=== PATIENT | female | born 1960 | race Caucasian/White ===

== ENCOUNTER → 2017-11-16 13:22 | Outpatient (CLI) | payer MEDICAID, SELFPAY ==
[2017-11-16 19:14] LABS: 24 Hour Urine Protein 190.6 mg/24HR (<150 MG/24HR); 24HR. UA Prot. Total Volume 1850 mL; Urine Protein (24 Hour) 10.3 mg/dL (<11.9)
[2017-11-20 20:07] LABS: Albumin, Ur 30.4 % (.); Alpha-1-Globulin, Ur 16.9 % (.); Beta Globulin, Ur 26.8 % (.); Gamma Globulin, Ur 13.3 % (.); M-Spike, Ur % Not Observed % (Not Observed); Protein, 24Ur 196 mg/24 hr (30-150); Testosterone, % Free 1.38 % (0.50-2.80); Testosterone, Free 0.61 ng/dL (0.10-0.85); Testosterone, Total 44 ng/dL (3-41); Total Protein, Ur 10.6 mg/dL (Not Estab.)
[2017-11-22 08:45] LABS: DHEA Sulfate 277.6 ug/dL (29.4-220.5)
[2018-02-19 12:08] LABS: Cortisol, Urinary Free 10 ug/L (Undefined)
[2018-02-19 14:21] LABS: Cortisol, Free 24Ur 16 ug/24 hr (0-50)
== END ==
PROVIDERS: Family Provider Family Medicine; PCP Family Medicine; Visit Provider Family Medicine
DX: E27.8 Other specified disorders of adrenal gland (principal)
CPT/HCPCS: 36415; 81050; 82530; 82533; 82627; 84156; 84166; 84402; 84403; 82626

== ENCOUNTER → 2017-12-09 09:39 | Outpatient (CLI) | payer MEDICAID, SELFPAY ==
--- NOTE | 2017-12-09 09:44 | RAD_ITS ---
STUDY: X-RAY CHEST REASON FOR EXAM: Female, 57 years old. Cough TECHNIQUE: Frontal and lateral views of the chest. COMPARISON: 04/15/2017. FINDINGS: The lungs are clear and expanded. There is no demonstrated pleural abnormality. Normal size heart. Normal mediastinum and davie. Normal visualized pulmonary arteries. Normal visualized aortic arch and descending thoracic aorta. Normal visualized thoracic spine. Normal visualized ribs, clavicles, and shoulders. There is no demonstrated abnormality of the visualized soft tissue structures of the upper abdomen. RAD/Chest PA and Lateral IMPRESSION: No acute cardiopulmonary disease. Electronically Signed: Billy Aquino DO at 23:59 EDT , Service support ,
== END ==
PROVIDERS: Family Provider Family Medicine; PCP Family Medicine; Visit Provider Family Medicine
DX: R11.10 Vomiting, unspecified (principal)
CPT/HCPCS: 71046

== ENCOUNTER → 2018-03-16 10:51 | Outpatient (CLI) | payer MEDICAID, SELFPAY ==
[2018-03-16 12:49] LABS: Absolute Lymphocyte Count 1.24 X10^3/ul (0.83-4.51); Absolute Neutrophil Count 3.1 X10^3/uL (2.0-7.7); Basophil# 0.01 X10^3/uL; Basophil% 0.2 % (0-1); Eosinophil# 0.11 X10^3/uL; Eosinophils% 2.2 % (0-5); Hematocrit 42.5 % (37-47); Hemoglobin 13.6 g/dl (12.0-15.0); Lymphocyte # 1.24 X10^3/ul (4.0); Lymphocyte % 25.4 % (19-41); Mean Corpuscular Hgb 26.9 pg (27.0-32.0); Mean Corpuscular Volume 84.2 fL (81-99); Mean Platelet Vol. 11.6 fl (6.2-12.0); Monocyte# 0.46 X10^3/uL; Monocyte% 9.4 % (0-10); Neutrophil # 3.07 X10^3/uL (2.7-7.7); Neutrophil % 62.8 % (47-70); Platelet Count 233 K/mm3 (150-450); RBC Distribution Width SD 42.8 fl (35.1-43.9); Red Blood Count 5.05 M/mm3 (4.2-5.4); White Blood Count 4.9 K/mm3 (4.4-11.0)
[2018-03-16 12:50] LABS: POSITIVE COUNT NO; POSITIVE DIFFERENTIAL NO; POSITIVE MORPHOLOGY NO
[2018-03-16 13:09] LABS: Hemoglobin A1c 6.4 % (4.2-6.3)
[2018-03-16 13:12] LABS: AST(SGOT) 9 U/L (15-37); Alanine Aminotransfer ALT/SGPT 21 U/L (13-56); Albumin, Serum 3.9 g/dL (3.2-5.0); Alkaline Phosphatase 82 U/L (45-117); Anion Gap 6 (5-15); BUN 17 mg/dL (7-18); BUN/Creat Ratio 19.5 RATIO (10-20); Calcium,Total 9.1 mg/dL (8.5-10.1); Chloride 99 mmol/L (98-107); Creatinine, Serum 0.87 mg/dL (0.55-1.02); EST Glomerular Filtration Rate 71 mL/min (>60); Est Glom Filt Rate - Afr Amer 86 mL/min (>60); Ferritin 31 ng/mL (8-252); Globulin 4.1 g/dL (2.2-4.2); Glucose 126 mg/dL (74-106); Magnesium 2.2 mg/dL (1.6-2.6); Potassium 3.8 mmol/L (3.5-5.1); Sodium Level 135 mmol/L (136-145); Thyroid Stim Hormone (TSH) 1.36 uIU/mL (0.358-3.74)
== END ==
PROVIDERS: Family Provider Family Medicine; PCP Family Medicine; Visit Provider Family Medicine
DX: E11.42 Type 2 diabetes mellitus with diabetic polyneuropathy (principal); D64.9 Anemia, unspecified; R25.2 Cramp and spasm
CPT/HCPCS: 36415; 80053; 82728; 83036; 83735; 84443; 85025

== ENCOUNTER → 2018-04-19 12:52 | Outpatient (CLI) | payer MEDICAID, SELFPAY ==
[2018-04-19 13:53] LABS: Absolute Lymphocyte Count 1.67 X10^3/ul (0.83-4.51); Basophil# 0.03 X10^3/uL; Basophil% 0.6 % (0-1); Eosinophil# 0.15 X10^3/uL; Eosinophils% 2.8 % (0-5); Hematocrit 41.6 % (37-47); Hemoglobin 13.3 g/dl (12.0-15.0); Lymphocyte # 1.67 X10^3/ul (4.0); Lymphocyte % 31.1 % (19-41); Mean Corpuscular Hgb 27.4 pg (27.0-32.0); Mean Corpuscular Volume 85.6 fL (81-99); Mean Platelet Vol. 11.5 fl (6.2-12.0); Monocyte# 0.48 X10^3/uL; Monocyte% 8.9 % (0-10); Neutrophil # 3.03 X10^3/uL (2.7-7.7); Neutrophil % 56.4 % (47-70); Platelet Count 251 K/mm3 (150-450); RBC Distribution Width CV 14.2 % (11.6-14.6); RBC Distribution Width SD 43.2 fl (35.1-43.9); Red Blood Count 4.86 M/mm3 (4.2-5.4); White Blood Count 5.4 K/mm3 (4.4-11.0)
[2018-04-19 13:56] LABS: POSITIVE COUNT NO; POSITIVE DIFFERENTIAL NO; POSITIVE MORPHOLOGY NO
[2018-04-19 14:13] LABS: AST(SGOT) 12 U/L (15-37); Alanine Aminotransfer ALT/SGPT 22 U/L (13-56); Albumin, Serum 3.8 g/dL (3.2-5.0); Alkaline Phosphatase 79 U/L (45-117); Anion Gap 9 (5-15); BUN 14 mg/dL (7-18); BUN/Creat Ratio 15.3 RATIO (10-20); Calcium,Total 9.2 mg/dL (8.5-10.1); Chloride 105 mmol/L (98-107); Creatinine, Serum 0.92 mg/dL (0.55-1.02); EST Glomerular Filtration Rate 67 mL/min (>60); Est Glom Filt Rate - Afr Amer 81 mL/min (>60); Free T3 2.6 pg/mL (2.18-3.98); Globulin 3.8 g/dL (2.2-4.2); Glucose 147 mg/dL (74-106); Potassium 4.1 mmol/L (3.5-5.1); Protein, Total 7.6 g/dL (6.4-8.2); Sodium Level 143 mmol/L (136-145); T4 Free Direct 0.94 ng/dL (0.76-1.46); Thyroid Stim Hormone (TSH) 0.94 uIU/mL (0.358-3.74)
[2018-04-20 16:11] LABS: DHEA Sulfate 307.2 ug/dL (29.4-220.5)
[2018-04-21 11:38] LABS: Adrenocorticotropic Hormone 26.4 pg/mL (7.2-63.3)
== END ==
PROVIDERS: Family Provider Family Medicine; PCP Family Medicine; Visit Provider Family Medicine
DX: E27.8 Other specified disorders of adrenal gland (principal); R68.89 Other general symptoms and signs
CPT/HCPCS: 36415; 80053; 82024; 82627; 84439; 84443; 84481; 85025; 82626

== ENCOUNTER → 2018-09-13 11:12 | Outpatient (CLI) | payer MEDICAID, SELFPAY ==
[2017-05-14 18:01] VITALS: BMI 34.8
[2018-09-13 12:31] LABS: Absolute Lymphocyte Count 1.45 X10^3/ul (0.83-4.51); Absolute Neutrophil Count 3.2 X10^3/uL (2.0-7.7); Basophil# 0.02 X10^3/uL; Basophil% 0.4 % (0-1); Eosinophil# 0.23 X10^3/uL; Eosinophils% 4.3 % (0-5); Hematocrit 41.2 % (37-47); Hemoglobin 13.2 g/dl (12.0-15.0); Lymphocyte # 1.45 X10^3/ul (4.0); Lymphocyte % 27.2 % (19-41); Mean Corpuscular Hgb 27.6 pg (27.0-32.0); Mean Platelet Vol. 11.2 fl (6.2-12.0); Monocyte% 7.5 % (0-10); Neutrophil # 3.23 X10^3/uL (2.7-7.7); Neutrophil % 60.6 % (47-70); Platelet Count 259 K/mm3 (150-450); RBC Distribution Width SD 43.5 fl (35.1-43.9); Red Blood Count 4.79 M/mm3 (4.2-5.4); White Blood Count 5.3 K/mm3 (4.4-11.0)
[2018-09-13 12:34] LABS: POSITIVE COUNT NO; POSITIVE DIFFERENTIAL NO; POSITIVE MORPHOLOGY NO
[2018-09-13 12:42] LABS: Erythrocyte Sedimentation Rate 26 mm/hr (0-30)
[2018-09-13 12:56] LABS: Vitamin D,25 Hydroxy 21.8 ng/mL (29.95-100.01)
[2018-09-13 12:59] LABS: ALB/GLOB Ratio 0.9 RATIO (0.9-2.4); AST(SGOT) 9 U/L (15-37); Alanine Aminotransfer ALT/SGPT 18 U/L (13-56); Albumin, Serum 3.6 g/dL (3.2-5.0); Alkaline Phosphatase 99 U/L (45-117); Anion Gap 11 (5-15); BUN 14 mg/dL (7-18); BUN/Creat Ratio 14.1 RATIO (10-20); CPK Total, Creatine Kinase 49 U/L (26-192); Calcium,Total 9.1 mg/dL (8.5-10.1); Chloride 101 mmol/L (98-107); Creatinine, Serum 0.99 mg/dL (0.55-1.02); EST Glomerular Filtration Rate 61 mL/min (>60); Est Glom Filt Rate - Afr Amer 74 mL/min (>60); Globulin 4.1 g/dL (2.2-4.2); Glucose 199 mg/dL (74-106); Potassium 3.9 mmol/L (3.5-5.1); Protein, Total 7.7 g/dL (6.4-8.2); Rheumatoid Factor < 10.0 IU/mL (<15); Sodium Level 140 mmol/L (136-145); T4 Free Direct 1.05 ng/dL (0.76-1.46)
[2018-09-15 11:59] LABS: ANTINUCLEAR ANTIBODIES DIRECT Negative (Negative)
--- OUTSIDE RECORDS SUMMARY | 2018-12-16 00:35 | XMS RPT_ITS ---
:1960 Author Organization OHIP Care Team Providers Name Role Phone ALISSON BARRERA Attending Unavailable ALISSON BARRERA Referring Unavailable SATURNINO MARION Referring Unavailable ALISSON BARRERA Referring Unavailable Saturnino aMrion Attending Unavailable Saturnino Marion Primary Care Unavailable Saturnino Marion Attending Unavailable Saturnino Marion Primary Care Unavailable Hernando Rodriguez Attending Unavailable Saturnino Marion Primary Care Unavailable Saturnino Marion Attending Unavailable Saturnino Marion Primary Care Unavailable Saturnino Marion Attending Unavailable Saturnino Marion Referring Unavailable Saturnino Marion Primary Care Unavailable PROBLEMS PROBLEMS DATE TYPE CONDITION / CODE ATTENDING STATUS SOURCE 05/25/2018 Active Abnormal weight gain NA Active [facility] / R63.5(ICD-10) [facility] Main [place] Repository 05/25/2018 Active Hirsutism / NA Active [facility] L68.0(ICD-10) [facility] Main [place] Repository 04/19/2018 Unknown E27.8 - Other Saturnino Marion Active [facility] specified disorders Community of adrenal gland / Hospital E27.8(ICD-10) Repository 04/19/2018 Unknown R68.89 - Other Saturnino Marion Active [facility] symptoms [facility] Community signs / Hospital R68.89(ICD-10) Repository 04/19/2018 Unknown 780.99 - Other Saturnino Marion Active [facility] general symptoms / Community 780.99(ICD-9) Hospital Repository 03/16/2018 Unknown E11.42 - Type 2 Saturnino Marion Active [facility] diabetes mellitus Community with diabetic Hospital polyneuropathy / Repository E11.42(ICD-10) 03/16/2018 Unknown D64.9 - Anemia, Saturnino Marion Active [place] unspecified / Community D64.9(ICD-10) Hospital Repository 03/16/2018 Unknown E11.65 - Type 2 Saturnino Marion Active [facility] diabetes mellitus Community with hyperglycemia / Hospital E11.65(ICD-10) Repository PROCEDURES PROCEDURES No Procedure Records FoundRESULTS RESULTS CBC W/DIFF, AUTOMATED Collected: 09/13/2018 Status: F Source: [place] 11:14 AM [facility] REPOSITORY TYPE CODE TESTS RESULT OUT OF RANGE REFERENCE UNITS LAB L100.1000 4.4-11.0 K/mm3 Normal WBC 5.3 LAB L100.1200 4.2-5.4 M/mm3 Normal RBC 4.79 LAB L100.1300 12.0-15.0 g/dl Normal HGB 13.2 LAB L100.1400 37-47 % Normal HCT 41.2 LAB L100.1500 81-99 fL Normal MCV 86.0 LAB L100.1600 27.0-32.0 pg Normal MCH 27.6 LAB L100.1700 32-36 g/gl Normal MCHC 32.0 LAB L100.1810 11.6-14.6 % Normal RDW CV 14.0 LAB L100.1820 35.1-43.9 fl Normal RDW SD 43.5 LAB L100.1900 150-450 K/mm3 Normal PLT 259 LAB L100.2000 6.2-12.0 fl Normal MPV 11.2 LAB L100.2100 47-70 % Normal NEUT% 60.6 LAB L100.2200 19-41 % Normal LY% 27.2 LAB L100.2300 0-10 % Normal MONO% 7.5 LAB L100.2400 0-5 % Normal EO% 4.3 LAB L100.2500 0-1 % Normal BASO% 0.4 LAB L100.2550 0.0-0.9 % Normal IM GRAN % 0.000 Result Comment: IG% - Immature Granulocytes (promyelocytes, myelocytes and metamyelocytes) > 1% indicates that a LEFT SHIFT is Present. LAB L100.2620 2.0-7.7 X10 3/uL Normal Absolute Neut 3.2 LAB L100.2720 0.83-4.51 X10 3/ul Normal Absolute Lymph 1.45 Performed By: #### L100.0100, L101.9900, L506.1000, L500.4050, L501.3620, L501.9520, L505.7010, L506.0400 #### [facility] [address] [place], [address] #### L3100.5475 #### [facility] (refer to report for specific site) refer to report for address and phone number ERYTHROCYTE SED RATE Collected: 09/13/2018 Status: F Source: [place] 11:14 AM [facility] REPOSITORY TYPE CODE TESTS RESULT OUT OF RANGE REFERENCE UNITS LAB L102.0000 0-30 mm/hr Normal SED RATE 26 Performed By: #### L100.0100, L101.9900, L506.1000, L500.4050, L501.3620, L501.9520, L505.7010, L506.0400 #### [facility] [address] [place], [place], [address] #### L3100.5475 #### [facility] (refer to report for specific site) refer to report for address and phone number VITAMIN D,25 HYDROXY Collected: 09/13/2018 Status: F Source: [place] 11:14 AM [facility] REPOSITORY TYPE CODE TESTS RESULT OUT OF REFERENCE UNITS RANGE LAB L506.1000 29.95-100.01 ng/mL Low Vitamin D 21.8 25-OH Result Comment: Vitamin D 25(OH) Status Range Deficiency <20 ng/mL (50nmol/L) Insuffciency 20 - 30 ng/mL (50 - 75 nmol/L) Sufficiency 30 - 100 ng/mL (75 - 250 nmol/L) Toxicity >100 ng/mL (>250 nmol/L) Performed By: #### L100.0100, L101.9900, L506.1000, L500.4050, L501.3620, L501.9520, L505.7010, L506.0400 #### [facility] [address] [place], [address] #### L3100.5475 #### [facility] (refer to report for specific site) refer to report for address and phone number COMPREHENSIVE METABOLIC Collected: 09/13/2018 Status: F Source: [facility] 11:14 AM [facility] REPOSITORY TYPE CODE TESTS RESULT OUT OF RANGE REFERENCE UNITS LAB L501.0100 74-106 mg/dL High GLU 199 Result Comment: Fasting Glucose result greater than or equal to 126 mg/dL suggests DIABETES MELLITUS per A.D.A. criteria. Please note revised GLUCOSE reference range effective 2017. LAB L501.1000 7-18 mg/dL Normal BUN 14 LAB L501.1100 0.55-1.02 mg/dL Normal CREAT,SERUM 0.99 Result Comment: The validity of the calculated GFR AND GFRAA in patients over 70 years has not been determined. Clinical correlation is essential. LAB L501.1110 >60 mL/min Normal EST GFR 61 Result Comment: Non- GFR Calc LAB L501.1115 >60 mL/min Normal EST GFR - AA 74 Result Comment: GFR Calc LAB L501.1300 10-20 RATIO Normal BUN/CRE 14.1 LAB L501.1500 6.4-8.2 g/dL T Normal PROT 7.7 LAB L501.1800 3.2-5.0 g/dL Normal ALB 3.6 LAB L501.1950 2.2-4.2 g/dL Normal GLOB 4.1 LAB L501.2000 0.9-2.4 RATIO Normal A/G 0.9 LAB L501.2200 8.5-10.1 mg/dL CA Normal 9.1 LAB L501.4100 15-37 U/L Low AST 9 LAB L501.4305 45-117 U/L Normal ALK P 99 LAB L501.4405 13-56 U/L Normal ALT 18 LAB L501.4600 0.20-1.00 mg/dL T Normal BILI 0.40 LAB L501.5300 136-145 mmol/L NA Normal 140 LAB L501.5600 3.5-5.1 mmol/L K Normal 3.9 LAB L501.5900 98-107 mmol/L CL Normal 101 LAB L501.6100 21.0-32.0 mmol/L Normal CO2 28.0 LAB L501.6200 5-15 Normal GAP 11 Performed By: #### L100.0100, L101.9900, L506.1000, L500.4050, L501.3620, L501.9520, L505.7010, L506.0400 #### [facility] [address] [place], [place], [id number] #### L3100.5475 #### [facility] (refer to report for specific site) refer to report for address and phone number CPK TOTAL, CREATINE Collected: 09/13/2018 Status: F Source: [place] 11:14 AM [facility] REPOSITORY TYPE CODE TESTS RESULT OUT OF RANGE REFERENCE UNITS LAB L501.3620 26-192 U/L Normal CPK TOTAL 49 Performed By: #### L100.0100, L101.9900, L506.1000, L500.4050, L501.3620, L501.9520, L505.7010, L506.0400 #### [facility] [address] [place] [address], [id number] #### L3100.5475 #### [facility] (refer to report for specific site) refer to report for address and phone number THYROID STIM HORMONE Collected: 09/13/2018 Status: F Source: [place] (TSH) 11:14 AM [facility] REPOSITORY TYPE CODE TESTS RESULT OUT OF RANGE REFERENCE UNITS LAB L501.9520 0.358-3.74 uIU/mL Normal TSH 1.00 Performed By: #### L100.0100, L101.9900, L506.1000, L500.4050, L501.3620, L501.9520, L505.7010, L506.0400 #### [facility] [place], [place], [id number] #### L3100.5475 #### [facility] (refer to report for specific site) refer to report for address and phone number RHEUMATOID FACTOR Collected: 09/13/2018 Status: F Source: [place] 11:14 AM [facility] REPOSITORY TYPE CODE TESTS RESULT OUT OF RANGE REFERENCE UNITS LAB L505.7010 <15 IU/mL Normal RHEUMATOID FAC < 10.0 Performed By: #### L100.0100, L101.9900, L506.1000, L500.4050, L501.3620, L501.9520, L505.7010, L506.0400 #### [facility] [facility] [place], [address] #### L3100.5475 #### [facility] (refer to report for specific site) refer to report for address and phone number T4 FREE DIRECT Collected: 09/13/2018 Status: F Source: [place] 11:14 AM [facility] REPOSITORY TYPE CODE TESTS RESULT OUT OF RANGE REFERENCE UNITS LAB L506.0400 0.76-1.46 ng/dL Normal T4 FREE 1.05 DIRECT Performed By: #### L100.0100, L101.9900, L506.1000, L500.4050, L501.3620, L501.9520, L505.7010, L506.0400 #### [facility] [address] [place] [address]. [place], [address] #### L3100.5475 #### [facility] (refer to report for specific site) refer to report for address and phone number ANTINUCLEAR ANTIBODIES Collected: 09/13/2018 Status: F Source: [place] DIRECT 11:14 AM [facility] REPOSITORY TYPE CODE TESTS RESULT OUT OF RANGE REFERENCE UNITS LAB L3100.5475 Negative Normal Negative KRISTIN-DIRECT Result Comment: Performed at: [facility] [id number] Whiskey Regauger: Tommy Moss PhD, Phone: [phone] Performed By: #### L100.0100, L101.9900, L506.1000, L500.4050, L501.3620, L501.9520, L505.7010, L506.0400 #### [facility] [address] [place], [address] #### L3100.5475 #### [facility] (refer to report for specific site) refer to report for address and phone number POTASSIUM Collected: 06/14/2018 Status: F Source: [place] 12:20 PM [facility] REPOSITORY TYPE CODE TESTS RESULT OUT OF REFERENCE UNITS RANGE LAB K 3.7-5.1 mmol/L Potassium 4.5 Performed By: #### K1 #### [facility] [address] [place], [place] [address] PERIOD / VOLUME Collected: 05/27/2018 Status: F Source: [place] 6:00 AM [facility] REPOSITORY TYPE CODE TESTS RESULT OUT OF REFERENCE UNITS RANGE LAB PER hr Period 24 LAB VOL mL Volume 1852 LAB COLSDT Collection Start 828 Date LAB COLSTM Collection Start 0600 Time LAB COLEDT Collection End 829 Date LAB COLETM Collection End 0600 Time Performed By: #### PV #### [facility] [address] [place], [place] [address] #### UFRCRT #### [facility] [address] [place] [address] [phone] FREE CHRIST, UR Collected: 05/27/2018 Status: F Source: [place] LCMSMS 6:00 AM [facility] REPOSITORY TYPE CODE TESTS RESULT OUT OF REFERENCE UNITS RANGE LAB UCORDL mg/dL UR, Creatinine mg/dL 117 LAB UCORDY 500-1400 mg/d High UR,Creatinine 2167 mg/day LAB UFCUGL ug/L UR [facility] ug/L 10.30 LAB TUCORF hr Collect Lgth, UFRCRT 24 LAB VUCORF mL Total Volume, UFRCRT 1852 LAB UFCUGD <=45.0 ug/d UR [facility] ug/d 19.1 LAB UFCUGG ug/g HEAD CUSTODIAN UR Cortisol ug/g 8.80 adjunct art history instructor Result Comment: (NOTE) Reference Interval: Cortisol ug/g adjunct art history instructor Female Prepubertal: Less than 25 ug/g adjunct art history instructor 18 years and older: Less than 24 ug/g adjunct art history instructor : Less than 59 ug/g adjunct art history instructor Male Prepubertal: Less than 25 ug/g adjunct art history instructor 18 years and older: Less than 32 ug/g adjunct art history instructor LAB UFCINT UR [facility] Interp SEE NOTE Result Comment: (NOTE) INTERPRETIVE INFORMATION: Cortisol Urine Free by LC-MS/MS The optimal specimen for this testing is a 24-hour urine collection. Mass per day calculations are not reported for the following specimen types: a random collection, a collection with duration of less than 20 hours, a collection with duration of greater than 28 hours, or a collection with total volume less than 400 mL or greater than 5000 mL. Ratios to creatinine may be useful for these evaluations. Baseline urinary free cortisol excretion less than 5 ug/d may be consistent with adrenal insufficiency. Access complete set of age- and/or gender-specific reference intervals for this test in the [facility] Test Directory ([facility]). Test developed and characteristics determined by [facility]. See Compliance Statement B: [facility]/CS Performed by [facility], [address] [place] [id number] www.[facility], Obed Riddle MD, Lab. Director Performed By: #### PV #### [facility] [address] [address] #### UFRCRT #### [facility] [address] [place] [address] [phone] CORTISOL, SALIVA Collected: 05/26/2018 Status: F Source: [place] 11:00 PM [facility] REPOSITORY TYPE CODE TESTS RESULT OUT OF REFERENCE UNITS RANGE LAB SCOR ug/dL Cortisol, 0.026 Saliva Result Comment: (NOTE) INTERPRETIVE INFORMATION: Cortisol, Saliva Effective 10/20/2005 For collection at 2300 hr. the normal cortisol concentration is less than 0.112 ug/dL. Patients with Cushings Syndrome have concentrations of 0.112 ug/dL or greater. a.m. (5458-1025) p.m. (noon-1800) Males 2.5-7 years 0.034-0.645 ug/dL 0.053-0.607 ug/dL 8-11 years 0.084-0.839 ug/dL less than 0.215 ug/dL 12-18 years 0.021-0.883 ug/dL less than 0.259 ug/dL 19-30 years 0.112-0.743 ug/dL less than 0.308 ug/dL 31-50 years 0.122-1.551 ug/dL less than 0.359 ug/dL 51 and older 0.112-0.812 ug/dL less than 0.228 ug/dL Females 2.5-7 years 0.034-0.645 ug/dL 0.053-0.607 ug/dL 8-11 years 0.084-0.839 ug/dL less than 0.215 ug/dL 12-18 years 0.021-0.883 ug/dL less than 0.259 ug/dL 19-30 years 0.272-1.348 ug/dL less than 0.359 ug/dL 31-50 years 0.094-1.515 ug/dL less than 0.181 ug/dL 51 and older 0.149-0.739 ug/dL 0.022-0.254 ug/dL Performed by [facility], [address] [place] [id number] www.[facility], Obed Riddle MD, Lab. Director Performed By: #### SCORT #### [facility] [address] [place] [phone] CORTISOL, SALIVA Collected: 05/25/2018 Status: F Source: [place] 11:00 PM [facility] [place] REPOSITORY TYPE CODE TESTS RESULT OUT OF REFERENCE UNITS RANGE LAB SCOR ug/dL Cortisol, 0.050 Saliva Result Comment: (NOTE) INTERPRETIVE INFORMATION: Cortisol, Saliva Effective 10/20/2005 For collection at 2300 hr. the normal cortisol concentration is less than 0.112 ug/dL. Patients with Cushings Syndrome have concentrations of 0.112 ug/dL or greater. a.m. (4497-7422) p.m. (noon-1800) Males 2.5-7 years 0.034-0.645 ug/dL 0.053-0.607 ug/dL 8-11 years 0.084-0.839 ug/dL less than 0.215 ug/dL 12-18 years 0.021-0.883 ug/dL less than 0.259 ug/dL 19-30 years 0.112-0.743 ug/dL less than 0.308 ug/dL 31-50 years 0.122-1.551 ug/dL less than 0.359 ug/dL 51 and older 0.112-0.812 ug/dL less than 0.228 ug/dL Females 2.5-7 years 0.034-0.645 ug/dL 0.053-0.607 ug/dL 8-11 years 0.084-0.839 ug/dL less than 0.215 ug/dL 12-18 years 0.021-0.883 ug/dL less than 0.259 ug/dL 19-30 years 0.272-1.348 ug/dL less than 0.359 ug/dL 31-50 years 0.094-1.515 ug/dL less than 0.181 ug/dL 51 and older 0.149-0.739 ug/dL 0.022-0.254 ug/dL Performed by [facility], [address] [place] [id number] www.[facility], Obed Riddle MD, Lab. Director Performed By: #### SCORT #### [facility] [address] [place] [address] [phone] DHEA-S Collected: 05/25/2018 Status: F Source: [place] 9:33 AM [facility] REPOSITORY TYPE CODE TESTS RESULT OUT OF REFERENCE UNITS RANGE LAB DHEAS 18.9-205.0 ug/dL High DHEA-S 327.8 Result Comment: Reference ranges are age and gender specific. For additional information, reference range tables can be found in the laboratory test directory. The normal values are based on the following source: Dehydroepiandrosterone sulfate (DHEA S) [package insert V 17.0 Greek]. [facility], [place], [place]: April 2013. Performed By: #### DHEAS, TESTO #### [facility] [address] [place], [place] [address] TESTOSTERONE Collected: 05/25/2018 Status: F Source: [place] 9:33 AM [facility] REPOSITORY TYPE CODE TESTS RESULT OUT OF REFERENCE UNITS RANGE LAB TESTO <40 ng/dL Testosterone High 47 Performed By: #### DHEAS, TESTO #### [facility] [address] [place] [id number] PROGRESS Observed: 05/24/2018 Status: COMPLETED Source: [place] 1:08 PM [facility] REPOSITORY HNO ID: [id number] Author: Alisson Barrera Service: (none) Author Type: Physician Type: Progress Notes Filed: 05/24/2018 1:40 PM Note Text: CONSULTING PHYSICIAN: Self My final recommendations will be communicated back to the requesting physician by way of shared Medical record or a letter via U.[place] mail Subjective: Светлана Alfaro is a 57 year old female here to establish care regarding weight gain and adrenal issues Patient reports weight fluctuation for the past 1 year She admits to 75 lbs weight gain during the past few months No changes in diet or physical activity recently No changes in appetite Her diet consists of small portion sizes. Physical activity- walks 1 mile 2-3 days a week Patient was diagnosed with type 2 diabetes few years ago. She was initially on metformin and victoza Prandial Insulin was added 1 year ago She has been on lantus for the past few years Currently on lantus and humalog General symptoms: Weight change: see above +facial acne Menstrual irregularities: post menopause + hirsutism- upper lip and side of the face She shaves every other day No striae PCP checked labs A1c-6.6 TSH and free T3 were normal It seems that DHEA-S and ACTH were ordered but no results were available REVIEW OF SYSTEMS: GENERAL: Fever - No Changes in weight - see above NEUROLOGICAL: Numbness, tingling or sensation of pins and needles - No Headaches-No HEAD, EYES, EARS, NOSE, AND THROAT: Changes in hearing - No Changes in vision - No CARDIOVASCULAR: Chest pain or pressure - No Palpitations - No RESPIRATORY: Cough - No Wheezing - No Shortness of breath - No GASTROINTESTINAL: Abdominal discomfort - No Nausea - No Vomiting - No EXTREMITY: Edema (swelling) - No Claudication-No MUSCULOSKELETAL: Muscle pain or ache - No Arthralgia-No Skin: Rash - No Pruritus-No ENDOCRINE: Diabetes - No Thyroid disorder - No PSYCHOLOGICAL: Depression - No ALLERGIES: ALLERGIES No Known Allergies MEDICATIONS: No current outpatient prescriptions on file prior to visit. No current facility-administered medications on file prior to visit. PAST MEDICAL HISTORY: PAST MEDICAL HISTORY Diagnosis Date - Hypertension - MARITZA (obstructive sleep apnea) - Type 2 diabetes mellitus (HCC) PAST SURGICAL HISTORY: PAST SURGICAL HISTORY Procedure Laterality Date - TUBAL LIGATION HX FAMILY HISTORY: FAMILY HISTORY Problem Relation Age of Onset - other (pre-diabetes) Mother cancer - Diabetes Maternal Grandmother SOCIAL HISTORY: Social History Marital status: Spouse name: Years of education: Number of children: Social History Main Topics Smoking status: Former Smoker Packs/day: 0.00 Years: 0.00 Smokeless tobacco: Never Used Comment: quit 20 years ago Alcohol use: No Drug use: No PHYSICAL EXAM: BP 124/77 (BP Site: Left Arm, BP Position: Sitting, BP Cuff Size: Large Adult) Pulse 94 Ht 168 cm (5' 6.14) Wt 124.3 kg (274 lb) SpO2 96% BMI 44.04 kg/m? Last 3 Encounter Wt Readings: Date: Wt: 05/24/2018 124.3 kg (274 lb) General: Alert and oriented x3, no acute distress, no martin facies -mild acne, no hirsutism since she shave this morning Eyes: Anicteric sclera. Pupils are equally round. Extraocular movements are intact. Mucous membranes moist, no erythema Neck supple, no cervical lymphadenopathy Thyroid: normal size, normal texture, no palpable nodules Lungs: Breathing unlabored, clear to auscultation. No wheezing, rhonchi, rales Heart regular rate and rhythm, no murmer Musculoskeletal: Muscular strength intact, No joint swelling, deformity, or tenderness Neuro: Gait normal. Sensation grossly intact. Normal DTR's at patella Abdomen:Normal abdominal sounds, non tender to palpation, no masses Extremities: without edema, good peripheral pulses Skin: no rashes/ erythema, no striae noted LAB: Reviewed her outside records ASSESSMENT/PLAN: 1) Weight gain 2) Obesity/BMI 44 3) hirsutism 4) diabetes No signs suggestive of arin's syndrome Given the significant weight gain, will check 24 hour UFC Also obtain saliva cortisol level Check DHEA-S and testosterone level Last A1c is 6.6, diabetes is well controlled Diabetes mgmt per PCP I will notify the patient once the labs become available Further mgmt and follow up to be determined based on labs Alisson Barrera MD 05/24/18 CNOV Observed: 05/24/2018 Status: COMPLETED Source: [place] 12:45 PM [facility] [place] REPOSITORY Office Visit (ENDMED) СВЕТЛАНА ALFARO ([id number]) 1960 F Date Time Provider Department 05/24/18 12:45 PM ALISSON BARRERA During your visit today, we recorded the following information about you: Pulse Blood pressure Weight Height 94/minute 124/77 124.3 kg 1.68 m Alisson Barrera MD 05/24/2018 1:40 PM Signed CONSULTING PHYSICIAN: Self My final recommendations will be communicated back to the requesting physician by way of shared Medical record or a letter via U.S mail Subjective: Светлана Alfaro is a 57 year old female here to establish care regarding weight gain and adrenal issues Patient reports weight fluctuation for the past 1 year She admits to 75 lbs weight gain during the past few months No changes in diet or physical activity recently No changes in appetite Her diet consists of small portion sizes. Physical activity- walks 1 mile 2-3 days a week Patient was diagnosed with type 2 diabetes few years ago. She was initially on metformin and victoza Prandial Insulin was added 1 year ago She has been on lantus for the past few years Currently on lantus and humalog General symptoms: Weight change: see above +facial acne Menstrual irregularities: post menopause + hirsutism- upper lip and side of the face She shaves every other day No striae PCP checked labs A1c-6.6 TSH and free T3 were normal It seems that DHEA-S and ACTH were ordered but no results were available REVIEW OF SYSTEMS: GENERAL: Fever - No Changes in weight - see above NEUROLOGICAL: Numbness, tingling or sensation of pins and needles - No Headaches-No HEAD, EYES, EARS, NOSE, AND THROAT: Changes in hearing - No Changes in vision - No CARDIOVASCULAR: Chest pain or pressure - No Palpitations - No RESPIRATORY: Cough - No Wheezing - No Shortness of breath - No GASTROINTESTINAL: Abdominal discomfort - No Nausea - No Vomiting - No EXTREMITY: Edema (swelling) - No Claudication-No MUSCULOSKELETAL: Muscle pain or ache - No Arthralgia-No Skin: Rash - No Pruritus-No ENDOCRINE: Diabetes - No Thyroid disorder - No PSYCHOLOGICAL: Depression - No ALLERGIES: ALLERGIES No Known Allergies MEDICATIONS: No current outpatient prescriptions on file prior to visit. No current facility-administered medications on file prior to visit. PAST MEDICAL HISTORY: PAST MEDICAL HISTORY Diagnosis Date - Hypertension - MARITZA (obstructive sleep apnea) - Type 2 diabetes mellitus (HCC) PAST SURGICAL HISTORY: PAST SURGICAL HISTORY Procedure Laterality Date - TUBAL LIGATION HX FAMILY HISTORY: FAMILY HISTORY Problem Relation Age of Onset - other (pre-diabetes) Mother cancer - Diabetes Maternal Grandmother SOCIAL HISTORY: Social History Marital status: Spouse name: Years of education: Number of children: Social History Main Topics Smoking status: Former Smoker Packs/day: 0.00 Years: 0.00 Smokeless tobacco: Never Used Comment: quit 20 years ago Alcohol use: No Drug use: No PHYSICAL EXAM: BP 124/77 (BP Site: Left Arm, BP Position: Sitting, BP Cuff Size: Large Adult) Pulse 94 Ht 168 cm (5' 6.14) Wt 124.3 kg (274 lb) SpO2 96% BMI 44.04 kg/m? Last 3 Encounter Wt Readings: Date: Wt: 05/24/2018 124.3 kg (274 lb) General: Alert and oriented x3, no acute distress, no martin facies -mild acne, no hirsutism since she shave this morning Eyes: Anicteric sclera. Pupils are equally round. Extraocular movements are intact. Mucous membranes moist, no erythema Neck supple, no cervical lymphadenopathy Thyroid: normal size, normal texture, no palpable nodules Lungs: Breathing unlabored, clear to auscultation. No wheezing, rhonchi, rales Heart regular rate and rhythm, no murmer Musculoskeletal: Muscular strength intact, No joint swelling, deformity, or tenderness Neuro: Gait normal. Sensation grossly intact. Normal DTR's at patella Abdomen:Normal abdominal sounds, non tender to palpation, no masses Extremities: without edema, good peripheral pulses Skin: no rashes/ erythema, no striae noted LAB: Reviewed her outside records ASSESSMENT/PLAN: 1) Weight gain 2) Obesity/BMI 44 3) hirsutism 4) diabetes No signs suggestive of arin's syndrome Given the significant weight gain, will check 24 hour UFC Also obtain saliva cortisol level Check DHEA-S and testosterone level Last A1c is 6.6, diabetes is well controlled Diabetes mgmt per PCP I will notify the patient once the labs become available Further mgmt and follow up to be determined based on labs Alisson Barrera MD 05/24/18 Alisson Barrera MD 05/24/2018 1:22 PM Addendum Get the blood test drawn Then do the saliva collection and 24 hour urine test I will notify you once the labs become available Follow up to be determined based on the blood test Referring Provider: SELF [200] Allergies As of Date: 05/24/2018 (No Known Allergies) Date Reviewed: 05/24/2018 Reviewed by: Alisson Barrera - Fully Assessed Reason for Visit: Consult [173] Primary Visit Diagnosis:Abnormal weight gain [R63.5] Other Visit Diagnoses:Hirsutism [L68.0] Morbid obesity (HCC) [E66.01] Controlled type 2 diabetes mellitus without complication, with long-term current use of insulin (HCC) [E11.9, Z79.4] Order(s):CORTISOL SALIVA [SQSCORT] Order #: [id number] FUTURE FREE CORTISOL 24 HR UR [6982371] Order #: [id number] TESTOSTERONE TOTAL [SQTESTO] Order #: [id number] FUTURE DHEA-S BLD [SQDHEAS] Order #: [id number] FUTURE Prescriptions as of 05/24/2018 Sig: HYDROCHLOROTHIAZIDE 25 MG TAB* Take 25 mg by mouth once monie* AMLODIPINE 10 MG TABLET Take 10 mg by mouth once monie* METFORMIN ORAL Take 1,000 mg by mouth twice * LEVOCETIRIZINE 5 MG TABLET Take 5 mg by mouth once daily. DOXEPIN 50 MG CAPSULE Take 50 mg by mouth daily at * INSULIN GLARGINE (U-100) 100 * Inject 20 Units subcutaneousl* DULOXETINE 30 MG CAPSULE,RIA* Take 30 mg by mouth twice blu* GABAPENTIN 600 MG TABLET Take 600 mg by mouth once blu* HUMALOG KWIKPEN INSULIN SUBCU* Inject subcutaneously once da* PIOGLITAZONE 45 MG TABLET Take 45 mg by mouth once monie* MAGNESIUM OXIDE 400 MG CAPSULE Take 400 mg by mouth twice da* LIRAGLUTIDE 0.6 MG/0.1 ML (18* Inject 1.8 mg subcutaneously * HYDROXYZINE PAMOATE 25 MG CAP* Take 25 mg by mouth as needed. Problem List As Of Date 05/24/2018 Noted Resolved Morbid obesity (HCC) [E66.01] INVALID FOR* Controlled type 2 diabetes mellitus without com*INVALID FOR* Other instructions from your clinician: Get the blood test drawn Then do the saliva collection and 24 hour urine test I will notify you once the labs become available Follow up to be determined based on the blood test Encounter Status:Closed by ALISSON BARRERA DO on 05/24/18 CBC W/DIFF, AUTOMATED Collected: 04/19/2018 Status: F Source: ANNETTE 12:56 PM [facility] REPOSITORY Order Comment: Order Date: 04/19/18 Order Info: 0184-1 - CBCD TYPE CODE TESTS RESULT OUT OF RANGE REFERENCE UNITS LAB L100.1000 4.4-11.0 K/mm3 Normal WBC 5.4 LAB L100.1200 4.2-5.4 M/mm3 Normal RBC 4.86 LAB L100.1300 12.0-15.0 g/dl Normal HGB 13.3 LAB L100.1400 37-47 % Normal HCT 41.6 LAB L100.1500 81-99 fL Normal MCV 85.6 LAB L100.1600 27.0-32.0 pg Normal MCH 27.4 LAB L100.1700 32-36 g/gl Normal MCHC 32.0 LAB L100.1810 11.6-14.6 % Normal RDW CV 14.2 LAB L100.1820 35.1-43.9 fl Normal RDW SD 43.2 LAB L100.1900 150-450 K/mm3 Normal PLT 251 LAB L100.2000 6.2-12.0 fl Normal MPV 11.5 LAB L100.2100 47-70 % Normal NEUT% 56.4 LAB L100.2200 19-41 % Normal LY% 31.1 LAB L100.2300 0-10 % Normal MONO% 8.9 LAB L100.2400 0-5 % Normal EO% 2.8 LAB L100.2500 0-1 % Normal BASO% 0.6 LAB L100.2550 0.0-0.9 % Normal IM GRAN % 0.200 Result Comment: IG% - Immature Granulocytes (promyelocytes, myelocytes and metamyelocytes) > 1% indicates that a LEFT SHIFT is Present. LAB L100.2620 2.0-7.7 X10 3/uL Normal Absolute Neut 3.0 LAB L100.2720 0.83-4.51 X10 3/ul Normal Absolute Lymph 1.67 Performed By: #### L100.0100, L500.4050, L501.99024, L501.9520, L506.0400 #### [facility] [address] [place], [address] #### L3300.1000, L3300.1500 #### [facility] (refer to report for specific site) refer to report for address and phone number COMPREHENSIVE METABOLIC Collected: 04/19/2018 Status: F [facility] REPOSITORY Order Comment: Order Date: 04/19/18 Order Info: 0786-1 - CMP Order Info: 3051-0 - T3F Order Info: 3016-3 - TSH Order Info: 3024-7 - T4F Has Patient had X-rays with Contrast this admission? N TYPE CODE TESTS RESULT OUT OF RANGE REFERENCE UNITS LAB L501.0100 74-106 mg/dL High GLU 147 Result Comment: Fasting Glucose result greater than or equal to 126 mg/dL suggests DIABETES MELLITUS per A.D.A. criteria. Please note revised GLUCOSE reference range effective 2017. LAB L501.1000 7-18 mg/dL Normal BUN 14 LAB L501.1100 0.55-1.02 mg/dL Normal CREAT,SERUM 0.92 Result Comment: The validity of the calculated GFR AND GFRAA in patients over 70 years has not been determined. Clinical correlation is essential. LAB L501.1110 >60 mL/min Normal EST GFR 67 Result Comment: Non- GFR Calc LAB L501.1115 >60 mL/min Normal EST GFR - AA 81 Result Comment: GFR Calc LAB L501.1300 10-20 RATIO Normal BUN/CRE 15.3 LAB L501.1500 6.4-8.2 g/dL T Normal PROT 7.6 LAB L501.1800 3.2-5.0 g/dL Normal ALB 3.8 LAB L501.1950 2.2-4.2 g/dL Normal GLOB 3.8 LAB L501.2000 0.9-2.4 RATIO Normal A/G 1.0 LAB L501.2200 8.5-10.1 mg/dL CA Normal 9.2 LAB L501.4100 15-37 U/L Low AST 12 LAB L501.4305 45-117 U/L Normal ALK P 79 LAB L501.4405 13-56 U/L Normal ALT 22 LAB L501.4600 0.20-1.00 mg/dL T Normal BILI 0.20 LAB L501.5300 136-145 mmol/L NA Normal 143 LAB L501.5600 3.5-5.1 mmol/L K Normal 4.1 LAB L501.5900 98-107 mmol/L CL Normal 105 LAB L501.6100 21.0-32.0 mmol/L Normal CO2 29.0 LAB L501.6200 5-15 Normal GAP 9 Performed By: #### L100.0100, L500.4050, L501.80789, L501.9520, L506.0400 #### [facility] [address] [place], [address] #### L3300.1000, L3300.1500 #### [facility] (refer to report for specific site) refer to report for address and phone number FREE T3 Collected: 04/19/2018 Status: F Source: ROMAY[place] 12:56 PM [facility] REPOSITORY Order Comment: Order Date: 04/19/18 Order Info: 0786-1 - CMP Order Info: 3051-0 - T3F Order Info: 3016-3 - TSH Order Info: 3024-7 - T4F Has Patient had X-rays with Contrast this admission? N TYPE CODE TESTS RESULT OUT OF RANGE REFERENCE UNITS LAB L501.81067 2.18-3.98 pg/mL Normal FREE T3 2.6 Performed By: #### L100.0100, L500.4050, L501.06367, L501.9520, L506.0400 #### [facility] [address] [place], [address] #### L3300.1000, L3300.1500 #### [facility] (refer to report for specific site) refer to report for address and phone number THYROID STIM HORMONE Collected: 04/19/2018 Status: F Source: ANNETTE (TSH) 12:56 PM [facility] REPOSITORY Order Comment: Order Date: 04/19/18 Order Info: 0786-1 - CMP Order Info: 3051-0 - T3F Order Info: 3016-3 - TSH Order Info: 3024-7 - T4F Has Patient had X-rays with Contrast this admission? N TYPE CODE TESTS RESULT OUT OF RANGE REFERENCE UNITS LAB L501.9520 0.358-3.74 uIU/mL Normal TSH 0.94 Performed By: #### L100.0100, L500.4050, L501.91217, L501.9520, L506.0400 #### [facility] [address] [place], [address] #### L3300.1000, L3300.1500 #### [facility] (refer to report for specific site) refer to report for address and phone number T4 FREE DIRECT Collected: 04/19/2018 Status: F Source: ANNETTE 12:56 PM [facility] REPOSITORY Order Comment: Order Date: 04/19/18 Order Info: 0786 - CMP Order Info: 1-0 - T3F Order Info: 3 - TSH Order Info: 7 - T4F Has Patient had X-rays with Contrast this admission? N TYPE CODE TESTS RESULT OUT OF RANGE REFERENCE UNITS LAB L506.0400 0.76-1.46 ng/dL Normal T4 FREE 0.94 DIRECT Performed By: #### L100.0100, L500.4050, L501.73658, L501.9520, L506.0400 #### [facility] [address] [facility] [address] [place], [address] #### L3300.1000, L3300.1500 #### [facility] (refer to report for specific site) refer to report for address and phone number ADRENOCORTICOTROPIC HORMONE Collected: Status: F Source: ANNETTE 04/19/2018 12:56 PM [facility] REPOSITORY Order Comment: Order Date: 04/19/18 Order Info: 2141-0 - ACTH Order Info: 2191-5 - DHEA-S Has Patient had X-rays with Contrast this admission? N Has Patient had Radioactive Injection for X-ray?: N TYPE CODE TESTS RESULT OUT OF RANGE REFERENCE UNITS LAB L3300.1000 7.2-63.3 pg/mL Normal ACTH 4440 26.4 Result Comment: ACTH reference interval for samples collected between 7 and 10 AM. Performed at: [address] [id number] [place] Regauger: Tommy Moss PhD, Phone: [phone] Performed By: #### L100.0100, L500.4050, L501.00235, L501.9520, L506.0400 #### [facility] [address] [place] [address]. [place], [address] #### L3300.1000, L3300.1500 #### [facility] (refer to report for specific site) refer to report for address and phone number DHEA SULFATE Collected: 04/19/2018 Status: F Source: [place] 12:56 PM [facility] REPOSITORY Order Comment: Order Date: 04/19/18 Order Info: 0 - ACTH Order Info: 5 - DHEA-S Has Patient had X-rays with Contrast this admission? N Has Patient had Radioactive Injection for X-ray?: N TYPE CODE TESTS RESULT OUT OF RANGE REFERENCE UNITS LAB L3300.1500 29.4-220.5 ug/dL High DHEA SULF 307.2 4020 Performed By: #### L100.0100, L500.4050, L501.04005, L501.9520, L506.0400 #### [facility] [address] [facility] [place], [address] #### L3300.1000, L3300.1500 #### [facility] (refer to report for specific site) refer to report for address and phone number CBC W/DIFF, AUTOMATED Collected: 03/16/2018 Status: F Source: [place] 10:52 AM [facility] REPOSITORY TYPE CODE TESTS RESULT OUT OF RANGE REFERENCE UNITS LAB L100.1000 4.4-11.0 K/mm3 Normal WBC 4.9 LAB L100.1200 4.2-5.4 M/mm3 Normal RBC 5.05 LAB L100.1300 12.0-15.0 g/dl Normal HGB 13.6 LAB L100.1400 37-47 % Normal HCT 42.5 LAB L100.1500 81-99 fL Normal MCV 84.2 LAB L100.1600 27.0-32.0 pg Low MCH 26.9 LAB L100.1700 32-36 g/gl Normal MCHC 32.0 LAB L100.1810 11.6-14.6 % Normal RDW CV 14.0 LAB L100.1820 35.1-43.9 fl Normal RDW SD 42.8 LAB L100.1900 150-450 K/mm3 Normal PLT 233 LAB L100.2000 6.2-12.0 fl Normal MPV 11.6 LAB L100.2100 47-70 % Normal NEUT% 62.8 LAB L100.2200 19-41 % Normal LY% 25.4 LAB L100.2300 0-10 % Normal MONO% 9.4 LAB L100.2400 0-5 % Normal EO% 2.2 LAB L100.2500 0-1 % Normal BASO% 0.2 LAB L100.2550 0.0-0.9 % Normal IM GRAN % 0.000 Result Comment: IG% - Immature Granulocytes (promyelocytes, myelocytes and metamyelocytes) > 1% indicates that a LEFT SHIFT is Present. LAB L100.2620 2.0-7.7 X10 3/uL Normal Absolute Neut 3.1 LAB L100.2720 0.83-4.51 X10 3/ul Normal Absolute Lymph 1.24 Performed By: #### L100.0100 #### [facility] [address] [place], [place], [address] HEMOGLOBIN A1C Collected: 03/16/2018 Status: F Source: ROM[place] 10:52 AM [facility] REPOSITORY TYPE CODE TESTS RESULT OUT OF RANGE REFERENCE UNITS LAB L501.9985 4.2-6.3 % High HGB A1C 6.4 Performed By: #### L501.9985 #### [facility] [address] [facility] [address] [place], [place], [address] COMPREHENSIVE METABOLIC Collected: 03/16/2018 Status: F Source: ANNETTE [facility] 10:52 AM [facility] REPOSITORY TYPE CODE TESTS RESULT OUT OF RANGE REFERENCE UNITS LAB L501.0100 74-106 mg/dL High GLU 126 Result Comment: Fasting Glucose result greater than or equal to 126 mg/dL suggests DIABETES MELLITUS per A.D.A. criteria. Please note revised GLUCOSE reference range effective 2017. LAB L501.1000 7-18 mg/dL Normal BUN 17 LAB L501.1100 0.55-1.02 mg/dL Normal CREAT,SERUM 0.87 Result Comment: The validity of the calculated GFR AND GFRAA in patients over 70 years has not been determined. Clinical correlation is essential. LAB L501.1110 >60 mL/min Normal EST GFR 71 Result Comment: Non- GFR Calc LAB L501.1115 >60 mL/min Normal EST GFR - AA 86 Result Comment: GFR Calc LAB L501.1300 10-20 RATIO Normal BUN/CRE 19.5 LAB L501.1500 6.4-8.2 g/dL T Normal PROT 8.0 LAB L501.1800 3.2-5.0 g/dL Normal ALB 3.9 LAB L501.1950 2.2-4.2 g/dL Normal GLOB 4.1 LAB L501.2000 0.9-2.4 RATIO Normal A/G 1.0 LAB L501.2200 8.5-10.1 mg/dL CA Normal 9.1 LAB L501.4100 15-37 U/L Low AST 9 LAB L501.4305 45-117 U/L Normal ALK P 82 LAB L501.4405 13-56 U/L Normal ALT 21 LAB L501.4600 0.20-1.00 mg/dL T Normal BILI 0.50 LAB L501.5300 136-145 mmol/L Low NA 135 LAB L501.5600 3.5-5.1 mmol/L K Normal 3.8 LAB L501.5900 98-107 mmol/L CL Normal 99 LAB L501.6100 21.0-32.0 mmol/L Normal CO2 30.0 LAB L501.6200 5-15 Normal GAP 6 Performed By: #### L500.4050, L501.5200, L501.9520, L503.6567 #### [facility] [address] [place], [address] MAGNESIUM Collected: 03/16/2018 Status: F Source: ANNETTE 10:52 AM [facility] REPOSITORY TYPE CODE TESTS RESULT OUT OF RANGE REFERENCE UNITS LAB L501.5200 1.6-2.6 mg/dL Normal MG 2.2 Performed By: #### L500.4050, L501.5200, L501.9520, L503.6550 #### [facility] [address] [place], [address] THYROID STIM HORMONE Collected: 03/16/2018 Status: F Source: ANNETTE (TSH) 10:52 AM [facility] REPOSITORY TYPE CODE TESTS RESULT OUT OF RANGE REFERENCE UNITS LAB L501.9520 0.358-3.74 uIU/mL Normal TSH 1.36 Performed By: #### L500.4050, L501.5200, L501.9520, L503.6550 #### [facility] [place], [address] FERRITIN Collected: 03/16/2018 Status: F Source: ANNETTE 10:52 AM [facility] REPOSITORY TYPE CODE TESTS RESULT OUT OF RANGE REFERENCE UNITS LAB L503.6550 8-252 ng/mL Normal FERRITIN 31 Performed By: #### L500.4050, L501.5200, L501.9520, L503.6550 #### [facility] [address] [facility] [address] [place], [address] CORTISOL, 24 HR UR Collected: 02/15/2018 Status: F Source: ANNETTE FREE 4:30 AM [facility] REPOSITORY TYPE CODE TESTS RESULT OUT OF RANGE REFERENCE UNITS LAB L3600.5500 Undefined ug/L Normal 10 CORTISOL,U FREE LAB L3600.5600 0-50 ug/24 hr Normal 16 CORTISOL,FR U24 Result Comment: This test was developed and its performance characteristics determined by [facility]. It has not been cleared or approved by the Food and Drug Administration. Performed at: [address] [id number] [place] Reg[place]er: Thierno Hilliard MD, Phone: [phone] Performed By: #### L3600.5400 #### [facility] (refer to report for specific site) refer to report for address and phone number CHEST PA AND LATERAL Observed: 12/09/2017 Status: F Source: ANNTETE 9:44 AM [facility] REPOSITORY [facility] [address] [place] [address] Chest PA and Lateral MR#: [id number] Acct: [id number] Name: СВЕТЛАНА ALFARO Rep #: [id number] : 1960 F 57 From: Billy Aquino PCP: Saturnino Marion MD Status: REG CLI Study: Chest PA and Lateral Date of Exam: 12/09/17 Exam# [id number] Ordering Dr: Hernando Rodriguez MD STUDY: X-RAY CHEST REASON FOR EXAM: Female, 57 years old. Cough TECHNIQUE: Frontal and lateral views of the chest. COMPARISON: 04/15/2017. FINDINGS: The lungs are clear and expanded. There is no demonstrated pleural abnormality. Normal size heart. Normal mediastinum and davie. Normal visualized pulmonary arteries. Normal visualized aortic arch and descending thoracic aorta. Normal visualized thoracic spine. Normal visualized ribs, clavicles, and shoulders. There is no demonstrated abnormality of the visualized soft tissue structures of the upper abdomen. RAD/Chest PA and Lateral IMPRESSION: No acute cardiopulmonary disease. Electronically Signed: Billy Aquino DO at 23:59 EDT , Service support , CC: Saturnino Marion MD; Hernando Rodriguez MD Network Support: Signed CORTISOL SERUM Collected: 11/16/2017 Status: F Source: ANNETTE 1:37 PM [facility] REPOSITORY TYPE CODE TESTS RESULT OUT OF RANGE REFERENCE UNITS LAB L509.6000 3.09-22.40 ug/dL Normal CORTISOL 8.60 Result Comment: Adult (AM) 4.30 - 22.40 ug/dL Adult (PM) 3.09 - 16.66 ug/dL Performed By: #### L509.6000 #### [facility] [address] [place], [address] PROTEIN, URINE 24HR Collected: 11/16/2017 Status: F Source: ANNETTE 1:37 PM [facility] REPOSITORY TYPE CODE TESTS RESULT OUT OF RANGE REFERENCE UNITS LAB L501.1850 24.0 HOURS Normal UR COLLECT 24.0 TIME LAB L501.1875 mL Normal UR TOTAL 1850 VOLUME LAB L501.1900 <11.9 mg/dL Normal URINE PROTEIN 10.3 LAB L501.1925 <150 MG/24HR mg/24HR High 24hr UR 190.6 PROTEIN Performed By: #### L500.9000 #### [facility] [address] [place], [address] TESTOSTERONE, TOTAL / Collected: 11/16/2017 Status: F Source: ANNETTE FREE 1:37 PM [facility] REPOSITORY Order Comment: Has Patient had X-rays with Contrast this admission? N Has Patient had Radioactive Injection for X-ray?: N TYPE CODE TESTS RESULT OUT OF RANGE REFERENCE UNITS LAB L3100.5320 3-41 ng/dL High TESTOSTER,TOTAL 44 LAB L3100.5340 0.10-0.85 ng/dL Normal TESTOSTER,FREE 0.61 LAB L3100.5360 0.50-2.80 % Normal TESTOSTER %FREE 1.38 Performed By: #### L3100.5310, L3300.1500, L3600.4050 #### [facility] (refer to report for specific site) refer to report for address and phone number DHEA SULFATE Collected: 11/16/2017 Status: F Source: ANNETTE 1:37 PM [facility] REPOSITORY Order Comment: Has Patient had X-rays with Contrast this admission? N Has Patient had Radioactive Injection for X-ray?: N TYPE CODE TESTS RESULT OUT OF RANGE REFERENCE UNITS LAB L3300.1500 29.4-220.5 ug/dL High DHEA SULF 277.6 4020 Result Comment: Performed at: [facility] [place] [id number] [place] Regauger: Tommy Moss PhD, Phone: [phone] Performed at: [address] [id number] [place] Reg[place]er: Thierno Hilliard MD, Phone: [phone] Performed By: #### L3100.5310, L3300.1500, L3600.4050 #### [facility] (refer to report for specific site) refer to report for address and phone number PROTEIN ELECTRO 24 Collected: 11/16/2017 Status: F Source: ANNETTE HR UR 1:37 PM [facility] REPOSITORY Order Comment: Has Patient had X-rays with Contrast this admission? N Has Patient had Radioactive Injection for X-ray?: N TYPE CODE TESTS RESULT OUT OF RANGE REFERENCE UNITS LAB L3600.4100 Not Estab. mg/dL 10.6 Normal PROTEIN,UR LAB L3600.4150 30-150 mg/24 hr High 196 PROTEIN, U24 LAB L3600.4250 . % 30.4 Normal ALBUMIN,U LAB L3600.4350 . % 16.9 Normal JMMAL-1-VCIK ,U LAB L3600.4450 . % 12.6 Normal KUBMP-4-CWVI ,U LAB L3600.4550 . % 26.8 Normal BETA GLOB,U LAB L3600.4650 . % 13.3 Normal GAMMA GLOB,U LAB L3600.4730 Not Observed % Not Normal M-SPIKE,U Observed % LAB L3600.4750 . Test Normal M-SPIKE,U not performed mg/24 LAB L3600.4770 . Normal PE U Comment INTERP Result Comment: The urine protein electrophoresis pattern reflects the presence of specific higher molecular mass proteins with mild proteinuria. This pattern may be characterized as representing a mild selective glomerular nephropathy indicating increased glomerular permeability. Monoclonal protein is not apparent. LAB L3600.4800 . Normal NOTE Comment Result Comment: Protein electrophoresis scan will follow via computer, mail, or batch freezer delivery. Performed By: #### L3100.5310, L3300.1500, L3600.4050 #### [facility] (refer to report for specific site) refer to report for address and phone number ALLERGIES ALLERGIES DATE TYPE / CODE NAME / CODE REACTION SEVERITY SOURCE 05/14/2017 Drug No Known Unknown [facility] Allergy/416 Allergies/O06654 [facility] 335423(SNOM 0388(RXNORM) Repository ED CT) Drug NO KNOWN [facility] Class/84559 ALLERGIES Main [place] 1003(SNOMED Repository CT) ENCOUNTERS ENCOUNTERS ADMIT/DISCHARGE ACCOUNT ADMITTING ENCOUNTER LOCATION SOURCE NUMBER CLASS 09/13/2018 [id number] [facility] ing:MFPLAB Repository 06/14/2018/06/14/20 [id number] Ambulatory [address] Repository 05/27/2018/05/27/20 [id number] Ambulatory [address] Repository 05/25/2018/05/25/20 [id number] Ambulatory [address] Repository 05/24/2018/05/24/20 [id number] Ambulatory [address] Repository 04/19/2018 [id number] [facility] ing:MTLAB Repository 03/16/2018 [id number] [facility] ing:MFPLAB Repository 12/09/2017 [id number] [facility] ing:MTRAD Repository 11/16/2017 [id number] [facility] ing:MTLAB Repository PAYERS PAYERS ENCOUNTER GUARANTOR PAYER SUBSCRIBER SOURCE 09/13/2018 Светлана Primary Светлана Oshea S [facility] Number: [id number] [address] [id number] [address]Trv: Date:2018-09-13P O [facility] 87[address]ATTN: CLAIMS () [place] [address]NO: 09/13/2018 [facility]:SELF [facility] Number: Effective Repository Date:2018-09-13 04/19/2018 Светлана Primary Светлана Oshea S [facility] Number: [id number] [address] [id number] [place]ository [place] [address]Qxm: Date:2018-04-19[address]ATTN: CLAIMS (HP[place] [address]HF: 04/19/2018 Secondary NOT GIVENUNK [place] Insurance:SELF PAY [facility] Number: Effective Repository Date:2018-04-19 03/16/2018 [facility] Светлана [address] Insurance:CARESOURCEP HamiltonDOB: [facility] Number: [id number], [id number] Repository [place] [address]Wla: Date:2018-03-16[address]ATTN: CLAIMS (HP) [place] [address]JN: 03/16/2018 Secondary NOT GIVENUNK Annette Insurance:SELF PAY [facility] Number: Effective Repository Date:2018-03-16 12/09/2017 [facility] Светлана [address] Insurance:CARESOURCEP HamiltonDOB: [facility] Number: [id number], [id number] [place]ository [place] [address]Yah: Date:2017-12-09[address]ATTN: CLAIMS (HP) [place] [address]OI: 12/09/2017 Secondary NOT GIVENUNK Annette Insurance:SELF PAY [facility] Number: Effective Repository Date:2017-12-09 11/16/2017 [facility] Светлана [address] Insurance:CARESOURCEP HamiltonDOB: [facility] Number: [id number], [id number] [place]ository [place] [address]Epp: Date:2017-11-16[address]ATTN: CLAIMS (HP) [place] [address]AD: 11/16/2017 Secondary NOT GIVENUNK Annette Insurance:SELF PAY [facility] Number: Effective Repository Date:2017-11-16
== END ==
PROVIDERS: Family Provider Family Medicine; PCP Family Medicine; Visit Provider Family Medicine
DX: D64.9 Anemia, unspecified (principal); M79.10 Myalgia, unspecified site; M25.50 Pain in unspecified joint
CPT/HCPCS: 80053; 82306; 82550; 84439; 84443; 85025; 85652; 86038; 86431

== ENCOUNTER → 2018-11-17 07:52 | Outpatient (CLI) | payer MEDICAID, SELFPAY ==
--- NOTE | 2018-11-17 10:55 | NEURO ---
NCS and/or EMG Patient Report Ordering Doctor: Robin Marion DATE OF SERVICE: 11/17/18 This is a bilateral lower extremity nerve conduction study and a right lower extremity EMG performed on this 58-year-old female with paresthesias in her legs worse on the left. There is also a history of back pain and diabetes with her most recent hemoglobin A1c of 11. Bilateral lower extremity sensory and motor nerve conduction studies are performed. The results are diffusely abnormal with absence of the right sural sensory response in the left superficial peroneal sensory response. Left sural sensory amplitude is reduced and the right superficial peroneal amplitude is reduced. The common peroneal and tibial motor conduction velocities are bilaterally reduced with mild to moderate reduction of conduction velocities and mild to moderate prolongation of latencies. F-wave latencies from the above motor nerves are mildly prolonged and H reflex responses from the tibial nerves bilaterally are reduced. Left lower extremity needle electrode mammography is performed. Muscles evaluated included the extensor digitorum brevis, abductor houses, medial gastrocnemius, anterior tibialis, vastus lateralis muscles. All muscles demonstrated absence of pathologic spontaneous activity and absence of pathologic insertional activity. In distal muscles early recruitment with large motor units was noted however this resolved with more proximal muscles. 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
== END ==
PROVIDERS: Family Provider Family Medicine; PCP Family Medicine; Referring Provider Family Medicine; Visit Provider Family Medicine
DX: R20.2 Paresthesia of skin (principal)
CPT/HCPCS: 95886; 95911

== ENCOUNTER 2018-11-20 12:20 | Emergency (ER) | payer MEDICAID, SELFPAY ==
[2018-11-20] VITALS (8 sets, daily range): BP systolic 135–166; BP diastolic 74–105; PULSE 71–100; RESP 14–20; TEMP 36.6–36.8; O2SAT 92–99; BMI 43.5
--- NOTE | 2018-11-20 12:38 | US_ITS ---
STUDY: ABDOMINAL ULTRASOUND - RIGHT UPPER QUADRANT REASON FOR VISIT: Female, 58 years old. Concern for cholelithiasis TECHNIQUE: Ultrasound evaluation of the right upper quadrant was performed with real-time and static miller-scale imaging. TECHNICAL QUALITY: Adequate. COMPARISON: None. FINDINGS: Liver: The liver measures 19 cm. There is indistinct echogenicity of the liver. The bile ducts are within normal limits. There is hepatic color flow. The direction of portal flow is hepatopetal. There is no demonstrated mass lesion. Gallbladder: Normal distended gallbladder. The gallbladder wall measures 3.8 mm. There is a positive sonographic Freeman's sign. There is no pericholecystic fluid. There are multiple echogenic structures within the gallbladder, consistent with multiple gallstones. Common Bile Duct (C.B.D.): The common bile duct measures 6.9 mm. Pancreas: There is normal echogenicity of the visualized pancreas. There is no demonstrated pancreatic mass or cyst. Right Kidney: Normal size of the right kidney. The right kidney measures 11.1 cm. Normal renal cortex. The right cortex measures 1.6 cm. There is no demonstrated renal mass or cyst. There is no right hydronephrosis. US/Gallbladder IMPRESSION: 1. Gallbladder wall thickening with cholelithiasis and positive sonographic Freeman's sign suggestive of cholecystitis. No pericholecystic fluid demonstrated. 2. Borderline dilatation of the CBD but no intrahepatic bile duct dilation. A distal CBD/ampullary obstruction cannot be excluded based on this exam. 3. Mild hepatomegaly. Probable fatty infiltration. Electronically Signed: Alex Zuluaga MD at 14:44 EST , Service support ,
--- NOTE | 2018-11-20 12:38 | EKG12_ITS ---
Test Reason : Blood Pressure : / mmHG Vent. Rate : 096 BPM Atrial Rate : 096 BPM P-R Int : 160 ms QRS Dur : 098 ms QT Int : 388 ms P-R-T Axes : 058 050 049 degrees QTc Int : 490 ms Normal sinus rhythm Prolonged QT Abnormal ECG Confirmed by BONY HARVEY, AXEL ([id number]), video effects editor ROCK FAY ([id number] on 11/23/2018 4:51:20 PM Referred By: Robin Marion Confirmed By:AXEL LOVETT MD
[2018-11-20] MEDS: Morphine 4 MG/ML Syringe IV ×2 (12:54→17:24)
[2018-11-20] MEDS: 0.9% Normal Saline 1,000 ML 1000 ML IV (12:54)
[2018-11-20] MEDS: Ondansetron 4 MG/2 ML Vial IV (12:54)
[2018-11-20 12:55] LABS: Absolute Neutrophil Count 5.8 X10^3/uL (2.0-7.7); Basophil# 0.03 X10^3/uL; Basophil% 0.4 % (0-1); Eosinophil# 0.12 X10^3/uL; Eosinophils% 1.6 % (0-5); Hematocrit 43.8 % (37-47); Hemoglobin 14.1 g/dl (12.0-15.0); Lymphocyte % 14.6 % (19-41); Mean Corp Hgb Conc 32.2 g/gl (32-36); Mean Corpuscular Hgb 27.8 pg (27.0-32.0); Mean Corpuscular Volume 86.2 fL (81-99); Mean Platelet Vol. 11.6 fl (6.2-12.0); Monocyte# 0.51 X10^3/uL; Monocyte% 6.7 % (0-10); Neutrophil # 5.79 X10^3/uL (2.7-7.7); Neutrophil % 76.6 % (47-70); POSITIVE COUNT NO; POSITIVE DIFFERENTIAL NO; POSITIVE MORPHOLOGY NO; Platelet Count 231 K/mm3 (150-450); RBC Distribution Width CV 14.2 % (11.6-14.6); RBC Distribution Width SD 44.3 fl (35.1-43.9); Red Blood Count 5.08 M/mm3 (4.2-5.4); White Blood Count 7.6 K/mm3 (4.4-11.0)
--- NOTE | 2018-11-20 13:16 | ED.VISSUMM ---
- ER Visit Summary Date of Service: 11/20/18 Chief Complaint: Abdominal pain, shortness of breath History of Present Illness: The patient is a 58 F presents to the emergency department with midepigastric abdominal pain in the right upper quadrant. Patient states she had symptoms last night. States he felt like took her breath away. She was mildly nauseated. She states the pain returned again this morning. It is mostly in the gastric area. She has no history of abdominal surgery. She denies any history of cardiac issues. She does have history of hypertension, hyperlipidemia, and [id number] diabetes. She does not smoke. She denies any fevers or chills. She denies any change in bowel habits. Physical Examination: Vital signs reviewed General: Well-nourished, well-developed Head: Normocephalic, atraumatic Eyes: Pupils equal and reactive, extraocular muscles intact Neck, supple, no lymphadenopathy Heart: Regular rate and rhythm Respiratory: No distress, clear bilaterally Abdomen: Soft, nontender, nondistended, no peritoneal signs Back: Nontender Extremities: Nontender, no edema, no cords Skin: Normal color no rash Neuro: Alert and oriented, no focal or lateralizing deficits Test Results: [] Emergency Department Course and Treatment: The patient presents with midepigastric pain into her right upper quadrant. She did have a Freeman sign on examination. She was given analgesics and antiemetics. She did have marked improvement of her symptoms. Her EKG showed no acute ischemic change. Screening labs show normal white count, however the patient does have obstructive pattern of LFTs. She also has evidence of acute pancreatitis. She underwent ultrasound which demonstrates cholelithiasis, but no pericholecystic fluid. There is some dilation with common bile duct. I did discuss the patient with Dr. San. Given the fact that she may have underlying obstruction, she did feel that she would likely be transported to a facility that has a ability for ERCP. I do feel that this is reasonable. The patient was discussed with Sheron long as was her was her request. She will be transferred. Treatment Plan: [] Disposition: Transfer Impression: 1. Cholelithiasis. Choledocholithiasis. 3. Gallstone pancreatitis This note was generated with [employer] software. It may contain incorrect words, spelling, and punctuation that were not noted in review of the chart prior to signing ED Disposition - Plan for ED Patient: Disposition: Home or Assisted Living Referrals: Robin Marion MD [Primary Care Provider] -
[2018-11-20 13:36] LABS: AST(SGOT) 410 U/L (15-37); Alanine Aminotransfer ALT/SGPT 196 U/L (13-56); Albumin, Serum 3.8 g/dL (3.2-5.0); Alkaline Phosphatase 232 U/L (45-117); Anion Gap 9 (5-15); BUN 13 mg/dL (7-18); BUN/Creat Ratio 12.4 RATIO (10-20); Bilirubin, Direct 0.91 mg/dL (0.00-0.30); Calcium,Total 9.1 mg/dL (8.5-10.1); Chloride 100 mmol/L (98-107); Creatinine, Serum 1.05 mg/dL (0.55-1.02); EST Glomerular Filtration Rate 57 mL/min (>60); Est Glom Filt Rate - Afr Amer 69 mL/min (>60); Estimated Creatinine Clearance 54.67 ml/min; Globulin 4.4 g/dL (2.2-4.2); Glucose 201 mg/dL (74-106); Lipase 2277 U/L (73-393); Potassium 3.6 mmol/L (3.5-5.1); Protein, Total 8.2 g/dL (6.4-8.2); Sodium Level 136 mmol/L (136-145)
[2018-11-20 15:14] LABS: Bacteria 0 SEEN /hpf (None Seen); Mucous, Urine 0 SEEN /hpf (<or=2+); Red Blood Cells-Urine 0 SEEN /hpf (0-5); White Blood Cells 0 SEEN /hpf (0-5)
[2018-11-20 15:17] LABS: Color, Urine Yellow (Yellow); Glucose, Dipstick 1000 mg/dl (Normal); Ketone-Dipstick Negative (Negative); Leukocyte Esterase-Dipstick 25 /ul (Negative); Nitrite-Dipstick Negative (Negative); Occult Blood-Urine Negative /ul (Negative); Protein-Dipstick 30 mg/dl (Negative); Specific Gravity, Urine 1.015 (1.002-1.030); Urine Bilirubin Dipstick Negative (Negative); Urine Clarity Sl. Cloudy (Clear); Urine Urobilinogen 8 mg/dl (Normal)
[2018-11-20 15:24] LABS: Squamous Epithelial Cells - UA 0-5 SEEN /hpf (5-10)
--- NOTE | 2018-11-20 17:49 | ED.RN ---
pt voices understanding of md's recommendation to transport by ambulance, insists on driving by private car.
== END 2018-11-20 17:52 | disposition home or self-care (01) ==
LOC: ED 12:56
PROVIDERS: Emergency Provider Emergency Medicine; Family Provider Family Medicine; PCP Family Medicine
DX: K80.70 Calculus of gallbladder and bile duct without cholecystitis without obstruction (principal); K85.90 Acute pancreatitis without necrosis or infection, unspecified; I10 Essential (primary) hypertension; E11.9 Type 2 diabetes mellitus without complications; E78.5 Hyperlipidemia, unspecified; Z79.82 Long term (current) use of aspirin; Z79.84 Long term (current) use of oral hypoglycemic drugs; Z79.899 Other long term (current) drug therapy; Z87.891 Personal history of nicotine dependence
CPT/HCPCS: 76705; 80048; 80076; 81001; 83690; 84484; 85025; 93005; 96361; 96374; 96375; 96376; 99284; J7030; A4216; J2405

== ENCOUNTER 2019-02-14 11:00 | Outpatient (RCR) | payer MEDICAID, SELFPAY ==
[2018-11-20 12:23] VITALS: BMI 43.5
--- NOTE | 2019-01-03 13:55 | HP.PTEVAL_ITS ---
Patient's Visit Information PAULIE ALFARO is a 58 year old F referred to Physical Therapy by Robin Marion MD with a diagnosis of RIGHT ROTATOR CUFF PAIN/SUPRASPINATOUS WEAKNESS. Date of Evaluation: 01/03/19 Physical Therapist: Flo Sorto PT, Cert MDT, OCS - Visit Plan Frequency: 2x /Week Duration: 4 Weeks Plan: Interventions to include modalties for pain releive ,RTC/scapular strengthening,ROM. postural ex's - Subjective Findings: This 58 y/o female presents to physical therapy with right rotator cuff/suprasinatous. Patient has had pain in right shoulder for several months. Seen DR Marion recommended PT. Patient located to lateral deltoid sharp pain ache constant. Patient has limitaions with activities ADL'S,self hygine activeties above 90 degrees.Pain affects sleeping . Occassional parathesia/tingling at night. Patient pain affetcs housework chores.Patient condition affects QOL. SOCIAL: single. VOCATION: unemployed - Pain Right Shoulder Pain Intensity (Out of 10): 5 Pain Intensity Range: 10 Comment: movement 10/10 - Objective POSTURE: mild foward posture,rounded shoulders head foward. PALAPTION: tender AC REGION. NEURO: intract. AROM: shoulder flexion 80 degrees, 80 abduction pain. PROM: shoulder flexion 155,abd 150 ,ER 90 degrees pain at endrange. CAPSULAR : mild tighttness all planes. MMT: suprapinatous 3+/5,infraspinatous 4-/5,subscapularis 4/5,deltoid 3+/5. FUNCTIONAL TEST: SI IR,Behind neck occciput. CERVICAL ROM: min loss all planes NE - Special Tests C/S Radiculapathy - Left Upper limb tension test: Negative C/S Radiculapathy - Right Upper limb tension test: Negative C/S Radiculapathy - Left Spurlings: Negative C/S Radiculapathy - Right Spurlings: Negative C/S Radiculapathy - Left Cervical distraction: Negative C/S Radiculapathy - Right Cervical distraction: Negative R Shoulder External Rotation Lag Test - RC Tear: Negative R Shoulder Supine Impingement Test - RC Tear: Negative R Shoulder Lift Off Test - Subscapular Tear: Negative R Shoulder Drop Sign - IS Test: Negative R Shoulder Empty Can - SS: Negative R Shoulder Neer - Impingement: Positive R Shoulder Zuleta Nikolay - Impingement: Positive - Goals Goal 1:: Independant with HEP. Goal Time Frame: 4-6 Weeks Goal 2:: Decrease right shoulder pian by 50% or greater to improve function ADL'S Goal Time Frame: 4-6 Weeks Goal 3:: Patient to improve AROM right shoulder symmtrical to left to improve function with ADL'S above 90 degrees Goal Time Frame: 4-6 Weeks Goal 4:: Patient to increase strength right shoulder RTC 4/5,deltoid 4-/5 to improve Goal Time Frame: 4-6 Weeks Goal 5:: Patient to improve quick dash by 10 points or greater to improve function Goal Time Frame: 4-6 Weeks - Rehabilitation Potential Physical Therapy Diagnosis: This patient has right shoulder pain with decrease AROM with pain ,strength deficits -RTC,+ RTC signs possible RTC tear ,affects ADL'S and function housework ,self hygine Rehabilitation Potential: Good - Anticipated Interventions Patient/Client Instruction: Educate patient on: Condition, Plan of Care For the Purpose of:: To decrease pain, To increase ROM, To improve muscle performance and motor function, To improve ability to perform ADL's, To increase tolerance to activity/condition/position, To improve performance and independence with ADL's, To improve ability of physical actions for home/commun ity/work/leisure, To improve health of tissue, To decrease soft tissue restriction, To increase flexibility/ROM, To improve ability to perform tasks related to life management Therapeutic Exercise to Include: Strength training, Postural training, Flexibilty training, Active ROM, Scapular Strength/Stabilization Comment: RTC For the Purpose of:: To decrease pain, To increase ROM, To increase tolerance to activity/condition/position, To improve performance and independence with ADL's, To improve ability of physical actions for home/community/work/leisure, To improve health of tissue, To decrease soft tissue restriction, To increase flexibility/ROM, To reduce risk of recurrence, To improve ability to perform tasks related to life management Manual Therapy Techniques to Include: Mobilization Comment: G-H JOINT 2-3 For the Purpose of:: To increase ROM, To improve nutrient delivery to tissue, To increase oxygenation perfusion, To improve health of tissue, To decrease soft tissue restriction, To increase flexibility/ROM TENS: Yes IF ES: Yes Cryotherapy (ice pack, ice massage): Yes Thermo therapy (hot pack): Yes Ultrasound (thermal/non thermal): Yes For the Purpose of:: To decrease pain, To decrease swelling/inflammation, To improve health of tissue, To decrease soft tissue restriction Thank you for the opportunity to evaluate your patient. For Medicare and Medicare HMO plans, please review the plan of care and approve it. It will need to be FAXED BACK to us at [phone] for Medicare purposes. For Medicare only, by signing this I certify the plan of care. Please let me know if there are questions or concerns regarding this plan of care. Physician Signature: Date:
--- NOTE | 2019-02-14 11:52 | HP.PTDCSUM_ITS ---
HP - PT D/C Summary It has been my pleasure to treat PAULIE ALFARO under orders from Robin Marion MD, for the diagnosis of RIGHT ROTATOR CUFF PAIN/SUPRASPINATOUS WEAKNESS for a total of 6 visit(s). Discharge Date: 02/14/19 Please see the following information for a summary of their discharge status. - Subjective Subjective: Doing good abld to do most ADL'S no pin - Pain Right Shoulder Pain Intensity (Out of 10): 0 - Overall Improvement % Improvement: 75 - Objective Objective/Function: POSTURE: rounded shoulders head foward. NEURO: intact. AROM: flexion shoulder 150 degrees,abd 150 degrees,ER 90 degrees. MMT: RTC 4/5,DELTOID 4-/5 - Goals Goal 1:: Independant with HEP. Goal Progress: Goal Met Goal 2:: Decrease right shoulder pian by 50% or greater to improve function ADL'S Goal Progress: Goal Met Goal 3:: Patient to improve AROM right shoulder symmtrical to left to improve function with ADL'S above 90 degrees Goal Progress: Goal Met Goal 4:: Patient to increase strength right shoulder RTC 4/5,deltoid 4-/5 to improve Goal Progress: Goal Met Goal 5:: Patient to improve quick dash by 10 points or greater to improve fun ction Goal Progress: Goal Met - Plan Plan: D/C TO HEP - D/C Information Discharge Comments: HEP If there are questions or concerns regarding this patient's physical therapy, please feel free to call me at [phone]. Thank you for the referral of this patient. Sincerely, Flo Sorto, PT, Cert MDT, OCS
== END 2019-02-14 19:00 | disposition home or self-care (01) ==
LOC: PT 11:00
PROVIDERS: Family Provider Family Medicine; PCP Family Medicine; Referring Provider Family Medicine; Visit Provider Family Medicine
DX: M25.511 Pain in right shoulder (principal); R29.898 Other symptoms and signs involving the musculoskeletal system
CPT/HCPCS: 97014; 97035; 97110; 97162; 97530; G0283

== ENCOUNTER → 2019-03-09 | Outpatient (CLI) | payer MEDICAID, SELFPAY ==
[2018-11-20 12:23] VITALS: BMI 43.5
[2019-03-15 15:29] LABS: HPV HC, High Risk Negative (Negative)
== END | disposition home or self-care (01) ==
LOC: LABSPEC 15:44
PROVIDERS: Visit Provider Obstetrics & Gynecology
DX: Z12.4 Encounter for screening for malignant neoplasm of cervix (principal)
CPT/HCPCS: 87624; 88175; G0145

== ENCOUNTER → 2019-03-14 | Outpatient (CLI) | payer MEDICAID, SELFPAY ==
[2018-11-20 12:23] VITALS: BMI 43.5
--- NOTE | 2019-03-14 08:46 | BI_ITS ---
MAMMOGRAPHY - BILATERAL SCREENING REASON FOR EXAM: Female, 58 years old. Routine annual screening examination. PERTINENT HISTORY: Non-contributory. TECHNIQUE: Digital bilateral breast delaney (3D mammographic acquisition) in the CC and MLO projections. 2-D mediolateral oblique (MLO) and craniocaudad (CC) views of both breasts were obtained. Exaggerated craniocaudad views of both breasts were obtained as well. CAD: Full Field Digital Mammography with Computer Added Detection was performed. COMPARISON: Comparison is made with prior examination dated September 17, 2015 and March 13, 2014. FINDINGS: Breast Composition: The breasts are heterogeneously dense, which may obscure small masses. There are no dominant masses or suspicious calcifications. No other significant abnormalities are identified. There has been no significant change since the prior study. BI/SCREEN MAMM (CAD) W/DELANEY BILAT IMPRESSION: Stable bilateral screening mammogram. Yearly follow-up mammogram recommended. (A) ASSESSMENT CATEGORY: BIRADS Category 1: Negative. A letter regarding these results will be sent to the patient by the facility within 30 days. Approximately 10% of breast cancers are not detected by mammography. A normal mammogram should not delay biopsy of a clinically suspicious abnormality. [id number] Electronically Signed: Chiki Thorne, at 10:16 EDT , Service support ,
== END | disposition home or self-care (01) ==
LOC: OPBI 08:43
PROVIDERS: Family Provider Family Medicine; PCP Family Medicine; Referring Provider Obstetrics & Gynecology; Visit Provider Obstetrics & Gynecology
DX: Z12.31 Encounter for screening mammogram for malignant neoplasm of breast (principal)
CPT/HCPCS: 77063; 77067

== ENCOUNTER 2019-05-16 14:43 | Emergency (ER) | payer MEDICAID, SELFPAY ==
[2018-11-20 12:23] VITALS: BMI 43.5
[2019-05-16 14:44] VITALS: BP 147/97; PULSE 99; RESP 16; TEMP 36.8; O2SAT 99; BMI 45.6
--- NOTE | 2019-05-16 14:57 | RAD_ITS ---
STUDY: X-RAY - LEFT KNEE REASON FOR EXAM: Female, 58 years old. Injury 3 days ago due to fall TECHNIQUE: 4 view(s) of the knee. COMPARISON: None. FINDINGS: Small joint effusion. Moderate tricompartmental osteoarthritis. No acute displaced fracture, or traumatic subluxation based on current assessment. The soft tissue structures are unremarkable. No evidence of radiopaque foreign body. RAD/Knee 4 or More Views IMPRESSION: Moderate osteoarthritis. No acute displaced fracture, or traumatic subluxation based on current assessment.. Small joint effusion Electronically Signed: Deion Simpson MD at 15:32 EDT Tel [phone], Service support ,
--- NOTE | 2019-05-16 14:58 | ED.VIS.LOWEX ---
History of Present Illness Chief Complaint: Lower Extremity Injury Informant: Patient Occurred: Days Onset: Days Context: Sudden Onset Timing: Continuous Quality of Pain: Dull, Aching Current Severity: Mild Maximum Severity: Severe Worsened by: Weightbearing and extension Relieved by: Sitting Associated Symptoms: Negative for: Parasthesia, Weakness Narrative: Patient is a 58-year-old woman who had a near fall. She twisted her left knee. She denies direct trauma. She states she has significant pain with weightbearing. She has difficulty weightbearing. She denies paresthesia, anesthesia buttocks. She has no history of gout, pseudogout or prior injury to the knee. She denies fever, chills or night sweats. Prior similar symptoms: No Recent Illness/Hospitalization: No - Past Medical History (1) No significant past medical history Status: Acute Past Medical History - Allergies and Home Meds Allergies/Adverse Reactions: Allergies No Known Allergies Allergy (Verified 05/16/19 14:44) Primary Care Physician: Robin Marion MD [Primary Care Provider] - Prior records reviewed: No Lives: With Family Smoking Status: Former smoker Alcohol: None Drugs: None Review of Systems General: Denies: Chills, Fever, Malaise, Subjective, Sweats, Weight loss Gastrointestinal: Denies: Nausea, Vomiting Musculoskeletal: Reports: Swelling, Extremity Pain. Denies: Myalgias, Arthralgias, Neck pain, Back pain Skin: Denies: Rash, Abscess, Abrasions, Wounds Neurological: Denies: Weakness, Parasthesia, Numbness Endocrine: Denies: Polyuria, Polydipsia Hematologic: Denies: Easy bruising, Easy bleeding Allergy: Denies: Uticaria, Swelling of the mouth, Swelling of the tongue Physical Exam Vital Signs/Narrative: Vital Signs Temp Pulse Resp BP Pulse Ox 05/16/19 14:44 98.2 F 99 16 147/97 H 99 - Extremity Exam Left Pelvis: Negative for: Abrasion, Contusion, Deformity, Edema, Hematoma, Limited ROM, - Left Hip: Negative for: Abrasion, Contusion, Deformity, Edema, Hematoma, Limited ROM, - Left Femur: Negative for: Abrasion, Contusion, Deformity, Edema, Hematoma, Limited ROM, - Left Knee: Limited ROM - She is able to extend 170 degrees and flex to 100 degrees. There is no effusion. Patella is not ballotable. There is discomfort with varus and valgus stress testing. There is no laxity. Sohail's test was negative. Modified Renetta's test caused lateral joint line tenderness. No click was appreciated. She also complained of pain in the popliteal fossa laterally.. Negative for: Abrasion, Contusion, Deformity, Edema, Hematoma Left Tib Fib: Negative for: Abrasion, Contusion, Deformity, Edema, Hematoma, Limited ROM, - Left Ankle: Negative for: Abrasion, Contusion, Deformity, Edema, Hematoma, Limited ROM, - Left Foot: Negative for: Abrasion, Contusion, Deformity, Edema, Hematoma, Limited ROM, - - DP and PT pulses are palpable. Diagnostic/Tx/Re-eval Chest X-Ray - ED: Read by ED Physician, - - Review x-ray of the left knee was obtained by me as negative for fracture, foreign body, free-floating body. There is asymmetry of the joint. There is no calcification of the arterial system noted. - Medical Decision Making X-ray of the knee was obtained to determine if there is any fracture or pull off fracture specifically. Suspect patient has a meniscus injury. She has not seen an orthopedic surgeon in the past. Therefore, she was referred to Dr. Chalo Jackson. ED Disposition - Plan for ED Patient: Disposition: Home or Assisted Living Diagnosis: Traumatic joint effusion, Tear of lateral meniscus of left knee Instructions: KNEE PAIN, Meniscus Injury (Possible) Prescriptions: Hydrocodone Bitart/Apap 5-325 [Cascade 5MG-325MG] 1 tablet PO Q6H PRN PRN 3 Days #10 tablet PRN Reason: Pain Transmission Status: Sent to [facility] Referrals: Robin Marion MD [Primary Care Provider] - Srinivas Jackson MD [STAFF PHYSICIAN] - 5-7 Days Additional Instructions: Your prescription was electronically transmitted to [facility] on [facility].
[2019-05-16] MEDS: Naproxen 500 MG Tablet PO (15:19)
[2019-05-16] MEDS: HYDROcodone Bitartrate/Apap 5/325 Tablet PO (15:19)
[2019-05-16 15:30] VITALS: RESP 18
== END 2019-05-16 15:31 | disposition home or self-care (01) ==
PROVIDERS: Emergency Provider Emergency Medicine; Family Provider Family Medicine; PCP Family Medicine
DX: M25.462 Effusion, left knee (principal); S83.282A Other tear of lateral meniscus, current injury, left knee, initial encounter; Z87.891 Personal history of nicotine dependence; X50.1XXA Overexertion from prolonged static or awkward postures, initial encounter; Y93.89 Activity, other specified; Y92.89 Other specified places as the place of occurrence of the external cause; Y99.8 Other external cause status
CPT/HCPCS: 73564; 99283

== ENCOUNTER 2019-07-01 12:00 | Outpatient (RCR) | payer MEDICAID, SELFPAY ==
--- NOTE | 2019-06-20 11:57 | HP.PTEVAL ---
Patient's Visit Information PAULIE ALFARO is a 58 year old F referred to Physical Therapy by Vincenzo Edwards MD with a diagnosis of L knee pain. Date of Evaluation: 06/20/19 Physical Therapist: Gopal Bobby PT, ATC - Visit Plan Frequency: 2x /Week Duration: 4 Weeks Plan: L LE stretching, balance and proprioception ex's, core stab ex's, nustep, and HEP. - Subjective Findings: Not sure of mechanism of injury; lost balance and put foot down; stood up and had severe pain. Went to docs 2 weeks ago. Hurts on alt side, post knee; started walking by 5th week w/ cane; started walking w/ cane on 6th week. Walking w/ limp as of today; swelling present @ knee. Pain sometimes wakes pt. up during sleep. Pain @ rest: 3 or 4/10; Pain @ worst: 7,8/10. Given meds for pain. X-ray- meniscus tear. Not working currently. Cannot stand on knee very long due to pain; kneeling is hard; putting pressure o knee to get into bed hurts knee. Walking up steps (one foot at a time). Going down niormally hurts knee. - Pain L knee Pain Intensity (Out of 10): 4 Pain Intensity Range: 8 - Objective Neuro: B LE sensation is WNL to light touch. B achilles reflex= 1/3. Palpation: pain along B joint line of L knee. No obvious welling or deformity. Minor crepitus with AROM. Girth at joint line: R knee 46 cm, L knee 44 cm. ROM: L knee 0-8-97; R knee 0-5-120. MMT: L knee is 4-/5 throughout. R LE 4+/5 throughout. Special testing: postiive apley comression test and pain with mcmurrays - Goals Goal 1:: Decrease L knee pain x 50% to aid with sleep Goal Time Frame: 4-6 Weeks Goal 2:: Increase L knee ROM x 20 degrees to aid with squatting Goal Time Frame: 4-6 Weeks Goal 3:: Increase L knee strength x 1 grade to aid with stair negotiation Goal Time Frame: 4-6 Weeks Goal 4:: I with HEP Goal Time Frame: 4-6 Weeks - Rehabilitation Potential Physical Therapy Diagnosis: L knee pain, weakness, and decreased ROM secondary to possible meniscus tear. Rehabilitation Potential: Good - Anticipated Interventions Patient/Client Instruction: Educate patient on: Condition, Plan of Care For the Purpose of:: To improve self management Therapeutic Exercise to Include: Strength training, Endurance training, Balance training, Flexibilty training, Active ROM, Dynamic Lumbar Stabilization For the Purpose of:: To decrease pain, To increase ROM, To improve muscle performance and motor function Cryotherapy (ice pack, ice massage): Yes For the Purpose of:: To decrease pain Thank you for the opportunity to evaluate your patient. For Medicare and Medicare HMO plans, please review the plan of care and approve it. It will need to be FAXED BACK to us at [phone] for Medicare purposes. For Medicare only, by signing this I certify the plan of care. Please let me know if there are questions or concerns regarding this plan of care. Physician Signature: Date:
--- NOTE | 2019-08-17 08:24 | HP.PT.NRP ---
HP - Discharge Summary (1) - Patient Information PAULIE ALFARO was seen in my office for initial evaluation on 06/20/19. The following Plan of Care was established for this patient: Initial Frequency: 2x /Week Initial Duration: 4 Weeks - Anticipated Interventions Patient/Client Instruction: Educate patient on: Condition, Plan of Care For the Purpose of:: To improve self management Therapeutic Exercise to Include: Strength training, Endurance training, Balance training, Flexibilty training, Active ROM, Dynamic Lumbar Stabilization For the Purpose of:: To decrease pain, To increase ROM, To improve muscle performance and motor function Cryotherapy (ice pack, ice massage): Yes For the Purpose of:: To decrease pain This patient was last seen in our office . Pertinent comments regarding their Physical therapy will appear below: Pt was treated for 4 PT visits through the date of 07/01/19. Pt has not returned through todays date, and is therefore discontinued at this time. At this point I will be discontinuing this patient from physical therapy. I would be happy to see this patient again in the future if found appropriate by the physician. Thank you! Gopal Bobby, PT, ATC
== END 2019-07-01 19:00 | disposition home or self-care (01) ==
LOC: PT 12:00
PROVIDERS: Family Provider Family Medicine; PCP Family Medicine; Visit Provider Family Medicine
DX: M25.562 Pain in left knee (principal)
CPT/HCPCS: 97110; 97161

== ENCOUNTER → 2019-08-03 | Outpatient (CLI) | payer MEDICAID, SELFPAY ==
[2019-08-03 15:28] LABS: Absolute Neutrophil Count 5.5 X10^3/uL (2.0-7.7); Basophil# 0.03 X10^3/uL; Basophil% 0.4 % (0-1); Eosinophils% 1.4 % (0-5); Hematocrit 43.5 % (37-47); Hemoglobin 13.7 g/dL (12.0-15.0); Mean Corp Hgb Conc 31.5 g/dL (32-36); Mean Corpuscular Hgb 28.1 pg (27.0-32.0); Mean Corpuscular Volume 89.3 fL (81-99); Mean Platelet Vol. 11.8 fl (6.2-12.0); Monocyte# 0.51 X10^3/uL; Monocyte% 7.1 % (0-10); NRBC Flagged by Analyzer 0 % (0-5); Neutrophil % 76.8 % (47-70); Platelet Count 216 K/mm3 (150-450); RBC Distribution Width CV 13.7 % (11.6-14.6); Red Blood Count 4.87 M/mm3 (4.2-5.4); White Blood Count 7.2 K/mm3 (4.4-11.0)
[2019-08-03 15:50] LABS: Hemoglobin A1c 10.9 % (4.2-6.3)
[2019-08-03 16:30] LABS: ALB/GLOB Ratio 0.8 RATIO (0.9-2.4); AST(SGOT) 7 U/L (15-37); Alanine Aminotransfer ALT/SGPT 18 U/L (13-56); Albumin, Serum 3.4 g/dL (3.2-5.0); Alkaline Phosphatase 128 U/L (45-117); Anion Gap 10 (5-15); BUN 12 mg/dL (7-18); BUN/Creat Ratio 9.2 RATIO (10-20); Calcium,Total 8.7 mg/dL (8.5-10.1); Chloride 100 mmol/L (98-107); EST Glomerular Filtration Rate 45 mL/min (>60); Est Glom Filt Rate - Afr Amer 54 mL/min (>60); Globulin 4.3 g/dL (2.2-4.2); Glucose 381 mg/dL (74-106); Protein, Total 7.7 g/dL (6.4-8.2); Sodium Level 138 mmol/L (136-145); Thyroid Stim Hormone (TSH) 0.96 uIU/mL (0.358-3.74)
== END | disposition home or self-care (01) ==
LOC: MFPLAB 14:34
PROVIDERS: Family Provider Family Medicine; PCP Family Medicine; Referring Provider Family Medicine; Visit Provider Family Medicine
DX: N39.0 Urinary tract infection, site not specified (principal); E11.65 Type 2 diabetes mellitus with hyperglycemia; R53.81 Other malaise
CPT/HCPCS: 36415; 80053; 83036; 84443; 85025; 86140; 87077; 87086; 87088; 87186

== ENCOUNTER → 2019-09-05 10:22 | Outpatient (CLI) | payer MEDICAID, SELFPAY ==
[2019-09-05 10:32] LABS: Lyme Ab Screen Interpretation REF LAB
[2019-09-05 12:23] LABS: Absolute Lymphocyte Count 1.56 X10^3/uL (0.83-4.51); Absolute Neutrophil Count 2.4 X10^3/uL (2.0-7.7); Basophil# 0.03 X10^3/uL; Basophil% 0.7 % (0-1); Eosinophil# 0.12 X10^3/uL; Eosinophils% 2.7 % (0-5); Hematocrit 42.4 % (37-47); Hemoglobin 13.3 g/dL (12.0-15.0); Lymphocyte # 1.56 X10^3/ul (4.0); Lymphocyte % 34.7 % (19-41); Mean Corp Hgb Conc 31.4 g/dL (32-36); Mean Corpuscular Volume 89.3 fL (81-99); Mean Platelet Vol. 12.2 fl (6.2-12.0); Monocyte# 0.42 X10^3/uL; Monocyte% 9.4 % (0-10); NRBC Flagged by Analyzer 0 % (0-5); Neutrophil # 2.35 X10^3/uL (2.7-7.7); Neutrophil % 52.3 % (47-70); Platelet Count 194 K/mm3 (150-450); RBC Distribution Width CV 13.7 % (11.6-14.6); RBC Distribution Width SD 45.1 fl (35.1-43.9); Red Blood Count 4.75 M/mm3 (4.2-5.4); White Blood Count 4.5 K/mm3 (4.4-11.0)
[2019-09-05 12:24] LABS: Erythrocyte Sedimentation Rate 12 mm/hr (0-30)
[2019-09-05 12:43] LABS: AST(SGOT) 9 U/L (15-37); Alanine Aminotransfer ALT/SGPT 20 U/L (13-56); Albumin, Serum 3.6 g/dL (3.2-5.0); Alkaline Phosphatase 101 U/L (45-117); Anion Gap 4 (5-15); BUN 12 mg/dL (7-18); BUN/Creat Ratio 12.7 RATIO (10-20); CRP 7.76 mg/L (0.0-3.0); Chloride 104 mmol/L (98-107); Creatinine, Serum 0.94 mg/dL (0.55-1.02); EST Glomerular Filtration Rate 64 mL/min (>60); Est Glom Filt Rate - Afr Amer 78 mL/min (>60); Globulin 3.6 g/dL (2.2-4.2); Glucose 300 mg/dL (74-106); Hemoglobin A1c 11.1 % (4.2-6.3); Potassium 4.1 mmol/L (3.5-5.1); Protein, Total 7.2 g/dL (6.4-8.2); Rheumatoid Factor < 10.0 IU/mL (<15); Sodium Level 138 mmol/L (136-145); Thyroid Stim Hormone (TSH) 1.05 uIU/mL (0.358-3.74)
[2019-09-05 12:45] LABS: Vitamin D,25 Hydroxy 26.5 ng/mL (29.95-100.01)
[2019-09-06 14:08] LABS: Anti-Centromere B Ab <0.2 AI (0.0-0.9); Anti-Chromatin <0.2 AI (0.0-0.9); Anti-Jo <0.2 AI (0.0-0.9); Anti-Scleroderma-70 AB <0.2 AI (0.0-0.9); Anti-ribosomal P Antibodies <0.2 AI (0.0-0.9); RNP Ab 0.2 AI (0.0-0.9); SJOGREN'S Anti-SS-A test < 0.2 AI (0.0-0.9); SJOGREN'S Anti-SS-B test < 0.2 AI (0.0-0.9); Smith Ab <0.2 AI (0.0-0.9); Smith/RNP Ab <0.2 AI (0.0-0.9)
[2019-09-06 15:26] LABS: Anti-dsDNA Ab 1 IU/mL (0-9)
[2019-09-07 03:06] LABS: Endomysial Antibody IgA Negative (Negative); Immunoglobulin A 420 mg/dL (87-352)
[2019-09-07 09:53] LABS: CCP IgG Antibodies 8 units (0-19); Lyme Scn Total Ab w/Rflx <0.91 ISR (0.00-0.90); t-Transglutaminase IgA <2 U/mL (0-3)
== END ==
PROVIDERS: Family Provider Family Medicine; PCP Family Medicine; Visit Provider Family Medicine
DX: E55.9 Vitamin D deficiency, unspecified (principal); M17.10 Unilateral primary osteoarthritis, unspecified knee; E11.65 Type 2 diabetes mellitus with hyperglycemia; R19.7 Diarrhea, unspecified
CPT/HCPCS: 36415; 80053; 82306; 82784; 83036; 83516; 84443; 85025; 85652; 86038; 86140; 86200; 86225; 86235; 86255; 86431; 86618

== ENCOUNTER → 2019-10-04 11:44 | Outpatient (CLI) | payer MEDICARE, MEDICAID, SELFPAY ==
[2019-09-09 09:42] VITALS: BMI 45.6
[2019-10-04 11:54] LABS: Mucous, Urine 0 SEEN /hpf (<or=2+); Red Blood Cells-Urine 0 SEEN /hpf (0-5)
[2019-10-04 15:22] LABS: Color, Urine Yellow (Yellow); Glucose, Dipstick 250 mg/dl (Normal); Ketone-Dipstick 5 mg/dl (Negative); Leukocyte Esterase-Dipstick 25 /ul (Negative); Nitrite-Dipstick Negative (Negative); Occult Blood-Urine Negative /ul (Negative); Protein-Dipstick 15 mg/dl (Negative); Urine Bilirubin Dipstick Negative (Negative); Urine Clarity Sl. Cloudy (Clear); Urine Urobilinogen Normal (Normal)
[2019-10-04 15:27] LABS: Bacteria 1+ /hpf (None Seen); Squamous Epithelial Cells - UA 0-5 SEEN /hpf (5-10); White Blood Cells 0-5 SEEN /hpf (0-5)
[2019-10-04 15:35] LABS: Absolute Lymphocyte Count 2.14 X10^3/uL (0.83-4.51); Absolute Neutrophil Count 4.1 X10^3/uL (2.0-7.7); Basophil# 0.05 X10^3/uL; Basophil% 0.7 % (0-1); Eosinophil# 0.21 X10^3/uL; Hematocrit 45.1 % (37-47); Hemoglobin 14.1 g/dL (12.0-15.0); Lymphocyte # 2.14 X10^3/ul (4.0); Lymphocyte % 30.6 % (19-41); Mean Corp Hgb Conc 31.3 g/dL (32-36); Mean Corpuscular Hgb 27.5 pg (27.0-32.0); Mean Corpuscular Volume 88.1 fL (81-99); Mean Platelet Vol. 12.1 fl (6.2-12.0); Monocyte% 7.2 % (0-10); NRBC Flagged by Analyzer 0 % (0-5); Neutrophil # 4.07 X10^3/uL (2.7-7.7); Neutrophil % 58.2 % (47-70); Platelet Count 278 K/mm3 (150-450); RBC Distribution Width CV 13.3 % (11.6-14.6); RBC Distribution Width SD 42.9 fl (35.1-43.9); Red Blood Count 5.12 M/mm3 (4.2-5.4)
[2019-10-04 15:45] LABS: AST(SGOT) 10 U/L (15-37); Alanine Aminotransfer ALT/SGPT 19 U/L (13-56); Albumin, Serum 3.9 g/dL (3.2-5.0); Alkaline Phosphatase 113 U/L (45-117); Anion Gap 7 (5-15); BUN 15 mg/dL (7-18); BUN/Creat Ratio 16.1 RATIO (10-20); Calcium,Total 9.3 mg/dL (8.5-10.1); Chloride 98 mmol/L (98-107); Creatinine, Serum 0.93 mg/dL (0.55-1.02); EST Glomerular Filtration Rate 66 mL/min (>60); Est Glom Filt Rate - Afr Amer 79 mL/min (>60); Globulin 4.1 g/dL (2.2-4.2); Glucose 236 mg/dL (74-106); Potassium 4.4 mmol/L (3.5-5.1); Sodium Level 136 mmol/L (136-145)
[2019-10-04 15:53] LABS: Erythrocyte Sedimentation Rate 27 mm/hr (0-30)
== END ==
PROVIDERS: Family Provider Family Medicine; PCP Family Medicine; Referring Provider Family Medicine; Visit Provider Family Medicine
DX: N10 Acute pyelonephritis (principal)
CPT/HCPCS: 36415; 80053; 81001; 85025; 85652; 87086; 87088

== ENCOUNTER → 2019-10-10 15:09 | Outpatient (CLI) | payer MEDICARE, MEDICAID, SELFPAY ==
[2019-09-09 09:42] VITALS: BMI 45.6
[2019-10-12 20:52] LABS: Fats, Neutral Normal (.); Fats, Total Normal (.)
== END ==
PROVIDERS: Family Provider Family Medicine; PCP Family Medicine; Referring Provider Family Medicine; Visit Provider Family Medicine
DX: E11.65 Type 2 diabetes mellitus with hyperglycemia (principal); E55.9 Vitamin D deficiency, unspecified; R19.7 Diarrhea, unspecified; M17.10 Unilateral primary osteoarthritis, unspecified knee
CPT/HCPCS: 82705; 83986

== ENCOUNTER 2019-10-17 08:35 | Day surgery (SDC) | payer MEDICARE, MEDICAID, SELFPAY ==
[2019-09-09 09:42] VITALS: BMI 45.6
--- NOTE | 2019-09-09 09:55 | HP_ITS ---
Intake Vital Signs 09/09/19 Body Mass Index (BMI) 45.6 09/09/19 Height 5 ft 6 in 09/09/19 Weight: 274 lb 09/09/19 Body Mass Index (BMI) 44.2 09/09/19 Blood Pressure 144/88 H 09/09/19 Blood Pressure Location Rt brachial 09/09/19 Blood Pressure Position Sitting 09/09/19 Respiratory Rate 16 Intake Visit Reasons: Diarrhea [employer] Required: No Is patient in pain?: No Allergies No Known Allergies Allergy (Verified 09/09/19 09:41) Medications Amlodipine [Norvasc] 10 mg PO DAILY 05/14/17 [History Confirmed 09/09/19] Ergocalciferol [Vitamin D] 1 tab PO QWEEK 05/14/17 [History Confirmed 05/16/19] Gabapentin [Neurontin] 600 mg PO TID 05/14/17 [History Confirmed 05/16/19] Hydrochlorothiazide [Hctz] 25 mg PO DAILY 05/14/17 [History Confirmed 05/16/19] Liraglutide [Victoza] 1.8 mg SQ DAILY 05/14/17 [History Confirmed 05/16/19] Metformin HCl [Metformin HCl ER] 1,000 mg PO DAILY 05/14/17 [History Confirmed 05/16/19] Pioglitazone [Actos] 45 mg PO DAILY 05/14/17 [History Confirmed 05/16/19] Spironolactone [Aldactone] 100 mg PO DAILY 05/14/17 [History Confirmed 05/16/19] Aspirin 81 mg PO DAILY 11/20/18 [History Confirmed 05/16/19] Insulin Glargine,Hum.rec.anlog [Lantus] 20 unit SQ DAILY 05/16/19 [History Confirmed 09/09/19] capsaicin 0.025 % topical cream 1 applic TOPICAL TID 09/09/19 [History Confirmed 09/09/19] docusate sodium 100 mg capsule 100 mg PO DAILY 09/09/19 [History Confirmed 09/09/19] ertugliflozin 15 mg tablet 15 mg PO QAM 09/09/19 [History Confirmed 09/09/19] lactulose 20 gram/30 mL oral solution 20 g PO BID 09/09/19 [History Confirmed 09/09/19] levocetirizine 5 mg tablet 5 mg PO DAILY 09/09/19 [History Confirmed 09/09/19] magnesium 400 mg (as magnesium oxide) capsule 400 mg PO DAILY 09/09/19 [History Confirmed 09/09/19] meloxicam 15 mg tablet 15 mg PO DAILY 09/09/19 [History Confirmed 09/09/19] metronidazole 0.75 % topical gel 1 applic TOPICAL BID 09/09/19 [History Confirmed 09/09/19] mometasone 0.1 % topical cream 1 applic TOPICAL DAILY 09/09/19 [History Confirmed 09/09/19] naproxen 500 mg tablet 500 mg PO BID 09/09/19 [History Confirmed 09/09/19] ondansetron HCl 4 mg tablet 4 mg PO BID-TID 09/09/19 [History Confirmed 09/09/19] psyllium husk 0.52 gram capsule 0.52 g PO DAILY 09/09/19 [History Confirmed 09/09/19] ranitidine 150 mg capsule 150 mg PO BID 09/09/19 [History Confirmed 09/09/19] PFSH Medical History Diabetes (Acute) Diarrhea (Acute) HTN (hypertension) (Chronic) Surgical History S/P laparoscopic cholecystectomy (Acute) S/P tubal ligation (Acute) Family History Grandfather Cancer Mother Cancer Social History (Updated 09/09/19 @ 09:55 by Thais San MD) Smoking Status: Never smoker alcohol intake: current HPI HPI HPI: PAULIE ALFARO, is a 58 F who presents to the office today for HPI HPI Surgical H&P: Yes HPI: PAULIE ALFARO, is a 58 F who presents to the office today for diarrhea for diagnostic colonoscopy. Patient states she is had diarrhea since her laparoscopic cholecystectomy in November 2018 at [facility]. Patient currently denies any abdominal pain does states she has daily nausea ever since her surgery as well and does occur in the morning before overeating. Patient denies any burning up the esophagus or epigastric pain. Patient has been taking Zofran as needed for the nausea. Patient states that she did have a formed bowel movement yesterday that was hard, she may have a bowel movement only once a week or diarrhea every 3 to 4 days, but since her lap wong she is only had the diarrhea. Patient's A1c is 11.1 on recent blood work. ROS General General: No weight change or fatigue Gastro Gastrointestinal: No abdominal pain, Yes nausea or vomiting (No vomiting), Yes diarrhea, Yes constipation, No blood in stool, No acid reflux, No hemorrhoids, No ulcers, No gallbladder problem, No black,tarry stools Exam Const General: cooperative, comfortable, no acute distress GI Inspection: non-distended Palpation: soft, no guarding, no hernias, nontender, other (Diastases recti) Psych Affect: normal affect Assessment & Plan Problems 1. Diarrhea R19.7 2. Nausea R11.0 Plan I have discussed the above with the patient. I have offered the patient EGD & colonoscopy for evaluation with plans for random bx due to the diarrhea I have explained the risks/benefits of the procedure and described the procedure. I have discussed the risks with the patient, including but not limited to: infection, bleeding, perforation of the GI tract requiring emergency surgery, inability to complete the procedure, injury to any internal organs, complications of anesthesia, etc. - the patient understands and agrees to proceed. I have answered all the patient's questions to the patient's satisfaction and the patient has no further questions. The patient has been given instructions for the colon cleansing preparation. 2 days of clears with magnesium citrate the first day and MiraLAX Dulcolax split prep the second day. Thais San M.D. Pager: [phone] [facility] [address] [place] [address], [address] [place] [address] Office: [phone] Orders Orders: Colonoscopy Today EGD Today Medications New: meloxicam 15 mg PO DAILY magnesium 400 mg (as magnesium oxide) capsule 400 mg PO DAILY lactulose 20 grams PO BID capsaicin 0.025% 1 applic topical TID mometasone 0.1% 1 applic topical DAILY levocetirizine 5 mg PO DAILY docusate sodium 100 mg PO DAILY ranitidine 150 mg PO BID metronidazole 0.75% 1 applic topical BID psyllium husk 0.52 grams PO DAILY ertugliflozin (Steglatro) 15 mg PO QAM naproxen (Naprosyn) 500 mg PO BID ondansetron HCl (Zofran) 4 mg PO BID-TID Discontinued: duloxetine Discontinued Reason: Pt no longer taking 30 mg PO DAILY Plan Detail Follow Up We will schedule EGD and colonoscopy patient request in September Coding Level of Care Code Off vis,new,level 3 Diagnoses Diarrhea R19.7 Nausea R11.0 09/09/19 0955 <Electronically signed by Thais Almaraz am, MD> Date _ Thais San MD
--- NOTE | 2019-10-17 | GASB_PTH ---
PATIENT: PAULIE ALFARO LOC: EN U#:[id number] AGE/SX: 59/F ROOM: RE10/17/[address]: Dr. Thais San MD : 1960 BED: DIS: 10/17/2019 SPEC #: [id number] RECD: 10/17/19 13:25 STATUS: BERT ERIC #: [id number] PENELOPE: 10/17/19 00:[address]: Thais San DEPT: SURGICAL PATHOLOGY RECD BY: Dell Luna ENTERED: 10/17/19 13:26 SP TYPE: Gastric Bx OTHR DR: Dr. Robin Marion MD Tissues: A - Gastric mucous membrane B - Gastric mucous membrane C - Ascending colon D - Transverse colon E - Transverse colon F - Descending colon G - Sigmoid colon biopsy H - Rectum, NOS Procedures: Special Stain Group II Surgery Specimen Level IV Alcian Blue/PAS (control) HEADER OPERATION: Colonoscopy, EGD ([facility] [place]) PRE-OP DIAGNOSIS: Nausea, diarrhea TISSUE SUBMITTED: A - Antral biopsy for H. pylori and pathology, B - GE junction biopsy, C - Ascending colon polyp, D - Transverse colon polyp biopsy, E - Random biopsy transverse colon, F - Random biopsy descending colon, G - Random biopsy sigmoid colon, H - Rectal polyps x3 MICROSCOPIC DIAGNOSIS A. Antral biopsy: Chronic gastritis. See comment. B. Gastroesophageal junction, biopsy: Fragments of gastric mucosa with focal changes consistent with Beach's esophagus. Chronic inflammation. See comment. C. Ascending colon polyp, biopsy: Fragments of tubular adenoma. D. Transverse colon polyp, biopsy: Tubular adenoma. E. Transverse colon, random biopsy: No pathologic change. F. Descending colon, random biopsy: Focal acute colitis. See comment. G. Sigmoid colon, random biopsy: No pathologic change. No evidence of colitis. H. Rectal polyps, biopsy: Fragments of hyperplastic polyp. AM:minnie 10/18/19 COMMENT A. The results of immunohistochemistry for Helicobacter pylori will be reported separately ([id number]). B. There is no squamous mucosa represented in the biopsy. Alcian blue/PAS stain with matched control supports the above diagnosis. F. There is focal cryptitis and crypt abscess present involving a single gland. Clinical correlation is suggested. MICROSCOPIC DESCRIPTION Slides are reviewed. GROSS DESCRIPTION A - Received in fixative is one container labeled with the patient's name and designated antral biopsy. The specimen consists of one irregular fragment of light phillip soft tissue that measures 0.3 x 0.3 x 0.1 cm. The specimen is totally submitted in one cassette. B - Received in fixative is one container labeled with the patient's name and designated GE junction. The specimen consists of two irregular fragments of light phillip soft tissue that in aggregate measure 0.5 x 0.5 x 0.1 cm. The specimen is totally submitted in one cassette. C - Received in fixative is one container labeled with the patient's name and designated ascending colon polyp. The specimen consists of two irregular fragments of light phillip soft tissue that in aggregate measure 0.6 x 0.4 x 0.1 cm. The specimen is totally submitted in one cassette. D - Received in fixative is one container labeled with the patient's name and designated transverse colon polyp. The specimen consists of one irregular fragment of light phillip soft tissue that measures 0.2 x 0.2 x 0.1 cm. The specimen is totally submitted in one cassette. E - Received in fixative is one container labeled with the patient's name and designated random transverse colon biopsy. The specimen consists of one irregular fragment of light phillip soft tissue that measures 0.5 x 0.5 x 0.1 cm. The specimen is totally submitted in one cassette. F - Received in fixative is one container labeled with the patient's name and designated random biopsy descending colon. The specimen consists of two irregular fragments of light phillip soft tissue that in aggregate measure 0.7 x 0.5 x 0.1 cm. The specimen is totally submitted in one cassette. G - Received in fixative is one container labeled with the patient's name and designated random biopsy sigmoid. The specimen consists of one irregular fragment of light phillip soft tissue that measures 0.6 x 0.5 x 0.1 cm. The specimen is totally submitted in one cassette. H - Received in fixative is one container labeled with the patient's name and designated rectal polyps. The specimen consists of multiple irregular fragments of light phillip soft tissue that in aggregate measure 1 x 0.7 x 0.1 cm. The specimen is totally submitted in one cassette. / AM:minnie 10/17/19 TC:5 CPT: 74829 x8, 89514
[2019-10-17 09:01] VITALS: BP 146/97; PULSE 101; RESP 16; TEMP 36.6; O2SAT 96; BMI 43.0
[2019-10-17] MEDS: Lactated Ringers 1,000 ML 100 ML IV (09:12)
[2019-10-17 09:16] LABS: Bedside Glucose 359 mg/dL (70-110)
[2019-10-17] MEDS: Insulin Lispro 100 UNIT/ML INSULN.PEN 8 UNIT SC (09:21)
--- NOTE | 2019-10-17 10:15 | IMM_PTH ---
PATIENT: PAULIE ALFARO LOC: EN U#:[id number] AGE/SX: 59/F ROOM: RE10/17/[address]: Dr. Thais San MD : 1960 BED: DIS: 10/17/2019 SPEC #: [id number] RECD: 10/17/19 13:23 STATUS: BERT REQ #: [id number] PENELOPE: 10/17/19 10:[address]: Thais San DEPT: IMMUNOHISTOCHEMISTRY RECD BY: Criselda Farfan ENTERED: 10/17/19 13:24 SP TYPE: IMMUNO OTHR DR: Dr. Robin Marion MD Tissues: A - Stomach, NOS Procedures: H Pylori (initial) PHYSICIAN & INSTITUTION [facility] [id number] SPECIMEN INFORMATION: Tissue Source: A - Antral biopsy Clinical Info: Nausea, diarrhea Specimen Number: [id number] CPT code: 27484 METHODOLOGY: Deparaffinized sections of prefer/formalin-fixed tissue or PAP/DQ stained slides are incubated with monoclonal/polyclonal antibodies/oligonucleotide probes. Localization is made via biotin free immunoperoxidase method. Appropriate controls are performed and reacted as expected. Results on target cell population are indicated in the following table: RESULTS: ANTIBODY / CLONE RESULT Block A H Pylori (polyclonal) negative These tests were developed and their performance characteristics determined by [facility]. They may not have been cleared or approved by the U.S. Food and Drug Administration. The FDA has determined that such clearance or approval is not necessary. INTERPRETATION: A. Antral biopsy: Negative for Helicobacter pylori organisms. AM:minnie 10/18/19
--- NOTE | 2019-10-17 10:37 | HP.PCM_ITS ---
History of Present Illness Date of Admission: 10/17/19 The patient is a 59 year old F for DD and diagnostic colonoscopy due to diarrhea since her laparoscopic cholecystectomy at [facility] in November 2017. Patient does states she gets nausea occasionally as well. Patient denies any heartburn or reflux. Patient did not try Pepcid as she did not have any at home. Patient has never had a previous colonoscopy and denies any family history of colon cancer. Past Medical/Surgical History - Planned Operation Planned Operative Procedure/s: egd/cscope Date of Operative Procedure: 10/17/19 Permit Signed: No S.O.S: No Is This Patient Having a Total Joint: No - Previous Hospitalizations/Surgeries HX Hospitalizations: Yes HX of Surgeries: gallbladder. tubal ligation Any Problems With Anesthesia: Yes - slow to awaken You/Your Family Experience Fever (Hyperthermia) With Anes: No Cholinesterase deficiency: No - Cardiovascular Hx Chest Pain within Last 2 months: No Hx of Irregular Heartbeat and/or Afib: No Hx Heart Attack: No Hx Congestive Heart Failure: No Hx Rheumatic Fever: No Hx Hypertension: Yes - controlled with med Hx Internal Defibrillator: No Hx Pacemaker: No Hx Cardiac Catheterization: No Hx Cardiac Surgery/Stents/Etc.: No Hx Stress Test: Yes - over 5 yrs ago HX Edema: Yes - lower legs Hx Pain in Legs when Walking/Leg Cramps: Yes - neuropathy pain - Respiratory Chronic Cough: No HX of Shortness of Breath: Yes - sob with 2 flights of stairs Hoarseness: No Hx Chronic Obstructive Pulmonary Disease (COPD): No Hx Asthma: No Hx Emphysema: No Hx Sleep Apnea: Yes CPAP: Yes BIPAP: No Hx Oxygen Use at Home: No Hx Respiratory Tract Infection/Cold (presently): No Result (for STOP score): Positive Hx Smoking: Yes - quit 30 yrs ago Smoking Status: Former smoker - Gastrointestinal Hx Gastroesophageal Reflux: Yes Controlled With Meds: Yes Hx Gastrointestinal Disorders: No Hx Gastrointestinal Bleed: No Hx Ulcer: No Hx Hiatal Hernia: No Difficulty Chewing/Swallowing: No Recent Onset of Swallowing Problems: No Special diet followed at home: Yes - ada Hx Unplanned Weight Loss of 20#: No HX Unplanned Weight Gain of 20#: No - Neurological Hx Seizures: No HX Syncope/Blackout Spells/Unconsciousness: No Hx CVA/Stroke: No Hx Transient Ischemic Attacks (TIA): No Hx Multiple Sclerosis: No Hx Parkinson's Disease: No Hx Head/Neck Injury: No Hx Headaches: Yes - occ Hx Back Injury/Pain: Yes - chronic lower back pain Recent Onset of Speech Difficulty: No Restless Legs: No Does patient have nerve stimulator: No Patient instructed to have device shut off: No Rep notified?: No - Blood Disorder Hx Leukemia: No Bleeding Tendencies: No Hx Deep Vein Thrombosis: No Hx High Cholesterol: No Blood Transmitted Disease: No Hx Hepatitis: No Hx Cirrhosis: No Hx Anemia: Yes - chronic Hx Blood Disorders: No - Reproduction : No Hx Hysterectomy: No Hx Tubal Ligation: Yes Are You Post Menopause: Yes - Genitourinary Hx Renal Disease: No Hx Dialysis: No - Musculoskeletal Hx Arthritis: Yes Hx Rheumatoid Arthritis: No Hx Gout: No Recent Onset of an Orthopedic Problem: No - Endocrine Hx Diabetes: Yes - insulin Insulin: Yes Thyroid Disease: No Hx Steroid Therapy: No - Psycho/Social Hx Substance Use: No Hx Alcohol Use: No Hx Anxiety: No Hx Depression: No Mental Illness: No Hx Dementia: No - Miscellaneous Hx Cancer: No Recent Exposure to Contagious Disease: No Active MRSA: No Hx of C-Diff: No Any Loose Teeth: No Allergies No Known Allergies Allergy (Verified 10/17/19 08:53) - Discharge Is Pt Admitted From a Group Home, or a Senior Living: No Who Could Help: family After D/C, Where Do you Plan to Go: Return Home - Physical Exam Vitals/I&O's: Vital Signs Temp Pulse Resp BP Pulse Ox 97.8 F 101 H 16 146/97 H 96 10/17/19 09:01 10/17/19 09:01 10/17/19 09:01 10/17/19 09:01 10/17/19 09:01 Oxygen Delivery Method Room Air Weight: 266 lb 5.094 oz Body Mass Index (BMI) 43.0 General: Alert, Oriented x3, Cooperative, No apparent distress HEENT: Atraumatic Lungs: Normal air movement Cardiovascular: Regular rate Abdomen: Soft, Non Tender, Non-Distended Extremities: No clubbing, No cyanosis Neurological: Cranial nerves II-XII grossly intact Psych/Mental Status: Normal Affect Laboratory Results 10/17/19 09:03: POC Glucose 359 H Current Medications Lactated Ringer's () 1,000 mls @ 100 mls/hr IV .Q10H FRANCI Last Admin: 10/17/19 09:12 Dose: 100 mls/hr Documented by: Assessment/Plan All Active Problems (Last Reviewed 09/09/19 @ 09:40 by Emely Chen) No significant past medical history (Acute) 59-year-old female with diarrhea and nausea When doing EGD and colonoscopy. Surgery Risks - Colonoscopy I discussed with the patient the risks of the procedure: Yes Risks Include but are not Limited To: Risks include but are not limited to: Bleeding, perforation requiring further surgery, inability to complete colonoscopy requiring barium enema. Patient and her no further questions this time.
[2019-10-17 11:28] VITALS: BP 118/79; BP 146/97; PULSE 84; RESP 16; TEMP 36.3; O2SAT 93
[2019-10-17 11:30] VITALS: BP 119/71; BP 146/97; PULSE 88; RESP 16; O2SAT 92
[2019-10-17 11:35] VITALS: BP 117/78; BP 146/97; PULSE 84; RESP 16; O2SAT 93
[2019-10-17 11:40] VITALS: BP 129/83; BP 146/97; PULSE 86; RESP 16; TEMP 36.3; O2SAT 93
[2019-10-17 12:06] VITALS: BP 146/97
--- NOTE | 2019-10-17 14:19 | OP.COLON_ITS ---
Patient Name: Светлана Garcia Procedure Date: 10/17/2019 10:57 AM Date of : 1960 Age: 59 Procedure: Colonoscopy Indications: Chronic diarrhea Providers: Thais San MD Referring MD: Robin Marion Medicines: Monitored Anesthesia Care Patient Profile: This is a 59 year old female. Last Colonoscopy: none. The patient's first colonoscopy is today. Complications: No immediate complications. Procedure: Pre-Anesthesia Assessment: - Prior to the procedure, a History and Physical was performed, and patient medications and allergies were reviewed. The patient's tolerance of previous anesthesia was also reviewed. The risks and benefits of the procedure and the sedation options and risks were discussed with the patient. All questions were answered, and informed consent was obtained. Prior Anticoagulants: The patient has taken no previous anticoagulant or antiplatelet agents. ASA Grade Assessment: III - A patient with severe systemic disease. After reviewing the risks and benefits, the patient was deemed in satisfactory condition to undergo the procedure. After I obtained informed consent, the scope was passed under direct vision. Throughout the procedure, the patient's blood pressure, pulse, and oxygen saturations were monitored continuously. The pediatric colonoscope was introduced through the anus and advanced to the cecum, identified by the appendiceal orifice, ileocecal valve and palpation. The colonoscopy was performed without difficulty. The patient tolerated the procedure well. The quality of the bowel preparation was good. Scope In: 10:59:34 AM Scope Withdrawal Time 0 hours 16 minutes 9 seconds Scope Out: 11:22:46 AM Total Procedure Duration Time 0 hours 23 minutes 12 seconds Findings: Hemorrhoids were found on perianal exam. A less than 5 mm polyp was found in the ascending colon. The polyp was semi-pedunculated. The polyp was removed with a hot snare. Resection and retrieval were complete. Four sessile polyps were found in the rectum and transverse colon. The polyps were less than 5 mm in size. These polyps were removed with a cold biopsy forceps. Resection and retrieval were complete. Three biopsies were obtained with cold forceps for histology randomly in the sigmoid colon, in the descending colon and in the transverse colon. External and internal hemorrhoids were found. The hemorrhoids were Grade I (internal hemorrhoids that do not prolapse). Impression: - Hemorrhoids found on perianal exam. - One less than 5 mm polyp in the ascending colon, removed with a hot snare. Resected and retrieved. - Four less than 5 mm polyps in the rectum and in the transverse colon, removed with a cold biopsy forceps. Resected and retrieved. - External and internal hemorrhoids. - Three biopsies were obtained in the sigmoid colon, in the descending colon and in the transverse colon. Recommendation: - Discharge patient to home. - Resume previous diet. - Continue present medications. - Await pathology results. - Repeat colonoscopy in 3 - 5 years for surveillance based on pathology results. Procedure Code(s): --- Professional --- 45474, Colonoscopy, flexible; with removal of tumor(s), polyp(s), or other lesion(s) by snare technique 86764, 59, Colonoscopy, flexible; with biopsy, single or multiple Diagnosis Code(s): --- Professional --- K64.0, First degree hemorrhoids D12.2, Benign neoplasm of ascending colon K62.1, Rectal polyp D12.3, Benign neoplasm of transverse colon (hepatic flexure or splenic flexure) K52.9, Noninfective gastroenteritis and colitis, unspecified CPT copyright 2017 [employer]. All rights reserved. The codes documented in this report are preliminary and upon health information coder review may be revised to meet current compliance requirements. MD Thais Newberry MD 10/17/2019 11:31:59 AM This report has been signed electronically. Number of Addenda: 0 Note Initiated On: 10/17/2019 10:57 AM
--- NOTE | 2019-10-17 14:19 | OP.CCLET_ITS ---
10/17/2019 Robin Marion [address] [place] [address] Re : Upper GI endoscopy procedure for [facility] Dear Dr. Marion This procedure was performed on Thursday, October 17, 2019. My impressions and recommendations are as follows: Impressions : - Z-line variable. Biopsied. - Erythematous mucosa in the antrum. Biopsied. - Normal examined duodenum. Recommendations : - Await pathology results. - Discharge patient to home. - Resume previous diet. - Continue present medications. - Recommend acid suppression medication. My findings are described in the full procedure note, which is enclosed. If I can be of further assistance, please feel free to contact me at Doctor phone number(s): , Work: . Sincerely, MD Thais Newberry MD 10/17/2019 11:27:18 AM This report has been signed electronically.
--- NOTE | 2019-10-17 14:19 | OP.EGD_ITS ---
Patient Name: Светлана Garcia Procedure Date: 10/17/2019 10:44 AM Date of : 1960 Age: 59 Procedure: Upper GI endoscopy Indications: Nausea Providers: Thais San MD Referring MD: Robin Marion Medicines: Monitored Anesthesia Care Patient Profile: This is a 59 year old female. Complications: No immediate complications. Procedure: Pre-Anesthesia Assessment: - Prior to the procedure, a History and Physical was performed, and patient medications and allergies were reviewed. The patient's tolerance of previous anesthesia was also reviewed. The risks and benefits of the procedure and the sedation options and risks were discussed with the patient. All questions were answered, and informed consent was obtained. Prior Anticoagulants: The patient has taken no previous anticoagulant or antiplatelet agents. ASA Grade Assessment: III - A patient with severe systemic disease. After reviewing the risks and benefits, the patient was deemed in satisfactory condition to undergo the procedure. After obtaining informed consent, the endoscope was passed under direct vision. Throughout the procedure, the patient's blood pressure, pulse, and oxygen saturations were monitored continuously. The gastroscope was introduced through the mouth, and advanced to the second part of duodenum. The upper GI endoscopy was accomplished without difficulty. The patient tolerated the procedure well. Scope In: 10:51:44 AM Scope Out: 10:56:28 AM Total Procedure Duration Time 0 hours 4 minutes 44 seconds Findings: The Z-line was variable. Biopsies were taken with a cold forceps for histology. Mildly erythematous mucosa was found in the gastric antrum. Biopsies were taken with a cold forceps for histology. Biopsies were taken with a cold forceps for Helicobacter pylori cultures. The examined duodenum was normal. The cardia and gastric fundus were normal on retroflexion. Impression: - Z-line variable. Biopsied. - Erythematous mucosa in the antrum. Biopsied. - Normal examined duodenum. Recommendation: - Await pathology results. - Discharge patient to home. - Resume previous diet. - Continue present medications. - Recommend acid suppression medication. Procedure Code(s): --- Professional --- 67851, Esophagogastroduodenoscopy, flexible, transoral; with biopsy, single or multiple Diagnosis Code(s): --- Professional --- K22.8, Other specified diseases of esophagus K31.89, Other diseases of stomach and duodenum R11.0, Nausea CPT copyright 2017 [employer] [place] [employer]. All rights reserved. The codes documented in this report are preliminary and upon amf mechanic review may be revised to meet current compliance requirements. MD Thais Newberry MD 10/17/2019 11:27:18 AM This report has been signed electronically. Number of Addenda: 0 Note Initiated On: 10/17/2019 10:44 AM
--- NOTE | 2019-10-17 14:19 | OP.CCLET_ITS ---
10/17/2019 oRbin Marion [address] [place] [address] Re : Colonoscopy procedure for Светлана [place] Dear Dr. Marion This procedure was performed on Thursday, October 17, 2019. My impressions and recommendations are as follows: Impressions : - Hemorrhoids found on perianal exam. - One less than 5 mm polyp in the ascending colon, removed with a hot snare. Resected and retrieved. - Four less than 5 mm polyps in the rectum and in the transverse colon, removed with a cold biopsy forceps. Resected and retrieved. - External and internal hemorrhoids. - Three biopsies were obtained in the sigmoid colon, in the descending colon and in the transverse colon. Recommendations : - Discharge patient to home. - Resume previous diet. - Continue present medications. - Await pathology results. - Repeat colonoscopy in 3 - 5 years for surveillance based on pathology results. My findings are described in the full procedure note, which is enclosed. If I can be of further assistance, please feel free to contact me at Doctor phone number(s): , Work: . Sincerely, MD Thais Newberry MD 10/17/2019 11:31:59 AM This report has been signed electronically.
== END 2019-10-17 12:08 | disposition home or self-care (01) ==
LOC: EN 08:36 → AC 08:37
PROVIDERS: Family Provider Family Medicine; PCP Family Medicine; Referring Provider Family Medicine; Visit Provider Surgery
PROC: 0DJD8ZZ Inspection of Lower Intestinal Tract, Via Natural or Artificial Opening Endoscopic (ICD-10-PCS; CPT 45378; principal; 2019-10-17 10:10)
DX: D12.2 Benign neoplasm of ascending colon (principal); D12.3 Benign neoplasm of transverse colon; K64.0 First degree hemorrhoids; K52.9 Noninfective gastroenteritis and colitis, unspecified; K62.1 Rectal polyp; K22.8 Other specified diseases of esophagus; K31.89 Other diseases of stomach and duodenum; R11.0 Nausea; D64.9 Anemia, unspecified; E11.9 Type 2 diabetes mellitus without complications; K21.9 Gastro-esophageal reflux disease without esophagitis; I10 Essential (primary) hypertension; K64.4 Residual hemorrhoidal skin tags; Z79.4 Long term (current) use of insulin; Z87.891 Personal history of nicotine dependence; Z90.49 Acquired absence of other specified parts of digestive tract; Z98.51 Tubal ligation status
CPT/HCPCS: 43239; 45380; 45385; 82962; 88305; 88313; 88342; J7120; J2405

== ENCOUNTER → 2019-11-07 10:36 | Outpatient (CLI) | payer MEDICARE, SELFPAY ==
[2019-10-17 09:01] VITALS: BMI 43.0
[2019-11-07 12:13] LABS: Absolute Lymphocyte Count 1.67 X10^3/uL (0.83-4.51); Absolute Neutrophil Count 3.5 X10^3/uL (2.0-7.7); Basophil# 0.02 X10^3/uL; Basophil% 0.3 % (0-1); Eosinophil# 0.16 X10^3/uL; Eosinophils% 2.7 % (0-5); Hematocrit 41.9 % (37-47); Lymphocyte # 1.67 X10^3/ul (4.0); Lymphocyte % 28.6 % (19-41); Mean Corpuscular Hgb 27.5 pg (27.0-32.0); Mean Corpuscular Volume 88.8 fL (81-99); Mean Platelet Vol. 12.1 fl (6.2-12.0); Monocyte# 0.42 X10^3/uL; Monocyte% 7.2 % (0-10); NRBC Flagged by Analyzer 0 % (0-5); Neutrophil # 3.54 X10^3/uL (2.7-7.7); Neutrophil % 60.9 % (47-70); Platelet Count 223 K/mm3 (150-450); RBC Distribution Width CV 13.8 % (11.6-14.6); RBC Distribution Width SD 44.8 fl (35.1-43.9); Red Blood Count 4.72 M/mm3 (4.2-5.4); White Blood Count 5.8 K/mm3 (4.4-11.0)
[2019-11-07 12:49] LABS: ALB/GLOB Ratio 0.8 RATIO (0.9-2.4); AST(SGOT) 8 U/L (15-37); Alanine Aminotransfer ALT/SGPT 17 U/L (13-56); Albumin, Serum 3.4 g/dL (3.2-5.0); Alkaline Phosphatase 103 U/L (45-117); Anion Gap 5 (5-15); BUN 11 mg/dL (7-18); BUN/Creat Ratio 13.5 RATIO (10-20); Calcium,Total 8.9 mg/dL (8.5-10.1); Chloride 103 mmol/L (98-107); Creatinine, Serum 0.82 mg/dL (0.55-1.02); EST Glomerular Filtration Rate 76 mL/min (>60); Est Glom Filt Rate - Afr Amer 92 mL/min (>60); Ferritin 28 ng/mL (8-252); Globulin 4.2 g/dL (2.2-4.2); Glucose 217 mg/dL (74-106); Potassium 3.8 mmol/L (3.5-5.1); Protein, Total 7.6 g/dL (6.4-8.2); Sodium Level 138 mmol/L (136-145); Thyroid Stim Hormone (TSH) 0.76 uIU/mL (0.358-3.74)
== END ==
PROVIDERS: PCP Family Medicine; Referring Provider Family Medicine; Visit Provider Family Medicine
DX: E11.65 Type 2 diabetes mellitus with hyperglycemia (principal); D64.9 Anemia, unspecified
CPT/HCPCS: 36415; 80053; 82728; 84443; 85025

== ENCOUNTER → 2019-11-30 16:16 | Outpatient (CLI) | payer MEDICARE, SELFPAY ==
[2019-12-01 09:24] LABS: Hepatitis C Antibody Non-Reactive (Nonreactive)
== END ==
PROVIDERS: PCP Family Medicine; Referring Provider Family Medicine; Visit Provider Family Medicine
DX: Z20.5 Contact with and (suspected) exposure to viral hepatitis (principal)
CPT/HCPCS: 36415; 86803

== ENCOUNTER → 2020-10-26 11:34 | Outpatient (CLI) | payer MEDICARE, SELFPAY ==
[2020-04-20 14:16] VITALS: BMI 43.0
[2020-10-26 15:34] LABS: Vitamin D,25 Hydroxy 27.8 ng/mL
[2020-10-26 15:38] LABS: Hemoglobin A1c 7.4 % (3.8-5.6)
[2020-10-26 15:45] LABS: Absolute Lymphocyte Count 1.44 X10^3/uL (0.83-4.51); Absolute Neutrophil Count 3.4 X10^3/uL (2.0-7.7); Basophil# 0.03 X10^3/uL; Basophil% 0.6 % (0-1); Eosinophil# 0.16 X10^3/uL; Hematocrit 43.4 % (37-47); Hemoglobin 13.2 g/dL (12.0-15.0); Lymphocyte # 1.44 X10^3/ul (4.0); Lymphocyte % 26.7 % (19-41); Mean Corp Hgb Conc 30.4 g/dL (32-36); Mean Corpuscular Hgb 27.3 pg (27.0-32.0); Mean Corpuscular Volume 89.9 fL (81-99); Mean Platelet Vol. 11.1 fl (6.2-12.0); Monocyte# 0.38 X10^3/uL; Monocyte% 7.1 % (0-10); NRBC Flagged by Analyzer 0 % (0-5); Neutrophil # 3.36 X10^3/uL (2.7-7.7); Neutrophil % 62.2 % (47-70); Platelet Count 255 K/mm3 (150-450); RBC Distribution Width CV 14.4 % (11.6-14.6); RBC Distribution Width SD 47.6 fl (35.1-43.9); Red Blood Count 4.83 M/mm3 (4.2-5.4); White Blood Count 5.4 K/mm3 (4.4-11.0)
[2020-10-26 15:54] LABS: ALB/GLOB Ratio 0.8 RATIO (0.9-2.4); AST(SGOT) 11 U/L (15-37); Alanine Aminotransfer ALT/SGPT 21 U/L (13-56); Albumin, Serum 3.3 g/dL (3.2-5.0); Alkaline Phosphatase 96 U/L (45-117); Anion Gap 8 (5-15); BUN 15 mg/dL (7-18); BUN/Creat Ratio 15.4 RATIO (10-20); CRP 7.22 mg/L (0.0-3.0); Calcium,Total 8.9 mg/dL (8.5-10.1); Chloride 103 mmol/L (98-107); Creatinine, Serum 0.97 mg/dL (0.55-1.02); EST Glomerular Filtration Rate 62 mL/min (>60); Est Glom Filt Rate - Afr Amer 75 mL/min (>60); Globulin 4.1 g/dL (2.2-4.2); Glucose 202 mg/dL (74-106); Protein, Total 7.4 g/dL (6.4-8.2); Rheumatoid Factor < 10.0 IU/mL (<15); Sodium Level 140 mmol/L (136-145); Thyroid Stim Hormone (TSH) 1.25 uIU/mL (0.358-3.74)
[2020-10-26 16:25] LABS: Erythrocyte Sedimentation Rate 25 mm/hr (0-30)
[2020-10-27 08:52] LABS: SARS-COV-2 TOTAL ABS Nonreactive (Nonreactive)
[2020-10-29 02:05] LABS: ANTINUCLEAR ANTIBODIES DIRECT Negative (Negative)
[2020-10-31 03:06] LABS: Influenza A 1:16 (Neg:<1:8); Influenza B 1:16 (Neg:<1:8)
== END ==
PROVIDERS: PCP Family Medicine; Referring Provider Family Medicine; Visit Provider Family Medicine
DX: R68.89 Other general symptoms and signs (principal); M25.549 Pain in joints of unspecified hand; E11.40 Type 2 diabetes mellitus with diabetic neuropathy, unspecified; E55.9 Vitamin D deficiency, unspecified; G47.33 Obstructive sleep apnea (adult) (pediatric); E11.65 Type 2 diabetes mellitus with hyperglycemia; E27.8 Other specified disorders of adrenal gland
CPT/HCPCS: 36415; 80053; 82306; 82627; 83036; 84443; 85025; 85652; 86038; 86140; 86431; 86710; 86769; 82626

== ENCOUNTER → 2020-11-05 10:16 | Outpatient (CLI) | payer MEDICARE, MEDICAID, SELFPAY ==
[2020-04-20 14:16] VITALS: BMI 43.0
--- NOTE | 2020-11-05 10:24 | NM_ITS ---
CLINICAL: 60-year-old diabetic female with reported history of chronic nausea. SEMI-SOLID PHASE 99m Tc SULFUR COLLOID GASTRIC EMPTYING STUDY COMPARISON: None available FINDINGS: The patient was administered 1.0 mCi of 99m Tc sulfur colloid mixed with oatmeal and consumed per os. Image acquisitions in the anterior-posterior projections for a total of 60 minutes. There is prompt visualization of the stomach. There is no gastroesophageal reflux identified. The T ? linear fit was calculated to be 33.22 minutes, (Normal: 12-56 minutes). NM/Gastric Emptying Study IMPRESSION: 1. NORMAL 99m Tc sulfur colloid semi-solid phase (oatmeal) gastric emptying imaging examination. A. There is normal and preserved semi-solid phase gastric emptying compared to normal controls. (Alva et al, J Nucl Med Tech 38: 186, 2010). Electronically Signed: Roscoe Singh DO at 21:06 EST Tel , Service support ,
== END ==
PROVIDERS: PCP Family Medicine; Referring Provider Family Medicine; Visit Provider Family Medicine
DX: E11.43 Type 2 diabetes mellitus with diabetic autonomic (poly)neuropathy (principal)
CPT/HCPCS: 78264; A9541

== ENCOUNTER → 2021-02-05 13:18 | Outpatient (CLI) | payer MEDICARE, MEDICAID, SELFPAY ==
[2020-04-20 14:16] VITALS: BMI 43.0
--- NOTE | 2021-02-05 13:19 | BI_ITS ---
MAMMOGRAPHY - BILATERAL SCREENING REASON FOR EXAM: Female, 60 years old. Routine annual screening examination. PERTINENT HISTORY: Non-contributory. TECHNIQUE: Digital bilateral breast delaney (3D mammographic acquisition) in the CC and MLO projections. 2-D mediolateral oblique (MLO) and craniocaudad (CC) views of both breasts were obtained. CAD: Full Field Digital Mammography with Computer Added Detection was performed. COMPARISON: Comparison is made with prior study dated 03/14/2019 and 09/17/2015. FINDINGS: Breast Composition: The breasts are heterogeneously dense, which may obscure small masses. There are no dominant masses or suspicious calcifications. No other significant abnormalities are identified. There has been no significant change since the prior study. BI/SCRN MAMM (CAD)W/DELANEY BILAT IMPRESSION: Stable bilateral screening mammogram. Yearly follow-up mammogram recommended. (A) ASSESSMENT CATEGORY: BIRADS Category 1: Negative. A letter regarding these results will be sent to the patient by the facility within 30 days. Approximately 10% of breast cancers are not detected by mammography. A normal mammogram should not delay biopsy of a clinically suspicious abnormality. [id number] Electronically Signed: Chiki Thorne MD at 14:07 EDT , Service support ,
== END ==
PROVIDERS: PCP Family Medicine; Referring Provider Obstetrics & Gynecology; Visit Provider Obstetrics & Gynecology
DX: Z12.31 Encounter for screening mammogram for malignant neoplasm of breast (principal)
CPT/HCPCS: 77063; 77067

== ENCOUNTER → 2021-03-20 16:40 | Outpatient (CLI) | payer MEDICARE, MEDICAID, SELFPAY ==
[2020-04-20 14:16] VITALS: BMI 43.0
[2021-03-20 17:54] LABS: Absolute Lymphocyte Count 1.69 X10^3/uL (0.83-4.51); Absolute Neutrophil Count 4.4 X10^3/uL (2.0-7.7); Basophil# 0.03 X10^3/uL; Basophil% 0.4 % (0-1); Eosinophil# 0.16 X10^3/uL; Eosinophils% 2.4 % (0-5); Hematocrit 41.6 % (37-47); Lymphocyte # 1.69 X10^3/ul (0.83-4.51); Lymphocyte % 24.9 % (19-41); Mean Corp Hgb Conc 31.3 g/dL (32-36); Mean Corpuscular Hgb 28.2 pg (27.0-32.0); Mean Corpuscular Volume 90.2 fL (81-99); Mean Platelet Vol. 11.5 fl (6.2-12.0); Monocyte# 0.45 X10^3/uL; Monocyte% 6.6 % (0-10); NRBC Flagged by Analyzer 0 % (0-5); Neutrophil # 4.43 X10^3/uL (2.7-7.7); Neutrophil % 65.4 % (47-70); Platelet Count 237 K/mm3 (150-450); RBC Distribution Width CV 14.7 % (11.6-14.6); RBC Distribution Width SD 49.2 fl (35.1-43.9); Red Blood Count 4.61 M/mm3 (4.2-5.4); White Blood Count 6.8 K/mm3 (4.4-11.0)
[2021-03-20 18:31] LABS: Vitamin B12 195 pg/mL (211-911)
[2021-03-20 18:36] LABS: Hemoglobin A1c 8.1 % (3.8-5.6)
[2021-03-20 18:45] LABS: ALB/GLOB Ratio 0.9 RATIO (0.9-2.4); AST(SGOT) 7 U/L (15-37); Alanine Aminotransfer ALT/SGPT 18 U/L (13-56); Albumin, Serum 3.6 g/dL (3.2-5.0); Alkaline Phosphatase 103 U/L (45-117); Anion Gap 8 (5-15); BUN 14 mg/dL (7-18); Calcium,Total 8.8 mg/dL (8.5-10.1); Chloride 102 mmol/L (98-107); Creatinine, Serum 1.08 mg/dL (0.55-1.02); EST Glomerular Filtration Rate 55 mL/min (>60); Est Glom Filt Rate - Afr Amer 66 mL/min (>60); Ferritin 18 ng/mL (8-252); Globulin 3.9 g/dL (2.2-4.2); Glucose 301 mg/dL (74-106); Potassium 3.8 mmol/L (3.5-5.1); Protein, Total 7.5 g/dL (6.4-8.2); Sodium Level 139 mmol/L (136-145)
== END ==
PROVIDERS: PCP Family Medicine; Referring Provider Family Medicine; Visit Provider Family Medicine
DX: D50.9 Iron deficiency anemia, unspecified (principal); I10 Essential (primary) hypertension; E11.42 Type 2 diabetes mellitus with diabetic polyneuropathy
CPT/HCPCS: 36415; 80053; 82607; 82728; 82746; 83036; 85025

== ENCOUNTER 2021-05-12 09:12 | Inpatient (IN) | payer MEDICARE, MEDICAID, SELFPAY ==
[2020-04-20 14:16] VITALS: BMI 43.0
[2021-05-12] VITALS (8 sets, daily range): BP systolic 110–152; BP diastolic 58–80; PULSE 77–97; RESP 18–20; TEMP 36.4–37.3; O2SAT 88–95; BMI 46.4; BMI 46.1
--- NOTE | 2021-05-12 09:36 | EDS_ITS ---
HPI History of Present Illness Chief Complaint: General Illness Informant: patient Narrative Narrative: Patient is a 60-year-old female with a past medical history of hypertension, diabetes who presents to the emergency department for generally not feeling well. She states over the last 3 or 4 days she has developed earache, sore throat, fever, cough, nausea and diarrhea. She denies known sick contacts. She has been vaccinated for Covid back in November. She did recently return from a trip to [place] which required a negative Covid test. She has not felt febrile. She denies any chest pain or shortness of breath. Her cough has been productive of sputum. She denies significant abdominal pain. No urinary symptoms. She has been using nasal sprays at home which has not been giving her significant relief. She does have a moderate headache. No known aggravating or relieving factors to her symptoms. [facility] Medical History (Updated 05/12/21 @ 15:[address] Mark Conway, ) Allergies Arthritis CPAP (continuous positive airway pressure) dependence Diabetes Diarrhea Gall stone History of back problems HTN (hypertension) Hx of blurred vision Neuropathy Home Medications amlodipine 10 mg PO DAILY 05/14/17 [History Last Taken 10/17/19] ergocalciferol (vitamin D2) 1 tab PO QWEEK 05/14/17 [History Last Taken Unknown] gabapentin 600 mg PO TID 05/14/17 [History Last Taken 10/17/19] hydrochlorothiazide 25 mg PO DAILY 05/14/17 [History Last Taken 10/17/19] liraglutide 1.8 mg SQ DAILY 05/14/17 [History Last Taken Unknown] pioglitazone 45 mg PO DAILY 05/14/17 [History Last Taken Unknown] spironolactone 100 mg PO DAILY 05/14/17 [History Last Taken 10/17/19] aspirin 81 mg PO DAILY 11/20/18 [History Last Taken 10/17/19] capsaicin 0.025 % topical cream 1 applic TOPICAL TID 09/09/19 [History Last Taken Unknown] ertugliflozin 15 mg tablet 15 mg PO QAM 09/09/19 [History Last Taken Unknown] lactulose 20 gram/30 mL oral solution 20 g PO BID 09/09/19 [History Last Taken Unknown] magnesium oxide 400 mg PO DAILY 09/09/19 [History Last Taken Unknown] metronidazole 0.75 % topical gel 1 applic TOPICAL BID 09/09/19 [History Last Taken Unknown] mometasone 0.1 % topical cream 1 applic TOPICAL DAILY 09/09/19 [History Last Taken Unknown] naproxen 500 mg tablet 500 mg PO BID 09/09/19 [History Last Taken Unknown] ondansetron HCl 4 mg tablet 4 mg PO BID-TID PRN 09/09/19 [History Last Taken Unknown] psyllium husk 0.52 gram capsule 0.52 g PO DAILY 09/09/19 [History Last Taken Unknown] pantoprazole 40 mg tablet,delayed release 40 mg PO DAILY #30 tab 10/21/19 [Rx Last Taken Unknown] duloxetine 30 mg capsule,delayed release sprinkle 30 mg PO BID 02/16/20 [History Last Taken Unknown] fluticasone propionate 50 mcg/actuation nasal spray,suspension 1 spray INTRANASAL BID 02/16/20 [History Last Taken Unknown] hydroxyzine HCl 25 mg tablet 25 mg PO QHS 02/16/20 [History Last Taken Unknown] meloxicam 15 mg tablet 15 mg PO DAILY 02/16/20 [History Last Taken Unknown] metformin 1,000 mg 24 hr tablet,extended release 1,000 mg PO BID tab 02/16/20 [History Last Taken Unknown] tizanidine 2 mg capsule 2 mg PO BID PRN 02/16/20 [History Last Taken Unknown] blood sugar diagnostic #150 ea 04/12/20 [Rx Last Taken Unknown] blood-glucose meter #1 ea 04/12/20 [Rx Last Taken Unknown] insulin glargine 100 unit/mL (3 mL) subcutaneous pen 50 unit SC QPM #15 ml 04/12/20 [Rx Last Taken Unknown] insulin aspart U-100 100 unit/mL (3 mL) subcutaneous pen 35 unit SC TID #30 ml 04/13/20 [Rx Last Taken Unknown] flash glucose sensor #2 ea 07/06/20 [Rx Last Taken Unknown] insulin glargine [Lantus Solostar U-100 Insulin] SUBCUT 05/12/21 [History Last Taken Unknown] Allergy/AdvReac Type Severity Reaction Status Date / Time lisinopril Allergy Mild feels Verified 05/12/21 09:12 horrible Family History Grandfather Cancer Mother Cancer Diabetes Surgical History S/P laparoscopic cholecystectomy S/P tubal ligation Social History (Updated 05/12/21 @ 11:[address] Shelly Clifton DO) Smoking Status: Former smoker alcohol intake: current details: Social substance use type: does not use ROS ROS ED Constitutional Constitutional ED: Denies fever(s) Eyes Eyes: Denies change in vision ENT ENT ED: Denies epistaxis Cardiovascular Cardiovascular: Denies chest pain or palpitations Respiratory/Chest Respiratory/Chest: Reports cough and sputum; Denies dyspnea Gastrointestinal Gastrointestinal: Reports diarrhea, nausea and vomiting; Denies abdominal pain Genitourinary Genitourinary ED: Denies dysuria, hematuria or urinary frequency Musculoskeletal Musculoskeletal: Reports myalgias; Denies back pain or neck pain Integumentary Denies rash Neurologic Neurologic: Reports headache(s); Denies dizziness EXAM Physical Exam Const Vital Signs: 05/12/21 09:13 Temperature 97.6 F L Temperature Source Temporal Pulse Rate 97 Respiratory Rate 18 Blood Pressure 152/79 H Blood Pressure Mean 103 Pulse Ox 88 Oxygen Delivery Method Room Air Positive well nourished and well developed Constitutional Narrative: Patient is ill but nontoxic-appearing. General Appearance ED: well developed and NAD HEENT Reports normocephalic, head/scalp atraumatic, TM's clear and moist mucous membranes HEENT Narrative: No oral pharyngeal swelling, lesions appreciated. Tympanic Membrane ED: Yes TM's clear Eyes PERRL and EOMs intact bilaterally Neck supple General: Negative for tenderness Resp normal respiratory effort and clear to auscultation bilaterally Auscultation: Negative for rales, rhonchi or wheezes Cardio regular rate, regular rhythm and no murmurs GI normal to inspection, nondistended, normoactive bowel sounds and non-tender Palpation: soft; Negative for guarding or rebound tenderness present Extremity normal to inspection General Extremety ED: Negative for edema or tenderness General Extremity: Negative for edema Neuro oriented x3, CN's II-XII intact bilaterally and no sensory deficits noted Sensorium / Orientation: alert Motor Exam: strength 5/5 throughout Psych mental status grossly normal Skin no rashes or lesions noted MDM MDM MDM Narrative Medical decision making narrative: Patient presents the emerge department for not feeling well. She has been having nausea/vomiting, diarrhea, cough, sore throat and earache. No known fever. On arrival to the emergency department she is satting 88% on room air but denies any shortness of breath. Will check Covid, influenza as well as basic lab work. She will be given a dose of fluids as she has not been able to keep anything down over the past few days. She is given a dose of Tylenol and Zofran. Patient's Covid did return back positive. Her x-ray is consistent with pneumonia. Given her hypoxia she will require hospitalization. She is given a dose of Decadron. She otherwise has remained stable throughout ED stay. Lab Data Labs: Laboratory Results - last 24 hr 05/12/21 05/12/21 05/12/21 09:51 09:51 09:51 WBC 5.2 RBC 4.61 Hgb 12.7 Hct 41.8 MCV 90.7 MCH 27.5 MCHC 30.4 L RDW Std Deviation 48.1 H RDW Coeff of [place] 14.4 Plt Count 183 MPV 11.4 Immature Gran % (Auto) 0.400 Neut % (Auto) 74.5 H Lymph % (Auto) 20.2 [place] % (Auto) 4.5 Eos % (Auto) 0.2 Baso % (Auto) 0.2 Absolute Neuts (auto) 3.9 Absolute Lymphs (auto) 1.04 Nucleated RBC % 0 Sodium 138 Potassium 3.2 L Chloride 101 Carbon Dioxide 31.0 Anion Gap 6 BUN 14 Creatinine 0.99 Estim Creat Clear Calc 56.57 Est GFR (MDRD) Af Amer 74 Est GFR (MDRD) Non-Af 61 BUN/Creatinine Ratio 14.2 Glucose 154 H Calcium 8.3 L Total Bilirubin 0.40 AST 16 ALT 17 Alkaline Phosphatase 74 Troponin I High Sens 8.4 Total Protein 7.6 Albumin 3.3 Globulin 4.3 H Albumin/Globulin Ratio 0.8 L Radiography Diagnostic Testing: Radiology Impression Chest X-Ray 05/12/21 10:04 IMPRESSION: Right upper lobe pneumonia. Electronically Signed: Roscoe Mcneill MD at 10:27 EDT Tel , Service support , Chest CTA 05/12/21 11:03 IMPRESSION: 1. No CT evidence of pulmonary embolism. 2. Bilateral subsegmental atelectasis or pneumonitis. Commonly reported imaging features of Covid 19 pneumonia are present. However, other processes such as influenza pneumonia and organizing pneumonia as can be seen in drug toxicity or connective tissue disease can cause a similar imaging pattern. Electronically Signed: Roscoe Mcneill MD at 12:10 EDT Tel , Service support , Discharge Plan Dx/Rx/DC Orders Clinical Impression: Pneumonia due to COVID-19 virus, Hypoxia Disposition Disposition: Acute Care Hospital [facility] Discharge Date/Time: 05/12/21 12:25
[2021-05-12 09:57] LABS: Absolute Lymphocyte Count 1.04 X10^3/uL (0.83-4.51); Absolute Neutrophil Count 3.9 X10^3/uL (2.0-7.7); Basophil# 0.01 X10^3/uL; Basophil% 0.2 % (0-1); Eosinophil# 0.01 X10^3/uL; Eosinophils% 0.2 % (0-5); Hematocrit 41.8 % (37-47); Hemoglobin 12.7 g/dL (12.0-15.0); Lymphocyte # 1.04 X10^3/ul (0.83-4.51); Lymphocyte % 20.2 % (19-41); Mean Corp Hgb Conc 30.4 g/dL (32-36); Mean Corpuscular Hgb 27.5 pg (27.0-32.0); Mean Corpuscular Volume 90.7 fL (81-99); Mean Platelet Vol. 11.4 fl (6.2-12.0); Monocyte# 0.23 X10^3/uL; Monocyte% 4.5 % (0-10); NRBC Flagged by Analyzer 0 % (0-5); Neutrophil # 3.85 X10^3/uL (2.7-7.7); Neutrophil % 74.5 % (47-70); Platelet Count 183 K/mm3 (150-450); RBC Distribution Width CV 14.4 % (11.6-14.6); RBC Distribution Width SD 48.1 fl (35.1-43.9); Red Blood Count 4.61 M/mm3 (4.2-5.4); White Blood Count 5.2 K/mm3 (4.4-11.0)
[2021-05-12] MEDS: Ondansetron 4 MG/2 ML Vial IV (10:03)
[2021-05-12] MEDS: Acetaminophen 325 MG Tablet 650 MG PO (10:03)
--- NOTE | 2021-05-12 10:04 | RAD_ITS ---
STUDY: X-RAY CHEST REASON FOR EXAM: Female, 60 years old. Cough TECHNIQUE: Single AP portable view of the chest. COMPARISON: 12/09/2017 FINDINGS: Alveolar opacity in the right lung consistent with right-sided pneumonia. There is no demonstrated pleural abnormality. Normal size heart. Normal mediastinum and davie. Normal visualized pulmonary arteries. Normal visualized aortic arch and descending thoracic aorta. Normal visualized thoracic spine. Normal visualized ribs, clavicles, and shoulders. There is no demonstrated abnormality of the visualized soft tissue structures of the upper abdomen. RAD/Chest 1 View (Portable) IMPRESSION: Right upper lobe pneumonia. Electronically Signed: Roscoe Mcneill MD at 10:27 EDT Tel , Service support ,
[2021-05-12 10:14] LABS: ALB/GLOB Ratio 0.8 RATIO (0.9-2.4); AST(SGOT) 16 U/L (15-37); Alanine Aminotransfer ALT/SGPT 17 U/L (13-56); Albumin, Serum 3.3 g/dL (3.2-5.0); Alkaline Phosphatase 74 U/L (45-117); Anion Gap 6 (5-15); BUN 14 mg/dL (7-18); BUN/Creat Ratio 14.2 RATIO (10-20); Calcium,Total 8.3 mg/dL (8.5-10.1); Chloride 101 mmol/L (98-107); Creatinine, Serum 0.99 mg/dL (0.55-1.02); EST Glomerular Filtration Rate 61 mL/min (>60); Est Glom Filt Rate - Afr Amer 74 mL/min (>60); Estimated Creatinine Clearance 56.57 ml/min; Globulin 4.3 g/dL (2.2-4.2); Glucose 154 mg/dL (74-106); Potassium 3.2 mmol/L (3.5-5.1); Protein, Total 7.6 g/dL (6.4-8.2); Sodium Level 138 mmol/L (136-145)
[2021-05-12 10:54] LABS: Troponin-I HS 8.4 pg/mL (3.0-53.7)
--- NOTE | 2021-05-12 11:03 | CT_ITS ---
STUDY: CTA CHEST REASON FOR EXAM: Female, 60 years old. Hypoxia RADIATION DOSAGE (If Supplied By Facility): CTDIvol = ( 19.68 ) mGy, DLP = ( 694.55 ) mGycm TECHNIQUE: The examination was performed with the intravenous administration of IV 100mL Isovue-370. Post-processing of the angiographic images was performed, with multiplanar reformation and 3D reconstruction. Individualized dose optimization techniques were used for this CT. COMPARISON: Chest x-ray earlier today FINDINGS: Normal enhancement of the main pulmonary artery and right and left pulmonary arteries. Normal enhancement of the bilateral peripheral pulmonary arteries. There is no demonstrated pulmonary embolism. Normal thoracic aorta and visualized great vessels. There is no demonstrated aortic dissection. Normal heart and pericardium. Normal mediastinum. Normal hilar regions. Normal visualized trachea and bronchi. The lungs are well expanded. Patchy peripheral groundglass opacities consistent with subsegmental atelectasis or pneumonitis. Normal pleura. Normal chest wall structures. Normal osseous structures. Normal visualized upper abdomen. CT/CTA Chest W/WO Contrast IMPRESSION: 1. No CT evidence of pulmonary embolism. 2. Bilateral subsegmental atelectasis or pneumonitis. Commonly reported imaging features of Covid 19 pneumonia are present. However, other processes such as influenza pneumonia and organizing pneumonia as can be seen in drug toxicity or connective tissue disease can cause a similar imaging pattern. Electronically Signed: Roscoe Mcneill MD at 12:10 EDT Tel , Service support ,
--- NOTE | 2021-05-12 11:32 | HP.PCM.HOS_ITS ---
HPI - General General Date of Admission: 05/12/21 HPI Narrative PAULIE ALFARO, is a 60 F who presented to the emergency department [facility] on 05/12/2021 with a chief complaint of shortness of breath, malaise, nausea, and diarrhea. She states that she developed the symptoms over the last 3 or 4 days and has had associated earache, sore throat, fever, and cough. She recently returned from a trip to [place] on . She states she felt poorly prior to coming home. She had a negative Covid test prior to leaving on vacation 6 days earlier but was told she was hypoxic prior to leaving. She states she thought she had a sinus infection but had not been improving and that is why she presented to the emergency department today. She was vaccinated in November with a [place] vaccine and completed both doses. She was afebrile in the emergency department, her blood pressure was mildly hypertensive with systolic of 143 and a diastolic of 80 her respiratory rate was 19 and her oxygen saturation was 88% on room air. Her oxygen saturations improved to 95% on 2 L nasal cannula. Her CBC was overall unremarkable. Her CMP shows mild hypokalemia with a potassium of 3.2 and her transaminases are within normal limits. A troponin was obtained and was within normal limits. Her EKG shows no acute ischemic changes. Her chest x-ray shows diffuse bilateral infiltrates. A rapid COVID-19 test was performed and was positive. She was given Decadron in the emergency department and admission was requested. [facility] Medical History (Updated 05/12/21 @ 11:[address] Shelly Clifton, ) Allergies Arthritis Diabetes Diarrhea Gall stone History of back problems HTN (hypertension) Hx of blurred vision Neuropathy Home Medications amlodipine 10 mg PO DAILY 05/14/17 [History Last Taken 10/17/19] ergocalciferol (vitamin D2) 1 tab PO QWEEK 05/14/17 [History Last Taken Unknown] gabapentin 600 mg PO TID 05/14/17 [History Last Taken 10/17/19] hydrochlorothiazide 25 mg PO DAILY 05/14/17 [History Last Taken 10/17/19] liraglutide 1.8 mg SQ DAILY 05/14/17 [History Last Taken Unknown] pioglitazone 45 mg PO DAILY 05/14/17 [History Last Taken Unknown] spironolactone 100 mg PO DAILY 05/14/17 [History Last Taken 10/17/19] aspirin 81 mg PO DAILY 11/20/18 [History Last Taken 10/17/19] capsaicin 0.025 % topical cream 1 applic TOPICAL TID 09/09/19 [History Last Taken Unknown] ertugliflozin 15 mg tablet 15 mg PO QAM 09/09/19 [History Last Taken Unknown] lactulose 20 gram/30 mL oral solution 20 g PO BID 09/09/19 [History Last Taken Unknown] magnesium oxide 400 mg PO DAILY 09/09/19 [History Last Taken Unknown] metronidazole 0.75 % topical gel 1 applic TOPICAL BID 09/09/19 [History Last Taken Unknown] mometasone 0.1 % topical cream 1 applic TOPICAL DAILY 09/09/19 [History Last Taken Unknown] naproxen 500 mg tablet 500 mg PO BID 09/09/19 [History Last Taken Unknown] ondansetron HCl 4 mg tablet 4 mg PO BID-TID PRN 09/09/19 [History Last Taken Unknown] psyllium husk 0.52 gram capsule 0.52 g PO DAILY 09/09/19 [History Last Taken Unknown] pantoprazole 40 mg tablet,delayed release 40 mg PO DAILY #30 tab 10/21/19 [Rx Last Taken Unknown] duloxetine 30 mg capsule,delayed release sprinkle 30 mg PO BID 02/16/20 [History Last Taken Unknown] fluticasone propionate 50 mcg/actuation nasal spray,suspension 1 spray INTRANASAL BID 02/16/20 [History Last Taken Unknown] hydroxyzine HCl 25 mg tablet 25 mg PO QHS 02/16/20 [History Last Taken Unknown] meloxicam 15 mg tablet 15 mg PO DAILY 02/16/20 [History Last Taken Unknown] metformin 1,000 mg 24 hr tablet,extended release 1,000 mg PO BID tab 02/16/20 [History Last Taken Unknown] tizanidine 2 mg capsule 2 mg PO BID PRN 02/16/20 [History Last Taken Unknown] blood sugar diagnostic #150 ea 04/12/20 [Rx Last Taken Unknown] blood-glucose meter #1 ea 04/12/20 [Rx Last Taken Unknown] insulin glargine 100 unit/mL (3 mL) subcutaneous pen 50 unit SC QPM #15 ml 04/12/20 [Rx Last Taken Unknown] insulin aspart U-100 100 unit/mL (3 mL) subcutaneous pen 35 unit SC TID #30 ml 04/13/20 [Rx Last Taken Unknown] flash glucose sensor #2 ea 07/06/20 [Rx Last Taken Unknown] insulin glargine [Lantus Solostar U-100 Insulin] SUBCUT 05/12/21 [History Last Taken Unknown] Allergy/AdvReac Type Severity Reaction Status Date / Time lisinopril Allergy Mild feels Verified 05/12/21 09:12 horrible Family History Grandfather Cancer Mother Cancer Diabetes Surgical History S/P laparoscopic cholecystectomy S/P tubal ligation Social History (Updated 05/12/21 @ 11:[address] Shelly Clifton DO) Smoking Status: Former smoker alcohol intake: current details: Social substance use type: does not use ROS Constitutional Constitutional: Reports chills, fatigue, fever(s), malaise and weakness; Denies anorexia, change in weight, night sweats or other Eyes Eyes: Denies blurry vision, change in eye color, change in vision, discharge from eye(s), double vision, erythema, eye pain, loss of vision or other ENT HEENT: Reports ear pain, headache(s), nasal congestion, nasal discharge, post nasal drip and sore throat; Denies abnormal hearing, dysphagia, epistaxis, hearing loss, sinus pressure or other Cardiovascular Cardiovascular: Denies chest pain, claudication, dyspnea on exertion, edema, lightheadedness, orthopnea, palpitations, paroxysmal nocturnal dyspnea, rapid heart rate, syncope or other Respiratory/Chest Respiratory/Chest: Reports cough, dyspnea, excessive phlegm production, productive cough, shortness of breath at rest and shortness of breath with exe rtion; Denies hemoptysis, wheezing or other Gastrointestinal Gastrointestinal: Reports diarrhea and nausea; Denies abdominal pain, coffee ground emesis, constipation, dyspepsia, hematemesis, hematochezia, loose stools, melena, vomiting or other Genitourinary Genitourinary: Denies burning urination, difficulty urinating, dysuria, hematuria, nocturia, urinary frequency, urinary hesitancy, urinary incontinence, urinary urgency or other Musculoskeletal Musculoskeletal: Reports arthralgias and myalgias; Denies back pain, joint pain, joint stiffness, joint swelling, neck pain or other Neurologic Neurologic: Denies abnormal gait, abnormal speech, confusion, disequilibrium, dizziness, focal weakness, headache(s), numbness, paresthesias, seizure-like activity, seizures, syncope, tingling, tremor(s) or other Psychiatric Psychiatric: Denies anxiety, depression, homicidal ideation, suicidal ideation or other Endocrine Endocrinology: Denies change in body appearance, cold intolerance, excessive sweating, heat intolerance, polydipsia, polyuria or other Hematologic/Lymphatic Hematologic/Lymphatic: Denies anemia, easy bleeding, easy bruising, lymphadenopathy or other Allergic/Immunologic Allergic/Immunologic: Reports rhinitis; Denies hives, eczemia, asthma or other Vital Signs Vital Signs Vital Signs: 05/12/21 09:13 05/12/21 11:28 Temperature 97.6 F L 98 F Temperature Source Temporal Temporal Pulse Rate 97 85 Respiratory Rate 18 19 H Blood Pressure 152/79 H 143/80 H Blood Pressure Mean 103 101 Pulse Ox 88 95 Oxygen Delivery Method Room Air Nasal Cannula Oxygen Flow Rate (L/min) 2 Weight Weight: 130.5 kg Body Mass Index (BMI) 46.4 Physical Exam Const alert, oriented x3 and no apparent distress Constitutional Narrative: Morbidly obese white female lying in bed, appears uncomfortable and ill but not toxic, no acute distress General Appearance: cooperative HEENT normocephalic, head/scalp atraumatic, hearing grossly normal bilaterally, moist oral mucous membranes, oropharynx normal and dentition normal HEENT Narrative: No thrush, Mallampati 3-4, good dentition Mouth: oral and palatal mucosa normal Eyes PERRL, EOMs intact bilaterally and conjunctivae normal Neck no lymphadenopathy, supple and no JVD Neck Narrative: Trachea midline, no thyroid enlargement noted Resp normal respiratory effort, no retractions, no use of accessory muscles and clear to auscultation bilaterally Resp Narrative: Diffusely diminished but clear Auscultation: Negative for crackles, rales, rhonchi or wheezes Cardio regular rate, regular rhythm, S1 normal heart sound, S2 normal heart sound, no murmurs, no rub, no gallops, no clicks and no JVD GI normal to inspection, nondistended, normoactive bowel sounds, soft to palpation, non-tender and non-distended Extremity no clubbing, cyanosis or edema Peripheral Pulses: Yes pulses 2+ throughout Skin no rashes or lesions noted, no wounds, skin turgor normal, no jaundice, no petechiae and no mottling Neuro oriented x3, CN's II-XII intact bilaterally, moves all extremities and no focal motor deficits Sensorium / Orientation: awake, alert, oriented to person, oriented to place and oriented to time Psych affect normal Results Lab / Micro Data Result Diagrams: 05/12/21 09:51 05/12/21 09:51 Labs: Laboratory Results - last 24 hr 05/12/21 09:51: WBC 5.2, RBC 4.61, Hgb 12.7, Hct 41.8, MCV 90.7, MCH 27.5, MCHC 30.4 L, RDW Std Deviation 48.1 H, RDW Coeff of [place] 14.4, Plt Count 183, MPV 11.4, Immature Gran % (Auto) 0.400, Neut % (Auto) 74.5 H, Lymph % (Auto) 20.2, [place] % (Auto) 4.5, Eos % (Auto) 0.2, Baso % (Auto) 0.2, Absolute Neuts (auto) 3.9, Absolute Lymphs (auto) 1.04, Nucleated RBC % 0 05/12/21 09:51: Sodium 138, Potassium 3.2 L, Chloride 101, Carbon Dioxide 31.0, Anion Gap 6, BUN 14, Creatinine 0.99, Estim Creat Clear Calc 56.57, Est GFR (MDRD) Af Amer 74, Est GFR (MDRD) Non-Af 61, BUN/Creatinine Ratio 14.2, Glucose 154 H, Calcium 8.3 L, Total Bilirubin 0.40, AST 16, ALT 17, Alkaline Phosphatase 74, Total Protein 7.6, Albumin 3.3, Globulin 4.3 H, Albumin/Globulin Ratio 0.8 L 05/12/21 09:51: Troponin I High Sens 8.4 Micro: Microbiology 05/12/21 09:40 Mucosa - Nose SARS-CoV-2 Antigen (Rapid) - Final SARS-CoV-2 (COVID 19) 05/12/21 09:40 Mucosa - Nose Influenza Types A,B Direct FA (ASIYA) - Final Radiology Impression Chest X-Ray 05/12/21 10:04 IMPRESSION: Right upper lobe pneumonia. 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 Diabetes mellitus complication status: with hyperglycemia Qualified Code(s): E11.65 - Type 2 diabetes mellitus with hyperglycemia; Z79.4 - penitentiary (current) use of insulin (5) Benign essential hypertension: PLAN: Acute hypoxia secondary to COVID-19 pneumonia -Patient symptoms started less than 10 days ago -Start remdesivir day 1 of 5 -Start Decadron day 1 of 10 -Patient currently requiring 2 L of oxygen -Titrate as needed -Start of symptoms was 05/09/2021 patient will need quarantine until 05/29/2021 -CTA of chest is pending -Would recommend booster with Pfizer vaccine at discharge Hypokalemia -40 mEq p.o. K -Repeat lab in a.m. -Check a.m. magnesium level [id number] -Patient is on Lantus 50 units at at bedtime -We will increase Lantus to 65 units at bedtime with steroid dosing -Continue home log 35 units 3 times daily -Accu-Cheks before meals and at bedtime -SSI -Hold home oral medications Hypertension -Continue home amlodipine -Continue hydrochlorothiazide -Continue home Aldactone MARITZA -Patient plans on having her drop off her CPAP -CPAP as ordered -Strongly recommended compliance given her diagnosis GERD -Continue Protonix Chronic pain -Hold meloxicam and naproxen -On discharge would recommend patient not take both naproxen and meloxicam at the same time -Continue home muscle relaxant -As needed Geoff for pain at this time Vitamin D deficiency -Restart ergocalciferol on discharge Depression -Continue duloxetine Morbid obesity -BMI 46.4 -Complicates treatment, prognosis, and outcomes DVT prophylaxis -40 mg of Lovenox twice daily given morbid obesity CODE STATUS -Full code Charges/Coding Visit Charges Inpatient E&M: 58888 Init Hosp L3
[2021-05-12] MEDS: dexAMETHasone 10 MG/ML Vial IV (11:50)
[2021-05-12 13:21] LABS: Bedside Glucose 148 mg/dL (70-110)
[2021-05-12] MEDS: Gabapentin 600 MG Tablet PO ×2 (15:37→21:22)
[2021-05-12] MEDS: 0.9% Saline Lock 10 ML Syringe IV (15:37)
[2021-05-12 15:51] LABS: Bedside Glucose 206 mg/dL (70-110)
[2021-05-12] MEDS: Insulin Lispro 100 UNIT/ML INSULN.PEN SC (16:56)
[2021-05-12] MEDS: Potassium Chloride Oral Tablet 20 MEQ 40 MEQ PO (16:56)
[2021-05-12] MEDS: Insulin Lispro 100 UNIT/ML INSULN.PEN 35 UNIT SC (16:57)
[2021-05-12] MEDS: Enoxaparin 40 MG/0.4 ML Syringe SC (21:22)
[2021-05-12] MEDS: DULoxetine Hcl 30 MG Capsule PO (21:22)
[2021-05-12 22:50] LABS: Bedside Glucose 197 mg/dL (70-110)
[2021-05-13] VITALS (8 sets, daily range): BP systolic 103–150; BP diastolic 62–88; PULSE 82–86; RESP 18–20; TEMP 36.6–37.2; O2SAT 78–96
--- NOTE | 2021-05-13 00:23 | CPS ---
Pt. politely refused use of our PAP device ally.
--- NOTE | 2021-05-13 01:19 | CPS ---
Pt.'s PAP home-unit being used. Pt. unable to achieve appropriate oxygen saturation without any oxygen bled into her device. 3L used in-line with pt.'s PAP to maintain adequate oxygen saturation
[2021-05-13] MEDS: Gabapentin 600 MG Tablet PO ×3 (05:19→22:08)
[2021-05-13] MEDS: 0.9% Saline Lock 10 ML Syringe IV (05:19)
[2021-05-13 07:09] LABS: Absolute Lymphocyte Count 1.27 X10^3/uL (0.83-4.51); Absolute Neutrophil Count 3.9 X10^3/uL (2.0-7.7); Basophil# 0.01 X10^3/uL; Basophil% 0.2 % (0-1); Hematocrit 39.9 % (37-47); Hemoglobin 12.6 g/dL (12.0-15.0); Lymphocyte # 1.27 X10^3/ul (0.83-4.51); Lymphocyte % 23.6 % (19-41); Mean Corp Hgb Conc 31.6 g/dL (32-36); Mean Corpuscular Hgb 28.4 pg (27.0-32.0); Mean Corpuscular Volume 89.9 fL (81-99); Mean Platelet Vol. 11.4 fl (6.2-12.0); Monocyte# 0.22 X10^3/uL; Monocyte% 4.1 % (0-10); NRBC Flagged by Analyzer 0 % (0-5); Neutrophil # 3.86 X10^3/uL (2.7-7.7); Neutrophil % 71.7 % (47-70); Platelet Count 193 K/mm3 (150-450); RBC Distribution Width CV 14.2 % (11.6-14.6); RBC Distribution Width SD 46.8 fl (35.1-43.9); Red Blood Count 4.44 M/mm3 (4.2-5.4); White Blood Count 5.4 K/mm3 (4.4-11.0)
[2021-05-13 07:41] LABS: ALB/GLOB Ratio 0.8 RATIO (0.9-2.4); AST(SGOT) 18 U/L (15-37); Alanine Aminotransfer ALT/SGPT 18 U/L (13-56); Alkaline Phosphatase 68 U/L (45-117); Anion Gap 6 (5-15); BUN 17 mg/dL (7-18); BUN/Creat Ratio 21.9 RATIO (10-20); Calcium,Total 8.1 mg/dL (8.5-10.1); Chloride 105 mmol/L (98-107); Creatinine, Serum 0.78 mg/dL (0.55-1.02); EST Glomerular Filtration Rate 80 mL/min (>60); Est Glom Filt Rate - Afr Amer 97 mL/min (>60); Glucose 163 mg/dL (74-106); Magnesium 2.4 mg/dL (1.6-2.6); Phosphorus 2.5 mg/dL (2.5-4.9); Potassium 3.4 mmol/L (3.5-5.1); Sodium Level 139 mmol/L (136-145)
[2021-05-13] MEDS: Ondansetron ODT 4 MG Tablet PO (08:38)
[2021-05-13] MEDS: Acetaminophen 325 MG Tablet 650 MG PO (08:38)
[2021-05-13] MEDS: amLODIPine 10 MG Tablet PO (08:40)
[2021-05-13] MEDS: dexAMETHasone 4 MG Tablet 6 MG PO (08:40)
[2021-05-13] MEDS: DULoxetine Hcl 30 MG Capsule PO ×2 (08:41→22:08)
[2021-05-13] MEDS: hydroCHLOROthiazide 25 MG Tablet PO (08:41)
[2021-05-13] MEDS: Spironolactone 50 MG Tablet 100 MG PO (08:41)
[2021-05-13] MEDS: Magnesium Chloride 64 MG Delay Rel.Tablet 128 MG PO (08:41)
[2021-05-13] MEDS: Aspirin 81 MG TAB.CHEW PO (08:41)
[2021-05-13] MEDS: Enoxaparin 40 MG/0.4 ML Syringe SC ×2 (08:42→22:09)
[2021-05-13] MEDS: Pantoprazole Sodium 40 MG Tablet PO (08:42)
[2021-05-13] MEDS: Fluticasone 0.05% 1 SPRAY NASAL.SRY NASAL ×2 (08:44→22:07)
[2021-05-13] MEDS: Insulin Lispro 100 UNIT/ML INSULN.PEN 35 UNIT SC ×2 (08:48→17:43)
[2021-05-13 08:56] LABS: Bedside Glucose 148 mg/dL (70-110)
--- NOTE | 2021-05-13 10:34 | PCM.PN.HOSP ---
Subjective Subjective Breathing well currently on oxygen. Stated that she started feeling sick about 2 days ago when she was still on [place]. Was vaccinated for COVID-19 back in November. Objective Data Objective Data Vital Signs: Vital Signs Temp Pulse Resp BP Pulse Ox 36.6 C 85 18 148/72 H 95 05/13/21 08:58 05/13/21 08:58 05/13/21 08:58 05/13/21 08:58 05/13/21 08:58 Oxygen Flow Rate (L/min) 2 Oxygen Delivery Method Nasal Cannula Weight: 129.812 kg Body Mass Index (BMI) 46.1 Intake & Output: Intake and Output for Last 24 Hours 05/11/21 05/12/21 05/13/21 23:59 23:59 23:59 Intake Total 1590 / 1590 300 / 300 Balance 1590 / 1590 300 / 300 Lab / Micro Data Result Diagrams: 05/13/21 07:00 05/13/21 07:00 Labs: Laboratory Results - last 24 hr 05/12/21 09:51: Troponin I High Sens 8.4 05/12/21 12:44: POC Glucose 148 H 05/12/21 15:43: POC Glucose 206 H 05/12/21 21:06: POC Glucose 197 H 05/13/21 07:00: WBC 5.4, RBC 4.44, Hgb 12.6, Hct 39.9, MCV 89.9, MCH 28.4, MCHC 31.6 L, RDW Std Deviation 46.8 H, RDW Coeff of [place] 14.2, Plt Count 193, MPV 11.4, Immature Gran % (Auto) 0.400, Neut % (Auto) 71.7 H, Lymph % (Auto) 23.6, [place] % (Auto) 4.1, Eos % (Auto) 0.0, Baso % (Auto) 0.2, Absolute Neuts (auto) 3.9, Absolute Lymphs (auto) 1.27, Nucleated RBC % 0 05/13/21 07:00: Sodium 139, Potassium 3.4 L, Chloride 105, Carbon Dioxide 28.0, Anion Gap 6, BUN 17, Creatinine 0.78, Estim Creat Clear Calc 71.80, Est GFR (MDRD) Af Amer 97, Est GFR (MDRD) Non-Af 80, BUN/Creatinine Ratio 21.9 H, Glucose 163 H, Calcium 8.1 L, Phosphorus 2.5, Magnesium 2.4, Total Bilirubin 0.40, AST 18, ALT 18, Alkaline Phosphatase 68, Total Protein 7.0, Albumin 3.0 L, Globulin 4.0, Albumin/Globulin Ratio 0.8 L 05/13/21 08:24: POC Glucose 148 H Micro: Microbiology 05/12/21 09:40 Mucosa - Nose SARS-CoV-2 Antigen (Rapid) - Final SARS-CoV-2 (COVID 19) 05/12/21 09:40 Mucosa - Nose Influenza Types A,B Direct FA (ASIYA) - Final Radiography Diagnostic Testing: Radiology Impression Chest CTA 05/12/21 11:03 IMPRESSION: 1. No CT evidence of pulmonary embolism. 2. Bilateral subsegmental atelectasis or pneumonitis. Commonly reported imaging features of Covid 19 pneumonia are present. However, other processes such as influenza pneumonia and organizing pneumonia as can be seen in drug toxicity or connective tissue disease can cause a similar imaging pattern. Electronically Signed: Roscoe Mcneill MD at 12:10 EDT Tel , Service support , Physical Exam Const alert Exam Limitations: no limitations Eyes PERRL Resp normal respiratory effort, no retractions, no use of accessory muscles and clear to auscultation bilaterally Cardio regular rate, regular rhythm, S1 normal heart sound and S2 normal heart sound GI normal to inspection, nondistended, normoactive bowel sounds, soft to palpation, non-tender and non-distended Extremity normal to inspection Assessment & Plan Assessment/Plan (1) Pneumonia due to COVID-19 virus: PLAN: 1. Acute COVID-19 pneumonia Date of onset was 11 May. Patient was vaccinated for COVID-19 back in November Reviewed CT images and patient had some patchy infiltrates but not confluent throughout the lungs.. On remdesivir as well as dexamethasone Consult infectious disease for further recommendations Discussed with the patient that I feel that the severity of her illness would likely been far greater had she not been vaccinated. Plan is to watch her at least for the next 24 to 48hours to see her overall clinical response. Advised the patient to inform her family to get tested 2. Diabetes mellitus type 2 Uncontrolled and exacerbated with the dexamethasone On glargine and prandial 3 VTE prophylaxis: LMWH Charges/Coding Visit Charges Inpatient E&M: 40755 Subs Hosp L2
[2021-05-13 11:25] LABS: Bedside Glucose 85 mg/dL (70-110)
--- NOTE | 2021-05-13 11:35 | CASEMGMT ---
RN KELLY ROLL MECHANIC CM to room to meet with patient for initial transition planning/care coordination assessment. MALINA MENDOZA introduced self and role at [facility]. Pt voices understanding and consents to assessment at this time. Pt resting in bed in no distress at this time. Pt is A/O at this time and answers all questions appropriately. Care providers, pharmacy, and demographics verified/updated at this time. PCP: Dr Marion Specialists: Dr Aden--endocrinology Preferred Pharmacy: [facility] Retail Insurance: [facility], AVERY Gao Prescription Benefit: Yes Living Will/HPOA: Pt does not currently have LW/HCPOA and declines info at this time. Pt made aware that she can contact [facility] as an out-pt and make appt in the future if she decides she would like to talk with someone about this or would like to utilize [facility] social work for advanced directive completion. Given Finishing Room Operator Rac card with information and contact number. Pt expresses understanding. LNOK: 4 kids, Ex-, Fernando Garcia Living Arrangements: Lives w/Ex-, Don, in trailer w/4 steps to enter. Independent w/ADL's and IADL's prior to illness. Transportation: Pt states drives self and states no transportation concerns at this time. Ex- also drives and other family able to assist as needed. DME: States has the following DME: Functioning glucometer w/testing supplies. CPAP thru [employer]. Does not have home O2. Pt desatted w/CPAP last PM and O2 was bled-in via CPAP. Overnight trending pulse ox to be done this PM to determine how much O2 pt requires @ HS. If pt requires O2 @ HS, @ rest, or w/ambulation, pt would like [employer] for DME co. Pt states no need for further DME at this time. HHC/SNF: No hx of either. Denies need for HHC. No needs identified. Pt wishes to return home and states has no concerns with going home at time of discharge. CM to follow for home oxygen needs and any further discharge planning/needs. Pt voices no further concerns/needs at this time. Advised pt to ask for CM if any further questions/concerns/needs arise. Voices understanding. Pt states her ex- has been feeling ill and has a cough and is getting tested for COVID today. Pt able to self-quarantine @ home @ d/c. Son can help bring groceries and supplies as needed. PLAN: Home w/family and ex- support and discharge plans in place. Catherine VALENCIAN RN CM
[2021-05-13] MEDS: Triamcinolone 0.5% Cream 1 APPLIC TOPICAL (14:32)
--- NOTE | 2021-05-13 15:16 | PCM.CONS.GEN ---
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 Vaccinated. On dex and remdesivir. Daily labs. Plan on 20 days of quarantine from start of symptoms. also sick, test pending. If (+), may be good candidate for outpt monoclonal Ab treatment, recommend he contact his PCP. Will follow, thank you HPI Consult Data Date of Consult: 05/13/21 HPI Narrative HPI Narrative: PAULIE ALFARO, is a 60 F who presented 05/13 with sx starting 05/09 with headache, congestion, sore throat, n/v/d, fever, and chills. Has gotten covid vaccine. Mild dry cough. Came to ED, covid (+), admitted on dex and remdesivir, O2. and daughter also sick, getting tested, both vaccinated. Full ROS performed and neg except as noted above. [facility] Medical History Allergies Arthritis CPAP (continuous positive airway pressure) dependence Diabetes Diarrhea Gall stone History of back problems HTN (hypertension) Hx of blurred vision Neuropathy Home Medications amlodipine 10 mg PO DAILY 05/14/17 [History Last Taken 10/17/19] ergocalciferol (vitamin D2) 1 tab PO QWEEK 05/14/17 [History Last Taken Unknown] gabapentin 600 mg PO TID 05/14/17 [History Last Taken 10/17/19] hydrochlorothiazide 25 mg PO DAILY 05/14/17 [History Last Taken 10/17/19] liraglutide 1.8 mg SQ DAILY 05/14/17 [History Last Taken Unknown] pioglitazone 45 mg PO DAILY 05/14/17 [History Last Taken Unknown] spironolactone 100 mg PO DAILY 05/14/17 [History Last Taken 10/17/19] aspirin 81 mg PO DAILY 11/20/18 [History Last Taken 10/17/19] capsaicin 0.025 % topical cream 1 applic TOPICAL TID 09/09/19 [History Last Taken Unknown] ertugliflozin 15 mg tablet 15 mg PO QAM 09/09/19 [History Last Taken Unknown] lactulose 20 gram/30 mL oral solution 20 g PO BID 09/09/19 [History Last Taken Unknown] magnesium oxide 400 mg PO DAILY 09/09/19 [History Last Taken Unknown] metronidazole 0.75 % topical gel 1 applic TOPICAL BID 09/09/19 [History Last Taken Unknown] mometasone 0.1 % topical cream 1 applic TOPICAL DAILY 09/09/19 [History Last Taken Unknown] naproxen 500 mg tablet 500 mg PO BID 09/09/19 [History Last Taken Unknown] ondansetron HCl 4 mg tablet 4 mg PO BID-TID PRN 09/09/19 [History Last Taken Unknown] psyllium husk 0.52 gram capsule 0.52 g PO DAILY 09/09/19 [History Last Taken Unknown] pantoprazole 40 mg tablet,delayed release 40 mg PO DAILY #30 tab 10/21/19 [Rx Last Taken Unknown] duloxetine 30 mg capsule,delayed release sprinkle 30 mg PO BID 02/16/20 [History Last Taken Unknown] fluticasone propionate 50 mcg/actuation nasal spray,suspension 1 spray INTRANASAL BID 02/16/20 [History Last Taken Unknown] hydroxyzine HCl 25 mg tablet 25 mg PO QHS 02/16/20 [History Last Taken Unknown] meloxicam 15 mg tablet 15 mg PO DAILY 02/16/20 [History Last Taken Unknown] metformin 1,000 mg 24 hr tablet,extended release 1,000 mg PO BID tab 02/16/20 [History Last Taken Unknown] tizanidine 2 mg capsule 2 mg PO BID PRN 02/16/20 [History Last Taken Unknown] blood sugar diagnostic #150 ea 04/12/20 [Rx Last Taken Unknown] blood-glucose meter #1 ea 04/12/20 [Rx Last Taken Unknown] insulin glargine 100 unit/mL (3 mL) subcutaneous pen 50 unit SC QPM #15 ml 04/12/20 [Rx Last Taken Unknown] insulin aspart U-100 100 unit/mL (3 mL) subcutaneous pen 35 unit SC TID #30 ml 04/13/20 [Rx Last Taken Unknown] flash glucose sensor #2 ea 07/06/20 [Rx Last Taken Unknown] insulin glargine [Lantus Solostar U-100 Insulin] SUBCUT 05/12/21 [History Last Taken Unknown] Allergy/AdvReac Type Severity Reaction Status Date / Time lisinopril Allergy Mild feels Verified 05/12/21 09:12 horrible Family History Grandfather Cancer Mother Cancer Diabetes Surgical History S/P laparoscopic cholecystectomy S/P tubal ligation Social History (Updated 05/12/21 @ 11:[address] Shelly Clifton DO) Smoking Status: Former smoker alcohol intake: current details: Social substance use type: does not use Physical Exam Const alert and oriented x3 General Appearance: cooperative HEENT normocephalic and head/scalp atraumatic Eyes PERRL and EOMs intact bilaterally Neck supple and No nodes Resp clear to auscultation bilaterally Auscultation: diminished lung sounds Cardio regular rate and regular rhythm Extremity no clubbing, cyanosis or edema Skin no rashes or lesions noted Neuro CN's II-XII intact bilaterally Lab / Micro Data Result Diagrams: 05/13/21 07:00 05/13/21 07:00 Labs: Laboratory Results - last 24 hr 05/12/21 15:43: POC Glucose 206 H 05/12/21 21:06: POC Glucose 197 H 05/13/21 07:00: WBC 5.4, RBC 4.44, Hgb 12.6, Hct 39.9, MCV 89.9, MCH 28.4, MCHC 31.6 L, RDW Std Deviation 46.8 H, RDW Coeff of [place] 14.2, Plt Count 193, MPV 11.4, Immature Gran % (Auto) 0.400, Neut % (Auto) 71.7 H, Lymph % (Auto) 23.6, [place] % (Auto) 4.1, Eos % (Auto) 0.0, Baso % (Auto) 0.2, Absolute Neuts (auto) 3.9, Absolute Lymphs (auto) 1.27, Nucleated RBC % 0 05/13/21 07:00: Sodium 139, Potassium 3.4 L, Chloride 105, Carbon Dioxide 28.0, Anion Gap 6, BUN 17, Creatinine 0.78, Estim Creat Clear Calc 71.80, Est GFR (MDRD) Af Amer 97, Est GFR (MDRD) Non-Af 80, BUN/Creatinine Ratio 21.9 H, Glucose 163 H, Calcium 8.1 L, Phosphorus 2.5, Magnesium 2.4, Total Bilirubin 0.40, AST 18, ALT 18, Alkaline Phosphatase 68, Total Protein 7.0, Albumin 3.0 L, Globulin 4.0, Albumin/Globulin Ratio 0.8 L 05/13/21 08:24: POC Glucose 148 H 05/13/21 11:15: POC Glucose 85
[2021-05-13] MEDS: Insulin Lispro 100 UNIT/ML INSULN.PEN SC (17:43)
[2021-05-13 17:51] LABS: Bedside Glucose 259 mg/dL (70-110)
[2021-05-13 22:21] LABS: Bedside Glucose 101 mg/dL (70-110)
[2021-05-14 03:55] VITALS: BP 114/60; PULSE 64; RESP 18; TEMP 36.7; O2SAT 94
--- NOTE | 2021-05-14 05:30 | CPS ---
Overnight trend was started at 2115 2L nasal o2. Pt went on home Cpap unit on room air around 2220. Sats kept dipping but always bounced back up. Until later on in the study when pt actually fell asleep. O2 was applied at 0341. O2 sats immediately came up to 93-94 % and higher. Study was then continued and finished with O2 on.
[2021-05-14] MEDS: Gabapentin 600 MG Tablet PO ×3 (06:28→21:37)
[2021-05-14] MEDS: Acetaminophen 325 MG Tablet 650 MG PO (06:33)
[2021-05-14 06:53] LABS: Absolute Lymphocyte Count 1.49 X10^3/uL (0.83-4.51); Absolute Neutrophil Count 2.4 X10^3/uL (2.0-7.7); Hematocrit 41.8 % (37-47); Hemoglobin 12.6 g/dL (12.0-15.0); Lymphocyte # 1.49 X10^3/ul (0.83-4.51); Lymphocyte % 36.3 % (19-41); Mean Corp Hgb Conc 30.1 g/dL (32-36); Mean Corpuscular Hgb 27.4 pg (27.0-32.0); Mean Corpuscular Volume 90.9 fL (81-99); Mean Platelet Vol. 11.6 fl (6.2-12.0); Monocyte# 0.23 X10^3/uL; Monocyte% 5.6 % (0-10); NRBC Flagged by Analyzer 0 % (0-5); Neutrophil # 2.37 X10^3/uL (2.7-7.7); Neutrophil % 57.6 % (47-70); Platelet Count 217 K/mm3 (150-450); RBC Distribution Width CV 14.1 % (11.6-14.6); RBC Distribution Width SD 47.5 fl (35.1-43.9); White Blood Count 4.1 K/mm3 (4.4-11.0)
[2021-05-14 07:24] LABS: ALB/GLOB Ratio 0.7 RATIO (0.9-2.4); AST(SGOT) 22 U/L (15-37); Alanine Aminotransfer ALT/SGPT 23 U/L (13-56); Albumin, Serum 3.1 g/dL (3.2-5.0); Alkaline Phosphatase 73 U/L (45-117); Anion Gap 4 (5-15); BUN 17 mg/dL (7-18); BUN/Creat Ratio 20.8 RATIO (10-20); Calcium,Total 8.7 mg/dL (8.5-10.1); Chloride 101 mmol/L (98-107); Creatinine, Serum 0.82 mg/dL (0.55-1.02); EST Glomerular Filtration Rate 76 mL/min (>60); Est Glom Filt Rate - Afr Amer 92 mL/min (>60); Globulin 4.4 g/dL (2.2-4.2); Glucose 105 mg/dL (74-106); Potassium 3.7 mmol/L (3.5-5.1); Protein, Total 7.5 g/dL (6.4-8.2); Sodium Level 137 mmol/L (136-145)
[2021-05-14 08:10] VITALS: O2SAT 95
--- NOTE | 2021-05-14 08:30 | NURSING ---
blood glucose was 191, per Freestyle david
[2021-05-14] MEDS: Insulin Lispro 100 UNIT/ML INSULN.PEN SC (08:57)
[2021-05-14] MEDS: Insulin Lispro 100 UNIT/ML INSULN.PEN 35 UNIT SC ×3 (08:57→17:06)
--- NOTE | 2021-05-14 10:01 | PCM.PN.HOSP ---
Subjective Subjective Feel short of breath and dizzy particular when she exerts herself. Objective Data Objective Data Vital Signs: Vital Signs Temp Pulse Resp BP Pulse Ox 36.7 C 64 18 114/60 95 05/14/21 03:55 05/14/21 03:55 05/14/21 03:55 05/14/21 03:55 05/14/21 08:10 Oxygen Flow Rate (L/min) 2 Oxygen Delivery Method Room Air Weight: 129.812 kg Body Mass Index (BMI) 46.1 Intake & Output: Intake and Output for Last 24 Hours 05/12/21 05/13/21 05/14/21 23:59 23:59 23:59 Intake Total 1590 / 1590 1400 / 1400 Output Total 0 / 0 Balance 1590 / 1590 1400 / 1400 0 / 0 Lab / Micro Data Result Diagrams: 05/14/21 06:47 05/14/21 06:47 Labs: Laboratory Results - last 24 hr 05/13/21 11:15: POC Glucose 85 05/13/21 17:41: POC Glucose 259 H 05/13/21 22:01: POC Glucose 101 05/14/21 06:47: WBC 4.1 L, RBC 4.60, Hgb 12.6, Hct 41.8, MCV 90.9, MCH 27.4, MCHC 30.1 L, RDW Std Deviation 47.5 H, RDW Coeff of [place] 14.1, Plt Count 217, MPV 11.6, Immature Gran % (Auto) 0.500, Neut % (Auto) 57.6, Lymph % (Auto) 36.3, [place] % (Auto) 5.6, Eos % (Auto) 0.0, Baso % (Auto) 0.0, Absolute Neuts (auto) 2.4, Absolute Lymphs (auto) 1.49, Nucleated RBC % 0 05/14/21 06:47: Sodium 137, Potassium 3.7, Chloride 101, Carbon Dioxide 32.0, Anion Gap 4 L, BUN 17, Creatinine 0.82, Estim Creat Clear Calc 68.30, Est GFR (MDRD) Af Amer 92, Est GFR (MDRD) Non-Af 76, BUN/Creatinine Ratio 20.8 H, Glucose 105, Calcium 8.7, Total Bilirubin 0.30, AST 22, ALT 23, Alkaline Phosphatase 73, Total Protein 7.5, Albumin 3.1 L, Globulin 4.4 H, Albumin/Globulin Ratio 0.7 L Micro: Microbiology 05/12/21 09:40 Mucosa - Nose SARS-CoV-2 Antigen (Rapid) - Final SARS-CoV-2 (COVID 19) 05/12/21 09:40 Mucosa - Nose Influenza Types A,B Direct FA (ASIYA) - Final Physical Exam Narrative Initially saw the patient and she is around 90% on room air after having just gone to the bathroom. She was not in any respiratory distress nor having any conversational dyspnea Const alert HEENT Head and Scalp: normocephalic Resp normal respiratory effort, no retractions and no use of accessory muscles Resp Narrative: Coarse respirations bilaterally Cardio regular rate, regular rhythm, S1 normal heart sound and S2 normal heart sound GI normal to inspection, nondistended, normoactive bowel sounds, soft to palpation, non-tender and non-distended Extremity normal to inspection Assessment & Plan Assessment/Plan (1) Pneumonia due to COVID-19 virus: PLAN: 1. Acute COVID-19 pneumonia Date of onset was 11 May. Patient was vaccinated for COVID-19 back in November Review[address] images and patient had some patchy infiltrates but not confluent throughout the lungs.. On remdesivir as well as dexamethasone Infectious disease following Discussed with the patient that I feel that the severity of her illness would likely been far greater had she not been vaccinated. Plan is to watch her at least for the next 24 to 48hours to see her overall clinical response. Advised the patient to inform her family to get tested 2. Diabetes mellitus type 2 Uncontrolled and exacerbated with the dexamethasone On glargine and prandial 3 VTE prophylaxis: LMWH Charges/Coding Visit Charges Inpatient E&M: 10997 Subs Hosp L2
[2021-05-14 11:56] VITALS: BP 110/66; PULSE 64; RESP 18; TEMP 36.7; O2SAT 95
[2021-05-14] MEDS: Spironolactone 50 MG Tablet 100 MG PO (12:06)
[2021-05-14] MEDS: Aspirin 81 MG TAB.CHEW PO (12:07)
[2021-05-14] MEDS: DULoxetine Hcl 30 MG Capsule PO ×2 (12:08→21:37)
[2021-05-14] MEDS: dexAMETHasone 4 MG Tablet 6 MG PO (12:08)
[2021-05-14] MEDS: Fluticasone 0.05% 1 SPRAY NASAL.SRY NASAL ×2 (12:10→21:37)
[2021-05-14] MEDS: hydroCHLOROthiazide 25 MG Tablet PO (12:11)
[2021-05-14] MEDS: Enoxaparin 40 MG/0.4 ML Syringe SC ×2 (12:11→21:37)
[2021-05-14] MEDS: Magnesium Chloride 64 MG Delay Rel.Tablet 128 MG PO (12:13)
[2021-05-14] MEDS: amLODIPine 10 MG Tablet PO (12:13)
[2021-05-14] MEDS: Pantoprazole Sodium 40 MG Tablet PO (12:14)
[2021-05-14] MEDS: Triamcinolone 0.5% Cream 1 APPLIC TOPICAL (12:15)
--- NOTE | 2021-05-14 12:15 | NURSING ---
blood glucose was 118, per freestyle david. pt only wanted 10 of 35units for lunch.
[2021-05-14 14:45] VITALS: BP 109/67; PULSE 71; RESP 18; TEMP 36.6; O2SAT 95
[2021-05-14 20:40] VITALS: BP 141/78; PULSE 75; RESP 18; TEMP 35.9; O2SAT 94
--- NOTE | 2021-05-14 21:42 | NURSING ---
Patient scanned herself and blood glucose reading was 144. 33 units of lantus was given d/t poor appetite at patient request.
[2021-05-15] MEDS: Gabapentin 600 MG Tablet PO ×2 (06:24→13:58)
[2021-05-15 06:26] VITALS: BP 131/76; PULSE 70; RESP 18; TEMP 36.1; O2SAT 96
[2021-05-15 06:32] LABS: Absolute Neutrophil Count 2.5 X10^3/uL (2.0-7.7); Basophil# 0.01 X10^3/uL; Basophil% 0.3 % (0-1); Hematocrit 42.7 % (37-47); Hemoglobin 13.2 g/dL (12.0-15.0); Lymphocyte % 29.1 % (19-41); Mean Corp Hgb Conc 30.9 g/dL (32-36); Mean Corpuscular Hgb 27.6 pg (27.0-32.0); Mean Corpuscular Volume 89.1 fL (81-99); Mean Platelet Vol. 11.8 fl (6.2-12.0); Monocyte# 0.21 X10^3/uL; Monocyte% 5.6 % (0-10); NRBC Flagged by Analyzer 0 % (0-5); Neutrophil # 2.45 X10^3/uL (2.7-7.7); Neutrophil % 64.7 % (47-70); Platelet Count 223 K/mm3 (150-450); RBC Distribution Width CV 13.7 % (11.6-14.6); Red Blood Count 4.79 M/mm3 (4.2-5.4); White Blood Count 3.8 K/mm3 (4.4-11.0)
[2021-05-15 07:01] LABS: ALB/GLOB Ratio 0.7 RATIO (0.9-2.4); AST(SGOT) 15 U/L (15-37); Alanine Aminotransfer ALT/SGPT 22 U/L (13-56); Alkaline Phosphatase 72 U/L (45-117); Anion Gap 6 (5-15); BUN 17 mg/dL (7-18); BUN/Creat Ratio 20.7 RATIO (10-20); Calcium,Total 8.8 mg/dL (8.5-10.1); Chloride 98 mmol/L (98-107); Creatinine, Serum 0.82 mg/dL (0.55-1.02); EST Glomerular Filtration Rate 75 mL/min (>60); Est Glom Filt Rate - Afr Amer 91 mL/min (>60); Globulin 4.4 g/dL (2.2-4.2); Glucose 173 mg/dL (74-106); Potassium 3.9 mmol/L (3.5-5.1); Protein, Total 7.4 g/dL (6.4-8.2); Sodium Level 137 mmol/L (136-145)
[2021-05-15 08:28] VITALS: O2SAT 86
--- NOTE | 2021-05-15 08:28 | NURSING ---
pt blood sugar 131 on own machine
[2021-05-15 08:29] VITALS: BP 119/71; PULSE 74; RESP 18; TEMP 36.6; O2SAT 91
[2021-05-15] MEDS: Pantoprazole Sodium 40 MG Tablet PO (08:36)
[2021-05-15] MEDS: Acetaminophen 325 MG Tablet 650 MG PO (08:36)
[2021-05-15] MEDS: dexAMETHasone 4 MG Tablet 6 MG PO (08:37)
[2021-05-15] MEDS: Magnesium Chloride 64 MG Delay Rel.Tablet 128 MG PO (08:37)
[2021-05-15] MEDS: DULoxetine Hcl 30 MG Capsule PO (08:37)
[2021-05-15] MEDS: amLODIPine 10 MG Tablet PO (08:37)
[2021-05-15] MEDS: Aspirin 81 MG TAB.CHEW PO (08:37)
[2021-05-15] MEDS: hydroCHLOROthiazide 25 MG Tablet PO (08:37)
[2021-05-15] MEDS: Enoxaparin 40 MG/0.4 ML Syringe SC (08:39)
[2021-05-15] MEDS: Spironolactone 50 MG Tablet 100 MG PO (08:40)
[2021-05-15] MEDS: Insulin Lispro 100 UNIT/ML INSULN.PEN 35 UNIT SC ×2 (08:41→12:24)
[2021-05-15] MEDS: Fluticasone 0.05% 1 SPRAY NASAL.SRY NASAL (08:43)
[2021-05-15] MEDS: Triamcinolone 0.5% Cream 1 APPLIC TOPICAL (08:45)
--- NOTE | 2021-05-15 08:46 | NURSING ---
pt c/o feeling dizzy when up this am and [place]. pt stated she is not feel well this am slight nausea and no apatite.
--- NOTE | 2021-05-15 09:30 | DCINST_ITS ---
Discharge Instructions Diet Discharge Diet: 2000 Calorie Control Diet Activity Discharge Activity: Return to Normal Activity (slowly ease back into normal routine. ) Additional Activity Instructions:: Self isolate for at least 20 days since symptoms began (05/11-05/31/2021) AND at least one day (24 hours) have passed since resolution of fever without the use of fever-reducing agents AND improvement of symptoms (e.g., cough, shortness of breath) When around people in the same room, wear a face mask. Individuals also in the room should wear a mask. If possible, use a different bathroom and bedroom. Perform adequate hand hygiene. Avoid sharing dishes, glasses, etc. Continuous oxygen at rest and with activity Dressing / Incision Call your doctor if you observe: Fever of 101 or Higher and Shortness of breath Follow Up Care Test Results: Test results from this visit will be discussed in further detail at your follow-up appointment, if applicable. Discharge Plan Admission Admit Date/Time: 05/13/21 11:10 Primary Reason for Your Visit: COVID 19 Attending Provider: Robin Marinelli Primary Care Provider: Robin Marion Consulting Providers: Rony Miller Instructions Patient Instructions: Coronavirus Disease 2019 (COVID-19): Caring for Yourself or Others Discharge Orders/Prescriptions Prescriptions: New dexamethasone 4 mg Tablet 6 mg PO DAILY 6 Days Qty: 9 RF: 0 Continued magnesium oxide 400 mg magnesium capsule 400 mg PO DAILY RF: 0 lactulose 20 gram/30 mL solution 20 g PO BID RF: 0 capsaicin 0.025 % cream 1 applic TOPICAL TID RF: 0 mometasone 0.1 % cream 1 applic TOPICAL DAILY RF: 0 metronidazole 0.75 % gel 1 applic TOPICAL BID RF: 0 psyllium husk 0.52 gram capsule 0.52 g PO DAILY RF: 0 [place] 15 mg tablet 15 mg PO QAM RF: 0 naproxen [Naprosyn] 500 mg tablet 500 mg PO BID RF: 0 ondansetron HCl [Zofran] 4 mg tablet 4 mg PO BID-TID PRN (Reason: nasuea) RF: 0 Lantus Solostar U-100 Insulin 100 unit/mL (3 mL) insulin pen 50 unit SC QPM Qty: 15 RF: 5 (DME) blood-glucose meter [ReliOn Prime Meter] Misc See Rx Instructions .ROUTE .MEDSUPPLY Qty: 1 RF: 0 (DME) ReliOn Prime Test Strips Strip See Rx Instructions .ROUTE .MEDSUPPLY Qty: 150 RF: 5 hydroxyzine HCl 25 mg tablet 25 mg PO QHS RF: 0 fluticasone propionate 50 mcg/actuation spray,suspension 1 spray INTRANASAL BID RF: 0 meloxicam 15 mg tablet 15 mg PO DAILY RF: 0 duloxetine 30 mg capsule, delayed rel sprinkle 30 mg PO BID RF: 0 tizanidine 2 mg capsule 2 mg PO BID PRN (Reason: muscle relaxer) RF: 0 gabapentin 600 MG tablet 600 mg PO TID RF: 0 spironolactone 100 MG tablet 100 mg PO DAILY RF: 0 pioglitazone 45 MG tablet 45 mg PO DAILY RF: 0 amlodipine 10 MG tablet 10 mg PO DAILY RF: 0 hydrochlorothiazide 25 MG tablet 25 mg PO DAILY RF: 0 ergocalciferol (vitamin D2) 50,000 UNIT capsule 1 tab PO QWEEK RF: 0 liraglutide 0.6 MG/0.1 ML pen injector 1.8 mg SQ DAILY RF: 0 aspirin 81 MG tablet,chewable 81 mg PO DAILY RF: 0 pantoprazole 40 mg tablet,delayed release (DR/EC) 40 mg PO DAILY Qty: 30 RF: 3 (DME) FreeStyle Jos[place]uis 14 Day Sensor Kit See Rx Instructions .ROUTE .MEDSUPPLY Qty: 2 RF: 12 Changed insulin aspart U-100 [Novolog Flexpen U-100 Insulin] 100 unit/mL (3 mL) insu blake pen 10 unit SC TID Qty: 30 RF: 5 Held metformin 1,000 mg tablet,ER tere.retention 24 hr 1,000 mg PO BID RF: 0 Hold Instructions: Resume on 05/17/21. Discontinued Lantus Solostar U-100 Insulin 100 unit/mL (3 mL) insulin pen SUBCUT RF: 0 Referrals / Follow Up: Robin Marion MD [Primary Care Provider] - Within 2 Weeks Disposition Disposition (needs filled in before D/C Order can be placed): Home, Self Care
--- NOTE | 2021-05-15 09:41 | DS.PCM_ITS ---
Providers Date of Admission: 05/13/21 Primary Care Physician: Dr. Robin Marion MD Consultations 05/13/21 08:03 Consult: Infectious Disease Routine Consulting Provider: Rony Miller Reason for Consult: COVID 19 EMERGENT Consult: No MD Notified: Yes Date Notified: 05/13/21 Time Notified: 10:21 Method of Notification: office Reason For Visit: COVID19 Diagnosis Discharge Diagnosis (1) Pneumonia due to COVID-19 virus: Status: Acute Code(s): U07.1 - COVID-19; J12.82 - Pneumonia due to coronavirus disease 2019 Medications at Discharge Home Medications amlodipine 10 mg PO DAILY 05/14/17 ergocalciferol (vitamin D2) 1 tab PO QWEEK 05/14/17 gabapentin 600 mg PO TID 05/14/17 hydrochlorothiazide 25 mg PO DAILY 05/14/17 liraglutide 1.8 mg SQ DAILY 05/14/17 pioglitazone 45 mg PO DAILY 05/14/17 spironolactone 100 mg PO DAILY 05/14/17 aspirin 81 mg PO DAILY 11/20/18 capsaicin 0.025 % topical cream 1 applic TOPICAL TID 09/09/19 ertugliflozin 15 mg tablet 15 mg PO QAM 09/09/19 lactulose 20 gram/30 mL oral solution 20 g PO BID 09/09/19 magnesium oxide 400 mg PO DAILY 09/09/19 metronidazole 0.75 % topical gel 1 applic TOPICAL BID 09/09/19 mometasone 0.1 % topical cream 1 applic TOPICAL DAILY 09/09/19 naproxen 500 mg tablet 500 mg PO BID 09/09/19 ondansetron HCl 4 mg tablet 4 mg PO BID-TID PRN 09/09/19 psyllium husk 0.52 gram capsule 0.52 g PO DAILY 09/09/19 pantoprazole 40 mg tablet,delayed release 40 mg PO DAILY #30 tab 10/21/19 duloxetine 30 mg capsule,delayed release sprinkle 30 mg PO BID 02/16/20 fluticasone propionate 50 mcg/actuation nasal spray,suspension 1 spray INTRANASAL BID 02/16/20 hydroxyzine HCl 25 mg tablet 25 mg PO QHS 02/16/20 meloxicam 15 mg tablet 15 mg PO DAILY 02/16/20 metformin 1,000 mg 24 hr tablet,extended release 1,000 mg PO BID tab 02/16/20 tizanidine 2 mg capsule 2 mg PO BID PRN 02/16/20 blood sugar diagnostic #150 ea 04/12/20 blood-glucose meter #1 ea 04/12/20 insulin glargine 100 unit/mL (3 mL) subcutaneous pen 50 unit SC QPM #15 ml 04/12/20 flash glucose sensor #2 ea 07/06/20 dexamethasone 6 mg PO DAILY 6 Days #9 tab 05/15/21 insulin aspart U-100 [Novolog Flexpen U-100 Insulin] 10 unit SC TID #30 ml 05/15/21 Hospital Course Operations None Procedures None Summary of Care Provided Minutes Spent on Discharge: 32 Hospital Course: 60-year-old female presents with shortness of breath, malaise, nausea and diarrhea. Patient stated that she was sick for 2 days prior to arrival beginning on this past Thursday. Patient was positive for COVID-19 and had CAT scan findings consistent with it. Patient, however, was vaccinated with the Pfizer vaccine. Patient was a started on dexamethasone and on remdesivir and has remained stable during this hospitalization. Patient was 86% on room air. Patient feels fine at present and feels comfortable going home. Patient advised that she could be at risk for developing a secondary pneumonia and if she is developing increasing shortness of breath or fevers that could be a sign of that but also could be a sign of potentially worsening COVID-19. Told patient that I suspect that she is doing better then had she not gotten the vaccine. Patient voluntarily asked about getting the booster shot once it becomes available with [employer]. I advised this such once has been approved and when she is out of quarantine which ever comes last. Physical Exam Const alert Constitutional Narrative: No respiratory distress. No conversational dyspnea. Resp normal respiratory effort, no retractions, no use of accessory muscles and clear to auscultation bilaterally Cardio regular rate, regular rhythm, S1 normal heart sound and S2 normal heart sound GI normal to inspection, nondistended, normoactive bowel sounds, soft to palpation, non-tender and non-distended Extremity normal to inspection Weight / BMI Weight Weight: 129.812 kg Body Mass Index (BMI) 46.1 ABG / Lab / Microbiology Data Result Diagrams: 05/15/21 06:20 05/15/21 06:20 Laboratory: Laboratory Results - last 24 hr 05/15/21 06:20: WBC 3.8 L, RBC 4.79, Hgb 13.2, Hct 42.7, MCV 89.1, MCH 27.6, MCHC 30.9 L, RDW Std Deviation 45.0 H, RDW Coeff of [place] 13.7, Plt Count 223, MPV 11.8, Immature Gran % (Auto) 0.300, Neut % (Auto) 64.7, Lymph % (Auto) 29.1, Glynn % (Auto) 5.6, Eos % (Auto) 0.0, Baso % (Auto) 0.3, Absolute Neuts (auto) 2.5, Absolute Lymphs (auto) 1.10, Nucleated RBC % 0 05/15/21 06:20: Sodium 137, Potassium 3.9, Chloride 98, Carbon Dioxide 33.0 H, Anion Gap 6, BUN 17, Creatinine 0.82, Estim Creat Clear Calc 68.30, Est GFR (MDRD) Af Amer 91, Est GFR (MDRD) Non-Af 75, BUN/Creatinine Ratio 20.7 H, Glucose 173 H, Calcium 8.8, Total Bilirubin 0.30, AST 15, ALT 22, Alkaline Phosphatase 72, Total Protein 7.4, Albumin 3.0 L, Globulin 4.4 H, Albumin/Globulin Ratio 0.7 L Microbiology: Microbiology 05/12/21 09:40 Mucosa - Nose SARS-CoV-2 Antigen (Rapid) - Final SARS-CoV-2 (COVID 19) 05/12/21 09:40 Mucosa - Nose Influenza Types A,B Direct FA (ASIYA) - Final D/C Instructions Discharge Diet: 2000 Calorie Control Diet Additional Activity Instructions: Self isolate for at least 20 days since symptoms began (05/11-05/31/2021) AND at least one day (24 hours) have passed since resolution of fever without the use of fever-reducing agents AND improvement of symptoms (e.g., cough, shortness of breath) When around people in the same room, wear a face mask. Individuals also in the room should wear a mask. If possible, use a different bathroom and bedroom. Perform adequate hand hygiene. Avoid sharing dishes, glasses, etc. Continuous oxygen at rest and with activity Call your doctor if you observe: Fever of 101 or Higher and Shortness of breath Meaningful Use Info Meaningful Use Diagnoses (Choose all that apply): None applicable Discharge Plan Admission Admit Date/Time: 05/13/21 11:10 Primary Reason for Your Visit: COVID 19 Attending Provider: Robin Marinelli Primary Care Provider: Robin Marion Consulting Providers: Rony Miller Instructions Patient Instructions: Coronavirus Disease 2019 (COVID-19): Caring for Yourself or Others Discharge Orders/Prescriptions Prescriptions: New dexamethasone 4 mg Tablet 6 mg PO DAILY 6 Days Qty: 9 RF: 0 Continued magnesium oxide 400 mg magnesium capsule 400 mg PO DAILY RF: 0 lactulose 20 gram/30 mL solution 20 g PO BID RF: 0 capsaicin 0.025 % cream 1 applic TOPICAL TID RF: 0 mometasone 0.1 % cream 1 applic TOPICAL DAILY RF: 0 metronidazole 0.75 % gel 1 applic TOPICAL BID RF: 0 psyllium husk 0.52 gram capsule 0.52 g PO DAILY RF: 0 Steglatro 15 mg tablet 15 mg PO QAM RF: 0 naproxen [Naprosyn] 500 mg tablet 500 mg PO BID RF: 0 ondansetron HCl [Zofran] 4 mg tablet 4 mg PO BID-TID PRN (Reason: nasuea) RF: 0 Lantus Solostar U-100 Insulin 100 unit/mL (3 mL) insulin pen 50 unit SC QPM Qty: 15 RF: 5 (DME) blood-glucose meter [ReliOn Prime Meter] Misc See Rx Instructions .ROUTE .MEDSUPPLY Qty: 1 RF: 0 (DME) ReliOn Prime Test Strips Strip See Rx Instructions .ROUTE .MEDSUPPLY Qty: 150 RF: 5 hydroxyzine HCl 25 mg tablet 25 mg PO QHS RF: 0 fluticasone propionate 50 mcg/actuation spray,suspension 1 spray INTRANASAL BID RF: 0 meloxicam 15 mg tablet 15 mg PO DAILY RF: 0 duloxetine 30 mg capsule, delayed rel sprinkle 30 mg PO BID RF: 0 tizanidine 2 mg capsule 2 mg PO BID PRN (Reason: muscle relaxer) RF: 0 gabapentin 600 MG tablet 600 mg PO TID RF: 0 spironolactone 100 MG tablet 100 mg PO DAILY RF: 0 pioglitazone 45 MG tablet 45 mg PO DAILY RF: 0 amlodipine 10 MG tablet 10 mg PO DAILY RF: 0 hydrochlorothiazide 25 MG tablet 25 mg PO DAILY RF: 0 ergocalciferol (vitamin D2) 50,000 UNIT capsule 1 tab PO QWEEK RF: 0 liraglutide 0.6 MG/0.1 ML pen injector 1.8 mg SQ DAILY RF: 0 aspirin 81 MG tablet,chewable 81 mg PO DAILY RF: 0 pantoprazole 40 mg tablet,delayed release (DR/EC) 40 mg PO DAILY Qty: 30 RF: 3 (DME) FreeStyle Joseluis 14 Day Sensor Kit See Rx Instructions .ROUTE .MEDSUPPLY Qty: 2 RF: 12 Changed insulin aspart U-100 [Novolog Flexpen U-100 Insulin] 100 unit/mL (3 mL) insulin pen 10 unit SC TID Qty: 30 RF: 5 Held metformin 1,000 mg tablet,ER tere.retention 24 hr 1,000 mg PO BID RF: 0 Hold Instructions: Resume on 05/17/21. Discontinued Lantus Solostar U-100 Insulin 100 unit/mL (3 mL) insulin pen SUBCUT RF: 0 Referrals / Follow Up: Robin Marion MD [Primary Care Provider] - Within 2 Weeks Disposition Disposition (needs filled in before D/C Order can be placed): Home, Self Care Charges/Coding Visit Charges Inpatient E&M: 30357 Disch Hosp
[2021-05-15 10:24] VITALS: O2SAT 87; O2SAT 92; O2SAT 97
--- NOTE | 2021-05-15 11:03 | CASEMGMT ---
Addendum entered by Bronwyn Curiel 05/15/21 14:37: RN CM in to pt room to make aware of bleed in of O2 through CPAP and that [facility] will be delivering a connector when they deliver her O2 concentrator to her home. Pt verbalizes understanding and denies questions. Original Note: TC to [facility], spoke with Jessica, she is aware of O2 referral and that pt will need 2.5 L bled in through CPAP. She states they will deliver the connector for the CPAP to the pt home when O2 concentrator is delivered. Referral faxed at this time including overnight study with notes.
--- NOTE | 2021-05-15 12:13 | NURSING ---
pt blood sugar 157.
[2021-05-15 16:19] VITALS: O2SAT 91
--- NOTE | 2021-05-16 14:14 | CASEMGMT ---
RN CM Discharge Follow Up Phone Call: ANGELA: Carlene Strata: 3 Call Date: 05/16/21 Discharge Date: 05/15/21 Time of Call: 1412 Duration:<1 minute Admitting Dx: COVID 19 MALINA MENDOZA attempted to complete follow up phone call after recent hospitalization. Received unidentified voicemail, did not leave a message.
== END 2021-05-15 16:16 | disposition home or self-care (01) | DRG 177 ==
LOC: ED 10:48 → MS3 11:23
PROVIDERS: Admitting Provider Internal Medicine; Emergency Provider Emergency Medicine; PCP Family Medicine
DX: U07.1 COVID-19 (principal); J12.82 Pneumonia due to coronavirus disease 2019; Z68.42 Body mass index [BMI] 45.0-49.9, adult; I10 Essential (primary) hypertension; E11.65 Type 2 diabetes mellitus with hyperglycemia; M19.90 Unspecified osteoarthritis, unspecified site; R09.02 Hypoxemia; E87.6 Hypokalemia; E11.40 Type 2 diabetes mellitus with diabetic neuropathy, unspecified; G47.33 Obstructive sleep apnea (adult) (pediatric); K21.9 Gastro-esophageal reflux disease without esophagitis; G89.29 Other chronic pain; F32.9 Major depressive disorder, single episode, unspecified; E55.9 Vitamin D deficiency, unspecified; E66.01 Morbid (severe) obesity due to excess calories; Z79.899 Other long term (current) drug therapy; Z79.4 Long term (current) use of insulin; Z87.891 Personal history of nicotine dependence
CPT/HCPCS: 36415; 71045; 71275; 80053; 82962; 83735; 84100; 84484; 85025; 87426; 87804; 99251; 99285; J7040; J7050; Q9967; A4216; G0463; J2405

== ENCOUNTER → 2021-08-09 15:26 | Outpatient (CLI) | payer MEDICARE, MEDICAID, SELFPAY ==
[2021-08-09 17:24] LABS: Absolute Lymphocyte Count 1.54 X10^3/uL (0.83-4.51); Absolute Neutrophil Count 10.3 X10^3/uL (2.0-7.7); Basophil# 0.03 X10^3/uL; Basophil% 0.2 % (0-1); Eosinophil# 0.22 X10^3/uL; Eosinophils% 1.7 % (0-5); Hemoglobin 13.7 g/dL (12.0-15.0); Lymphocyte # 1.54 X10^3/ul (0.83-4.51); Lymphocyte % 12.2 % (19-41); Mean Corp Hgb Conc 31.1 g/dL (32-36); Mean Corpuscular Hgb 27.3 pg (27.0-32.0); Mean Corpuscular Volume 87.8 fL (81-99); Mean Platelet Vol. 12.3 fl (6.2-12.0); Monocyte# 0.54 X10^3/uL; Monocyte% 4.3 % (0-10); NRBC Flagged by Analyzer 0 % (0-5); Neutrophil # 10.26 X10^3/uL (2.7-7.7); Neutrophil % 81.4 % (47-70); Platelet Count 269 K/mm3 (150-450); RBC Distribution Width CV 14.8 % (11.6-14.6); RBC Distribution Width SD 47.8 fl (35.1-43.9); Red Blood Count 5.01 M/mm3 (4.2-5.4); White Blood Count 12.6 K/mm3 (4.4-11.0)
[2021-08-09 17:33] LABS: ALB/GLOB Ratio 0.8 RATIO (0.9-2.4); AST(SGOT) 13 U/L (15-37); Alanine Aminotransfer ALT/SGPT 15 U/L (13-56); Albumin, Serum 3.5 g/dL (3.2-5.0); Alkaline Phosphatase 109 U/L (45-117); Anion Gap 7 (5-15); BUN 20 mg/dL (7-18); BUN/Creat Ratio 17.7 RATIO (10-20); CPK Total, Creatine Kinase 45 U/L (26-192); Calcium,Total 9.1 mg/dL (8.5-10.1); Chloride 102 mmol/L (98-107); Creatinine, Serum 1.13 mg/dL (0.55-1.02); EST Glomerular Filtration Rate 52 mL/min (>60); Est Glom Filt Rate - Afr Amer 63 mL/min (>60); Globulin 4.6 g/dL (2.2-4.2); Glucose 107 mg/dL (74-106); Potassium 3.9 mmol/L (3.5-5.1); Protein, Total 8.1 g/dL (6.4-8.2); Sodium Level 138 mmol/L (136-145)
== END ==
PROVIDERS: PCP Family Medicine; Referring Provider Family Medicine; Visit Provider Family Medicine
DX: M79.10 Myalgia, unspecified site (principal)
CPT/HCPCS: 36415; 80053; 82550; 85025

== ENCOUNTER → 2021-09-06 11:17 | Outpatient (CLI) | payer MEDICARE, MEDICAID, SELFPAY ==
--- NOTE | 2021-09-06 11:20 | RAD_ITS ---
STUDY: X-RAY - RIGHT HAND REASON FOR EXAM: Female, 60 years old. PAIN, SWELLING TECHNIQUE: 3 view(s) of the hand. COMPARISON: None. FINDINGS: Normal radiocarpal articulation. Normal distal radioulnar joint. Normal visualized carpal bones. Normal carpal articulations There is degenerative arthrosis of the carpometacarpal (CMC) articulation of the thumb. Normal second through fifth carpometacarpal joints. Normal metacarpi. There is degenerative arthrosis of the metacarpophalangeal (MCP) joints. Normal interphalangeal joint of the thumb. Normal proximal and distal phalanges of the thumb. Normal metacarpophalangeal joints of the second through fifth fingers. There is diffuse articular joint space narrowing of the proximal and distal interphalangeal joints of the second through fifth fingers, but without erosive changes or periarticular soft tissue swelling. Normal phalanges of the second through fifth fingers. The soft tissue structures are unremarkable. RAD/Hand Min 3 Views IMPRESSION: Degenerative joint disease of the hand and wrist, as described above. Electronically Signed: Alex Zuluaga MD ([facility]) at 12:00 EST , Service support ,
--- NOTE | 2021-09-06 11:20 | RAD_ITS ---
STUDY: X-RAY - LEFT HAND REASON FOR EXAM: Female, 60 years old. PAIN, SWELLING TECHNIQUE: 3 view(s) of the hand. COMPARISON: None. FINDINGS: Normal radiocarpal articulation. Normal distal radioulnar joint. Normal visualized carpal bones. Normal carpal articulations There is degenerative arthrosis of the carpometacarpal (CMC) articulation of the thumb. Normal second through fifth carpometacarpal joints. Normal metacarpi. There is degenerative arthrosis of the metacarpophalangeal (MCP) joints. Normal interphalangeal joint of the thumb. Normal proximal and distal phalanges of the thumb. Normal metacarpophalangeal joints of the second through fifth fingers. There is diffuse articular joint space narrowing of the proximal and distal interphalangeal joints of the second through fifth fingers, but without erosive changes or periarticular soft tissue swelling. Normal phalanges of the second through fifth fingers. The soft tissue structures are unremarkable. RAD/Hand Min 3 Views IMPRESSION: Degenerative joint disease of the hand and wrist, as described above. Electronically Signed: Alex Zuluaga MD ([facility]) at 12:02 EST , Service support ,
[2021-09-06 12:31] LABS: Erythrocyte Sedimentation Rate 37 mm/hr (0-30)
[2021-09-06 12:35] LABS: Absolute Lymphocyte Count 1.76 X10^3/uL (0.83-4.51); Absolute Neutrophil Count 4.8 X10^3/uL (2.0-7.7); Basophil# 0.04 X10^3/uL; Basophil% 0.6 % (0-1); Eosinophil# 0.19 X10^3/uL; Eosinophils% 2.6 % (0-5); Hematocrit 45.1 % (37-47); Lymphocyte # 1.76 X10^3/ul (0.83-4.51); Lymphocyte % 24.3 % (19-41); Mean Corpuscular Hgb 26.9 pg (27.0-32.0); Mean Corpuscular Volume 86.6 fL (81-99); Mean Platelet Vol. 11.9 fl (6.2-12.0); Monocyte# 0.39 X10^3/uL; Monocyte% 5.4 % (0-10); NRBC Flagged by Analyzer 0 % (0-5); Neutrophil # 4.75 X10^3/uL (2.7-7.7); Neutrophil % 65.4 % (47-70); Platelet Count 289 K/mm3 (150-450); RBC Distribution Width CV 14.3 % (11.6-14.6); RBC Distribution Width SD 45.3 fl (35.1-43.9); Red Blood Count 5.21 M/mm3 (4.2-5.4); White Blood Count 7.3 K/mm3 (4.4-11.0)
[2021-09-06 12:48] LABS: Hemoglobin A1c 8.3 % (3.8-5.6)
[2021-09-06 12:51] LABS: Vitamin B12 517 pg/mL (211-911); Vitamin D,25 Hydroxy 37.4 ng/mL
[2021-09-06 13:03] LABS: ALB/GLOB Ratio 0.8 RATIO (0.9-2.4); AST(SGOT) 13 U/L (15-37); Alanine Aminotransfer ALT/SGPT 18 U/L (13-56); Albumin, Serum 3.4 g/dL (3.2-5.0); Alkaline Phosphatase 95 U/L (45-117); Anion Gap 7 (5-15); BUN 12 mg/dL (7-18); BUN/Creat Ratio 12.3 RATIO (10-20); Calcium,Total 9.5 mg/dL (8.5-10.1); Chloride 103 mmol/L (98-107); Creatinine, Serum 0.98 mg/dL (0.55-1.02); EST Glomerular Filtration Rate 61 mL/min (>60); Est Glom Filt Rate - Afr Amer 74 mL/min (>60); Ferritin 18 ng/mL (8-252); Globulin 4.3 g/dL (2.2-4.2); Glucose 222 mg/dL (74-106); Iron Binding Capacity,Total 417 ug/dL (250-450); Potassium 4.1 mmol/L (3.5-5.1); Protein, Total 7.7 g/dL (6.4-8.2); Sodium Level 138 mmol/L (136-145); Thyroid Stim Hormone (TSH) 1.02 uIU/mL (0.358-3.74)
[2021-09-12 15:08] LABS: Anti-Centromere B Ab <0.2 AI (0.0-0.9); Anti-Chromatin <0.2 AI (0.0-0.9); Anti-Jo <0.2 AI (0.0-0.9); Anti-Scleroderma-70 AB <0.2 AI (0.0-0.9); RNP Ab <0.2 AI (0.0-0.9); SJOGREN'S Anti-SS-A test < 0.2 AI (0.0-0.9); SJOGREN'S Anti-SS-B test < 0.2 AI (0.0-0.9); Smith Ab <0.2 AI (0.0-0.9)
[2021-09-12 21:37] LABS: Anti-dsDNA Ab 2 IU/mL (0-9)
== END ==
PROVIDERS: PCP Family Medicine; Referring Provider Family Medicine; Visit Provider Family Medicine
DX: E53.8 Deficiency of other specified B group vitamins (principal); M25.50 Pain in unspecified joint; E11.40 Type 2 diabetes mellitus with diabetic neuropathy, unspecified; D64.9 Anemia, unspecified; E55.9 Vitamin D deficiency, unspecified
CPT/HCPCS: 36415; 73130; 80053; 82306; 82607; 82728; 82746; 83036; 83550; 84443; 84550; 85025; 85652; 86225; 86235

== ENCOUNTER 2021-11-26 11:43 | Outpatient (CLI) | payer MEDICARE, MEDICAID, SELFPAY ==
[2021-11-28 18:48] LABS: Adrenocorticotropic Hormone 15.2 pg/mL (7.2-63.3)
== END 2021-11-26 23:59 | disposition home or self-care (01) ==
LOC: MFPLAB 11:49
PROVIDERS: PCP Family Medicine; Referring Provider Family Medicine; Visit Provider Family Medicine
DX: E27.8 Other specified disorders of adrenal gland (principal)
CPT/HCPCS: 36415; 82024; 82533; 82627; 82626

== ENCOUNTER 2021-11-29 09:30 | Emergency (ER) | payer MEDICARE, MEDICAID, SELFPAY ==
[2021-11-29] VITALS (7 sets, daily range): BP systolic 135–171; BP diastolic 75–91; PULSE 93–106; RESP 16–95; TEMP 36.6; O2SAT 88–96; BMI 48.8
--- NOTE | 2021-11-29 09:55 | CT_ITS ---
STUDY: CTA CHEST REASON FOR EXAM: Female, 61 years old. Increasing cough. Shortness of breath. RADIATION DOSAGE (If Supplied By Facility): CTDIvol = ( 13.85 ) mGy, DLP = ( 512.44 ) mGycm TECHNIQUE: The examination was performed with the intravenous administration of IV 100mL Isovue-300. Post-processing of the angiographic images was performed, with multiplanar reformation and 3D reconstruction. Individualized dose optimization techniques were used for this CT. COMPARISON: Comparison is made with prior study dated 05/12/2021. FINDINGS: Normal enhancement of the main pulmonary artery and right and left pulmonary arteries. Normal enhancement of the bilateral peripheral pulmonary arteries. There is no demonstrated pulmonary embolism. There is atherosclerotic calcification of the aortic arch with tortuosity. There is no demonstrated aortic dissection. Normal heart and pericardium. There are visualized mediastinal lymph nodes, which are within normal size limits, and with normal morphology. Normal hilar regions. Normal visualized trachea and bronchi. The lungs are well expanded. Small right pleural effusion with right basilar infiltrate. Mild increased markings at the left lung base suggestive of atelectasis. Normal chest wall structures. There are degenerative changes of thoracic spine. Normal visualized upper abdomen. CT/CTA Chest W/WO Contrast IMPRESSION: No evidence of pulmonary embolism. Small right pleural effusion with right basilar infiltrate. Mild increased markings at the left lung base. Electronically Signed: Chiki Thorne MD at 11:06 EST ,
--- NOTE | 2021-11-29 09:56 | ED.VIS.CHEST ---
HPI History of Present Illness Chief Complaint: Chest Pain Narrative Narrative: 61-year-old female presenting with chest pain x2 days. She states that sharp and in the retrosternal area more on the right. She states initially it was more in the center of the chest and then radiated to the axilla and now it is radiating back to the center of the chest. She has associated symptoms of shortness of breath. She status post Covid 4 months ago. She is not had fevers, chills, cough. She denies history of DVT/PE personally but states that her daughter has history of DVT and so does her . She states that her daughter was tested and told that her clotting disorder was genetic and it likely would have come from both parents. The patient herself denies Anybody in her family ever having DVTs or PEs. Patient has no recent history of travel, hormone use, being bedridden or immobilized. [facility] Medical History Allergies Arthritis Benign essential hypertension CPAP (continuous positive airway pressure) dependence Diabetes Diabetes Diarrhea Gall stone History of back problems HTN (hypertension) Hx of blurred vision Neuropathy Home Medications amlodipine 10 mg PO DAILY 05/14/17 [History Last Taken 10/17/19] ergocalciferol (vitamin D2) 1 tab PO QWEEK 05/14/17 [History Last Taken Unknown] gabapentin 600 mg PO BID PRN 05/14/17 [History Last Taken 10/17/19] hydrochlorothiazide 25 mg PO DAILY 05/14/17 [History Last Taken 10/17/19] liraglutide 1.8 mg SQ DAILY 05/14/17 [History Last Taken Unknown] pioglitazone 45 mg PO DAILY 05/14/17 [History Last Taken Unknown] spironolactone 100 mg PO DAILY 05/14/17 [History Last Taken 10/17/19] aspirin 81 mg PO DAILY 11/20/18 [History Last Taken 10/17/19] capsaicin 0.025 % topical cream 1 applic TOPICAL TID 09/09/19 [History Last Taken Unknown] ertugliflozin 15 mg tablet 15 mg PO QAM 09/09/19 [History Last Taken Unknown] lactulose 20 gram/30 mL oral solution 20 g PO BID 09/09/19 [History Last Taken Unknown] magnesium oxide 400 mg PO DAILY 09/09/19 [History Last Taken Unknown] metronidazole 0.75 % topical gel 1 applic TOPICAL BID 09/09/19 [History Last Taken Unknown] mometasone 0.1 % topical cream 1 applic TOPICAL DAILY 09/09/19 [History Last Taken Unknown] naproxen 500 mg tablet 500 mg PO BID 09/09/19 [History Last Taken Unknown] ondansetron HCl 4 mg tablet 4 mg PO BID-TID PRN 09/09/19 [History Last Taken Unknown] psyllium husk 0.52 gram capsule 0.52 g PO DAILY 09/09/19 [History Last Taken Unknown] pantoprazole 40 mg tablet,delayed release 40 mg PO DAILY #30 tab 10/21/19 [Rx Last Taken Unknown] duloxetine 30 mg capsule,delayed release sprinkle 30 mg PO BID 02/16/20 [History Last Taken Unknown] fluticasone propionate 50 mcg/actuation nasal spray,suspension 1 spray INTRANASAL BID 02/16/20 [History Last Taken Unknown] hydroxyzine HCl 25 mg tablet 25 mg PO QHS 02/16/20 [History Last Taken Unknown] meloxicam 15 mg tablet 15 mg PO DAILY 02/16/20 [History Last Taken Unknown] metformin 1,000 mg 24 hr tablet,extended release 1,000 mg PO BID tab 02/16/20 [History Last Taken Unknown] tizanidine 2 mg capsule 2 mg PO BID PRN 02/16/20 [History Last Taken Unknown] blood sugar diagnostic #150 ea 04/12/20 [Rx Last Taken Unknown] blood-glucose meter #1 ea 04/12/20 [Rx Last Taken Unknown] flash glucose sensor #2 ea 07/06/20 [Rx Last Taken Unknown] dexamethasone 6 mg PO DAILY 6 Days #9 tab 05/15/21 [Rx Last Taken Unknown] Lantus Solostar U-100 Insulin 36 unit SC QPM 11/29/21 [History Last Taken Unknown] allopurinol 300 mg PO DAILY 11/29/21 [History Last Taken Unknown] ammonium lactate 1 applic TOPICAL TID 11/29/21 [History Last Taken Unknown] azelastine 1 spray INTRANASAL BID 11/29/21 [History Last Taken Unknown] cefdinir 300 mg PO BID #14 cap 11/29/21 [Rx Last Taken Unknown] coenzyme Q10 [CoQ-10] 100 mg PO DAILY 11/29/21 [History Last Taken Unknown] cyanocobalamin (vitamin B-12) 2,500 mcg SUBLINGUAL DAILY 11/29/21 [History Last Taken Unknown] insulin aspart U-100 [Novolog Flexpen U-100 Insulin] 34 unit SC TID 11/29/21 [History Last Taken Unknown] levocetirizine 5 mg PO DAILY 11/29/21 [History Last Taken Unknown] pravastatin 40 mg PO DAILY 11/29/21 [History Last Taken Unknown] Allergy/AdvReac Type Severity Reaction Status Date / Time lisinopril Allergy Mild feels Verified 11/29/21 09:30 horrible Family History Grandfather Cancer Mother Cancer Diabetes Surgical History S/P laparoscopic cholecystectomy S/P tubal ligation Social History Smoking Status: Former smoker alcohol intake: current details: Social substance use type: does not use ROS ROS ED Constitutional Constitutional ED: Denies chills or fever(s) Eyes Eyes: Denies blurry vision or change in vision ENT ENT ED: Denies rhinorrhea or sore throat Cardiovascular Cardiovascular: Reports as per HPI Respiratory/Chest Respiratory/Chest: Reports dyspnea and dyspnea on exertion; Denies cough Gastrointestinal Gastrointestinal: Denies abdominal pain, nausea or vomiting Genitourinary Genitourinary ED: Denies dysuria or hematuria Musculoskeletal Musculoskeletal: Denies arthralgias or myalgias Integumentary Denies rash Neurologic Neurologic: Denies headache(s) or paresthesias Psychiatric Psychiatric: Denies anxiety or depression EXAM Physical Exam Const Vital Signs: 11/29/21 09:31 11/29/21 09:38 11/29/21 10:01 Temperature 97.8 F Temperature Source Temporal Pulse Rate 106 H Respiratory Rate 17 Respiratory Effort Short of Breath Labored Blood Pressure 171/91 H Blood Pressure Mean 117 Pulse Ox 96 93 Oxygen Delivery Method Room Air Room Air Oxygen Flow Rate (L/min) 11/29/21 10:30 11/29/21 11:30 11/29/21 11:52 Temperature Temperature Source Pulse Rate 98 98 Respiratory Rate 95 H 16 Respiratory Effort Blood Pressure 138/81 H 143/75 H Blood Pressure Mean 100 97 Pulse Ox 88 92 Oxygen Delivery Method Nasal Cannula Room Air Nasal Cannula Oxygen Flow Rate (L/min) 2 2 11/29/21 13:10 Temperature Temperature Source Pulse Rate 93 Respiratory Rate 18 Respiratory Effort Blood Pressure 135/75 H Blood Pressure Mean Pulse Ox 92 Oxygen Delivery Method Oxygen Flow Rate (L/min) Positive obese General Appearance ED: NAD; Negative for pallor Nutritional Appearance: obese HEENT Reports moist mucous membranes normocephalic and atraumatic Eyes PERRL and EOMs intact bilaterally Resp normal respiratory effort and clear to auscultation bilaterally Auscultation: Negative for rales, rhonchi or wheezes Cardio regular rhythm Rate: tachycardic GI normal to inspection, nondistended, normoactive bowel sounds Extremity normal to inspection General Extremety ED: Negative for edema or tenderness General Extremity: Negative for edema Neuro oriented x3 and CN's II-XII intact bilaterally Sensorium / Orientation: awake and alert Psych mental status grossly normal Skin General Skin Exam: Negative for jaundice or pallor Heart Score History: Slightly/Non-Suspicious ECG: Normal Age: >45 - <65 years Risk Factors: 1 or 2 Risk Factors Score: 2 MDM MDM MDM Narrative Medical decision making narrative: Patient presenting with sharp pleuritic chest pain. She states she is concerned for possibility of PE. She does not have a cardiac history. Her EKG on my interpretation shows a sinus tachycardia at a rate of 104 bpm without sign of ischemic change. CBC within normal limits. BMP shows a slight elevation creatinine 1.08 otherwise unremarkable. High-sensitivity troponin is 6 initially. BNP is 10.6. Repeat troponin at 2 hours is 5 and therefore there is no significant interval change. Patient had CTA of the chest which was negative for PE but did show a right lower lobe infiltrate S small pleural effusion. Patient's vital signs are stable she was noted to have a low O2 her pulse ox. She states she has sleep apnea and when she falls asleep this does drop. She is ambulated and maintained a sat of 89% and is asymptomatic. I discussed the patient with her family doctor and he recommended starting her on cefdinir for home. Is given the first dose in the ED. She is given return precautions. Impression: 1. Right lower lobe pneumonia 2. Chest pain Lab Data Attestation: I reviewed the patient's lab results. Labs: Laboratory Results - last 24 hr 11/29/21 11/29/21 11/29/21 09:45 09:55 09:55 WBC 7.5 RBC 5.02 Hgb 13.4 Hct 43.5 MCV 86.7 MCH 26.7 L MCHC 30.8 L RDW Std Deviation 47.7 H RDW Coeff of [place] 15.0 H Plt Count 273 MPV 11.5 Immature Gran % (Auto) 0.300 Neut % (Auto) 73.9 H Lymph % (Auto) 18.4 L [place] % (Auto) 5.2 Eos % (Auto) 1.9 Baso % (Auto) 0.3 Absolute Neuts (auto) 5.5 Absolute Lymphs (auto) 1.38 Nucleated RBC % 0 Sodium 138 Potassium 3.8 Chloride 103 Carbon Dioxide 31.0 Anion Gap 4 L BUN 10 Creatinine 1.08 H Estim Creat Clear Calc 51.21 Est GFR (MDRD) Af Amer 66 Est GFR (MDRD) Non-Af 55 L BUN/Creatinine Ratio 9.3 L Glucose 232 H Calcium 9.1 Troponin I High Sens 6 B-Natriuretic Peptide 10.6 11/29/21 11:55 WBC RBC Hgb Hct MCV MCH MCHC RDW Std Deviation RDW Coeff of [place] Plt Count MPV Immature Gran % (Auto) Neut % (Auto) Lymph % (Auto) [place] % (Auto) Eos % (Auto) Baso % (Auto) Absolute Neuts (auto) Absolute Lymphs (auto) Nucleated RBC % Sodium Potassium Chloride Carbon Dioxide Anion Gap BUN Creatinine Estim Creat Clear Calc Est GFR (MDRD) Af Amer Est GFR (MDRD) Non-Af BUN/Creatinine Ratio Glucose Calcium Troponin I High Sens 5 B-Natriuretic Peptide Radiography Diagnostic Testing: Clinical Impression(s) from Imaging Studies Chest CTA 11/29/21 09:55 IMPRESSION: No evidence of pulmonary embolism. Small right pleural effusion with right basilar infiltrate. Mild increased markings at the left lung base. Electronically Signed: Chiki Thorne MD at 11:06 EST , Discharge Plan Triage Chief Complaint: Chest Pain ED Provider: Nikolay,Nguyễn Dx/Rx/DC Orders Instructions: ED Chest Pain, Noncardiac, ED Pneumonia (Adult) Prescriptions: New cefdinir 300 mg capsule 300 mg PO BID Qty: 14 RF: 0 No Action magnesium oxide 400 mg magnesium capsule 400 mg PO DAILY RF: 0 lactulose 20 gram/30 mL solution 20 g PO BID RF: 0 capsaicin 0.025 % cream 1 applic TOPICAL TID RF: 0 mometasone 0.1 % cream 1 applic TOPICAL DAILY RF: 0 metronidazole 0.75 % gel 1 applic TOPICAL BID RF: 0 psyllium husk 0.52 gram capsule 0.52 g PO DAILY RF: 0 [place] 15 mg tablet 15 mg PO QAM RF: 0 naproxen [Naprosyn] 500 mg tablet 500 mg PO BID RF: 0 ondansetron HCl [Zofran] 4 mg tablet 4 mg PO BID-TID PRN (Reason: nasuea) RF: 0 (DME) blood-glucose meter [ReliOn Prime Meter] Misc See Rx Instructions .ROUTE .MEDSUPPLY Qty: 1 RF: 0 (DME) ReliOn Prime Test Strips Strip See Rx Instructions .ROUTE .MEDSUPPLY Qty: 150 RF: 5 hydroxyzine HCl 25 mg tablet 25 mg PO QHS RF: 0 fluticasone propionate 50 mcg/actuation spray,suspension 1 spray INTRANASAL BID RF: 0 meloxicam 15 mg tablet 15 mg PO DAILY RF: 0 duloxetine 30 mg capsule, delayed rel sprinkle 30 mg PO BID RF: 0 tizanidine 2 mg capsule 2 mg PO BID PRN (Reason: muscle relaxer) RF: 0 gabapentin 600 MG tablet 600 mg PO BID PRN RF: 0 spironolactone 100 MG tablet 100 mg PO DAILY RF: 0 pioglitazone 45 MG tablet 45 mg PO DAILY RF: 0 amlodipine 10 MG tablet 10 mg PO DAILY RF: 0 hydrochlorothiazide 25 MG tablet 25 mg PO DAILY RF: 0 ergocalciferol (vitamin D2) 50,000 UNIT capsule 1 tab PO QWEEK RF: 0 liraglutide 0.6 MG/0.1 ML pen injector 1.8 mg SQ DAILY RF: 0 metformin 1,000 mg tablet,ER tere.retention 24 hr 1,000 mg PO BID RF: 0 Hold Instructions: Resume on 05/17/21. aspirin 81 MG tablet,chewable 81 mg PO DAILY RF: 0 dexamethasone 4 mg Tablet 6 mg PO DAILY 6 Days Qty: 9 RF: 0 cyanocobalamin (vitamin B-12) 2,500 mcg Tablet, Sublingual 2,500 mcg SUBLINGUAL DAILY RF: 0 pravastatin 40 mg Tablet 40 mg PO DAILY RF: 0 ammonium lactate 12 % Cream 1 applic TOPICAL TID RF: 0 allopurinol 300 mg tablet 300 mg PO DAILY RF: 0 coenzyme Q10 [CoQ-10] 100 mg Capsule 100 mg PO DAILY RF: 0 levocetirizine 5 mg Tablet 5 mg PO DAILY RF: 0 azelastine 205.5 mcg (0.15 %) [place],Non-Aerosol 1 spray INTRANASAL BID RF: 0 insulin aspart U-100 [Novolog Flexpen U-100 Insulin] 100 unit/mL (3 mL) insulin pen 34 unit SC TID RF: 0 Lantus Solostar U-100 Insulin 100 unit/mL (3 mL) insulin pen 36 unit SC QPM RF: 0 pantoprazole 40 mg tablet,delayed release (DR/EC) 40 mg PO DAILY Qty: 30 RF: 3 (DME) FreeStyle Joseluis 14 Day Sensor Kit See Rx Instructions .ROUTE .MEDSUPPLY Qty: 2 RF: 12 Primary Care Provider: Robin Marion Referrals: Robin Marion MD [Primary Care Provider] - Disposition Disposition: Home, Self Care Discharge Date/Time: 11/29/21 13:10
--- NOTE | 2021-11-29 10:06 | EKG12_ITS ---
Test Reason : CP Blood Pressure : / mmHG Vent. Rate : 104 BPM Atrial Rate : 104 BPM P-R Int : 150 ms QRS Dur : 092 ms QT Int : 348 ms P-R-T Axes : 036 037 030 degrees QTc Int : 457 ms Sinus tachycardia Otherwise normal ECG Confirmed by BONY HARVEY, AXEL ([id number]), editor at large JOSELIN LEMUS ([id number]) on 12/02/2021 10:53:36 AM Referred By: MALIK Confirmed By:AXEL LOVETT MD
[2021-11-29 10:08] LABS: Absolute Lymphocyte Count 1.38 X10^3/uL (0.83-4.51); Absolute Neutrophil Count 5.5 X10^3/uL (2.0-7.7); Basophil# 0.02 X10^3/uL; Basophil% 0.3 % (0-1); Eosinophil# 0.14 X10^3/uL; Eosinophils% 1.9 % (0-5); Hematocrit 43.5 % (37-47); Hemoglobin 13.4 g/dL (12.0-15.0); Lymphocyte # 1.38 X10^3/ul (0.83-4.51); Lymphocyte % 18.4 % (19-41); Mean Corp Hgb Conc 30.8 g/dL (32-36); Mean Corpuscular Hgb 26.7 pg (27.0-32.0); Mean Corpuscular Volume 86.7 fL (81-99); Mean Platelet Vol. 11.5 fl (6.2-12.0); Monocyte# 0.39 X10^3/uL; Monocyte% 5.2 % (0-10); NRBC Flagged by Analyzer 0 % (0-5); Neutrophil # 5.53 X10^3/uL (2.7-7.7); Neutrophil % 73.9 % (47-70); Platelet Count 273 K/mm3 (150-450); RBC Distribution Width SD 47.7 fl (35.1-43.9); Red Blood Count 5.02 M/mm3 (4.2-5.4); White Blood Count 7.5 K/mm3 (4.4-11.0)
[2021-11-29] MEDS: Morphine 4 MG/ML Syringe IV (10:18)
[2021-11-29] MEDS: Ondansetron 4 MG/2 ML Vial IV (10:18)
[2021-11-29] MEDS: Aspirin 81 MG TAB.CHEW 324 MG PO (10:19)
[2021-11-29 10:22] LABS: Anion Gap 4 (5-15); BUN 10 mg/dL (7-18); BUN/Creat Ratio 9.3 RATIO (10-20); Calcium,Total 9.1 mg/dL (8.5-10.1); Chloride 103 mmol/L (98-107); Creatinine, Serum 1.08 mg/dL (0.55-1.02); EST Glomerular Filtration Rate 55 mL/min (>60); Est Glom Filt Rate - Afr Amer 66 mL/min (>60); Estimated Creatinine Clearance 51.21 ml/min; Glucose 232 mg/dL (74-106); Potassium 3.8 mmol/L (3.5-5.1); Sodium Level 138 mmol/L (136-145); Troponin-I HS 6 pg/mL (3.0-54.0)
[2021-11-29 12:24] LABS: Troponin-I HS 5 pg/mL (3.0-54.0)
[2021-11-29 12:26] LABS: BNP,B-Type NATRIURETIC PEPTIDE 10.6 pg/mL (0-100)
[2021-11-29] MEDS: Cefdinir 300 MG Capsule PO (13:06)
== END 2021-11-29 13:10 | disposition home or self-care (01) ==
PROVIDERS: Emergency Provider Student in an Organized Health Care Education/Training Program; PCP Family Medicine; Visit Provider Student in an Organized Health Care Education/Training Program
DX: J18.9 Pneumonia, unspecified organism (principal); E11.9 Type 2 diabetes mellitus without complications; Z79.4 Long term (current) use of insulin; R07.9 Chest pain, unspecified; R06.00 Dyspnea, unspecified; E66.9 Obesity, unspecified; I10 Essential (primary) hypertension; Z87.891 Personal history of nicotine dependence; Z79.84 Long term (current) use of oral hypoglycemic drugs; Z79.82 Long term (current) use of aspirin; Z79.899 Other long term (current) drug therapy
CPT/HCPCS: 71275; 80048; 83880; 84484; 85025; 87426; 93005; 96374; 96375; 99285; Q9967; A4216; J2405

== ENCOUNTER 2021-12-02 13:56 | Outpatient (CLI) | payer MEDICARE, MEDICAID, SELFPAY ==
[2021-12-02 16:31] LABS: 24HR. Urine Creatinine 2.31 g/24 HR (0.70-1.90)
[2021-12-09 19:07] LABS: Cortisol, Urinary Free 16 ug/L (Undefined)
[2021-12-09 20:56] LABS: Cortisol, Free 24Ur 24 ug/24 hr (6-42)
== END 2021-12-02 23:59 | disposition home or self-care (01) ==
LOC: MFPLAB 13:58
PROVIDERS: PCP Family Medicine; Visit Provider Family Medicine
DX: E27.8 Other specified disorders of adrenal gland (principal)
CPT/HCPCS: 81050; 82530; 82570

== ENCOUNTER 2021-12-23 14:54 | Inpatient (IN) | payer MEDICARE, MEDICAID, SELFPAY ==
[2021-12-23 14:55] VITALS: BP 193/98; PULSE 109; RESP 18; TEMP 36.6; O2SAT 93; BMI 48.1
[2021-12-23 15:55] VITALS: O2SAT 96
--- NOTE | 2021-12-23 16:11 | EKG12_ITS ---
Test Reason : CP Blood Pressure : / mmHG Vent. Rate : 110 BPM Atrial Rate : 110 BPM P-R Int : 142 ms QRS Dur : 094 ms QT Int : 350 ms P-R-T Axes : 033 031 036 degrees QTc Int : 473 ms Poor data quality, interpretation may be adversely affected Sinus tachycardia Inferior infarct , age undetermined Abnormal ECG Confirmed by BONY HARVEY, AXEL ([id number]), features editor JOSELIN LEMUS ([id number]) on 12/24/2021 10:30:33 AM Referred By: COLBY/SHARLA/KELTON Confirmed By:XAEL LOVETT MD
--- NOTE | 2021-12-23 16:15 | EDS_ITS ---
HPI History of Present Illness Chief Complaint: Chest Pain Detail of Chief Complaint: Left chest pain, shortness of breath and hypoxia Informant: patient Onset/Context/Timing Onset: Today Context: Sudden Onset Timing: Continuous and Waxes and wanes Quality: Pain Location: Left anterior chest wall Current Severity: Mild Maximum Severity: Moderate Worsened by: Breathing Relieved by: Nothing Associated Symptoms Associated Symptoms: Dyspnea on exertion Narrative Narrative: Patient is 61-year-old woman who was recently admitted for pneumonia. She had a recent trip to [place]. She drove down on Thursday and returned on Thursday. She denies history of VTE. She states her legs have been swollen for some time. She denies discoloration or pain. She states she not take her insulin this morning because she was having trouble with her breathing. She denies fever, chills night sweats. She denies headache, visual, ocular auditory symptoms. She denies ear pain, ringing or ears or drainage from ears. She denies rhinorrhea, congestion or postnasal drainage. She denies sore throat. She denies nausea, vomiting diarrhea. She denies hematemesis, melena medic easier. She denies urologic symptoms. Prior similar symptoms: No Recent Illness/Hospitalization: Yes (Pneumonia with pleural effusion 3 weeks ago) [facility] Medical History Allergies Arthritis Benign essential hypertension CPAP (continuous positive airway pressure) dependence Diabetes Diabetes Diarrhea Gall stone History of back problems HTN (hypertension) Hx of blurred vision Neuropathy Home Medications amlodipine 10 mg PO DAILY 05/14/17 [History Last Taken 10/17/19] ergocalciferol (vitamin D2) 1 tab PO QWEEK 05/14/17 [History Last Taken Unknown] gabapentin 600 mg PO BID PRN 05/14/17 [History Last Taken 10/17/19] hydrochlorothiazide 25 mg PO DAILY 05/14/17 [History Last Taken 10/17/19] liraglutide 1.8 mg SQ DAILY 05/14/17 [History Last Taken Unknown] pioglitazone 45 mg PO DAILY 05/14/17 [History Last Taken Unknown] spironolactone 100 mg PO DAILY 05/14/17 [History Last Taken 10/17/19] aspirin 81 mg PO DAILY 11/20/18 [History Last Taken 10/17/19] capsaicin 0.025 % topical cream 1 applic TOPICAL TID 09/09/19 [History Last Taken Unknown] ertugliflozin 15 mg tablet 15 mg PO QAM 09/09/19 [History Last Taken Unknown] lactulose 20 gram/30 mL oral solution 20 g PO BID 09/09/19 [History Last Taken Unknown] magnesium oxide 400 mg PO DAILY 09/09/19 [History Last Taken Unknown] metronidazole 0.75 % topical gel 1 applic TOPICAL BID 09/09/19 [History Last Taken Unknown] mometasone 0.1 % topical cream 1 applic TOPICAL DAILY 09/09/19 [History Last Taken Unknown] naproxen 500 mg tablet 500 mg PO BID 09/09/19 [History Last Taken Unknown] ondansetron HCl 4 mg tablet 4 mg PO BID-TID PRN 09/09/19 [History Last Taken Unknown] psyllium husk 0.52 gram capsule 0.52 g PO DAILY 09/09/19 [History Last Taken Unknown] pantoprazole 40 mg tablet,delayed release 40 mg PO DAILY #30 tab 10/21/19 [Rx Last Taken Unknown] duloxetine 30 mg capsule,delayed release sprinkle 30 mg PO BID 02/16/20 [History Last Taken Unknown] fluticasone propionate 50 mcg/actuation nasal spray,suspension 1 spray INTRANASAL BID 02/16/20 [History Last Taken Unknown] hydroxyzine HCl 25 mg tablet 25 mg PO QHS 02/16/20 [History Last Taken Unknown] meloxicam 15 mg tablet 15 mg PO DAILY 02/16/20 [History Last Taken Unknown] metformin 1,000 mg 24 hr tablet,extended release 1,000 mg PO BID tab 02/16/20 [History Last Taken Unknown] tizanidine 2 mg capsule 2 mg PO BID PRN 02/16/20 [History Last Taken Unknown] blood sugar diagnostic #150 ea 04/12/20 [Rx Last Taken Unknown] blood-glucose meter #1 ea 04/12/20 [Rx Last Taken Unknown] flash glucose sensor #2 ea 07/06/20 [Rx Last Taken Unknown] dexamethasone 6 mg PO DAILY 6 Days #9 tab 05/15/21 [Rx Last Taken Unknown] Lantus Solostar U-100 Insulin 36 unit SC QPM 11/29/21 [History Last Taken Unknown] allopurinol 300 mg PO DAILY 11/29/21 [History Last Taken Unknown] ammonium lactate 1 applic TOPICAL TID 11/29/21 [History Last Taken Unknown] azelastine 1 spray INTRANASAL BID 11/29/21 [History Last Taken Unknown] cefdinir 300 mg PO BID #14 cap 11/29/21 [Rx Last Taken Unknown] coenzyme Q10 [CoQ-10] 100 mg PO DAILY 11/29/21 [History Last Taken Unknown] cyanocobalamin (vitamin B-12) 2,500 mcg SUBLINGUAL DAILY 11/29/21 [History Last Taken Unknown] insulin aspart U-100 [Novolog Flexpen U-100 Insulin] 34 unit SC TID 11/29/21 [History Last Taken Unknown] levocetirizine 5 mg PO DAILY 11/29/21 [History Last Taken Unknown] pravastatin 40 mg PO DAILY 11/29/21 [History Last Taken Unknown] Allergy/AdvReac Type Severity Reaction Status Date / Time lisinopril Allergy Mild feels Verified 12/23/21 14:55 horrible Family History Grandfather Cancer Mother Cancer Diabetes Surgical History S/P laparoscopic cholecystectomy S/P tubal ligation Social History (Updated 12/23/21 @ 16:[address] Heriberto Lomax MD) household members: spouse Smoking Status: Former smoker alcohol intake: current details: Social substance use type: does not use ROS ROS ED Constitutional Constitutional ED: Denies chills, fever(s), subjective, sweats or weight loss Eyes Eyes: Denies blurry vision, change in vision or diplopia ENT ENT ED: Denies ear pain, rhinorrhea or sore throat Cardiovascular Cardiovascular: Reports chest pain; Denies orthopnea, palpitations, paroxysmal nocturnal dyspnea or racing heartbeat Respiratory/Chest Respiratory/Chest: Reports cough, dyspnea and dyspnea on exertion; Denies orthopnea, paroxysmal nocturnal dyspnea or sputum Gastrointestinal Gastrointestinal: Denies abdominal pain, constipation, diarrhea, melena, nausea or vomiting Genitourinary Genitourinary ED: Denies dysuria, hematuria or urinary frequency Musculoskeletal Musculoskeletal: Denies arthralgias, back pain, myalgias or neck pain Integumentary Denies abscess, Abrasions or rash Neurologic Neurologic: Denies headache(s), paresthesias or weakness Psychiatric Psychiatric: Denies anxiety or depression Endocrine Endocrinology: Denies polydipsia, polyphagia or polyuria EXAM Physical Exam Const Vital Signs: 12/23/21 14:55 12/23/21 15:55 12/23/21 15:56 Temperature 97.8 F Temperature Source Temporal Pulse Rate 109 H Respiratory Rate 18 Respiratory Effort Normal Respiratory Pattern Normal Blood Pressure 193/98 H Blood Pressure Mean 129 Pulse Ox 93 96 Oxygen Delivery Method Room Air Nasal Cannula Oxygen Flow Rate (L/min) 3 12/23/21 16:35 Temperature Temperature Source Pulse Rate 111 H Respiratory Rate 26 H Respiratory Effort Respiratory Pattern Blood Pressure 189/91 H Blood Pressure Mean 123 Pulse Ox 92 Oxygen Delivery Method Nasal Cannula Oxygen Flow Rate (L/min) 3 Positive well nourished, well developed and obese; Negative for cachectic, contractures or unkempt General Appearance ED: well developed and NAD; Negative for unkempt, cachectic, contractures, cyanotic, diaphoretic or pallor Nutritional Appearance: obese; Negative for cachectic HEENT Reports TM's clear HEENT Narrative: Uvula midline. No erythema or exudate. Note angioedema. Negative for trauma or tenderness Tympanic Membrane ED: Yes TM's clear Eyes PERRL and EOMs intact bilaterally General Eye ED: Negative for pale conjunctiva or scleral icterus Neck no lymphadenopathy, supple and no JVD Neck Narrative: Trachea is midline. There is no inspiratory expiratory stridor. Chest Wall palpation of chest normal Resp normal respiratory effort and No clear to auscultation bilaterally Effort and Inspection: other There is minimal use of accessory muscles. ; Negative for retractions Auscultation: rales bilateral lower and diminished lung sounds Cardio regular rhythm, S1 normal heart sound, S2 normal heart sound and no murmurs Rate: tachycardic GI normal to inspection, nondistended, normoactive bowel sounds, non-tender and non-distended Palpation: soft Back/Spine no CVA tenderness Cervical Spine: Negative for cervical spine tenderness Thoracic Spine / Upper Back: Negative for thoracic spinal tenderness or paraspinal muscle tenderness Extremity Negative for normal to inspection Extremity Narrative: There is minimal pitting edema bilaterally General Extremety ED: Yes edema; Negative for tenderness General Extremity: edema Neuro oriented x3, CN's II-XII intact bilaterally and no sensory deficits noted Sensorium / Orientation: alert Motor Exam: strength 5/5 throughout Psych mental status grossly normal Appearance: Negative for unkempt Skin no rashes or lesions noted and no wounds General Skin Exam: Negative for jaundice or pallor MDM MDM MDM Narrative Medical decision making narrative: In light of recent travel pleuritic pain hypoxia differential diagnoses include PE, pneumonia, pneumothorax, doubt congestive heart failure. Will obtain chest x-ray. If there is no obvious infiltrate or abnormality that would explain her hypoxia she will require a CTA to evaluate for pulmonary embolus. EKG was obtained to rule out cardiac ischemia. CBC to assess white count and rule out anemia. Electrolyte panel to assess renal function in the event a CTA is needed. After x-ray was interpreted by me as positive for pneumonia since she is tachycardic tachypneic antibiotics were started prior to lactate results. Lactate is elevated. This would indicate that patient has severe sepsis. Lab Data Attestation: I reviewed the patient's lab results. Labs: Laboratory Results - last 24 hr 12/23/21 12/23/21 12/23/21 16:30 16:30 16:30 WBC 8.0 RBC 5.29 Hgb 14.3 Hct 44.0 MCV 83.2 MCH 27.0 MCHC 32.5 RDW Std Deviation 44.8 H RDW Coeff of [place] 14.9 H Plt Count 268 MPV 11.1 Immature Gran % (Auto) 0.400 Neut % (Auto) 77.7 H Lymph % (Auto) 14.6 L [place] % (Auto) 5.6 Eos % (Auto) 1.5 Baso % (Auto) 0.2 Absolute Neuts (auto) 6.3 Absolute Lymphs (auto) 1.17 Nucleated RBC % 0 Sodium 139 Potassium 3.8 Chloride 102 Carbon Dioxide 31.0 Anion Gap 6 BUN 13 Creatinine 1.14 H Estim Creat Clear Calc 48.51 Est GFR (MDRD) Af Amer 62 Est GFR (MDRD) Non-Af 52 L BUN/Creatinine Ratio 11.4 Glucose 285 H Lactic Acid 2.2 H* Calcium 8.9 Total Bilirubin 0.30 AST 8 L ALT 14 Alkaline Phosphatase 103 Total Protein 7.7 Albumin 3.4 Globulin 4.3 H Albumin/Globulin Ratio 0.8 L Radiography Chest X-Ray - ED: 1 View, Read by ED Physician (Single view portable chest x-ray independently interpreted by me at 1656 reveals a left lower lobe infiltrate. This was not noted on CTA performed earlier this month. Patient had a right- sided pneumonia with effusion.), Normal, Heart (Left heart border is obscured as well as obscuring of the left hemidiaphragm.), Lungs (Left lower lobe pneumonia) and Bony Structures Critical Care Time Critical Care Time: Yes Critical care time (excluding procedures): 30-74 minutes (33 minutes), Including time spent: (History, physical, documentation, review of prior records, review of office records, interpretation laboratory results and initiation of treatment for severe sepsis due to pneumonia), Discussing w/Patient &/or Family/Residential Team Leader, Discussing w/Consultants and Arranging Admission or Transfer Discharge Plan Triage Chief Complaint: Chest Pain ED Provider: Heriberto Lomax Dx/Rx/DC Orders Clinical Impression: Left lower lobe pneumonia, Acute respiratory failure with hypoxia, Severe sep sis, Pleuritic chest pain Prescriptions: No Action magnesium oxide 400 mg magnesium capsule 400 mg PO DAILY RF: 0 lactulose 20 gram/30 mL solution 20 g PO BID RF: 0 capsaicin 0.025 % cream 1 applic TOPICAL TID RF: 0 mometasone 0.1 % cream 1 applic TOPICAL DAILY RF: 0 metronidazole 0.75 % gel 1 applic TOPICAL BID RF: 0 psyllium husk 0.52 gram capsule 0.52 g PO DAILY RF: 0 [place] 15 mg tablet 15 mg PO QAM RF: 0 naproxen [Naprosyn] 500 mg tablet 500 mg PO BID RF: 0 ondansetron HCl [Zofran] 4 mg tablet 4 mg PO BID-TID PRN (Reason: nasuea) RF: 0 (DME) blood-glucose meter [ReliOn Prime Meter] [facility] See Rx Instructions .ROUTE .MEDSUPPLY Qty: 1 RF: 0 (DME) ReliOn Prime Test Strips Strip See Rx Instructions .ROUTE .MEDSUPPLY Qty: 150 RF: 5 hydroxyzine HCl 25 mg tablet 25 mg PO QHS RF: 0 fluticasone propionate 50 mcg/actuation spray,suspension 1 spray INTRANASAL BID RF: 0 meloxicam 15 mg tablet 15 mg PO DAILY RF: 0 duloxetine 30 mg capsule, delayed rel sprinkle 30 mg PO BID RF: 0 tizanidine 2 mg capsule 2 mg PO BID PRN (Reason: muscle relaxer) RF: 0 gabapentin 600 MG tablet 600 mg PO BID PRN RF: 0 spironolactone 100 MG tablet 100 mg PO DAILY RF: 0 pioglitazone 45 MG tablet 45 mg PO DAILY RF: 0 amlodipine 10 MG tablet 10 mg PO DAILY RF: 0 hydrochlorothiazide 25 MG tablet 25 mg PO DAILY RF: 0 ergocalciferol (vitamin D2) 50,000 UNIT capsule 1 tab PO QWEEK RF: 0 liraglutide 0.6 MG/0.1 ML pen injector 1.8 mg SQ DAILY RF: 0 metformin 1,000 mg tablet,ER tere.retention 24 hr 1,000 mg PO BID RF: 0 Hold Instructions: Resume on 05/17/21. aspirin 81 MG tablet,chewable 81 mg PO DAILY RF: 0 dexamethasone 4 mg Tablet 6 mg PO DAILY 6 Days Qty: 9 RF: 0 cyanocobalamin (vitamin B-12) 2,500 mcg Tablet, Sublingual 2,500 mcg SUBLINGUAL DAILY RF: 0 pravastatin 40 mg Tablet 40 mg PO DAILY RF: 0 ammonium lactate 12 % Cream 1 applic TOPICAL TID RF: 0 allopurinol 300 mg tablet 300 mg PO DAILY RF: 0 coenzyme Q10 [CoQ-10] 100 mg Capsule 100 mg PO DAILY RF: 0 levocetirizine 5 mg Tablet 5 mg PO DAILY RF: 0 azelastine 205.5 mcg (0.15 %) [place],Non-Aerosol 1 spray INTRANASAL BID RF: 0 insulin aspart U-100 [Novolog Flexpen U-100 Insulin] 100 unit/mL (3 mL) insulin pen 34 unit SC TID RF: 0 Lantus Solostar U-100 Insulin 100 unit/mL (3 mL) insulin pen 36 unit SC QPM RF: 0 cefdinir 300 mg capsule 300 mg PO BID Qty: 14 RF: 0 pantoprazole 40 mg tablet,delayed release (DR/EC) 40 mg PO DAILY Qty: 30 RF: 3 (DME) FreeStyle Joseluis 14 Day Sensor Kit See Rx Instructions .ROUTE .MEDSUPPLY Qty: 2 RF: 12 Primary Care Provider: Robin Marion Referrals: Robin Marion MD [Primary Care Provider] -
[2021-12-23 16:35] VITALS: BP 189/91; PULSE 111; RESP 26; O2SAT 92
--- NOTE | 2021-12-23 16:39 | RAD_ITS ---
HISTORY: Chest pain, pleuritic, hypoxia, recent pneumonia EXAMINATION/TECHNIQUE: XR Chest 1 View: Portable upright AP chest x-ray COMPARISON: CTA chest 11/29/21 FINDINGS: LINES/DEVICES: None. LUNGS: Bibasilar airspace opacities, left side greater than right with mild blunting of the costophrenic angles. Linear opacity projects over the right heart border consistent with right middle lobe atelectasis. Low lung volumes. No pneumothorax. MEDIASTINUM AND CARDIOVASCULAR STRUCTURES: Cardiac silhouette not enlarged. Central airways and mediastinal contour are unremarkable. BONES AND SOFT TISSUES: No acute bony abnormalities. RAD/Chest 1 View (Portable) IMPRESSION: Hypoinflated study. Bibasilar atelectasis versus infiltrates with possible small pleural effusions. Probable right middle lobe atelectasis. at 1739 Reported and signed by: Dustin Mosley MD Electronically Signed: Dustin Mosley MD at 17:38 EDT ,
[2021-12-23 16:45] LABS: Absolute Lymphocyte Count 1.17 X10^3/uL (0.83-4.51); Absolute Neutrophil Count 6.3 X10^3/uL (2.0-7.7); Basophil# 0.02 X10^3/uL; Basophil% 0.2 % (0-1); Eosinophil# 0.12 X10^3/uL; Eosinophils% 1.5 % (0-5); Hemoglobin 14.3 g/dL (12.0-15.0); Lymphocyte # 1.17 X10^3/ul (0.83-4.51); Lymphocyte % 14.6 % (19-41); Mean Corp Hgb Conc 32.5 g/dL (32-36); Mean Corpuscular Volume 83.2 fL (81-99); Mean Platelet Vol. 11.1 fl (6.2-12.0); Monocyte# 0.45 X10^3/uL; Monocyte% 5.6 % (0-10); NRBC Flagged by Analyzer 0 % (0-5); Neutrophil # 6.25 X10^3/uL (2.7-7.7); Neutrophil % 77.7 % (47-70); Platelet Count 268 K/mm3 (150-450); RBC Distribution Width CV 14.9 % (11.6-14.6); RBC Distribution Width SD 44.8 fl (35.1-43.9); Red Blood Count 5.29 M/mm3 (4.2-5.4)
[2021-12-23 16:58] LABS: ALB/GLOB Ratio 0.8 RATIO (0.9-2.4); AST(SGOT) 8 U/L (15-37); Alanine Aminotransfer ALT/SGPT 14 U/L (13-56); Albumin, Serum 3.4 g/dL (3.2-5.0); Alkaline Phosphatase 103 U/L (45-117); Anion Gap 6 (5-15); BUN 13 mg/dL (7-18); BUN/Creat Ratio 11.4 RATIO (10-20); Calcium,Total 8.9 mg/dL (8.5-10.1); Chloride 102 mmol/L (98-107); Creatinine, Serum 1.14 mg/dL (0.55-1.02); EST Glomerular Filtration Rate 52 mL/min (>60); Est Glom Filt Rate - Afr Amer 62 mL/min (>60); Estimated Creatinine Clearance 48.51 ml/min; Globulin 4.3 g/dL (2.2-4.2); Glucose 285 mg/dL (74-106); Potassium 3.8 mmol/L (3.5-5.1); Protein, Total 7.7 g/dL (6.4-8.2); Sodium Level 139 mmol/L (136-145)
[2021-12-23 17:21] LABS: Lactic Acid 2.2 mmol/L (0.4-1.9)
[2021-12-23] MEDS: morphine 8 MG/ML Syringe 6 MG IV (17:51)
[2021-12-23] MEDS: Ondansetron 4 MG/2 ML Vial IV (17:52)
--- NOTE | 2021-12-23 18:00 | PCM.HP.STD ---
Documented by User: Amy Navarro NP, SOFTWARE PACKAGER-C 12/23/21 18:30 HPI - General HPI Narrative PAULIE ALFARO, is a 61 F who presents to the emergency room due to chest pain and shortness of breath. Patient states she was in the emergency room and treated for pneumonia approximately 3 weeks ago. She states she seemed to improve after that time however the past few days has felt short of breath, reports nonproductive cough. Denies fever, chills. Denies other upper respiratory symptoms. She reports left-sided rib pain which is worse with deep breathing. Also reports increased pain with cough. She has a past medical history of hypertension, type 2 diabetes mellitus, MARITZA on CPAP, obesity. [facility] Medical History Allergies Arthritis Benign essential hypertension CPAP (continuous positive airway pressure) dependence Diabetes Diabetes Diarrhea Gall stone History of back problems HTN (hypertension) Hx of blurred vision Neuropathy Home Medications amlodipine 10 mg PO DAILY 05/14/17 [History Last Taken 12/22/21] ergocalciferol (vitamin D2) 1 tab PO QWEEK 05/14/17 [History Last Taken Unknown] gabapentin 600 mg PO BID PRN 05/14/17 [History Last Taken 12/22/21] hydrochlorothiazide 25 mg PO DAILY 05/14/17 [History Last Taken 12/22/21] liraglutide 1.8 mg SQ DAILY 05/14/17 [History Last Taken 12/22/21] pioglitazone 22.5 mg PO DAILY 05/14/17 [History Last Taken 12/22/21] spironolactone 100 mg PO DAILY 05/14/17 [History Last Taken 12/22/21] aspirin 81 mg PO DAILY 11/20/18 [History Last Taken 12/22/21] capsaicin 0.025 % topical cream 1 applic TOPICAL TID 09/09/19 [History Last Taken 12/22/21] ertugliflozin 15 mg tablet 15 mg PO QAM 09/09/19 [History Last Taken 12/22/21] lactulose 20 gram/30 mL oral solution 20 g PO BID 09/09/19 [History Last Taken Unknown] magnesium oxide 400 mg PO DAILY 09/09/19 [History Last Taken 12/22/21] metronidazole 0.75 % topical gel 1 applic TOPICAL QHS 09/09/19 [History Last Taken 12/22/21] mometasone 0.1 % topical cream 1 applic TOPICAL DAILY 09/09/19 [History Last Taken 12/22/21] naproxen 500 mg tablet 500 mg PO BID 09/09/19 [History Last Taken 12/22/21] ondansetron HCl 4 mg tablet 4 mg PO BID-TID PRN 09/09/19 [History Last Taken Unknown] duloxetine 30 mg capsule,delayed release sprinkle 30 mg PO BID 02/16/20 [History Last Taken 12/22/21] fluticasone propionate 50 mcg/actuation nasal spray,suspension 2 spray INTRANASAL DAILY 02/16/20 [History Last Taken 12/22/21] hydroxyzine HCl 25 mg tablet 25 mg PO QHS 02/16/20 [History Last Taken 12/22/21] meloxicam 15 mg tablet 15 mg PO DAILY 02/16/20 [History Last Taken 12/22/21] metformin 1,000 mg 24 hr tablet,extended release 1,000 mg PO BID tab 02/16/20 [History Last Taken 12/22/21] tizanidine 2 mg capsule 2 mg PO BID PRN 02/16/20 [History Last Taken Unknown] blood sugar diagnostic #150 ea 04/12/20 [Rx Last Taken Unknown] blood-glucose meter #1 ea 04/12/20 [Rx Last Taken Unknown] flash glucose sensor #2 ea 07/06/20 [Rx Last Taken Unknown] Lantus Solostar U-100 Insulin 36 unit SC BID 11/29/21 [History Last Taken 12/22/21] allopurinol 300 mg PO DAILY 11/29/21 [History Last Taken 12/22/21] ammonium lactate 1 applic TOPICAL TID 11/29/21 [History Last Taken 12/22/21] azelastine 1 spray INTRANASAL BID 11/29/21 [History Last Taken 12/22/21] coenzyme Q10 [CoQ-10] 100 mg PO DAILY 11/29/21 [History Last Taken 12/22/21] cyanocobalamin (vitamin B-12) 2,500 mcg SUBLINGUAL DAILY 11/29/21 [History Last Taken 12/22/21] insulin aspart U-100 [Novolog Flexpen U-100 Insulin] 34 unit SC TID 11/29/21 [History Last Taken 12/22/21] levocetirizine 5 mg PO DAILY 11/29/21 [History Last Taken 12/22/21] pravastatin 40 mg PO DAILY 11/29/21 [History Last Taken 12/22/21] pantoprazole 40 mg PO DAILY 12/23/21 [History Last Taken 12/22/21] Allergy/AdvReac Type Severity Reaction Status Date / Time lisinopril Allergy Mild feels Verified 12/23/21 14:55 horrible Family History Grandfather Cancer Mother Cancer Diabetes Surgical History S/P laparoscopic cholecystectomy S/P tubal ligation Social History household members: spouse Smoking Status: Former smoker alcohol intake: current details: Social substance use type: does not use ROS Constitutional Constitutional: Reports fatigue and malaise; Denies change in weight, chills, fever(s) or weakness Cardiovascular Cardiovascular: Reports chest pain; Denies edema, lightheadedness, palpitations or syncope Respiratory/Chest Respiratory/Chest: Reports cough and dyspnea; Denies productive cough or wheezing Gastrointestinal Gastrointestinal: Denies abdominal pain, constipation, diarrhea, nausea or vomiting Genitourinary Genitourinary: Denies burning urination, difficulty urinating, dysuria, hematuria, urinary frequency, urinary incontinence or urinary urgency Musculoskeletal Musculoskeletal: Denies back pain, joint pain or muscle weakness Integumentary Integumentary: Denies erythema, lesions, rash or wounds Neurologic Neurologic: Denies abnormal speech, confusion, dizziness, focal weakness, numbness, paresthesias, seizure-like activity or syncope Psychiatric Psychiatric: Denies anxiety or depression Hematologic/Lymphatic Hematologic/Lymphatic: Denies anemia, easy bleeding or easy bruising Allergic/Immunologic Allergic/Immunologic: Denies hives or asthma Vital Signs Vital Signs Vital Signs: 12/23/21 14:55 12/23/21 15:55 12/23/21 15:56 Temperature 97.8 F Temperature Source Temporal Pulse Rate 109 H Respiratory Rate 18 Respiratory Effort Normal Respiratory Pattern Normal Blood Pressure 193/98 H Blood Pressure Mean 129 Pulse Ox 93 96 Oxygen Delivery Method Room Air Nasal Cannula Oxygen Flow Rate (L/min) 3 12/23/21 16:35 Temperature Temperature Source Pulse Rate 111 H Respiratory Rate 26 H Respiratory Effort Respiratory Pattern Blood Pressure 189/91 H Blood Pressure Mean 123 Pulse Ox 92 Oxygen Delivery Method Nasal Cannula Oxygen Flow Rate (L/min) 3 Weight Weight: 298 lb Body Mass Index (BMI) 48.1 Physical Exam Const alert and oriented x3 Constitutional Narrative: Appears dyspneic Orientation / Consciousness: awake, oriented to person, oriented to place and oriented to time HEENT normocephalic Mouth: dry mucous membranes Eyes PERRL, EOMs intact bilaterally and conjunctivae normal Neck no lymphadenopathy Resp Effort and Inspection: tachypneic and uses accessory muscles Auscultation: rales and diminished lung sounds Cardio regular rhythm and no murmurs Rate: tachycardic Peripheral Pulses: pulses 2+ throughout GI normal to inspection, nondistended, normoactive bowel sounds, non-tender and non-distended Extremity normal to inspection General Extremity: edema bilateral lower extremity Skin no rashes or lesions noted Lesions: no lesions Rashes: no rashes Trauma: no lacerations or abrasions Neuro CN's II-XII intact bilaterally, no focal motor deficits, no sensory deficits noted and deep tendon reflexes 2+ bilaterally Psych mental status grossly normal and affect normal Results Lab / Micro Data Result Diagrams: 12/23/21 16:30 12/23/21 16:30 Labs: Laboratory Results - last 24 hr 12/23/21 16:30: WBC 8.0, RBC 5.29, Hgb 14.3, Hct 44.0, MCV 83.2, MCH 27.0, MCHC 32.5, RDW Std Deviation 44.8 H, RDW Coeff of [place] 14.9 H, Plt Count 268, MPV 11.1, Immature Gran % (Auto) 0.400, Neut % (Auto) 77.7 H, Lymph % (Auto) 14.6 L, [place] % (Auto) 5.6, Eos % (Auto) 1.5, Baso % (Auto) 0.2, Absolute Neuts (auto) 6.3, Absolute Lymphs (auto) 1.17, Nucleated RBC % 0 12/23/21 16:30: Sodium 139, Potassium 3.8, Chloride 102, Carbon Dioxide 31.0, Anion Gap 6, BUN 13, Creatinine 1.14 H, Estim Creat Clear Calc 48.51, Est GFR (MDRD) Af Amer 62, Est GFR (MDRD) Non-Af 52 L, BUN/Creatinine Ratio 11.4, Glucose 285 H, Calcium 8.9, Total Bilirubin 0.30, AST 8 L, ALT 14, Alkaline Phosphatase 103, Total Protein 7.7, Albumin 3.4, Globulin 4.3 H, Albumin/Globulin Ratio 0.8 L 12/23/21 16:30: Lactic Acid 2.2 H* Radiology Impression Chest X-Ray 12/23/21 16:39 IMPRESSION: Hypoinflated study. Bibasilar atelectasis versus infiltrates with possible small pleural effusions. Probable right middle lobe atelectasis. at 1739 Reported and signed by: Dustin Mosley MD Electronically Signed: Dustin Mosley MD at 17:38 EDT , Assessment & Plan Assessment/Plan (1) Left lower lobe pneumonia: (2) Acute respiratory failure with hypoxia: PLAN: 1. Sepsis secondary to acute hypoxic respiratory failure as a result of left lower lobe pneumonia-failed outpatient treatment. IV Rocephin and IV azithromycin. Albuterol DuoNeb aerosols. Send urine for strep and Legionella. Obtain sputum culture. Continue supplement oxygen to maintain O2 at above 90%. 2. Pleuritic chest pain-secondary to above. As needed pain regimen. 3. Type 2 diabetes [id number] with sliding scale insulin. Continue home insulin regimen. 4. Hypertension-continue amlodipine, HCTZ. As needed hydralazine. 5. Chronic kidney disease stage IIIa-appears at baseline. 6. Morbid obesity-encouraged diet and lifestyle modifications. DVT prophylaxis-Lovenox subcu This patient was seen by GEE Smith under the supervision of Dr. Hernandez. Time spent examining patient, reviewing data and subsequent management of care: 17 Minutes Documented by User: Dr. Yosvany Hernandez MD 12/23/21 19:19 HPI - General General Date of Admission: 12/23/21 [facility] Medical History Allergies Arthritis Benign essential hypertension CPAP (continuous positive airway pressure) dependence Diabetes Diabetes Diarrhea Gall stone History of back problems HTN (hypertension) Hx of blurred vision Neuropathy Home Medications amlodipine 10 mg PO DAILY 05/14/17 [History Last Taken 12/22/21] ergocalciferol (vitamin D2) 1 tab PO QWEEK 05/14/17 [History Last Taken Unknown] gabapentin 600 mg PO BID PRN 05/14/17 [History Last Taken 12/22/21] hydrochlorothiazide 25 mg PO DAILY 05/14/17 [History Last Taken 12/22/21] liraglutide 1.8 mg SQ DAILY 05/14/17 [History Last Taken 12/22/21] pioglitazone 22.5 mg PO DAILY 05/14/17 [History Last Taken 12/22/21] spironolactone 100 mg PO DAILY 05/14/17 [History Last Taken 12/22/21] aspirin 81 mg PO DAILY 11/20/18 [History Last Taken 12/22/21] capsaicin 0.025 % topical cream 1 applic TOPICAL TID 09/09/19 [History Last Taken 12/22/21] ertugliflozin 15 mg tablet 15 mg PO QAM 09/09/19 [History Last Taken 12/22/21] lactulose 20 gram/30 mL oral solution 20 g PO BID 09/09/19 [History Last Taken Unknown] magnesium oxide 400 mg PO DAILY 09/09/19 [History Last Taken 12/22/21] metronidazole 0.75 % topical gel 1 applic TOPICAL QHS 09/09/19 [History Last Taken 12/22/21] mometasone 0.1 % topical cream 1 applic TOPICAL DAILY 09/09/19 [History Last Taken 12/22/21] naproxen 500 mg tablet 500 mg PO BID 09/09/19 [History Last Taken 12/22/21] ondansetron HCl 4 mg tablet 4 mg PO BID-TID PRN 09/09/19 [History Last Taken Unknown] duloxetine 30 mg capsule,delayed release sprinkle 30 mg PO BID 02/16/20 [History Last Taken 12/22/21] fluticasone propionate 50 mcg/actuation nasal spray,suspension 2 spray INTRANASAL DAILY 02/16/20 [History Last Taken 12/22/21] hydroxyzine HCl 25 mg tablet 25 mg PO QHS 02/16/20 [History Last Taken 12/22/21] meloxicam 15 mg tablet 15 mg PO DAILY 02/16/20 [History Last Taken 12/22/21] metformin 1,000 mg 24 hr tablet,extended release 1,000 mg PO BID tab 02/16/20 [History Last Taken 12/22/21] tizanidine 2 mg capsule 2 mg PO BID PRN 02/16/20 [History Last Taken Unknown] blood sugar diagnostic #150 ea 04/12/20 [Rx Last Taken Unknown] blood-glucose meter #1 ea 04/12/20 [Rx Last Taken Unknown] flash glucose sensor #2 ea 07/06/20 [Rx Last Taken Unknown] Lantus Solostar U-100 Insulin 36 unit SC BID 11/29/21 [History Last Taken 12/22/21] allopurinol 300 mg PO DAILY 11/29/21 [History Last Taken 12/22/21] ammonium lactate 1 applic TOPICAL TID 11/29/21 [History Last Taken 12/22/21] azelastine 1 spray INTRANASAL BID 11/29/21 [History Last Taken 12/22/21] coenzyme Q10 [CoQ-10] 100 mg PO DAILY 11/29/21 [History Last Taken 12/22/21] cyanocobalamin (vitamin B-12) 2,500 mcg SUBLINGUAL DAILY 11/29/21 [History Last Taken 12/22/21] insulin aspart U-100 [Novolog Flexpen U-100 Insulin] 34 unit SC TID 11/29/21 [History Last Taken 12/22/21] levocetirizine 5 mg PO DAILY 11/29/21 [History Last Taken 12/22/21] pravastatin 40 mg PO DAILY 11/29/21 [History Last Taken 12/22/21] pantoprazole 40 mg PO DAILY 12/23/21 [History Last Taken 12/22/21] Allergy/AdvReac Type Severity Reaction Status Date / Time lisinopril Allergy Mild feels Verified 12/23/21 14:55 horrible Family History Grandfather Cancer Mother Cancer Diabetes Surgical History S/P laparoscopic cholecystectomy S/P tubal ligation Social History household members: spouse Smoking Status: Former smoker alcohol intake: current details: Social substance use type: does not use Results Lab / Micro Data Result Diagrams: 12/23/21 16:30 12/23/21 16:30 Charges/Coding Addendum Addendum: Dr. Hernandez: I personally reviewed the chart and examined the patient, and agree with the above findings. 61-year-old female presented to the hospital with shortness of breath and a cough. She had gone to her primary care physician's office today and was found to be hypoxic and with the other symptoms present, he sent her into the hospital. Down in the ER she was 86% on room air and had to be placed on oxygen. She did recently have a right-sided pneumonia and pleural effusion that was treated in the hospital about 3 weeks ago. Chest x-ray in the ER demonstrates bilateral possible infiltrates versus atelectasis. With her hypoxia, tachycardia, and tachypnea in the setting of infection, she does meet criteria for sepsis with positive SIRS criteria, she is also acute hypoxic respiratory failure secondary to her pneumonia. We will continue with Rocephin and azithromycin while in the hospital. Will also obtain blood cultures as well as sputum culture. Clinical time spent in all aspects of patient care: 55 minutes Visit Charges Inpatient E&M: 44531 Init Hosp L3
[2021-12-23 18:02] VITALS: BP 168/89; PULSE 109; RESP 24; TEMP 36.4; O2SAT 96
[2021-12-23 19:27] VITALS: BMI 48.6
[2021-12-23 19:28] VITALS: BP 158/93; PULSE 110; RESP 24; TEMP 37.7; O2SAT 93
[2021-12-23 19:46] LABS: Bedside Glucose 266 mg/dL (74-106)
[2021-12-23] MEDS: Acetaminophen 325 MG Tablet 650 MG PO (20:14)
[2021-12-23 20:16] VITALS: BP 149/87; PULSE 105; RESP 20; TEMP 37.1; O2SAT 94
[2021-12-23 20:36] LABS: Reflex Lactate? Y
[2021-12-23] MEDS: 0.9% Normal Saline 1,000 ML 100 ML IV (20:55)
[2021-12-23 21:51] LABS: Lactic Acid 1.8 mmol/L (0.4-1.9)
[2021-12-23] MEDS: hydrOXYzine PAM 25 MG Capsule PO (22:56)
[2021-12-23] MEDS: Gabapentin 600 MG Tablet PO (22:57)
[2021-12-23] MEDS: MELATONIN 3 MG TABLET PO (22:57)
[2021-12-23] MEDS: DULoxetine Hcl 30 MG Capsule PO (22:57)
[2021-12-23] MEDS: Pravastatin 40 MG Tablet PO (22:57)
[2021-12-23] MEDS: Insulin Glargine-YFGN 100 UNIT/ML Pen 25 UNIT SC (23:00)
[2021-12-23] MEDS: Insulin Lispro 100 UNIT/ML INSULN.PEN SC (23:01)
[2021-12-23] MEDS: 0.9% Saline Lock 10 ML Syringe IV (23:04)
[2021-12-23 23:21] LABS: Bedside Glucose 239 mg/dL (74-106)
[2021-12-24 02:21] VITALS: BP 129/73; PULSE 89; RESP 20; TEMP 36.9; O2SAT 94
[2021-12-24] MEDS: Acetaminophen 325 MG Tablet 650 MG PO ×2 (05:57→17:19)
[2021-12-24] MEDS: 0.9% Normal Saline 1,000 ML 100 ML IV ×2 (06:00→17:21)
[2021-12-24 06:42] LABS: Absolute Lymphocyte Count 1.01 X10^3/uL (0.83-4.51); Absolute Neutrophil Count 3.6 X10^3/uL (2.0-7.7); Basophil# 0.02 X10^3/uL; Basophil% 0.4 % (0-1); Eosinophil# 0.25 X10^3/uL; Eosinophils% 4.7 % (0-5); Hematocrit 40.1 % (37-47); Hemoglobin 12.8 g/dL (12.0-15.0); Lymphocyte # 1.01 X10^3/ul (0.83-4.51); Lymphocyte % 18.9 % (19-41); Mean Corp Hgb Conc 31.9 g/dL (32-36); Mean Corpuscular Hgb 27.1 pg (27.0-32.0); Mean Platelet Vol. 11.8 fl (6.2-12.0); Monocyte# 0.47 X10^3/uL; Monocyte% 8.8 % (0-10); NRBC Flagged by Analyzer 0 % (0-5); Neutrophil # 3.58 X10^3/uL (2.7-7.7); Neutrophil % 66.8 % (47-70); Platelet Count 235 K/mm3 (150-450); RBC Distribution Width CV 14.8 % (11.6-14.6); RBC Distribution Width SD 46.1 fl (35.1-43.9); Red Blood Count 4.72 M/mm3 (4.2-5.4); White Blood Count 5.4 K/mm3 (4.4-11.0)
[2021-12-24 07:05] LABS: Anion Gap 6 (5-15); BUN 12 mg/dL (7-18); BUN/Creat Ratio 15.2 RATIO (10-20); Calcium,Total 8.5 mg/dL (8.5-10.1); Chloride 104 mmol/L (98-107); Creatinine, Serum 0.79 mg/dL (0.55-1.02); EST Glomerular Filtration Rate 79 mL/min (>60); Est Glom Filt Rate - Afr Amer 95 mL/min (>60); Estimated Creatinine Clearance 70.01 ml/min; Glucose 202 mg/dL (74-106); Potassium 3.7 mmol/L (3.5-5.1); Sodium Level 139 mmol/L (136-145)
--- NOTE | 2021-12-24 07:30 | ECHOD_ITS ---
Reason For Study: PLEURAL EFFUSION Procedure This was a 2D Doppler, Color Flow transthoracic echocardiogram. Exam performed portable in patient room. Left Ventricle The estimated ejection fraction is 60 %. No evidence for diastolic dysfunction. No regional wall motion abnormalities noted. Right Ventricle Normal RV size. Normal systolic function. Atria Normal left atrium. Normal right atrium. No doppler evidence for ASD. Mitral Valve There is no mitral valve stenosis. No mitral valve insufficiency. Tricuspid Valve There is no tricuspid stenosis. Unable to estimate RV systolic pressure due to inadequate jet, pulmonary artery pressure probably normal. Aortic Valve Trisinus/trileaflet aortic valve. There is no aortic stenosis. No aortic valve insufficiency. Pulmonic Valve There is no pulmonic valvular stenosis. No pulmonic valve insufficiency. Great Vessels Normal aortic root. Pericardium/Pleural No pericardial effusion. MMode/2D Measurements & Calculations LVIDd: 4.9 cm IVSd: 0.97 cm Ao root diam: 3.1 cm LVIDs: 3.4 cm LVPWd: 1.0 cm RVDd: 3.9 cm FS: 31.0 % LAV(MOD-bp): 41.5 ml LVAd ap4: 33.2 cm2 SV(MOD-sp4): 71.7 ml LAV(MOD-bp) Indexed: 17.4 ml/m2 LVLd ap4: 7.4 cm LAV(MOD-sp2): 40.8 ml EDV(MOD-sp4): 119.0 ml LAV(MOD-sp4): 39.7 ml EDV(sp4-el): 126.2 ml LVAs ap4: 19.2 cm2 LVLs ap4: 6.3 cm ESV(MOD-sp4): 47.4 ml ESV(sp4-el): 49.6 ml EF(MOD-sp4): 60.2 % EF(sp4-el): 60.6 % SV(sp4-el): 76.5 ml LA A4 area: 16.5 cm2 LA dimension(2D): 3.2 cm RA A4 area: 13.7 cm2 Time Measurements MV dec time: 0.20 sec Doppler Measurements & Calculations MV E max renato: 88.8 cm/sec Lat Peak E' Renato: 11.2 cm/sec Med Peak E' Renato: 9.5 cm/sec MV A max renato: 99.3 cm/sec E/E' lat: 7.9 E/E' med: 9.4 MV E/A: 0.89 Ao V2 max: 134.6 cm/sec LV V1 max: 119.5 cm/sec PA V2 max: 83.2 cm/sec Ao max P.2 mmHg LV V1 max P.7 mmHg TR max renato: 295.1 cm/sec TR max P.8 mmHg ECHO/Echo Complete Interpretation Summary The estimated ejection fraction is 60 %. No evidence for diastolic dysfunction. Ordering Physician: Saturnino Marinelli Referring Physician: SATURNINO BRENNAN Performed By: Perri Mota RDCS
[2021-12-24 07:41] LABS: Bedside Glucose 208 mg/dL (74-106)
[2021-12-24 07:59] VITALS: BP 145/81; PULSE 92; RESP 18; TEMP 37; O2SAT 94
[2021-12-24] MEDS: Insulin Lispro 100 UNIT/ML INSULN.PEN 15 UNIT SC ×3 (08:16→17:20)
[2021-12-24] MEDS: Insulin Lispro 100 UNIT/ML INSULN.PEN SC ×4 (08:19→21:56)
[2021-12-24 08:44] VITALS: PULSE 92; RESP 18
[2021-12-24 09:15] LABS: BNP,B-Type NATRIURETIC PEPTIDE 14.5 pg/mL (0-100)
[2021-12-24] MEDS: Ceftriaxone 1 GM/50 ML BAG IV (09:27)
--- NOTE | 2021-12-24 09:54 | PCM.PN.HOSP ---
Documented by User: Amy Navarro PULMONOLOGIST INTENSIVIST, PULMONOLOGIST INTENSIVIST-C 12/24/21 10:10 Subjective Subjective Patient seen and examined. Breathing improved. Reports nonproductive cough, mostly with taking a deep breath. Continues to have left rib pain although she states this has improved as well. Denies fever, chills. Objective Data Objective Data Vital Signs: Vital Signs Temp Pulse Resp BP Pulse Ox 98.6 F 92 18 145/81 H 94 12/24/21 07:59 12/24/21 08:44 12/24/21 08:44 12/24/21 07:59 12/24/21 07:59 Oxygen Flow Rate (L/min) 3 Oxygen Delivery Method Nasal Cannula Weight: 301 lb 4.8 oz Body Mass Index (BMI) 48.6 Intake & Output: Intake and Output for Last 24 Hours 12/22/21 12/23/21 12/24/21 23:59 23:59 23:59 Intake Total 305 / 305 908.33 / 908.33 Balance 305 / 305 908.33 / 908.33 Lab / Micro Data Result Diagrams: 12/24/21 05:40 12/24/21 05:40 Labs: Laboratory Results - last 24 hr 12/23/21 16:30: WBC 8.0, RBC 5.29, Hgb 14.3, Hct 44.0, MCV 83.2, MCH 27.0, MCHC 32.5, RDW Std Deviation 44.8 H, RDW Coeff of [place] 14.9 H, Plt Count 268, MPV 11.1, Immature Gran % (Auto) 0.400, Neut % (Auto) 77.7 H, Lymph % (Auto) 14.6 L, [place] % (Auto) 5.6, Eos % (Auto) 1.5, Baso % (Auto) 0.2, Absolute Neuts (auto) 6.3, Absolute Lymphs (auto) 1.17, Nucleated RBC % 0 12/23/21 16:30: Sodium 139, Potassium 3.8, Chloride 102, Carbon Dioxide 31.0, Anion Gap 6, BUN 13, Creatinine 1.14 H, Estim Creat Clear Calc 48.51, Est GFR (MDRD) Af Amer 62, Est GFR (MDRD) Non-Af 52 L, BUN/Creatinine Ratio 11.4, Glucose 285 H, Calcium 8.9, Total Bilirubin 0.30, AST 8 L, ALT 14, Alkaline Phosphatase 103, Total Protein 7.7, Albumin 3.4, Globulin 4.3 H, Albumin/Globulin Ratio 0.8 L 12/23/21 16:30: Lactic Acid 2.2 H* 12/23/21 19:39: POC Glucose 266 H 12/23/21 21:00: Lactic Acid 1.8 12/23/21 22:59: POC Glucose 239 H 12/24/21 05:40: WBC 5.4, RBC 4.72, Hgb 12.8, Hct 40.1, MCV 85.0, MCH 27.1, MCHC 31.9 L, RDW Std Deviation 46.1 H, RDW Coeff of [place] 14.8 H, Plt Count 235, MPV 11.8, Immature Gran % (Auto) 0.400, Neut % (Auto) 66.8, Lymph % (Auto) 18.9 L, [place] % (Auto) 8.8, Eos % (Auto) 4.7, Baso % (Auto) 0.4, Absolute Neuts (auto) 3.6, Absolute Lymphs (auto) 1.01, Nucleated RBC % 0 12/24/21 05:40: Sodium 139, Potassium 3.7, Chloride 104, Carbon Dioxide 29.0, Anion Gap 6, BUN 12, Creatinine 0.79, Estim Creat Clear Calc 70.01, Est GFR (MDRD) Af Amer 95, Est GFR (MDRD) Non-Af 79, BUN/Creatinine Ratio 15.2, Glucose 202 H, Calcium 8.5 12/24/21 05:40: B-Natriuretic Peptide 14.5 12/24/21 07:29: POC Glucose 208 H Micro: Microbiology 12/23/21 17:59 Nasal Secretion SARS-CoV-2 & FLU Antigen (Rapid) - Final Radiography Diagnostic Testing: Radiology Impression Chest X-Ray 12/23/21 16:39 IMPRESSION: Hypoinflated study. Bibasilar atelectasis versus infiltrates with possible small pleural effusions. Probable right middle lobe atelectasis. at 1739 Reported and signed by: Dustin Mosley MD Electronically Signed: Dustin Mosley MD at 17:38 EDT , Physical Exam Const alert, oriented x3 and no apparent distress Orientation / Consciousness: awake, oriented to person, oriented to place and oriented to time Nutritional Appearance: obese HEENT normocephalic and moist oral mucous membranes Eyes PERRL, EOMs intact bilaterally and conjunctivae normal Neck no lymphadenopathy Resp clear to auscultation bilaterally Auscultation: diminished lung sounds Cardio regular rate, regular rhythm and no murmurs Peripheral Pulses: pulses 2+ throughout GI normal to inspection, nondistended, normoactive bowel sounds, non-tender and non-distended Extremity normal to inspection General Extremity: edema bilateral lower extremity Details: trace Skin no rashes or lesions noted Lesions: no lesions Rashes: no rashes Trauma: no lacerations or abrasions Neuro CN's II-XII intact bilaterally, no focal motor deficits, no sensory deficits noted and deep tendon reflexes 2+ bilaterally Psych mental status grossly normal and affect normal Assessment & Plan Assessment/Plan (1) Acute respiratory failure with hypoxia: (2) Left lower lobe pneumonia: PLAN: 1. Sepsis secondary to acute hypoxic respiratory failure as a result of left lower lobe pneumonia-failed outpatient treatment. IV Rocephin and IV azithromycin. Albuterol DuoNeb aerosols. Urine for strep and Legionella. Obtain sputum culture. Continue supplement oxygen to maintain O2 at above 90%. Echo ordered as recent CT as well as chest x-ray at admission demonstrated small pleural effusions. BNP normal. Patient reports intermittent lower extremity swelling which has recently worsened. 2. Pleuritic chest pain-secondary to above. As needed pain regimen. 3. Type 2 diabetes [id number] with sliding scale insulin. Continue home insulin regimen. 4. Hypertension-continue amlodipine, Aldactone. As needed hydralazine. 5. Chronic kidney disease stage IIIa-appears at baseline. 6. Morbid obesity-encouraged diet and lifestyle modifications. DVT prophylaxis-Lovenox subcu This patient was seen by GEE Smith under the supervision of Dr. Marinelli. Time spent examining patient, reviewing data and subsequent management of care: 13 Minutes Documented by User: Dr. Robin Marinelli, 12/24/21 14:14 Subjective Subjective Breathing better. Notes increased LE edema and weight. Objective Data Lab / Micro Data Result Diagrams: 12/24/21 05:40 12/24/21 05:40 Physical Exam Const alert Resp normal respiratory effort, no retractions, no use of accessory muscles and clear to auscultation bilaterally Cardio regular rate, regular rhythm, S1 normal heart sound and S2 normal heart sound GI normal to inspection, nondistended, normoactive bowel sounds, soft to palpation, non-tender and non-distended Extremity General Extremity: edema Skin no rashes or lesions noted Neuro Sensorium / Orientation: awake Assessment & Plan Assessment/Plan (1) Acute respiratory failure with hypoxia: (2) Left lower lobe pneumonia: PLAN: Patient seen and examined independently. Data and vitals reviewed. I agree with the above note by the nurse practitioner. 1. Acute respiratory failure, hypoxic CHF versus pneumonia 2. Acute heart failure with preserved ejection fraction EF 60% Start furosemide 3. Possible pneumococcal pneumonia Continue with ceftriaxone and azithromycin Legionella and streptococcal antigens negative COVID-19 negative Continue antibiotics for now. Discontinue if cultures are negative. Greater than 15 minutes of which greater than 50% of time was discussing with the patient at bedside and reviewing data. Charges/Coding Visit Charges Inpatient E&M: 89907 Subs Hosp L2
[2021-12-24] MEDS: amLODIPine 10 MG Tablet PO (10:16)
[2021-12-24] MEDS: DULoxetine Hcl 30 MG Capsule PO ×2 (10:17→21:55)
[2021-12-24] MEDS: Pantoprazole Sodium 40 MG Tablet PO (10:17)
[2021-12-24] MEDS: Allopurinol 300 MG Tablet PO (10:17)
[2021-12-24] MEDS: Aspirin 81 MG TAB.CHEW PO (10:17)
[2021-12-24] MEDS: Spironolactone 50 MG Tablet 100 MG PO (10:17)
[2021-12-24] MEDS: hydroCHLOROthiazide 25 MG Tablet PO (10:17)
[2021-12-24] MEDS: Enoxaparin 40 MG/0.4 ML Syringe SC (10:18)
--- NOTE | 2021-12-24 10:40 | CASEMGMT ---
RN KELLY Face to Face with patient for initial transition planning/care coordination assessment. RN CM introduced self and role at [facility]. Patient sitting at edge of bed, alert and oriented. Patient willing to participate in assessment and is able to answer all questions appropriately. Care providers, pharmacy, and demographics verified. Patient wishes to discharge home, denies need for home health at this time. Patient states she has no further needs or concerns at this time. CM to follow for discharge planning needs that may arise. PCP: Doni Specialists: none [facility] Prescription Benefit: yes Living Will/HPOA: none LNOK: sons, daughter, ex Living Arrangements: patient lives with ex- in a mobile home with 4 steps and railing to enter the home. Patient states she is independent. Transportation: self, ex-, son DME/HHC: Patient states she has grab bars, cpap, pulse ox at home. Cpap is through [employer], which is her preferred provider for DME. Will monitor patient for home oxygen at discharge. No previous HHC Disposition Plan: Patient to discharge home with family support and follow-up plans in place. Tiffany CORDOVA, RN, CM
[2021-12-24 12:16] LABS: Bedside Glucose 183 mg/dL (74-106)
[2021-12-24 14:40] VITALS: BP 131/75; PULSE 80; RESP 18; TEMP 36.7; O2SAT 92
[2021-12-24 16:27] LABS: Bedside Glucose 170 mg/dL (74-106)
[2021-12-24] MEDS: 0.9% Saline Lock 10 ML Syringe IV (17:19)
[2021-12-24] MEDS: Furosemide 40 MG/4 ML Vial IV (17:20)
[2021-12-24 20:45] VITALS: BP 156/85; PULSE 90; RESP 18; TEMP 36.9; O2SAT 94
[2021-12-24] MEDS: Pravastatin 40 MG Tablet PO (21:55)
[2021-12-24] MEDS: hydrOXYzine PAM 25 MG Capsule PO (21:55)
[2021-12-24] MEDS: Insulin Glargine-YFGN 100 UNIT/ML Pen 25 UNIT SC (21:56)
[2021-12-24 22:41] LABS: Bedside Glucose 184 mg/dL (74-106)
[2021-12-25] MEDS: Gabapentin 600 MG Tablet PO (02:06)
[2021-12-25] MEDS: Acetaminophen 325 MG Tablet 650 MG PO (02:06)
[2021-12-25] MEDS: 0.9% Normal Saline 1,000 ML 100 ML IV (02:06)
[2021-12-25 02:45] VITALS: BP 139/93; PULSE 100; RESP 18; TEMP 36.5; O2SAT 94
[2021-12-25 05:26] LABS: Absolute Lymphocyte Count 1.25 X10^3/uL (0.83-4.51); Absolute Neutrophil Count 3.3 X10^3/uL (2.0-7.7); Basophil# 0.02 X10^3/uL; Basophil% 0.4 % (0-1); Eosinophil# 0.21 X10^3/uL; Eosinophils% 4.1 % (0-5); Hematocrit 39.9 % (37-47); Hemoglobin 12.7 g/dL (12.0-15.0); Lymphocyte # 1.25 X10^3/ul (0.83-4.51); Lymphocyte % 24.5 % (19-41); Mean Corp Hgb Conc 31.8 g/dL (32-36); Mean Corpuscular Hgb 26.9 pg (27.0-32.0); Mean Corpuscular Volume 84.5 fL (81-99); Mean Platelet Vol. 11.4 fl (6.2-12.0); Monocyte# 0.29 X10^3/uL; Monocyte% 5.7 % (0-10); NRBC Flagged by Analyzer 0 % (0-5); Neutrophil # 3.32 X10^3/uL (2.7-7.7); Neutrophil % 64.9 % (47-70); Platelet Count 219 K/mm3 (150-450); RBC Distribution Width CV 14.3 % (11.6-14.6); RBC Distribution Width SD 43.9 fl (35.1-43.9); Red Blood Count 4.72 M/mm3 (4.2-5.4); White Blood Count 5.1 K/mm3 (4.4-11.0)
[2021-12-25 05:51] LABS: Anion Gap 3 (5-15); BUN 12 mg/dL (7-18); BUN/Creat Ratio 12.4 RATIO (10-20); Calcium,Total 8.6 mg/dL (8.5-10.1); Chloride 98 mmol/L (98-107); Creatinine, Serum 0.97 mg/dL (0.55-1.02); EST Glomerular Filtration Rate 62 mL/min (>60); Est Glom Filt Rate - Afr Amer 75 mL/min (>60); Estimated Creatinine Clearance 57.02 ml/min; Glucose 197 mg/dL (74-106); Potassium 3.7 mmol/L (3.5-5.1); Sodium Level 135 mmol/L (136-145)
[2021-12-25 07:35] VITALS: BP 137/79; PULSE 88; RESP 20; TEMP 36.8; O2SAT 96
[2021-12-25 07:36] LABS: Bedside Glucose 191 mg/dL (74-106)
[2021-12-25] MEDS: Insulin Lispro 100 UNIT/ML INSULN.PEN 15 UNIT SC ×2 (08:05→11:50)
[2021-12-25] MEDS: Insulin Lispro 100 UNIT/ML INSULN.PEN SC ×2 (08:06→11:50)
--- NOTE | 2021-12-25 09:02 | DCINST_ITS ---
Discharge Instructions Diet Discharge Diet: Low fat / Low cholesterol and 2000 mg Sodium Diet Activity Discharge Activity: Return to Normal Activity Dressing / Incision Call your doctor if you observe: Shortness of breath, Dizziness and Chest pain Follow Up Care Test Results: Test results from this visit will be discussed in further detail at your follow-up appointment, if applicable. Discharge Plan Admission Admit Date/Time: 12/23/21 17:45 Primary Reason for Your Visit: Respiratory failure, CHF Attending Provider: Robin Marinelli Primary Care Provider: Robin Marion Discharge Orders/Prescriptions Prescriptions: New furosemide [Lasix] 40 mg tablet 40 mg PO BID Qty: 60 RF: 0 Continued magnesium oxide 400 mg magnesium capsule 400 mg PO DAILY RF: 0 lactulose 20 gram/30 mL solution 20 g PO BID RF: 0 capsaicin 0.025 % cream 1 applic TOPICAL TID RF: 0 mometasone 0.1 % cream 1 applic TOPICAL DAILY RF: 0 metronidazole 0.75 % gel 1 applic TOPICAL QHS RF: 0 Steglatro 15 mg tablet 15 mg PO QAM RF: 0 naproxen [Naprosyn] 500 mg tablet 500 mg PO BID RF: 0 ondansetron HCl [Zofran] 4 mg tablet 4 mg PO BID-TID PRN (Reason: nasuea) RF: 0 (DME) blood-glucose meter [ReliOn Prime Meter] Misc See Rx Instructions .ROUTE .MEDSUPPLY Qty: 1 RF: 0 (DME) ReliOn Prime Test Strips Strip See Rx Instructions .ROUTE .MEDSUPPLY Qty: 150 RF: 5 hydroxyzine HCl 25 mg tablet 25 mg PO QHS RF: 0 fluticasone propionate 50 mcg/actuation spray,suspension 2 spray INTRANASAL DAILY RF: 0 meloxicam 15 mg tablet 15 mg PO DAILY RF: 0 duloxetine 30 mg capsule, delayed rel sprinkle 30 mg PO BID RF: 0 tizanidine 2 mg capsule 2 mg PO BID PRN (Reason: muscle relaxer) RF: 0 gabapentin 600 MG tablet 600 mg PO BID PRN RF: 0 pioglitazone 45 MG tablet 22.5 mg PO DAILY RF: 0 amlodipine 10 MG tablet 10 mg PO DAILY RF: 0 ergocalciferol (vitamin D2) 50,000 UNIT capsule 1 tab PO QWEEK RF: 0 liraglutide 0.6 MG/0.1 ML pen injector 1.8 mg SQ DAILY RF: 0 metformin 1,000 mg tablet,ER tere.retention 24 hr 1,000 mg PO BID RF: 0 Hold Instructions: Resume on 05/17/21. aspirin 81 MG tablet,chewable 81 mg PO DAILY RF: 0 cyanocobalamin (vitamin B-12) 2,500 mcg Tablet, Sublingual 2,500 mcg SUBLINGUAL DAILY RF: 0 pravastatin 40 mg Tablet 40 mg PO DAILY RF: 0 ammonium lactate 12 % Cream 1 applic TOPICAL TID RF: 0 allopurinol 300 mg tablet 300 mg PO DAILY RF: 0 coenzyme Q10 [CoQ-10] 100 mg Capsule 100 mg PO DAILY RF: 0 levocetirizine 5 mg Tablet 5 mg PO DAILY RF: 0 azelastine 205.5 mcg (0.15 %) [place],Non-Aerosol 1 spray INTRANASAL BID RF: 0 insulin aspart U-100 [Novolog Flexpen U-100 Insulin] 100 unit/mL (3 mL) insulin pen 34 unit SC TID RF: 0 Lantus Solostar U-100 Insulin 100 unit/mL (3 mL) insulin pen 36 unit SC BID RF: 0 pantoprazole 40 mg tablet,delayed release (DR/EC) 40 mg PO DAILY RF: 0 (DME) FreeStyle Joseluis 14 Day Sensor Kit See Rx Instructions .ROUTE .MEDSUPPLY Qty: 2 RF: 12 Discontinued spironolactone 100 MG tablet 100 mg PO DAILY RF: 0 hydrochlorothiazide 25 MG tablet 25 mg PO DAILY RF: 0 Referrals / Follow Up: Robin Marion MD [Primary Care Provider] - In 1 Week Disposition Disposition (needs filled in before D/C Order can be placed): Home, Self Care
[2021-12-25] MEDS: Ceftriaxone 1 GM/50 ML BAG IV (10:12)
[2021-12-25] MEDS: Spironolactone 50 MG Tablet 100 MG PO (10:13)
[2021-12-25] MEDS: Enoxaparin 40 MG/0.4 ML Syringe SC (10:14)
[2021-12-25] MEDS: 0.9% Saline Lock 10 ML Syringe IV (10:14)
[2021-12-25] MEDS: Aspirin 81 MG TAB.CHEW PO (10:14)
[2021-12-25] MEDS: Furosemide 40 MG/4 ML Vial IV (10:14)
[2021-12-25] MEDS: DULoxetine Hcl 30 MG Capsule PO (10:14)
[2021-12-25] MEDS: Allopurinol 300 MG Tablet PO (10:14)
[2021-12-25] MEDS: Pantoprazole Sodium 40 MG Tablet PO (10:14)
[2021-12-25] MEDS: amLODIPine 10 MG Tablet PO (10:14)
[2021-12-25 10:41] VITALS: O2SAT 86; O2SAT 92
[2021-12-25 11:55] LABS: Bedside Glucose 215 mg/dL (74-106)
[2021-12-25 12:48] VITALS: BP 129/64
[2021-12-25 13:03] VITALS: BP 170/95; PULSE 87; RESP 20; TEMP 36.8; O2SAT 95
--- NOTE | 2021-12-25 13:08 | PCM.DC.SUM ---
Documented by User: Amy Navarro NP, PATIENT RESOURCE COORDINATOR-C 12/25/21 13:19 Providers Date of Admission: 12/23/21 Date of Discharge: 12/25/21 Primary Care Physician: Dr. Robin Marion MD Reason For Visit: SEPSIS PNEUMONIA Diagnosis Discharge Diagnosis (1) Acute respiratory failure with hypoxia: Status: Acute Code(s): J96.01 - Acute respiratory failure with hypoxia (2) Left lower lobe pneumonia: Status: Acute Code(s): J18.9 - Pneumonia, unspecified organism Medications at Discharge Home Medications amlodipine 10 mg PO DAILY 05/14/17 ergocalciferol (vitamin D2) 1 tab PO QWEEK 05/14/17 gabapentin 600 mg PO BID PRN 05/14/17 liraglutide 1.8 mg SQ DAILY 05/14/17 pioglitazone 22.5 mg PO DAILY 05/14/17 aspirin 81 mg PO DAILY 11/20/18 capsaicin 0.025 % topical cream 1 applic TOPICAL TID 09/09/19 ertugliflozin 15 mg tablet 15 mg PO QAM 09/09/19 lactulose 20 gram/30 mL oral solution 20 g PO BID 09/09/19 magnesium oxide 400 mg PO DAILY 09/09/19 metronidazole 0.75 % topical gel 1 applic TOPICAL QHS 09/09/19 mometasone 0.1 % topical cream 1 applic TOPICAL DAILY 09/09/19 naproxen 500 mg tablet 500 mg PO BID 09/09/19 ondansetron HCl 4 mg tablet 4 mg PO BID-TID PRN 09/09/19 duloxetine 30 mg capsule,delayed release sprinkle 30 mg PO BID 02/16/20 fluticasone propionate 50 mcg/actuation nasal spray,suspension 2 spray INTRANASAL DAILY 02/16/20 hydroxyzine HCl 25 mg tablet 25 mg PO QHS 02/16/20 meloxicam 15 mg tablet 15 mg PO DAILY 02/16/20 metformin 1,000 mg 24 hr tablet,extended release 1,000 mg PO BID tab 02/16/20 tizanidine 2 mg capsule 2 mg PO BID PRN 02/16/20 blood sugar diagnostic #150 ea 04/12/20 blood-glucose meter #1 ea 04/12/20 flash glucose sensor #2 ea 07/06/20 Lantus Solostar U-100 Insulin 36 unit SC BID 11/29/21 allopurinol 300 mg PO DAILY 11/29/21 ammonium lactate 1 applic TOPICAL TID 11/29/21 azelastine 1 spray INTRANASAL BID 11/29/21 coenzyme Q10 [CoQ-10] 100 mg PO DAILY 11/29/21 cyanocobalamin (vitamin B-12) 2,500 mcg SUBLINGUAL DAILY 11/29/21 insulin aspart U-100 [Novolog Flexpen U-100 Insulin] 34 unit SC TID 11/29/21 levocetirizine 5 mg PO DAILY 11/29/21 pravastatin 40 mg PO DAILY 11/29/21 pantoprazole 40 mg PO DAILY 12/23/21 furosemide [Lasix] 40 mg PO BID #60 tab 12/25/21 Hospital Course Operations None Procedures 2-D Echocardiogram Summary of Care Provided Hospital Course: Patient is a 61-year-old female admitted 12/23/2021 due to shortness of breath. 1. Acute hypoxic respiratory failure secondary to heart failure with preserved ejection fraction-initially unclear picture with suspected pneumonia. Sepsis/pneumonia ruled out. Afebrile, no leukocytosis. Chest x-ray with small pleural effusions. Prior CTA 11/29/2021 with small right pleural effusion as well. HCTZ/Aldactone discontinued. IV Lasix during admission. Discharged on Lasix 40 mg twice daily. Echocardiogram demonstrates an EF of 60%. Instructed patient on salt/fluid restriction. Recommend repeat BMP in 1 week. Follow-up with PCP in 1 week. Patient will require supplemental oxygen 2 L with exertion at discharge. She is ambulatory in the home. Repeat oxygen testing as outpatient with discontinuation when O2 saturations are appropriate with exertion. 2. Pleuritic chest pain-resolved. 3. Type 2 diabetes mellitus-Continue home insulin regimen. 4. Hypertension-continue amlodipine. HCTZ/Aldactone discontinued with the addition of Lasix. 5. Chronic kidney disease stage IIIa-appears at baseline. Kidney function improved with diuresis. 6. Morbid obesity-encouraged diet and lifestyle modifications. 7. Probable MARITZA-recommend outpatient sleep study. Upon referral by PCP. Physical Exam Const alert, oriented x3 and no apparent distress Orientation / Consciousness: awake, oriented to person, oriented to place and oriented to time Nutritional Appearance: obese HEENT normocephalic and moist oral mucous membranes Eyes PERRL, EOMs intact bilaterally and conjunctivae normal Neck no lymphadenopathy Resp clear to auscultation bilaterally Auscultation: diminished lung sounds Cardio regular rate, regular rhythm and no murmurs Peripheral Pulses: pulses 2+ throughout GI normal to inspection, nondistended, normoactive bowel sounds, non-tender and non-distended Extremity normal to inspection General Extremity: edema bilateral lower extremity Details: trace Skin no rashes or lesions noted Lesions: no lesions Rashes: no rashes Trauma: no lacerations or abrasions Neuro CN's II-XII intact bilaterally, no focal motor deficits, no sensory deficits noted and deep tendon reflexes 2+ bilaterally Psych mental status grossly normal and affect normal Patient seen and examined prior to discharge. Physical assessment as noted above. Patient is stable for discharge with follow up recommendations as noted above. This patient was seen by GEE Smith under the supervision of Dr. Marinelli. Time spent examining patient, reviewing data and subsequent management of care: 14 Minutes Weight / BMI Weight Weight: 301 lb 5.95 oz Body Mass Index (BMI) 48.6 ABG / Lab / Microbiology Data Result Diagrams: 12/25/21 04:55 12/25/21 04:55 Laboratory: Laboratory Results - last 24 hr 12/24/21 16:22: POC Glucose 170 H 12/24/21 21:53: POC Glucose 184 H 12/25/21 04:55: WBC 5.1, RBC 4.72, Hgb 12.7, Hct 39.9, MCV 84.5, MCH 26.9 L, MCHC 31.8 L, RDW Std Deviation 43.9, RDW Coeff of [place] 14.3, Plt Count 219, MPV 11.4, Immature Gran % (Auto) 0.400, Neut % (Auto) 64.9, Lymph % (Auto) 24.5, [place] % (Auto) 5.7, Eos % (Auto) 4.1, Baso % (Auto) 0.4, Absolute Neuts (auto) 3.3, Absolute Lymphs (auto) 1.25, Nucleated RBC % 0 12/25/21 04:55: Sodium 135 L, Potassium 3.7, Chloride 98, Carbon Dioxide 34.0 H, Anion Gap 3 L, BUN 12, Creatinine 0.97, Estim Creat Clear Calc 57.02, Est GFR (MDRD) Af Amer 75, Est GFR (MDRD) Non-Af 62, BUN/Creatinine Ratio 12.4, Glucose 197 H, Calcium 8.6 12/25/21 07:31: POC Glucose 191 H 12/25/21 11:47: POC Glucose 215 H Microbiology: Microbiology 12/24/21 11:09 Urine, Clean Catch Legionella Antigen - Final 12/24/21 11:09 Urine, Clean Catch Streptococcus pneumoniae Antigen (M - Final 12/23/21 17:59 Nasal Secretion SARS-CoV-2 & FLU Antigen (Rapid) - Final D/C Instructions Discharge Diet: Low fat / Low cholesterol and 2000 mg Sodium Diet Call your doctor if you observe: Shortness of breath, Dizziness and Chest pain Meaningful Use Info Meaningful Use Diagnoses (Choose all that apply): CHF CHF KIM/ARB ordered at discharge?: No Reason KIM/ARB not ordered?: Normal EF Documented LVEF (%): 60 Discharge Plan Admission Admit Date/Time: 12/23/21 17:45 Primary Reason for Your Visit: Respiratory failure, CHF Attending Provider: Robin Marinelli Primary Care Provider: Robin Marion Discharge Orders/Prescriptions Prescriptions: New furosemide [Lasix] 40 mg tablet 40 mg PO BID Qty: 60 RF: 0 Continued magnesium oxide 400 mg magnesium capsule 400 mg PO DAILY RF: 0 lactulose 20 gram/30 mL solution 20 g PO BID RF: 0 capsaicin 0.025 % cream 1 applic TOPICAL TID RF: 0 mometasone 0.1 % cream 1 applic TOPICAL DAILY RF: 0 metronidazole 0.75 % gel 1 applic TOPICAL QHS RF: 0 Steglatro 15 mg tablet 15 mg PO QAM RF: 0 naproxen [Naprosyn] 500 mg tablet 500 mg PO BID RF: 0 ondansetron HCl [Zofran] 4 mg tablet 4 mg PO BID-TID PRN (Reason: nasuea) RF: 0 (DME) blood-glucose meter [ReliOn Prime Meter] Misc See Rx Instructions .ROUTE .MEDSUPPLY Qty: 1 RF: 0 (DME) ReliOn Prime Test Strips Strip See Rx Instructions .ROUTE .MEDSUPPLY Qty: 150 RF: 5 hydroxyzine HCl 25 mg tablet 25 mg PO QHS RF: 0 fluticasone propionate 50 mcg/actuation spray,suspension 2 spray INTRANASAL DAILY RF: 0 meloxicam 15 mg tablet 15 mg PO DAILY RF: 0 duloxetine 30 mg capsule, delayed rel sprinkle 30 mg PO BID RF: 0 tizanidine 2 mg capsule 2 mg PO BID PRN (Reason: muscle relaxer) RF: 0 gabapentin 600 MG tablet 600 mg PO BID PRN RF: 0 pioglitazone 45 MG tablet 22.5 mg PO DAILY RF: 0 amlodipine 10 MG tablet 10 mg PO DAILY RF: 0 ergocalciferol (vitamin D2) 50,000 UNIT capsule 1 tab PO QWEEK RF: 0 liraglutide 0.6 MG/0.1 ML pen injector 1.8 mg SQ DAILY RF: 0 metformin 1,000 mg tablet,ER tere.retention 24 hr 1,000 mg PO BID RF: 0 Hold Instructions: Resume on 05/17/21. aspirin 81 MG tablet,chewable 81 mg PO DAILY RF: 0 cyanocobalamin (vitamin B-12) 2,500 mcg Tablet, Sublingual 2,500 mcg SUBLINGUAL DAILY RF: 0 pravastatin 40 mg Tablet 40 mg PO DAILY RF: 0 ammonium lactate 12 % Cream 1 applic TOPICAL TID RF: 0 allopurinol 300 mg tablet 300 mg PO DAILY RF: 0 coenzyme Q10 [CoQ-10] 100 mg Capsule 100 mg PO DAILY RF: 0 levocetirizine 5 mg Tablet 5 mg PO DAILY RF: 0 azelastine 205.5 mcg (0.15 %) [place],Non-Aerosol 1 spray INTRANASAL BID RF: 0 insulin aspart U-100 [Novolog Flexpen U-100 Insulin] 100 unit/mL (3 mL) insulin pen 34 unit SC TID RF: 0 Lantus Solostar U-100 Insulin 100 unit/mL (3 mL) insulin pen 36 unit SC BID RF: 0 pantoprazole 40 mg tablet,delayed release (DR/EC) 40 mg PO DAILY RF: 0 (DME) FreeStyle Joseluis 14 Day Sensor Kit See Rx Instructions .ROUTE .MEDSUPPLY Qty: 2 RF: 12 Discontinued spironolactone 100 MG tablet 100 mg PO DAILY RF: 0 hydrochlorothiazide 25 MG tablet 25 mg PO DAILY RF: 0 Referrals / Follow Up: Robin Marion MD [Primary Care Provider] - In 1 Week Disposition Disposition (needs filled in before D/C Order can be placed): Home, Self Care Documented by User: Dr. Robin Marinelli DO 12/25/21 14:01 Providers Date of Admission: 12/23/21 Reason For Visit: SEPSIS PNEUMONIA Medications at Discharge Home Medications amlodipine 10 mg PO DAILY 05/14/17 ergocalciferol (vitamin D2) 1 tab PO QWEEK 05/14/17 gabapentin 600 mg PO BID PRN 05/14/17 liraglutide 1.8 mg SQ DAILY 05/14/17 pioglitazone 22.5 mg PO DAILY 05/14/17 aspirin 81 mg PO DAILY 11/20/18 capsaicin 0.025 % topical cream 1 applic TOPICAL TID 09/09/19 ertugliflozin 15 mg tablet 15 mg PO QAM 09/09/19 lactulose 20 gram/30 mL oral solution 20 g PO BID 09/09/19 magnesium oxide 400 mg PO DAILY 09/09/19 metronidazole 0.75 % topical gel 1 applic TOPICAL QHS 09/09/19 mometasone 0.1 % topical cream 1 applic TOPICAL DAILY 09/09/19 naproxen 500 mg tablet 500 mg PO BID 09/09/19 ondansetron HCl 4 mg tablet 4 mg PO BID-TID PRN 09/09/19 duloxetine 30 mg capsule,delayed release sprinkle 30 mg PO BID 02/16/20 fluticasone propionate 50 mcg/actuation nasal spray,suspension 2 spray INTRANASAL DAILY 02/16/20 hydroxyzine HCl 25 mg tablet 25 mg PO QHS 02/16/20 meloxicam 15 mg tablet 15 mg PO DAILY 02/16/20 metformin 1,000 mg 24 hr tablet,extended release 1,000 mg PO BID tab 02/16/20 tizanidine 2 mg capsule 2 mg PO BID PRN 02/16/20 blood sugar diagnostic #150 ea 04/12/20 blood-glucose meter #1 ea 04/12/20 flash glucose sensor #2 ea 07/06/20 Lantus Solostar U-100 Insulin 36 unit SC BID 11/29/21 allopurinol 300 mg PO DAILY 11/29/21 ammonium lactate 1 applic TOPICAL TID 11/29/21 azelastine 1 spray INTRANASAL BID 11/29/21 coenzyme Q10 [CoQ-10] 100 mg PO DAILY 11/29/21 cyanocobalamin (vitamin B-12) 2,500 mcg SUBLINGUAL DAILY 11/29/21 insulin aspart U-100 [Novolog Flexpen U-100 Insulin] 34 unit SC TID 11/29/21 levocetirizine 5 mg PO DAILY 11/29/21 pravastatin 40 mg PO DAILY 11/29/21 pantoprazole 40 mg PO DAILY 12/23/21 furosemide [Lasix] 40 mg PO BID #60 tab 12/25/21 Hospital Course Operations None Procedures 2-D Echocardiogram Summary of Care Provided Minutes Spent on Discharge: 32 Hospital Course: Patient seen and examined independently. Data and vitals reviewed. I agree with the above note by the nurse practitioner. This is a 61-year-old female presents with chest pain and shortness of breath. Patient has been admitted for pneumonia 3 weeks prior. Initial concern was for sepsis secondary to pneumonia failing outpatient therapy. Patient was initiated on IV antibiotics. Evaluate the patient the following day and her symptoms seem more coincide with CHF. Patient had noted increase lower extremity edema as increased weight. Patient was continued on IV antibiotics but her infectious work-up was unremarkable therefore it is my feeling the patient had CHF exacerbation. Therefore, sepsis and pneumonia are ruled out. Patient did have 2D echocardiogram that showed an EF of 60%. Patient will be discharged with furosemide 40 mg twice daily and recommend to discontinue her hydrochlorothiazide and spironolactone for the time being. Patient would be requiring oxygen with exertion. Physical Exam Const alert and no apparent distress Resp normal respiratory effort, no retractions, no use of accessory muscles and clear to auscultation bilaterally Cardio regular rate, regular rhythm, S1 normal heart sound and S2 normal heart sound GI normal to inspection, nondistended, normoactive bowel sounds, soft to palpation and non-tender Extremity General Extremity: edema ABG / Lab / Microbiology Data Result Diagrams: 12/25/21 04:55 12/25/21 04:55 Discharge Plan Admission Admit Date/Time: 12/23/21 17:45 Primary Reason for Your Visit: Respiratory failure, CHF Attending Provider: Robin Marinelli Primary Care Provider: Robin Marion Discharge Orders/Prescriptions Prescriptions: New furosemide [Lasix] 40 mg tablet 40 mg PO BID Qty: 60 RF: 0 Continued magnesium oxide 400 mg magnesium capsule 400 mg PO DAILY RF: 0 lactulose 20 gram/30 mL solution 20 g PO BID RF: 0 capsaicin 0.025 % cream 1 applic TOPICAL TID RF: 0 mometasone 0.1 % cream 1 applic TOPICAL DAILY RF: 0 metronidazole 0.75 % gel 1 applic TOPICAL QHS RF: 0 Steglatro 15 mg tablet 15 mg PO QAM RF: 0 naproxen [Naprosyn] 500 mg tablet 500 mg PO BID RF: 0 ondansetron HCl [Zofran] 4 mg tablet 4 mg PO BID-TID PRN (Reason: nasuea) RF: 0 (DME) blood-glucose meter [ReliOn Prime Meter] Misc See Rx Instructions .ROUTE .MEDSUPPLY Qty: 1 RF: 0 (DME) ReliOn Prime Test Strips Strip See Rx Instructions .ROUTE .MEDSUPPLY Qty: 150 RF: 5 hydroxyzine HCl 25 mg tablet 25 mg PO QHS RF: 0 fluticasone propionate 50 mcg/actuation spray,suspension 2 spray INTRANASAL DAILY RF: 0 meloxicam 15 mg tablet 15 mg PO DAILY RF: 0 duloxetine 30 mg capsule, delayed rel sprinkle 30 mg PO BID RF: 0 tizanidine 2 mg capsule 2 mg PO BID PRN (Reason: muscle relaxer) RF: 0 gabapentin 600 MG tablet 600 mg PO BID PRN RF: 0 pioglitazone 45 MG tablet 22.5 mg PO DAILY RF: 0 amlodipine 10 MG tablet 10 mg PO DAILY RF: 0 ergocalciferol (vitamin D2) 50,000 UNIT capsule 1 tab PO QWEEK RF: 0 liraglutide 0.6 MG/0.1 ML pen injector 1.8 mg SQ DAILY RF: 0 metformin 1,000 mg tablet,ER tere.retention 24 hr 1,000 mg PO BID RF: 0 Hold Instructions: Resume on 05/17/21. aspirin 81 MG tablet,chewable 81 mg PO DAILY RF: 0 cyanocobalamin (vitamin B-12) 2,500 mcg Tablet, Sublingual 2,500 mcg SUBLINGUAL DAILY RF: 0 pravastatin 40 mg Tablet 40 mg PO DAILY RF: 0 ammonium lactate 12 % Cream 1 applic TOPICAL TID RF: 0 allopurinol 300 mg tablet 300 mg PO DAILY RF: 0 coenzyme Q10 [CoQ-10] 100 mg Capsule 100 mg PO DAILY RF: 0 levocetirizine 5 mg Tablet 5 mg PO DAILY RF: 0 azelastine 205.5 mcg (0.15 %) [place],Non-Aerosol 1 spray INTRANASAL BID RF: 0 insulin aspart U-100 [Novolog Flexpen U-100 Insulin] 100 unit/mL (3 mL) insulin pen 34 unit SC TID RF: 0 Lantus Solostar U-100 Insulin 100 unit/mL (3 mL) insulin pen 36 unit SC BID RF: 0 pantoprazole 40 mg tablet,delayed release (DR/EC) 40 mg PO DAILY RF: 0 (DME) FreeStyle Joseluis 14 Day Sensor Kit See Rx Instructions .ROUTE .MEDSUPPLY Qty: 2 RF: 12 Discontinued spironolactone 100 MG tablet 100 mg PO DAILY RF: 0 hydrochlorothiazide 25 MG tablet 25 mg PO DAILY RF: 0 Referrals / Follow Up: Robin Marion MD [Primary Care Provider] - In 1 Week Disposition Disposition (needs filled in before D/C Order can be placed): Home, Self Care Charges/Coding Visit Charges Inpatient E&M: [address] [facility]
== END 2021-12-25 14:54 | disposition home or self-care (01) | DRG 291 ==
LOC: ED 16:08 → MS3 18:06
PROVIDERS: Nurse Practitioner Family; Admitting Provider Family Medicine; Emergency Provider Emergency Medicine; PCP Family Medicine
DX: I13.0 Hypertensive heart and chronic kidney disease with heart failure and stage 1 through stage 4 chronic kidney disease, or unspecified chronic kidney disease (principal); J96.01 Acute respiratory failure with hypoxia; I50.31 Acute diastolic (congestive) heart failure; J90 Pleural effusion, not elsewhere classified; E11.22 Type 2 diabetes mellitus with diabetic chronic kidney disease; Z79.4 Long term (current) use of insulin; E66.01 Morbid (severe) obesity due to excess calories; N18.31 Chronic kidney disease, stage 3a; G47.33 Obstructive sleep apnea (adult) (pediatric); Z87.891 Personal history of nicotine dependence; Z71.3 Dietary counseling and surveillance; Z99.89 Dependence on other enabling machines and devices
CPT/HCPCS: 36415; 71045; 80048; 80053; 82962; 83605; 83880; 85025; 87040; 87428; 87449; 93005; 93306; 99285; J7030; A4216; J0696; J1940; J2405

== ENCOUNTER 2022-01-03 11:20 | Outpatient (CLI) | payer MEDICARE, MEDICAID, SELFPAY ==
[2022-01-03 12:17] LABS: Absolute Lymphocyte Count 1.48 X10^3/uL (0.83-4.51); Absolute Neutrophil Count 5.6 X10^3/uL (2.0-7.7); Basophil# 0.03 X10^3/uL; Basophil% 0.4 % (0-1); Eosinophil# 0.29 X10^3/uL; Eosinophils% 3.7 % (0-5); Hemoglobin 13.1 g/dL (12.0-15.0); Lymphocyte # 1.48 X10^3/ul (0.83-4.51); Mean Corp Hgb Conc 31.2 g/dL (32-36); Mean Corpuscular Hgb 26.2 pg (27.0-32.0); Mean Platelet Vol. 11.9 fl (6.2-12.0); Monocyte# 0.36 X10^3/uL; Monocyte% 4.6 % (0-10); NRBC Flagged by Analyzer 0 % (0-5); Neutrophil # 5.63 X10^3/uL (2.7-7.7); Platelet Count 274 K/mm3 (150-450); RBC Distribution Width SD 42.8 fl (35.1-43.9); White Blood Count 7.8 K/mm3 (4.4-11.0)
[2022-01-03 13:12] LABS: BNP,B-Type NATRIURETIC PEPTIDE 8.8 pg/mL (0-100)
[2022-01-03 13:14] LABS: ALB/GLOB Ratio 0.7 RATIO (0.9-2.4); AST(SGOT) 6 U/L (15-37); Alanine Aminotransfer ALT/SGPT 16 U/L (13-56); Albumin, Serum 3.2 g/dL (3.2-5.0); Alkaline Phosphatase 101 U/L (45-117); Anion Gap 6 (5-15); BUN 20 mg/dL (7-18); Calcium,Total 8.9 mg/dL (8.5-10.1); Chloride 101 mmol/L (98-107); Creatinine, Serum 1.05 mg/dL (0.55-1.02); EST Glomerular Filtration Rate 57 mL/min (>60); Est Glom Filt Rate - Afr Amer 68 mL/min (>60); Globulin 4.5 g/dL (2.2-4.2); Glucose 213 mg/dL (74-106); Potassium 3.5 mmol/L (3.5-5.1); Protein, Total 7.7 g/dL (6.4-8.2); Sodium Level 137 mmol/L (136-145)
== END 2022-01-03 23:59 | disposition home or self-care (01) ==
LOC: MFPLAB 11:21
PROVIDERS: PCP Family Medicine; Referring Provider Family Medicine; Visit Provider Family Medicine
DX: I50.30 Unspecified diastolic (congestive) heart failure (principal); J96.00 Acute respiratory failure, unspecified whether with hypoxia or hypercapnia
CPT/HCPCS: 36415; 80053; 83880; 85025; 86140

== ENCOUNTER 2022-01-13 08:00 | Outpatient (CLI) | payer MEDICARE, MEDICAID, SELFPAY ==
--- NOTE | 2022-01-13 08:17 | MRI_ITS ---
STUDY: MRI ABDOMEN WITHOUT CONTRAST REASON FOR EXAM: Female, 61 years old. Attn : adrenals,ELEVATED DEHYDROEPLANDROSTERONE SULFATE LEVEL, C- PER TECHNIQUE: Standardized fat and water weighted pulse sequences were obtained in all 3 orthogonal planes. COMPARISON: CT scan of the pelvis obtained on 11/29/2021. FINDINGS: Small bilateral pleural effusions are seen. The visualized liver demonstrates unremarkable signal intensity, no evidence of hepatic masses, no evidence of intrahepatic biliary dilatation is seen. The gallbladder is surgically absent. Normal extrahepatic biliary system. Normal spleen. Normal pancreas. Normal bilateral adrenal glands. No evidence of adrenal masses. No evidence of abnormal signal intensity within the adenoid glands. Normal right kidney. Normal left kidney. Normal visualized stomach. Normal small intestine. Normal colon. The appendix is visualized and appears normal. Normal abdominal aorta. Normal inferior vena cava. Normal retroperitoneum. Normal abdominal wall. Normal osseous structures. MRI/Abdomen without Contrast IMPRESSION: Normal unenhanced MRI of the abdomen. Electronically Signed: Kevon Serrano MD at 10:33 EDT ,
== END 2022-01-13 23:59 | disposition home or self-care (01) ==
LOC: MRI 08:00
PROVIDERS: PCP Family Medicine; Visit Provider Family Medicine
DX: E27.8 Other specified disorders of adrenal gland (principal)
CPT/HCPCS: 74181

== ENCOUNTER → 2022-02-11 | Outpatient (CLI) | payer MEDICARE, MEDICAID, SELFPAY ==
--- NOTE | 2022-02-11 13:53 | RAD_ITS ---
STUDY: X-RAY CHEST REASON FOR EXAM: Female, 61 years old. DYSPNEA TECHNIQUE: 4 views COMPARISON 12/23/2021. FINDINGS: The lungs are clear and expanded. There is focal pleural thickening at the posterior right lower lung. Normal size heart. Normal mediastinum and davie. Normal visualized pulmonary arteries. Normal visualized aortic arch and descending thoracic aorta. Normal visualized thoracic spine. Normal visualized ribs, clavicles, and shoulders. There is no demonstrated abnormality of the visualized soft tissue structures of the upper abdomen. RAD/Chest Min 4 Views IMPRESSION: Focal pleural thickening right lower lung field. Electronically Signed: Sundeep Fine MD at 23:01 EDT ,
[2022-02-11 16:15] LABS: BNP,B-Type NATRIURETIC PEPTIDE 6.8 pg/mL (0-100)
[2022-02-11 16:17] LABS: D-Dimer Quantitative (DVT/PE) 2.52 FEU/ug/m (0.27-0.49)
== END | disposition home or self-care (01) ==
LOC: MTLAB 13:51
PROVIDERS: PCP Family Medicine; Referring Provider Internal Medicine Pulmonary Disease; Visit Provider Internal Medicine Pulmonary Disease
DX: R06.00 Dyspnea, unspecified (principal)
CPT/HCPCS: 36415; 71048; 83880; 85379

== ENCOUNTER → 2022-02-12 | Outpatient (CLI) | payer MEDICARE, MEDICAID, SELFPAY ==
--- NOTE | 2022-02-12 14:59 | VDLE_ITS ---
Reason For Study: Edema RIGHT LEFT GSV is normal. GSV is normal. CFV is compressible, spontaneous, phasic, CFV is compressible, spontaneous, phasic, competent and demonstrates normal competent, and demonstrates normal augmentation. augmentation. FV is compressible, spontaneous, phasic, FV is compressible, spontaneous, phasic, competent and demonstrates normal competent and demonstrates normal augmentation. augmentation. POP V is compressible, spontaneous, phasic, POP V is compressible, spontaneous, phasic, competent and demonstrates normal competent and demonstrates normal augmentation. augmentation. T/P Trunk is compressible. T/P Trunk is compressible. PTV is compressible. PTV is compressible. RT PerV is compressible. LT PerV is compressible. Procedure This is a venous duplex using B-mode, color flow and spectral Doppler. Exam performed in department. A preliminary report was called and/or faxed to [facility]. VL/Venous Duplex US - [place] Extrem Interpretation Summary Deep veins of the lower extremities are bilaterally patent and compressible seg mentally. There is no evidence of deep vein thrombosis on either side. Valvular competence appears in tact within the proximal deep venous systems bilaterally. The great saphenous veins appear bila terally patent and compressible segmentally. Ordering Physician: Rony Garcia Referring Physician: Robin Marion MD Performed By: Tiffany Cantrell RVT
== END | disposition home or self-care (01) ==
LOC: CVS 14:57
PROVIDERS: PCP Family Medicine; Referring Provider Internal Medicine Pulmonary Disease; Visit Provider Internal Medicine Pulmonary Disease
DX: R60.0 Localized edema (principal); R79.89 Other specified abnormal findings of blood chemistry; R06.00 Dyspnea, unspecified
CPT/HCPCS: 93970

== ENCOUNTER → 2022-04-02 | Outpatient (CLI) | payer MEDICARE, MEDICAID, SELFPAY ==
--- NOTE | 2022-04-02 12:35 | RAD_ITS ---
EXAM: XR SACRUM AND COCCYX, 2 OR MORE VIEWS CLINICAL INDICATION: sacral pain TECHNIQUE: Frontal and lateral views of the sacrum and coccyx. This report was created using [employer] report generation technology. COMPARISON: None. FINDINGS: SACRUM/COCCYX: Unremarkable. No displaced fracture. No destructive or sclerotic lesions. Note that overlapping bowel shadows may however obscure fine detail in the frontal view. Sacroiliac joints are unremarkable. SOFT TISSUES: Unremarkable. No soft tissue swelling or gas. RAD/Sacrum-Coccyx min 2 Views IMPRESSION: Unremarkable sacro-coccygeal spine. Electronically Signed: Yan Sandoval MD at 2:34 EDT ,
== END | disposition home or self-care (01) ==
PROVIDERS: PCP Family Medicine; Referring Provider Family Medicine; Visit Provider Family Medicine
DX: S33.8XXA Sprain of other parts of lumbar spine and pelvis, initial encounter (principal)
CPT/HCPCS: 72220

== ENCOUNTER → 2022-06-17 | Outpatient (CLI) | payer MEDICARE, MEDICAID, SELFPAY ==
--- NOTE | 2022-06-17 10:12 | RAD_ITS ---
HISTORY: KNEE PAIN. TECHNIQUE: XR Knee Complete 4 Views or More. COMPARISON: None. FINDINGS: BONES : No acute fracture identified. Mineralization unremarkable. JOINTS: No dislocation. Degenerative changes with tricompartmental osteophytes and mild medial compartment joint space narrowing. Mild-moderate suprapatellar effusion. RAD/Knee 4 or More Views IMPRESSION: No acute fracture or dislocation identified . Degenerative changes of the right knee with joint effusion. Electronically Signed: Moira Enciso MD at 16:31 EDT ,
== END | disposition home or self-care (01) ==
LOC: MTRAD 10:11
PROVIDERS: PCP Family Medicine; Referring Provider Family Medicine; Visit Provider Family Medicine
DX: M25.561 Pain in right knee (principal)
CPT/HCPCS: 73564

== ENCOUNTER → 2022-07-04 | Outpatient (CLI) | payer MEDICARE, MEDICAID, SELFPAY ==
[2022-07-04 17:45] LABS: Absolute Lymphocyte Count 1.61 X10^3/uL (0.83-4.51); Absolute Neutrophil Count 3.9 X10^3/uL (2.0-7.7); Basophil# 0.03 X10^3/uL; Basophil% 0.5 % (0-1); Eosinophil# 0.16 X10^3/uL; Eosinophils% 2.6 % (0-5); Hematocrit 43.1 % (37-47); Hemoglobin 13.4 g/dL (12.0-15.0); Lymphocyte # 1.61 X10^3/ul (0.83-4.51); Lymphocyte % 26.6 % (19-41); Mean Corp Hgb Conc 31.1 g/dL (32-36); Mean Corpuscular Hgb 27.3 pg (27.0-32.0); Mean Platelet Vol. 11.5 fl (6.2-12.0); Monocyte# 0.32 X10^3/uL; Monocyte% 5.3 % (0-10); NRBC Flagged by Analyzer 0 % (0-5); Neutrophil # 3.91 X10^3/uL (2.7-7.7); Neutrophil % 64.7 % (47-70); Platelet Count 300 K/mm3 (150-450); RBC Distribution Width CV 16.1 % (11.6-14.6); RBC Distribution Width SD 52.6 fl (35.1-43.9); White Blood Count 6.1 K/mm3 (4.4-11.0)
[2022-07-04 18:10] LABS: BNP,B-Type NATRIURETIC PEPTIDE 27.8 pg/mL (0-100)
[2022-07-04 18:30] LABS: ALB/GLOB Ratio 0.8 RATIO (0.9-2.4); AST(SGOT) 7 U/L (15-37); Alanine Aminotransfer ALT/SGPT 16 U/L (13-56); Albumin, Serum 3.4 g/dL (3.2-5.0); Alkaline Phosphatase 103 U/L (45-117); Anion Gap 8 (5-15); BUN 13 mg/dL (7-18); BUN/Creat Ratio 11.9 RATIO (10-20); Calcium,Total 9.1 mg/dL (8.5-10.1); Chloride 99 mmol/L (98-107); Creatinine, Serum 1.09 mg/dL (0.55-1.02); EST Glomerular Filtration Rate 54 mL/min (>60); Est Glom Filt Rate - Afr Amer 66 mL/min (>60); Globulin 4.4 g/dL (2.2-4.2); Glucose 274 mg/dL (74-106); Magnesium 2.2 mg/dL (1.6-2.6); Potassium 3.6 mmol/L (3.5-5.1); Protein, Total 7.8 g/dL (6.4-8.2); Sodium Level 138 mmol/L (136-145); Thyroid Stim Hormone (TSH) 0.77 uIU/mL (0.358-3.74)
== END | disposition home or self-care (01) ==
LOC: MFPLAB 16:17
PROVIDERS: PCP Family Medicine; Referring Provider Family Medicine; Visit Provider Family Medicine
DX: I50.30 Unspecified diastolic (congestive) heart failure (principal)
CPT/HCPCS: 36415; 80053; 83735; 83880; 84443; 85025

== ENCOUNTER → 2022-07-23 | Outpatient (CLI) | payer MEDICARE, MEDICAID, SELFPAY ==
--- NOTE | 2022-07-23 13:53 | ECHOD_ITS ---
Reason For Study: CHF Procedure This was a 2D Doppler, Color Flow transthoracic echocardiogram. Exam performed in department. Left Ventricle Normal LV size. Left ventricular systolic function is normal. The estimated ejection fraction is 65 %. Stage 1 diastolic dysfunction. No regional wall motion abnormalities noted. Right Ventricle Normal RV size. Normal systolic function. Atria Normal left atrium. Normal right atrium. Mitral Valve Normal mitral valve. Tricuspid Valve Normal tricuspid valve. Aortic Valve Normal aortic valve. Pulmonic Valve Normal pulmonic valve. Great Vessels Normal aortic root. The pulmonary artery is normal size. Normal inferior vena cava. Pericardium/Pleural No pericardial effusion. MMode/2D Measurements & Calculations RVDd: 2.7 cm Ao root diam: 3.3 cm LAV(MOD-bp): 83.9 ml LAV(MOD-bp) Indexed: 36.3 ml/m2 LAV(MOD-sp2): 68.6 ml LAV(MOD-sp4): 92.1 ml SV(MOD-sp4): 34.7 ml SV(sp4-el): 35.0 ml LVAd ap4: 22.7 cm2 LVLd ap4: 7.2 cm EDV(MOD-sp4): 61.3 ml EDV(sp4-el): 61.2 ml LVAs ap4: 13.6 cm2 LVLs ap4: 6.0 cm ESV(MOD-sp4): 26.6 ml ESV(sp4-el): 26.2 ml EF(MOD-sp4): 56.6 % EF(sp4-el): 57.2 % LA A4 area: 25.0 cm2 LA dimension(2D): 4.0 cm RA A4 area: 13.1 cm2 Time Measurements MV dec time: 0.25 sec Doppler Measurements & Calculations MV E max renato: 64.8 cm/sec Lat Peak E' Renato: 11.1 cm/sec Med Peak E' Renato: 6.6 cm/sec MV A max renato: 88.3 cm/sec E/E' lat: 5.8 E/E' med: 9.9 MV E/A: 0.73 MV V2 max: 85.9 cm/sec MV dec slope: 258.8 cm/sec2 Ao V2 max: 128.0 cm/sec MV max P.0 mmHg Ao max P.6 mmHg MV V2 mean: 58.8 cm/sec Ao V2 mean: 95.0 cm/sec MV mean P.5 mmHg Ao mean P.0 mmHg MV V2 VTI: 21.7 cm Ao V2 VTI: 24.5 cm LV V1 max: 120.4 cm/sec PA V2 max: 87.6 cm/sec LV V1 max P.8 mmHg PA V2 mean: 60.8 cm/sec LV V1 mean P.8 mmHg LV V1 mean: 77.4 cm/sec LV V1 VTI: 24.2 cm ECHO/Echo Complete Interpretation Summary Normal LV size. Left ventricular systolic function is normal. The estimated ejection fraction is 65 %. Stage 1 diastolic dysfunction. Ordering Physician: Robin Marion Referring Physician: Robin Marion Performed By: Nasrin Feliciano RCS
== END | disposition home or self-care (01) ==
LOC: CVS 15:06
PROVIDERS: PCP Family Medicine; Referring Provider Family Medicine; Visit Provider Family Medicine
DX: I50.32 Chronic diastolic (congestive) heart failure (principal)
CPT/HCPCS: 93306

== ENCOUNTER → 2022-09-09 | Outpatient (CLI) | payer MEDICARE, MEDICAID, SELFPAY ==
--- NOTE | 2022-09-09 09:40 | STRESSREP_ITS ---
Stress Test Report Date: 09-09-2022 Procedure: Pharmacologic stress nuclear imaging study Indications: Shortness of breath/dyspnea on exertion Consent: Per the patient Procedure: The patient underwent pharmacologic (Regadenoson 0.4mg ) evaluation with a peak heart rate of 104 beats per minute (60%predicted maximal heart rate) and a resting blood pressure of 130/80 mmHg and a peak blood pressure of 130/80 mmHg. The baseline ECG demonstrated normal sinus rhythm. The peak pharmacologic ECG demonstrated no obvious ECG changes. There were no cardiac dysrhythmias pretest, during pharmacologic infusion, or recovery. There was no complaint of chest discomfort during pharmacologic infusion or recovery. The examination was discontinued secondary to completion of protocol. Impression: 1. Pharmacologic (Regadenoson) evaluation 2. Peak pharmacologic ECG with no obvious ECG changes. 3. There were no cardiac dysrhythmias pretest, during pharmacologic infusion, or recovery. 4. Nuclear images pending Myocardial perfusion imaging study: Technique: The patient was injected with 11.2 millicuries of technetium 99m Cardiolite and subsequently rest SPECT Cardiolite nuclear imaging was obtained in the horizontal long, vertical long, and short axis views. The patient underwent pharmacologic (Regadenoson) evaluation with a peak heart rate of 104 beats per minute (60% percent predicted maximal heart rate) and a resting blood pressure of 130/80 mmHg and a peak blood pressure of 130/80 mmHg. The patient was injected with 34.7 millicuries of technetium 99m Cardiolite and subsequently stress SPECT Cardiolite nuclear imaging was obtained in the horizontal long, vertical long, and short axis views. A gated Cardiolite study at peak stress was obtained. Interpretation: Rest and stress SPECT Cardiolite nuclear imaging status post realignment, normalization, and attenuation correction demonstrate relative uniform tracer uptake and myocardial perfusion appearing within normal limits. There is end systolic thickening and brightening. The gated Cardiolite study demonstrates myocardial thickening and inward wall motion. The reported LVEF is 73%. Impression: 1. Rest and stress SPECT Cardiolite nuclear imaging demonstrate relative uniform tracer uptake and myocardial perfusion appearing within normal limits. 2. The gated Cardiolite study reports an LVEF of 73%. This note was generated with [employer] software. It may contain incorrect words, spelling, and punctuation that were not noted in checking the note before signing.
== END | disposition home or self-care (01) ==
LOC: CVS 06:33
PROVIDERS: PCP Family Medicine; Visit Provider Internal Medicine Cardiovascular Disease
DX: R06.09 Other forms of dyspnea (principal)
CPT/HCPCS: 78452; 93017; A9500; A4216; J2785

== ENCOUNTER → 2022-09-15 | Outpatient (CLI) | payer MEDICARE, MEDICAID, SELFPAY ==
--- NOTE | 2022-09-15 11:22 | RAD_ITS ---
EXAM: XR CHEST, 2 VIEWS CLINICAL INDICATION: SOB TECHNIQUE: Frontal and lateral views of the chest. This report was created using [employer] report generation technology. COMPARISON: 02/11/2022. FINDINGS: LUNGS AND PLEURAL SPACES: Unremarkable. No consolidation or edema. No pneumothorax. No effusion. HEART: Unremarkable. Cardiac silhouette not enlarged. MEDIASTINUM: Central airways and mediastinal contour are unremarkable. BONES/JOINTS: Unremarkable. SOFT TISSUES: Unremarkable. RAD/Chest PA and Lateral IMPRESSION: No acute cardiopulmonary abnormality. Electronically Signed: Yan Sandoval MD at 5:54 EST ,
[2022-09-15 12:15] LABS: Absolute Lymphocyte Count 2.02 X10^3/uL (0.83-4.51); Absolute Neutrophil Count 4.4 X10^3/uL (2.0-7.7); Basophil# 0.04 X10^3/uL; Basophil% 0.6 % (0-1); Eosinophil# 0.26 X10^3/uL; Eosinophils% 3.6 % (0-5); Hematocrit 46.2 % (37-47); Hemoglobin 14.5 g/dL (12.0-15.0); Lymphocyte # 2.02 X10^3/ul (0.83-4.51); Lymphocyte % 28.1 % (19-41); Mean Corp Hgb Conc 31.4 g/dL (32-36); Mean Corpuscular Volume 89.4 fL (81-99); Mean Platelet Vol. 11.6 fl (6.2-12.0); Monocyte# 0.41 X10^3/uL; Monocyte% 5.7 % (0-10); NRBC Flagged by Analyzer 0 % (0-5); Neutrophil # 4.44 X10^3/uL (2.7-7.7); Neutrophil % 61.7 % (47-70); Platelet Count 297 K/mm3 (150-450); RBC Distribution Width CV 14.6 % (11.6-14.6); RBC Distribution Width SD 47.8 fl (35.1-43.9); Red Blood Count 5.17 M/mm3 (4.2-5.4); White Blood Count 7.2 K/mm3 (4.4-11.0)
[2022-09-15 12:22] LABS: BNP,B-Type NATRIURETIC PEPTIDE 21.4 pg/mL (0-100)
[2022-09-15 12:26] LABS: Anion Gap 6 (5-15); BUN 19 mg/dL (7-18); BUN/Creat Ratio 17.9 RATIO (10-20); Calcium,Total 9.4 mg/dL (8.5-10.1); Chloride 103 mmol/L (98-107); Creatinine, Serum 1.06 mg/dL (0.55-1.02); EST Glomerular Filtration Rate 56 mL/min (>60); Est Glom Filt Rate - Afr Amer 68 mL/min (>60); Glucose 134 mg/dL (74-106); Sodium Level 138 mmol/L (136-145)
== END | disposition home or self-care (01) ==
LOC: RAD 11:12
PROVIDERS: PCP Family Medicine; Referring Provider Nurse Practitioner Gerontology; Visit Provider Nurse Practitioner Gerontology
DX: R06.09 Other forms of dyspnea (principal); R06.02 Shortness of breath
CPT/HCPCS: 36415; 71046; 80048; 83880; 85025

== ENCOUNTER 2022-10-31 11:30 | Outpatient (RCR) | payer MEDICARE, MEDICAID, SELFPAY ==
--- NOTE | 2022-09-17 15:27 | HP.PTEVAL_ITS ---
Patient's Visit Information PAULIE ALFARO is a 62 year old F referred to Physical Therapy by Dr. Robin Marion MD with a diagnosis of SOB. Date of Evaluation: 09/17/22 Physical Therapist: Emely Morillo DPT - Visit Plan Frequency: 2x /Week Duration: 4 Weeks Plan: Aquatic PT- focus on LE and core strength/stabilization- SOB and endurance- may need to use Pulse Ox- pt to bring O2 - Subjective She has shortness of breathe since COVID- she had COVID twice- the last time was last year- but since then she can't breathe-she has met with MD's and everything checks out, so MD sent her to PT for light exercise. She was exercising at the [facility] and she was going to a class, machines and walking a mile on the TM but was told to stop until they figured why she can't breathe. Now they want her to start back up again. She is O2 and carry it around but she doesn't- will bring to exercise- she is on 2L- did not bring it today. Does wear it at night. She only has SOB when she is up and moving- when she is sitting down she is okay. Once she sits down it takes a couple of min for her breathe to return. Her chest feels a little tight but no pain. She is no longer a member of the [facility]. Fully I prior to getting COVID- she can still do it now she just has sit down in between. She use to be more active- but she can't due to her breathe. 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 She does have issues with steps and has to use the rail and takes one step at a time. She does have falls- last time was May- fell out of the shower- she doesn't use a cane or a walker- she does sometimes have knee buckling. Sleep: bed- breath does not keep her from sleeping or wake at night- she wears a CPAP prior but is now wearing O2- waiting for the MD to give her a piece so she can do both. PMHx/Meds: see fishing rod marker visit from 09/15/22. - Objective Pt did not bring O2 to appt today- PT did not perform extensive endurance testing- will perform 6MWT as able. Posture: FH, RS- can correct with tactile and verbal cues but does not maintain. Gait: side DARLINE- decreased chase- no AD Stairs: asc/desc non recip with 2 HR .HR/TR: able. SLS:weight shift but requires UE to remove hands from wall Strength: Core: poor, Hip: 4/5 throughout Knee: 4+/5 Flex: HS: mild, Gastroc: mild. - Balance/Special Test Scores Lower Extremity Functional Score: 18 TUG Test Time Seconds: 10 30 Second Chair Rise Test Seconds: 8 - Goals Goal 1:: Patient will be I with HEP and progression Goal Time Frame: 4-6 Weeks Goal 2:: Patient will maintain proper posture t/o tx session to demo increased core s/s Goal Time Frame: 4-6 Weeks Goal 3:: Patient will ambulate >300 feet with no change in O2 sats Goal Time Frame: 4-6 Weeks Goal 4:: Patient will report 80% improvement Goal Time Frame: 4-6 Weeks - Rehabilitation Potential Physical Therapy Diagnosis: Patient presents with hypomobility- she has decreased LE and core strength/stabilization, endurance, proprioception, flex and muscular endurance leading to SOB with activity and decreased ability to perform ADL's. Rehabilitation Potential: Fair - Anticipated Interventions Patient/Client Instruction: Educate patient on: Benefits of Fitness Program Therapeutic Exercise to Include: Strength training, Endurance training, Balance training, Coordination, Agility training, Body mechanics, Postural training, Flexibilty training, Gait and locomotor training, Neuromotor development, In an aquatic setting, Dynamic Lumbar Stabilization, Scapular Strength/Stabilization For the Purpose of:: To improve muscle performance and motor function Thank you for the opportunity to evaluate your patient. For Medicare and Medicare HMO plans, please review the plan of care and approve it. It will need to be FAXED BACK to us at [phone] for Medicare purposes. For Medicare only, by signing this I certify the plan of care. Please let me know if there are questions or concerns regarding this plan of care. Physician Signature: Date:
--- NOTE | 2022-10-31 11:55 | HP.PTREVAL_ITS ---
Dr. Robin Marion MD, It has been my pleasure to treat PAULIE ALFARO over the last 9 visits for SOB. Please see the progress note below for an update on the physical therapy plan of care! Subjective: Patient reports that today is really bad- she feels the inflammation is bad and had to take some medication- she feels that the pool helped a great deal. The days she was in there the next day her muscles were good. Normally her rubs her legs and she had to have him do less of them. She has having a heart surgery on Thursday (Catheter). Objective/Function: She is still using her O2- did not bring today- so not able to do 6MW Test again. She is now running around the 90s. Posture: FH, RS- can correct with tactile and verbal cues but does not maintain. Gait: side DARLINE- decreased chase- no AD Stairs: asc/desc non recip with 1 HR. HR/TR: able. SLS: weight shift but requires UE. Strength: Core: fair, Hip: 4+/5 throughout Knee: 5/5 Flex: HS: mild, Gastroc: mild. Plan Plan: 10/31/22: Hold until cleared by executive sales assistant- then will continue pool therapy. 2x a week for 4 weeks. Aquatic PT- focus on LE and core strength/stabilization- SOB and endurance- may need to use Pulse Ox- pt to bring O2 Balance/Gait/Functional tests - Balance/Special Test Scores Lower Extremity Functional Score: 36 TUG Test Time Seconds: 10 Tug Test: <10 sec.=free mobile 30 Second Chair Rise Test Seconds: 8 Goals Goal 1:: Patient will be I with HEP and progression Goal Time Frame: 4-6 Weeks Goal Progress: Progressing Goal 2:: Patient will maintain proper posture t/o tx session to demo increased core s/s Goal Time Frame: 4-6 Weeks Goal Progress: Progressing Goal 3:: Patient will ambulate >300 feet with no change in O2 sats Goal Time Frame: 4-6 Weeks Goal Progress: Progressing Goal 4:: Patient will report 80% improvement Goal Time Frame: 4-6 Weeks Goal Progress: Progressing Anticipated Interventions Patient/Client Instruction: Educate patient on: Benefits of Fitness Program Therapeutic Exercise to Include: Strength training, Endurance training, Balance training, Coordination, Agility training, Body mechanics, Postural training, Flexibilty training, Gait and locomotor training, Neuromotor development, In an aquatic setting, Dynamic Lumbar Stabilization, Scapular Strength/Stabilization For the Purpose of:: To improve muscle performance and motor function Please do not hesitate to contact me at [phone] by phone or if you have questions or concerns regarding this new plan of care! Sincerely, MAXINE FengT
== END 2022-10-31 19:00 | disposition home or self-care (01) ==
LOC: PT 11:30
PROVIDERS: PCP Family Medicine; Referring Provider Family Medicine; Visit Provider Family Medicine
DX: Z72.3 Lack of physical exercise (principal)
CPT/HCPCS: 97113; 97162; 97164

== ENCOUNTER → 2022-12-16 | Outpatient (CLI) | payer MEDICARE, MEDICAID, SELFPAY ==
[2022-12-16 18:15] LABS: Absolute Lymphocyte Count 1.54 X10^3/uL (0.83-4.51); Absolute Neutrophil Count 3.8 X10^3/uL (2.0-7.7); Basophil# 0.03 X10^3/uL; Basophil% 0.5 % (0-1); Eosinophil# 0.13 X10^3/uL; Eosinophils% 2.2 % (0-5); Hematocrit 44.5 % (37-47); Hemoglobin 13.1 g/dL (12.0-15.0); Lymphocyte # 1.54 X10^3/ul (0.83-4.51); Lymphocyte % 25.9 % (19-41); Mean Corp Hgb Conc 29.4 g/dL (32-36); Mean Corpuscular Hgb 27.5 pg (27.0-32.0); Mean Corpuscular Volume 93.3 fL (81-99); Mean Platelet Vol. 12.3 fl (6.2-12.0); Monocyte# 0.41 X10^3/uL; Monocyte% 6.9 % (0-10); NRBC Flagged by Analyzer 0 % (0-5); Neutrophil # 3.82 X10^3/uL (2.7-7.7); Neutrophil % 64.3 % (47-70); Platelet Count 202 K/mm3 (150-450); RBC Distribution Width CV 14.5 % (11.6-14.6); RBC Distribution Width SD 49.5 fl (35.1-43.9); Red Blood Count 4.77 M/mm3 (4.2-5.4); White Blood Count 5.9 K/mm3 (4.4-11.0)
[2022-12-16 19:53] LABS: BNP,B-Type NATRIURETIC PEPTIDE 24.9 pg/mL (0-100)
[2022-12-16 20:56] LABS: ALB/GLOB Ratio 0.9 RATIO (0.9-2.4); AST(SGOT) 14 U/L (15-37); Alanine Aminotransfer ALT/SGPT 16 U/L (13-56); Albumin, Serum 3.5 g/dL (3.2-5.0); Alkaline Phosphatase 83 U/L (45-117); Anion Gap 9 (5-15); BUN 15 mg/dL (7-18); Calcium,Total 8.9 mg/dL (8.5-10.1); Chloride 107 mmol/L (98-107); Creatinine, Serum 0.94 mg/dL (0.55-1.02); EST Glomerular Filtration Rate 64 mL/min (>60); Est Glom Filt Rate - Afr Amer 78 mL/min (>60); Globulin 3.7 g/dL (2.2-4.2); Glucose 132 mg/dL (74-106); Potassium 4.3 mmol/L (3.5-5.1); Protein, Total 7.2 g/dL (6.4-8.2); Sodium Level 141 mmol/L (136-145); Thyroid Stim Hormone (TSH) 1.03 uIU/mL (0.358-3.74)
== END | disposition home or self-care (01) ==
LOC: MTLAB 15:35
PROVIDERS: PCP Family Medicine; Referring Provider Family Medicine; Visit Provider Family Medicine
DX: E11.65 Type 2 diabetes mellitus with hyperglycemia (principal); I50.30 Unspecified diastolic (congestive) heart failure
CPT/HCPCS: 36415; 80053; 83036; 83880; 84443; 85025

== ENCOUNTER → 2022-12-17 | Outpatient (CLI) | payer MEDICARE, MEDICAID, SELFPAY ==
--- NOTE | 2022-12-17 15:12 | CT_ITS ---
EXAM: CT CHEST WITHOUT INTRAVENOUS CONTRAST CLINICAL INDICATION: SOB TECHNIQUE: Helically acquired images were obtained of the chest without intravenous contrast. This CT exam was performed using one or more of the following dose reduction techniques: automated exposure control, adjustment of the mA and/or kV according to patient size, and/or use of iterative reconstruction technique. This report was created using [employer] report generation technology. COMPARISON: 11/29/2021. FINDINGS: LUNGS AND PLEURAL SPACES: Unremarkable. No mass. No consolidation or edema. No pleural effusion or thickening. No pneumothorax. HEART: Unremarkable. Heart size is normal. No pericardial effusion. No significant coronary artery calcifications. MEDIASTINUM: Unremarkable. No mediastinal or hilar adenopathy. Esophagus is unremarkable. No hiatal hernia. THYROID: Unremarkable. No thyroid lesions. BONES/JOINTS: Unremarkable. No suspicious lytic or blastic abnormality. VASCULATURE: Unremarkable. Thoracic aorta is non-dilated. CT/Chest without Contrast IMPRESSION: Negative CT chest without intravenous contrast. Electronically Signed: Evette Crawford MD at 23:52 EDT Reading Location ID and State: [id number] / Tel , Service support ,
== END | disposition home or self-care (01) ==
LOC: CT 14:55
PROVIDERS: PCP Family Medicine; Referring Provider Internal Medicine Pulmonary Disease; Visit Provider Internal Medicine Pulmonary Disease
DX: R06.02 Shortness of breath (principal); I50.9 Heart failure, unspecified
CPT/HCPCS: 71250

== ENCOUNTER 2022-12-24 13:00 | Outpatient (RCR) | payer MEDICARE, MEDICAID, SELFPAY | END 2022-12-26 23:59 | LOC: NS 13:00 | PROVIDERS: PCP Family Medicine; Visit Provider Internal Medicine Pulmonary Disease | DX: Z71.3 Dietary counseling and surveillance (principal); E66.01 Morbid (severe) obesity due to excess calories; Z68.42 Body mass index [BMI] 45.0-49.9, adult; E11.9 Type 2 diabetes mellitus without complications | CPT/HCPCS: G0108 ==

== ENCOUNTER 2023-01-22 14:07 | Outpatient (RCR) | payer MEDICARE, MEDICAID, SELFPAY | END 2023-01-25 23:59 | LOC: DC 14:07 | PROVIDERS: PCP Family Medicine; Referring Provider Internal Medicine Pulmonary Disease; Visit Provider Internal Medicine Pulmonary Disease | DX: E11.9 Type 2 diabetes mellitus without complications; E66.01 Morbid (severe) obesity due to excess calories; Z68.42 Body mass index [BMI] 45.0-49.9, adult | CPT/HCPCS: 97802 ==

== ENCOUNTER 2023-02-04 12:52 | Outpatient (RCR) | payer MEDICARE, MEDICAID, SELFPAY | END 2023-02-25 23:59 | LOC: DC 12:52 | PROVIDERS: PCP Family Medicine; Referring Provider Internal Medicine Pulmonary Disease; Visit Provider Internal Medicine Pulmonary Disease | DX: E11.9 Type 2 diabetes mellitus without complications (principal); E66.01 Morbid (severe) obesity due to excess calories; Z68.42 Body mass index [BMI] 45.0-49.9, adult | CPT/HCPCS: G0108 ==

== ENCOUNTER 2023-04-27 11:17 | Outpatient (CLI) | payer MEDICARE, MEDICAID, SELFPAY ==
[2023-04-27 11:23] LABS: Mucous, Urine 0 SEEN /hpf (<or=2+); Red Blood Cells-Urine 0 SEEN /hpf (0-5)
[2023-04-27 12:20] LABS: Absolute Lymphocyte Count 1.59 X10^3/uL (0.83-4.51); Absolute Neutrophil Count 3.3 X10^3/uL (2.0-7.7); Basophil# 0.02 X10^3/uL; Basophil% 0.4 % (0-1); Eosinophils% 1.9 % (0-5); Hematocrit 43.5 % (37-47); Hemoglobin 13.2 g/dL (12.0-15.0); Lymphocyte # 1.59 X10^3/ul (0.83-4.51); Lymphocyte % 29.9 % (19-41); Mean Corp Hgb Conc 30.3 g/dL (32-36); Mean Corpuscular Hgb 27.6 pg (27.0-32.0); Mean Platelet Vol. 11.2 fl (6.2-12.0); Monocyte# 0.29 X10^3/uL; Monocyte% 5.5 % (0-10); NRBC Flagged by Analyzer 0 % (0-5); Neutrophil % 62.1 % (47-70); Platelet Count 243 K/mm3 (150-450); RBC Distribution Width CV 14.9 % (11.6-14.6); RBC Distribution Width SD 49.6 fl (35.1-43.9); Red Blood Count 4.78 M/mm3 (4.2-5.4); White Blood Count 5.3 K/mm3 (4.4-11.0)
[2023-04-27 12:51] LABS: Color, Urine Yellow (Yellow); Glucose, Dipstick Normal (Normal); Ketone-Dipstick Negative (Negative); Leukocyte Esterase-Dipstick 25 /ul (Negative); Nitrite-Dipstick Negative (Negative); Occult Blood-Urine Negative /ul (Negative); Protein-Dipstick 15 mg/dl (Negative); Urine Bilirubin Dipstick Negative (Negative); Urine Clarity Clear (Clear); Urine Urobilinogen Normal (Normal)
[2023-04-27 13:00] LABS: Bacteria 2+ /hpf (None Seen); Squamous Epithelial Cells - UA 0-5 SEEN /hpf (5-10); White Blood Cells 0-5 SEEN /hpf (0-5)
[2023-04-27 13:18] LABS: Syphilis Antibodies Non-reactive
[2023-04-27 14:21] LABS: Hemoglobin A1c 7.6 % (3.8-5.6)
[2023-04-27 14:32] LABS: ALB/GLOB Ratio 0.8 RATIO (0.9-2.4); AST(SGOT) 12 U/L (15-37); Alanine Aminotransfer ALT/SGPT 15 U/L (13-56); Albumin, Serum 3.1 g/dL (3.2-5.0); Alkaline Phosphatase 94 U/L (45-117); Anion Gap 6 (5-15); BUN 15 mg/dL (7-18); BUN/Creat Ratio 16.8 RATIO (10-20); Calcium,Total 8.8 mg/dL (8.5-10.1); Chloride 107 mmol/L (98-107); EST Glomerular Filtration Rate 68 mL/min (>60); Est Glom Filt Rate - Afr Amer 82 mL/min (>60); Globulin 3.9 g/dL (2.2-4.2); Glucose 136 mg/dL (74-106); Potassium 3.7 mmol/L (3.5-5.1); Sodium Level 140 mmol/L (136-145)
[2023-04-27 14:48] LABS: Microalbumin,Random Urine 12.8 mg/L (NO RANGE EST.); Microalbumin:Creatinine Ratio 6.6 mg/g CRE (<30 mg/g CRE)
== END 2023-04-27 23:59 | disposition home or self-care (01) ==
PROVIDERS: PCP Family Medicine; Referring Provider Family Medicine; Visit Provider Family Medicine
DX: E11.40 Type 2 diabetes mellitus with diabetic neuropathy, unspecified (principal); E11.622 Type 2 diabetes mellitus with other skin ulcer; L98.491 Non-pressure chronic ulcer of skin of other sites limited to breakdown of skin; Z20.9 Contact with and (suspected) exposure to unspecified communicable disease; Z11.3 Encounter for screening for infections with a predominantly sexual mode of transmission
CPT/HCPCS: 36415; 80053; 81001; 82043; 82570; 83036; 85025; 86780; 87070; 87077; 87186; 87205

== ENCOUNTER → 2023-11-06 | Outpatient (CLI) | payer MEDICARE, MEDICAID, SELFPAY ==
[2023-11-06 17:31] LABS: Absolute Lymphocyte Count 0.95 X10^3/uL (0.83-4.51); Absolute Neutrophil Count 9.7 X10^3/uL (2.0-7.7); Basophil# 0.03 X10^3/uL; Basophil% 0.3 % (0-1); Eosinophil# 0.01 X10^3/uL; Eosinophils% 0.1 % (0-5); Hematocrit 48.4 % (37-47); Hemoglobin 15.1 g/dL (12.0-15.0); Lymphocyte # 0.95 X10^3/ul (0.83-4.51); Lymphocyte % 8.5 % (19-41); Mean Corp Hgb Conc 31.2 g/dL (32-36); Mean Corpuscular Hgb 28.7 pg (27.0-32.0); Mean Platelet Vol. 12.3 fl (6.2-12.0); Monocyte# 0.47 X10^3/uL; Monocyte% 4.2 % (0-10); NRBC Flagged by Analyzer 0 % (0-5); Neutrophil # 9.71 X10^3/uL (2.7-7.7); Neutrophil % 86.3 % (47-70); Platelet Count 312 K/mm3 (150-450); RBC Distribution Width CV 13.4 % (11.6-14.6); RBC Distribution Width SD 45.3 fl (35.1-43.9); Red Blood Count 5.26 M/mm3 (4.2-5.4); White Blood Count 11.2 K/mm3 (4.4-11.0)
[2023-11-06 17:47] LABS: Hemoglobin A1c 9.8 % (3.8-5.6)
[2023-11-06 17:53] LABS: ALB/GLOB Ratio 0.9 RATIO (0.9-2.4); AST(SGOT) < 3 U/L (15-37); Alanine Aminotransfer ALT/SGPT 18 U/L (13-56); Albumin, Serum 3.8 g/dL (3.2-5.0); Alkaline Phosphatase 93 U/L (45-117); Anion Gap 9 (5-15); BUN 32 mg/dL (7-18); BUN/Creat Ratio 21.6 RATIO (10-20); Calcium,Total 9.2 mg/dL (8.5-10.1); Chloride 94 mmol/L (98-107); Creatinine, Serum 1.48 mg/dL (0.55-1.02); EST Glomerular Filtration Rate 38 mL/min (>60); Est Glom Filt Rate - Afr Amer 46 mL/min (>60); Globulin 4.1 g/dL (2.2-4.2); Glucose 425 mg/dL (74-106); Protein, Total 7.9 g/dL (6.4-8.2); Sodium Level 135 mmol/L (136-145); Thyroid Stim Hormone (TSH) 0.35 uIU/mL (0.358-3.74)
== END | disposition home or self-care (01) ==
LOC: MFPLAB 15:05
PROVIDERS: PCP Family Medicine; Visit Provider Family Medicine
DX: E11.40 Type 2 diabetes mellitus with diabetic neuropathy, unspecified (principal)
CPT/HCPCS: 36415; 80053; 83036; 84443; 85025

== ENCOUNTER → 2024-03-18 | Outpatient (CLI) | payer MEDICARE, MEDICAID, SELFPAY ==
[2024-03-18 18:12] LABS: Hemoglobin A1c 8.5 % (3.8-5.6)
[2024-03-18 18:37] LABS: ALB/GLOB Ratio 0.9 RATIO (0.9-2.4); AST(SGOT) 15 U/L (15-37); Alanine Aminotransfer ALT/SGPT 23 U/L (13-56); Albumin, Serum 3.6 g/dL (3.2-5.0); Alkaline Phosphatase 85 U/L (45-117); Anion Gap 8 (5-15); BUN 13 mg/dL (7-18); BUN/Creat Ratio 12.6 RATIO (10-20); Calcium,Total 9.2 mg/dL (8.5-10.1); Chloride 102 mmol/L (98-107); Creatinine, Serum 1.03 mg/dL (0.55-1.02); EST Glomerular Filtration Rate 57 mL/min (>60); Est Glom Filt Rate - Afr Amer 70 mL/min (>60); Free T3 2.1 pg/mL (2.18-3.98); Globulin 3.9 g/dL (2.2-4.2); Glucose 279 mg/dL (74-106); Potassium 3.9 mmol/L (3.5-5.1); Protein, Total 7.5 g/dL (6.4-8.2); Sodium Level 137 mmol/L (136-145); T4 Free Direct 0.87 ng/dL (0.76-1.46); Thyroid Stim Hormone (TSH) 0.99 uIU/mL (0.358-3.74)
== END | disposition home or self-care (01) ==
LOC: MFPLAB 16:49
PROVIDERS: PCP Family Medicine; Visit Provider Family Medicine
DX: E11.8 Type 2 diabetes mellitus with unspecified complications (principal); R94.6 Abnormal results of thyroid function studies
CPT/HCPCS: 36415; 80053; 83036; 84439; 84443; 84481

== ENCOUNTER → 2024-07-19 | Outpatient (CLI) | payer MEDICARE, MEDICAID, SELFPAY ==
[2024-07-19 10:08] LABS: Absolute Lymphocyte Count 1.34 X10^3/uL (0.83-4.51); Absolute Neutrophil Count 3.1 X10^3/uL (2.0-7.7); Basophil# 0.02 X10^3/uL; Basophil% 0.4 % (0-1); Eosinophil# 0.12 X10^3/uL; Eosinophils% 2.5 % (0-5); Hematocrit 45.6 % (37-47); Hemoglobin 14.6 g/dL (12.0-15.0); Lymphocyte # 1.34 X10^3/ul (0.83-4.51); Lymphocyte % 27.5 % (19-41); Mean Corpuscular Hgb 29.9 pg (27.0-32.0); Mean Corpuscular Volume 93.4 fL (81-99); Mean Platelet Vol. 10.9 fl (6.2-12.0); Monocyte# 0.32 X10^3/uL; Monocyte% 6.6 % (0-10); NRBC Flagged by Analyzer 0 % (0-5); Neutrophil # 3.06 X10^3/uL (2.7-7.7); Neutrophil % 62.8 % (47-70); Platelet Count 231 K/mm3 (150-450); RBC Distribution Width CV 13.6 % (11.6-14.6); RBC Distribution Width SD 46.5 fl (35.1-43.9); Red Blood Count 4.88 M/mm3 (4.2-5.4); White Blood Count 4.9 K/mm3 (4.4-11.0)
[2024-07-19 10:28] LABS: Hemoglobin A1c 7.4 % (3.8-5.6)
[2024-07-19 10:34] LABS: AST(SGOT) 9 U/L (15-37); Alanine Aminotransfer ALT/SGPT 15 U/L (13-56); Albumin, Serum 3.7 g/dL (3.2-5.0); Alkaline Phosphatase 93 U/L (45-117); Anion Gap 6 (5-15); BUN 11 mg/dL (7-18); BUN/Creat Ratio 12.5 RATIO (10-20); Calcium,Total 8.8 mg/dL (8.5-10.1); Chloride 104 mmol/L (98-107); Creatinine, Serum 0.88 mg/dL (0.55-1.02); EST Glomerular Filtration Rate 69 mL/min (>60); Est Glom Filt Rate - Afr Amer 83 mL/min (>60); Globulin 3.8 g/dL (2.2-4.2); Glucose 175 mg/dL (74-106); Potassium 3.8 mmol/L (3.5-5.1); Protein, Total 7.5 g/dL (6.4-8.2); Sodium Level 139 mmol/L (136-145); T4 Free Direct 0.92 ng/dL (0.76-1.46)
== END | disposition home or self-care (01) ==
LOC: MTLAB 08:13
PROVIDERS: PCP Family Medicine; Referring Provider Family Medicine; Visit Provider Family Medicine
DX: E11.8 Type 2 diabetes mellitus with unspecified complications (principal); M19.90 Unspecified osteoarthritis, unspecified site; R94.6 Abnormal results of thyroid function studies
CPT/HCPCS: 36415; 80053; 83036; 84439; 84443; 85025

== ENCOUNTER 2024-08-23 08:30 | Outpatient (RCR) | payer MEDICARE, MEDICAID, SELFPAY ==
--- NOTE | 2024-07-27 08:55 | HP.PTEVAL_ITS ---
Patient's Visit Information Visit Information Visit Information: PAULIE ALFARO is a 63 year old F referred to Physical Therapy by Dr. Robin Marion MD with a diagnosis of OBESITY ,LEG PAINS. Date of Evaluation: 07/27/24 Physical Therapist: Flo Sorto, PT, Cert MDT, OCS Visit Plan Frequency: 1-2x /Week Duration: 6 Weeks Plan: PT INTERVENTIONS AEROBIC EX'S ,GENERALIZED STRENGTH BUE/LE ,FUNCTIONAL S TRENGTHENING ,DLS AND FLEXABILITY Subjective Subjective: This 63 y/o female presents to physical therapy for physical deconditioned . Patient seen DR for routine visit. Dr recommended . Patient had episode after falling and landed on left knee. Patient has left knee pain. No other falls. Denies paresthesia/tingling. Sleeping good. Patient is unable to squat and kneeling. Patient has some difficulty ascended/descended steps. Patient denies SOB. Patient lives step son. Patient has difficulty with ADLS and housework tasks. Patient goals to get stronger and build muscle SOCIAL: VOCATION:retired Pain Left Knee: Pain Intensity (Out of 10): 5 Pain Intensity Range: 10 Objective Objective: POSTURE: mild forward posture PALAPTION: SI/LS NEURO: denies paresthesia/tingling FLEXABILITY: hamstrings min tight LUMBAR ROM: flexion mod loss ,extension mod loss ,side glides mod loss MMT: quads/hams 4/5 ,( peak force) hip flexion right 233,8 ,left 24.8 ,hip abd right 18.6 ,left 18.5 AROM : supine knee flexion 0-120 degrees STAIRS: descend one step at time Special Tests L/S Slump test left side: Negative L/S Slump test right side: Negative L/S Left Straight Leg Raise: Negative L/S Right Straight Leg Raise: Negative Balance/Special Test Scores Lower Extremity Functional Score: 35 Goals Goal 1:: I with HEP deconditioned Goal Time Frame: 4-6 Weeks Goal 2:: Patient to demonstrated 50% improvement with increase function and strength Goal Time Frame: 4-6 Weeks Goal 3:: Patient to improve LFES score by 5 points to improve ADLS and function Goal Time Frame: 4-6 Weeks Goal 4:: Patient to improve peak force hips by 5-10# to improve function and ADLS Goal Time Frame: 4-6 Weeks Rehabilitation Potential Physical Therapy Diagnosis: This patient is generalized deconditioned with weakness in hips and pain in left leg knee thus benefit from skilled PT Rehabilitation Potential: Good Anticipated Interventions Patient/Client Instruction: Educate patient on: Condition and Plan of Care For the Purpose of:: To decrease pain, To increase ROM, To improve muscle performance and motor function, To improve ability to perform ADL's, To increase tolerance to activity/condition/position, To improve ability of physical actions for home/community/work/leisure, To improve health of tissue, To increase flexibility/ROM, To improve endurance and To improve balance Therapeutic Exercise to Include: Strength training, Endurance training, Balance training, Postural training, Flexibilty training and Dynamic Lumbar Stabilization For the Purpose of:: To decrease pain, To increase ROM, To improve muscle performance and motor function, To improve ability to perform ADL's, To increase tolerance to activity/condition/position, To improve ability of physical actions for home/community/work/leisure, To improve health of tissue, To decrease soft tissue restriction, To increase flexibility/ROM and To improve tolerance to ADL's Text: Thank you for the opportunity to evaluate your patient. For Medicare and Medicare HMO plans, please review the plan of care and approve it. It will need to be FAXED BACK to us at [phone] for Medicare purposes. For Medicare only, by signing this I certify the plan of care. Please let me know if there are questions or concerns regarding this plan of care. Physician Signature: Date:
--- NOTE | 2024-09-27 16:05 | HP.PT.NRP ---
Patient Information Patient Information: PAULIE ALFARO was seen in my office for initial evaluation on 07/27/24. The following Plan of Care was established for this patient: POC Established Initial Frequency: 1-2x /Week Initial Duration: 6 Weeks Anticipated Interventions Patient/Client Instruction: Educate patient on: Condition and Plan of Care For the Purpose of:: To decrease pain, To increase ROM, To improve muscle performance and motor function, To improve ability to perform ADL's, To increase tolerance to activity/condition/position, To improve ability of physical actions for home/community/work/leisure, To improve health of tissue, To increase flexibility/ROM, To improve endurance and To improve balance Therapeutic Exercise to Include: Strength training, Endurance training, Balance training, Postural training, Flexibilty training and Dynamic Lumbar Stabilization For the Purpose of:: To decrease pain, To increase ROM, To improve muscle performance and motor function, To improve ability to perform ADL's, To increase tolerance to activity/condition/position, To improve ability of physical actions for home/community/work/leisure, To improve health of tissue, To decrease soft tissue restriction, To increase flexibility/ROM and To improve tolerance to ADL's Last Seen Last Seen: This patient was last seen in our office . Pertinent comments regarding their Physical therapy will appear below: Patient was seen for PT for generalized condition with gym program thus d/c At this point I will be discontinuing this patient from physical therapy. I would be happy to see this patient again in the future if found appropriate by the physician. Thank you! Flo Sorto, PT, Cert MDT, OCS Balance/Gait/Functional tests Balance/Special Test Scores Lower Extremity Functional Score: 35
== END 2024-08-23 19:00 | disposition home or self-care (01) ==
LOC: PT 08:30
PROVIDERS: PCP Family Medicine; Referring Provider Family Medicine; Visit Provider Family Medicine
DX: E66.9 Obesity, unspecified (principal); M79.606 Pain in leg, unspecified
CPT/HCPCS: 97110; 97162

== ENCOUNTER → 2024-11-03 | Outpatient (CLI) | payer MEDICARE, MEDICAID, SELFPAY ==
[2024-11-03 17:43] LABS: Absolute Lymphocyte Count 1.24 X10^3/uL (0.83-4.51); Absolute Neutrophil Count 3.2 X10^3/uL (2.0-7.7); Basophil# 0.02 X10^3/uL; Basophil% 0.4 % (0-1); Eosinophil# 0.18 X10^3/uL; Eosinophils% 3.6 % (0-5); Hematocrit 44.1 % (37-47); Hemoglobin 13.6 g/dL (12.0-15.0); Lymphocyte # 1.24 X10^3/ul (0.83-4.51); Lymphocyte % 24.8 % (19-41); Mean Corp Hgb Conc 30.8 g/dL (32-36); Mean Corpuscular Hgb 28.5 pg (27.0-32.0); Mean Corpuscular Volume 92.5 fL (81-99); Mean Platelet Vol. 12.1 fl (6.2-12.0); Monocyte# 0.32 X10^3/uL; Monocyte% 6.4 % (0-10); NRBC Flagged by Analyzer 0 % (0-5); Neutrophil # 3.23 X10^3/uL (2.7-7.7); Neutrophil % 64.6 % (47-70); Platelet Count 228 K/mm3 (150-450); RBC Distribution Width CV 13.6 % (11.6-14.6); RBC Distribution Width SD 46.5 fl (35.1-43.9); Red Blood Count 4.77 M/mm3 (4.2-5.4)
[2024-11-03 18:33] LABS: ALB/GLOB Ratio 0.9 RATIO (0.9-2.4); AST(SGOT) 14 U/L (15-37); Alanine Aminotransfer ALT/SGPT 21 U/L (13-56); Albumin, Serum 3.5 g/dL (3.2-5.0); Alkaline Phosphatase 85 U/L (45-117); Anion Gap 7 (5-15); BUN 13 mg/dL (7-18); BUN/Creat Ratio 11.1 RATIO (10-20); Chloride 103 mmol/L (98-107); Creatinine, Serum 1.17 mg/dL (0.55-1.02); EST Glomerular Filtration Rate 50 mL/min (>60); Est Glom Filt Rate - Afr Amer 60 mL/min (>60); Globulin 3.7 g/dL (2.2-4.2); Glucose 233 mg/dL (74-106); Protein, Total 7.2 g/dL (6.4-8.2); Sodium Level 139 mmol/L (136-145); Thyroid Stim Hormone (TSH) 0.921 uIU/mL (0.358-3.740)
== END | disposition home or self-care (01) ==
LOC: MFPLAB 14:56
PROVIDERS: PCP Family Medicine
DX: M54.2 Cervicalgia (principal)
CPT/HCPCS: 36415; 80053; 83036; 84443; 85025

== ENCOUNTER → 2024-12-27 | Outpatient (CLI) | payer MEDICAID, SELFPAY ==
--- NOTE | 2024-12-27 16:05 | RAD_ITS ---
PROCEDURE: CERV SPINE 4 OR 5 VIEWS 12/27/2024 REASON FOR EXAM: CERVICAL RADICULOPATHY TECHNIQUE: 6 views of the cervical spine. Were obtained including oblique views. COMPARISON: None FINDINGS: Vertebrae: Anterior spondylosis. disc spaces: Disc space narrowing at the C5-C6 and C6-C7 levels. Alignment: Straightening of the normal cervical lordosis. soft tissues: Unremarkable Other: RAD/Cerv Spine 4 or 5 Views IMPRESSION: MILD CERVICAL DEGENERATIVE CHANGES. Disclaimer: Reading Location: [facility]
== END | disposition home or self-care (01) ==
LOC: MTRAD 16:02
PROVIDERS: PCP Family Medicine; Referring Provider Family Medicine; Visit Provider Family Medicine
DX: M54.12 Radiculopathy, cervical region (principal)
CPT/HCPCS: 72050

== ENCOUNTER 2025-01-03 16:30 | Outpatient (RCR) | payer MEDICARE, MEDICAID, SELFPAY ==
--- NOTE | 2025-02-27 15:42 | HP.PTEVAL ---
Patient's Visit Information Visit Information Visit Information: PAULIE ALFARO is a 64 year old F referred to Physical Therapy by GEE Serrano with a diagnosis of Cervicalgia. Date of Evaluation: 11/28/24 Physical Therapist: Sourav Wan DPT Visit Plan Frequency: 1x/Week Duration: 6 Weeks Plan: DR to R UT, cervical retraction and extension progression. Manual to R UT. HEP at IE: cervical retraction in supine, R UT stretch Subjective Subjective: pt. is here today for her initial evaluation with diagnosis of cervical spine pain. Pt. reports having pain for a period of time now without reports of mech of injury. Pt. reports having mostly R sided pain that goes down her R arm at times. Pt. reports no loss of strength, but has increased pain with all movements. Pt. has not tried injections or arm. Pt. reports physician suggested dry needling and some stretching. Pt. reports increase pain with all cervical spine movements, any lifting and with sleeping. She reports the pain goes from her neck to her arm, but stops at mid arm. Pt. is hopeful to reduce symptoms in order to get back to all activities without limtiations. Pain Cervical spine R side: Pain Intensity (Out of 10): 5 Pain Intensity Range: 3 and 8 Objective Objective: POSTURE: Pt. has marked FH posture, rounded shoulders, with marked increased in thoracic kyphosis. PALPATION: Pt. has marked tenderness throughout cervical spine. Pt. has hypomobility noted throughout C4-C7 pain associated with testing as well. NEURO: normal sensation in BUEs. Pt. has normal DTR in BUEs. ROM: CERVICAL SPINE: flexion min loss increase NW, ext mod loss increase NE, rotation R and L mod loss increase NW, SB min loss bilat NE. Pt. has normal B shoulder ROM without increase in symptoms. MMT: Pt. has 5-/5 throughout B shoulders. No myotomal weakness noted. SYmmetrical retail representative strength noted. Special Tests C/S Radiculapathy - Left Spurlings: Negative C/S Radiculapathy - Left Cervical distraction: Negative C/S Radiculapathy - Right Cervical distraction: Negative Cervical Sitting: Protrusion - Mechanical Response: No effect Cervical Sitting: Protrusion - Symptoms During Testing: Increases Cervical Sitting: Protrusion - Symptoms After Testing: No worse Cervical Sitting: Retraction - Mechanical Response: No effect Cervical Sitting: Retraction - Symptoms During Testing: Increases Cervical Sitting: Retraction - Symptoms After Testing: No worse Cervical Sitting: Rotation Right - Mechanical Response: No effect Cervical Sitting: Rotation Right - Symptoms During Testing: Increases Cervical Sitting: Rotation Right - Symptoms After Testing: No worse Cervical Sitting: Rotation Left - Mechanical Response: No effect Cervical Sitting: Rotation Left - Symptoms During Testing: Increases Cervical Sitting: Rotation Left - Symptoms After Testing: No worse Cervical Sitting: Flexion - Mechanical Response: No effect Cervical Sitting: Flexion - Symptoms During Testing: Increases Cervical Sitting: Flexion - Symptoms After Testing: No worse Balance/Special Test Scores Oswestry Neck Score: 23 Goals Goal 1:: LTG: pt to be I with HEP. Goal Time Frame: 4-6 Weeks Goal 2:: STG: Pt. to have improved cervical ROM to full without increase in symptoms. Goal Time Frame: 2-4 Weeks Goal 3:: LTG: Pt. to be able to sleep throughout the night without increase in symptoms. Goal Time Frame: 4-6 Weeks Goal 4:: LTG: Pt. to have no radicular symptoms in her R UE. Goal Time Frame: 4-6 Weeks Rehabilitation Potential Physical Therapy Diagnosis: Pt. sal[place] signs and symptoms consistent with cervicalgia with R sided pain. Pt. does has some pain that extends down her arm to elbow region. No pain in hand. Pt. has marked hypomobility of her cervical spine and tightness in her B UT region. Pt. would benefit from PT to address the above limitations. Rehabilitation Potential: Good Anticipated Interventions Patient/Client Instruction: Educate patient on: Condition, Plan of Care, Risk Factors and Benefits of Fitness Program For the Purpose of:: To foster healthy habits, To improve decision making, To facilitate caregiver knowledge, To improve self management, To prevent re-injury and To improve ability to perform tasks related to life management Therapeutic Exercise to Include: Strength training, Body mechanics, Postural training, Passive ROM, Active ROM and Scapular Strength/Stabilization For the Purpose of:: To decrease pain, To increase ROM, To improve nutrient delivery to tissue, To increase oxygenation perfusion, To improve muscle performance and motor function, To improve ability to perform ADL's and To increase tolerance to activity/condition/position Manual Therapy Techniques to Include: Mobilization, Functional dry needling and Soft tissue mobilization For the Purpose of:: To decrease pain, To decrease swelling/inflammation, To increase ROM, To improve nutrient delivery to tissue and To increase oxygenation perfusion Text: Thank you for the opportunity to evaluate your patient. For Medicare and Medicare HMO plans, please review the plan of care and approve it. It will need to be FAXED BACK to us at [phone] for Medicare purposes. For Medicare only, by signing this I certify the plan of care. Please let me know if there are questions or concerns regarding this plan of care. Physician Signature: Date:
--- NOTE | 2025-02-27 15:53 | HP.PTDCSUM_ITS ---
Discharge Summary D/C summary: It has been my pleasure to treat PAULIE ALFARO referred by Cinda Birmingham NP- C, with the diagnosis of Cervicalgia for a total of 3 visit(s). Discharge Date: 01/03/25 Please see the following information for a summary of their discharge status. Subjective Subjective: Pt. reports that her symptoms feel worse than they did before. Pt. reports dry needling increase in her numbness in her arm. Pt. reports having numbness for multiple days. She has not done much of her exercises due to increasing symptoms. Pain Cervical spine R side: Pain Intensity (Out of 10): 5 Overall Improvement % Improvement: 0 Objective Objective/Function: ROM: cervical spine: flexion nil loss mild increase NW, ext mod loss increase NW, SB min loss NE bilat, rotation min loss bilat increase NW. Pt. has N/T into her R elbow region, but is more consistent than it was. Pt. has 5-/5 B UE strength, no myotomal weakness noted. Pt. reports having having much change with her exercises. Pt. would like to return back to physician at this point in time. Pt. reports no major change in her symptoms. Pt. has not really progressed much with her goals. I would recommend that she return to physcian at this point in time. Goals Goal 1:: LTG: pt to be I with HEP. Goal Progress: Progressing Goal 2:: STG: Pt. to have improved cervical ROM to full without increase in symptoms. Goal Progress: Not Progressing Goal 3:: LTG: Pt. to be able to sleep throughout the night without increase in symptoms. Goal Progress: Not Progressing Goal 4:: LTG: Pt. to have no radicular symptoms in her R UE. Goal Progress: Not Progressing Plan Plan: DR to R UT, cervical retraction and extension progression. Manual to R UT. HEP at IE: cervical retraction in supine, R UT stretch D/C Information d/c sentence: If there are questions or concerns regarding this patient's physical therapy, please feel free to call me at [phone]. Thank you for the referral of this patient. Sincerely, Sourav Rivero Sipos, DPT Balance/Gait/Functional tests Balance/Special Test Scores Oswestry Neck Score: 23 Improvement % Improvement: 0
== END 2025-01-03 19:00 | disposition home or self-care (01) ==
LOC: PT 16:30
PROVIDERS: PCP Family Medicine
DX: M54.2 Cervicalgia (principal)
CPT/HCPCS: 97110; 97140; 97161; 97530

== ENCOUNTER → 2025-01-10 | Outpatient (CLI) | payer MEDICARE, MEDICAID, SELFPAY ==
--- NOTE | 2025-01-10 16:21 | BI_ITS ---
EXAM: SCRN MAMM (CAD)W/DELANEY BILAT DATE: 01/10/2025 CLINICAL HISTORY: F, Age 64 y/o , SCREENING No family history. BREAST CANCER RISK ASSESSMENT: Not assessed. TECHNIQUE: Bilateral screening digital breast tomosynthesis with 2D and 3D images. Computer aided detection. COMPARISON: Prior exam(s) dated comparison is made with prior study of February 05, 2021.. FINDINGS: TISSUE DENSITY: The breast tissue is heterogenously dense, which may obscure small masses. Bilateral Breast Mammographic Findings: No significant masses, calcifications or other abnormalities are identified. No suspicious masses, areas of developing architectural distortion, or suspicious calcifications. There has been no significant interval change. BI/SCRN MAMM (CAD)W/DELANEY BILAT IMPRESSION: Right Breast: BIRADS 1 NEGATIVE. Left Breast: BIRADS 1 NEGATIVE. OVERALL FINAL ASSESSMENT: BIRADS 1 NEGATIVE RECOMMENDATION: Routine annual follow-up in 1 Year A letter with findings and recommendations will be mailed to the patient. Reading Location: [place] [id number]
== END | disposition home or self-care (01) ==
LOC: OPBI 16:19
PROVIDERS: PCP Family Medicine; Referring Provider Family Medicine; Visit Provider Family Medicine
DX: Z12.31 Encounter for screening mammogram for malignant neoplasm of breast (principal)
CPT/HCPCS: 77063; 77067

== ENCOUNTER → 2025-02-17 | Outpatient (CLI) | payer MEDICARE, MEDICAID, SELFPAY ==
--- NOTE | 2025-02-17 10:52 | MRI_ITS ---
PROCEDURE: SPINE CERVICAL (ROUTINE) 02/17/2025 REASON FOR EXAM: NECK PAIN ARM NUMBNESS TECHNIQUE: T1, T2, stir, multiplanar and multisequence images were obtained without IV contrast administration. COMPARISON: December 27, 2024 x-ray FINDINGS: There is loss of the lordosis. Vertebral body height is maintained. The alignment is maintained. Vertebral body marrow signal is normal. The intervertebral disc signal shows desiccation. C2-C3: There is minimal central disc protrusion. There is no lateral recess or foraminal stenosis. There is no central canal stenosis. C3-C4: There is mild central disc protrusion. There is no lateral recess or foraminal stenosis. There is mild central canal stenosis. C4-C5: There is moderate central and mild right and left paracentral disc and osteophyte protrusion. There is no significant lateral recess stenosis or foraminal narrowing. There is moderate central canal stenosis. C5-C6: There is disc extrusion which extends into the right lateral recess and proximal portion of the right neural foramen, with a fragment attached at the disc margin measuring 1.3 x 0.6 by 1.0 cm. There is severe right lateral recess and mild left lateral recess stenosis. There is severe right foraminal narrowing and mild left foraminal narrowing. There is moderate central canal stenosis. C6-C7: There is moderate central and right and left paracentral disc and osteophyte protrusion. There is mild right and moderate left lateral recess stenosis. There is mild left foraminal narrowing secondary to disc and osteophyte protrusion. There is moderate central canal stenosis. C7-T1: There is no significant disc protrusion. There is no lateral recess or foraminal stenosis. There is no central canal stenosis. The visualized cord shows mild atrophy from C4-6. Adjacent soft tissues are grossly unremarkable. MRI/Spine Cervical (Routine) IMPRESSION: There is loss of the lordosis. The visualized cord shows mild atrophy from C4-6. There is disc extrusion at C5-6. There is mild central canal stenosis at C3-4, moderate central canal stenosis a t C4-5, C5-6, and C6-7, with lateral recess and foraminal narrowing. Reading Location: [place]
== END | disposition home or self-care (01) ==
LOC: MRI 10:49 → OPMRI 11:08
PROVIDERS: PCP Family Medicine; Referring Provider Family Medicine; Visit Provider Family Medicine
DX: M54.12 Radiculopathy, cervical region (principal)
CPT/HCPCS: 72141

== ENCOUNTER 2025-03-22 05:53 | Day surgery (SDC) | payer MEDICARE, MEDICAID, SELFPAY ==
--- NOTE | 2025-03-21 16:23 | PAT.ANE_ITS ---
Pre-Assessment Diagnosis/Proposed Procedure Planned Operative Procedure(s): COLONOSCOPY, EGD Anesthesia History Anesthesia History - fitness sales consultant: Anesthesia History - fitness sales consultant Hx Hospitalization No 03/21/25 10:19 Any Problems With Anesthesia No 03/21/25 10:19 Cholinesterase deficiency No 03/21/25 10:19 You/Your Family Experience No 03/21/25 10:19 fever (hyperthermia) with Relationship Recent Exposure to Contagious No 02/07/20 15:30 Disease Does patient have nerve No 03/21/25 10:19 stimulator Patient instructed to have device shut off --Does patient have Pacemaker or ICD? When Was Last Pacemaker Check QUESTION #4 FULL TEXT: You/Your Family Experience fever (hyperthermia) with Anesthesia Last Oral Intake Last Oral intake: Last Oral Intake NPO since Meds taken in AM with sips of water? Meds patient instructed to take am of surgery PONV PONV - fitness sales consultant: PONV - fitness sales consultant Female Yes 03/21/25 10:19 HX of Motion Sickness No 03/21/25 10:19 HX of N/V After Surgery No 03/21/25 10:19 Non-Smoker Yes 03/21/25 10:19 Duration of Surgery greater No 03/21/25 10:19 than 60 minutes Number of Risk Factors 2 03/21/25 10:19 PONV Score Moderate Risk 03/21/25 10:19 Height & Weight Height & Weight: Anesthesia: Height & Weight Height 5 ft 6 in 03/17/25 10:47 Respiratory Assessment Respiratory Assessment - fitness sales consultant: Respiratory Tract Infection Hx - fitness sales consultant Hx Respiratory Tract Infection No 03/21/25 10:19 STOP Sleep Apnea STOP Sleep Apnea - fitness sales consultant: STOP Sleep Apnea - fitness sales consultant Hx Hypertension Yes: CONTROLLED WITH MEDS 03/21/25 10:19 Hx Sleep Apnea Yes 03/21/25 10:19 CPAP Yes 03/21/25 10:19 BIPAP No 03/21/25 10:19 Do you snore loudly (louder than talking or can be heard Do you often feel tired/ fatigued/ sleepy during daytime? Has anyone observed you stop breathing during sleep? STOP Results Positive 03/21/25 10:19 QUESTION #5 FULL TEXT : Do you snore loudly (louder than talking or can be heard through closed doors)? Tobacco Use History Tobacco Use History - fitness sales consultant: Tobacco Use History - fitness sales consultant Tobacco Use Smoking Status Former smoker 03/21/25 10:19 Hx Tobacco Use No 03/21/25 10:19 Years Smoking Packs Smoked per Day Smoking Cessation Date was No - quit smoking greater 03/21/25 10:19 within the last 15 years than 15 years ago Hx Smoking Cessation Date Hx Smoking Cessation Counseling Hematologic Medial History Hematologic Hx - fitness sales consultant: Hematologic Medical Hx - documentation improvement specialist Hx of Blood Transfusion No 03/21/25 10:19 Hx of Transfusion in last 3 No 03/21/25 10:19 Months Date of Last Transfusion (if within last 3 months) Ever experience any problems No 03/21/25 10:19 with transfusion(s)? Specify any problems Hx of Preganancy in last 3 No 03/21/25 10:19 Months Nurse Filling Out Transfusion [id number] 03/21/25 10:19 & Questions: Date: 03/21/25 03/21/25 10:19 Time: 10:03/21/25 10:19 Patient unable to answer at this time (ie. confused, unrespo /Reproduction History /Reproductive History - fitness sales consultant: /Reproductive Hx- fitness sales consultant Hx Now Gestational Age (in weeks): EDC: Hx Hx Para Hx Section SAB PFSH Medical History (Updated 03/21/25 @ 10:26 by Adrian Aguero) Wears hearing aid Wears glasses Spinal stenosis History of stress test History of echocardiogram Cardiology follow-up encounter Gastric reflux Generalized anxiety disorder Hx of adenomatous polyp of colon Type 2 diabetes mellitus Diabetic peripheral neuropathy Pure hypercholesterolemia Essential hypertension CPAP (continuous positive airway pressure) dependence Pneumonia due to COVID-19 virus Benign essential hypertension Diabetes Hx of blurred vision Gall stone Neuropathy History of back problems Arthritis Allergies Diarrhea HTN (hypertension) No significant past medical history Home Medications ?Medication ?Instructions ?Recorded ?Last Taken ?Type metronidazole 0.75 % topical gel 1 applic topical QHS redness 09/09/19 12/22/21 History mometasone 0.1 % topical cream 1 applic topical DAILY redness 09/09/19 12/22/21 History blood sugar diagnostic (ReliOn #150 ea 04/12/20 Unknow n Rx Prime Test Strips) blood-glucose meter (ReliOn Prime #1 ea 04/12/20 Unkno wn Rx Meter) flash glucose sensor (FreeStyle #2 ea 07/06/20 Unknown Rx Joseluis 14 Day Sensor kit) gabapentin 600 mg tablet 600 mg PO .COMPLEX pain 06/29 05/19 Unknown History pioglitazone 30 mg tablet 30 mg PO DAILY 07/25/22 Unkn own History spironolactone 100 mg tablet 100 mg PO DAILY 07/25/22 Unknown History insulin lispro 100 unit/mL 1 sliding scale dose subcut 07/31/22 Unknown History subcutaneous pen (Humalog KwikPen USEASDIRECTD (U-100) Insulin) cholecalciferol (vitamin D3) 125 125 mcg PO DAILY 07/3003/17/25 History mcg (5,000 unit) capsule diclofenac sodium 1 % topical gel 4 g topical ONCE Unknown History (Arthritis Pain (diclofenac)) glucagon HCl 1 mg solution for 1 mg subcut Q20M PRN hy poglycemia 08/25/23 Unknown History injection (Glucagon (HCl) Emergency Kit) hydrochlorothiazide 25 mg tablet 25 mg PO DAILY Unknown History insulin aspart U-100 100 unit/mL 34 unit subcut BID Unknown History (3 mL) subcutaneous pen insulin glargine 100 unit/mL (3 30 unit subcut DAILY d iabetes 08/25/23 Unknown History mL) subcutaneous pen (Lantus Solostar U-100 Insulin) triamcinolone acetonide 0.1 % 1 applic topical BID Unknown History topical cream tirzepatide 7.5 mg/0.5 mL 7.5 mg subcut QWEEK 02/15/25 03/15/25 History subcutaneous pen injector (Mounjaro) duloxetine 30 mg capsule,delayed 30 mg PO DAILY Unknown History release trazodone 50 mg tablet 50 mg PO QHS 03/21/25 Unknow n History Allergy/AdvReac Type Severity Reaction Status Date / Time lisinopril Allergy Mild feels Verified 03/21/25 10:13 horrible animal dander Allergy Rhinitis Verified 03/21/25 10:13 house dust mite Allergy Rhinitis Verified 03/21/25 10:13 Seasonal Allergies: Uncoded Allergy Sneezing, Verified 03/21/25 10:13 Rhinitis Family History Grandfather Cancer Mother Cancer Diabetes Surgical History Hx of colonoscopy History of tubal ligation Hx laparoscopic cholecystectomy Social History household members: spouse current occupational status: disabled Smoking Status: Former smoker alcohol intake: current details: Social substance use type: does not use caffeine: Yes Type: tea Audit: Pertinent Findings Pertinent Findings EKG Perinent findings: 07/31/2022. Sinus rhythm. RSR in V1?nondiagnostic. Nonspecific T abnormality. Stress test pertinent findings: September 09, 2022. EF of 73%. Rest and stress SPECT demonstrate relatively uniform tracer uptake and myocardial perfusion. Echo (EF%) pertinent findings: 07/23/2022. EF 65%. No aortic stenosis is noted. Consult pertinent findings: 09/15/2022. Jamal FLYNN. 1. Dyspnea on exertion?acute-patient continues to have dyspnea on exertion which apparently started after her COVID diagnosis.. She does have underlying pulmonary disease. Most recent cardiac workup has been negative. Check chest x-ray. 2. Palpitations?acute-most recent event monitor was normal sinus rhythm with a PAC burden of 0.1%. 3. Hypertension?acute-BP is slightly elevated in the office today. Patient had not taken her morning meds. Patient is to monitor blood pressures at home and notify office for any persistent readings. Recommendation Anesthesia Recommendation Anesthesia recommendation: OPTIMIZED for anesthesia
[2025-03-22] VITALS (7 sets, daily range): BP systolic 102–135; BP diastolic 61–84; PULSE 71–84; RESP 16–20; TEMP 36.1–36.6; O2SAT 98–100; BMI 38.7
--- OUTSIDE RECORDS SUMMARY | 2025-03-22 05:57 | XMS RPT_ITS | CCD ---
Author Organization [facility] Care Team Providers Care Drugless Physician Name Role Phone Manny PROPERTY MANAGEMENT SUPERVISOR, Ondina L Unavailable Unavailable Manny PROPERTY MANAGEMENT SUPERVISOR, Ondina L Unavailable Unavailable Manny PROPERTY MANAGEMENT SUPERVISOR, Ondina L Unavailable Unavailable Manny PROPERTY MANAGEMENT SUPERVISOR, Ondina L Unavailable Unavailable Manny PROPERTY MANAGEMENT SUPERVISOR, Ondina L Unavailable Unavailable Manny PROPERTY MANAGEMENT SUPERVISOR, Ondina L Unavailable Unavailable Manny PROPERTY MANAGEMENT SUPERVISOR, Ondina L Unavailable Unavailable Dr. Saturnino Marion Primary Care Provider [phone] Heriberto Lomax Emergency Provider [phone] Yosvany Hernandez Admit Provider Dr. Yosvany Hernandez Other Provider Ramon SERVICE PROVIDER, SERVICE PROVIDER-C Amy Attending Provider Dr. Cammy Perez Attending Provider Dr. Saturnino Marinelli Other Provider Dr. Yosvany Hernandez Attending Provider Dr. Saturnino Marinelli Attending Provider Dr. Saturnino Marion Primary Care Provider Dr. Yvon Ray Attending Provider Viktoriya Gonzalez Attending Provider Unavailable Dr. Saturnino Marion Primary Care Provider Dr. Yvon Ray Attending Provider Viktoriya Gonzalez Attending Provider Unavailable Dr. Saturnino Marion Referring Provider Dr. Gregg Conley Attending Provider Dr. Gregg Conley Other Provider Jamal SERVICE PROVIDER, SERVICE PROVIDER-C Marianne Attending Provider Doni HARVEY, Saturnino Huynh Primary Care Provider SATURNINO MARION Primary Care Unavailable JERRY HARRY Attending Unavailable JERRY HARRY Admitting Unavailable Dr. Saturnino Marion Primary Care Provider Dr. Gregg Conley Attending Provider [phone] Dr. Gregg Conley Referring Provider [phone] Dr. Gregg Conley Other Provider Dr. Saturnino Marion Referring Provider [phone] Jamal SERVICE PROVIDER, SERVICE PROVIDER-C Marianne Attending Provider THEO PHILLIPS Referring Unavailable THEO PHILLIPS Attending Unavailable SATURNINO MARION Primary Care Unavailable Dr. Saturnino Marion Primary Care Provider Genia Aden Attending Provider Unavailable Dr. Saturnino Marion MD Primary Care Provider Valencia SERVICE PROVIDER-CCinda Attending Provider Dr. Saturnino Marion MD Attending Provider Dr. Saturnino Marion MD Referring Provider Dr. Thais San MD Attending Provider Dr. Saturnino Marion MD Primary Care Provider [phone] Valencia SERVICE PROVIDER-C, Cinda Attending Provider [phone] Gemma Torres Attending Provider Flor HARVEY, Dr. Sanz Attending Provider Marion, Saturnino Attending Unavailable Marion, Saturnino Referring Unavailable Marion, Saturnino Primary Care Unavailable Marion, Saturnino Attending Unavailable Marion, Saturnino Referring Unavailable Marion, Saturnino Primary Care Unavailable Marion, Saturnino Referring Unavailable Marion, Saturnino Primary Care Unavailable Thais San Attending Unavailable Marion, Saturnino Referring Unavailable Marion, Saturnino Primary Care Unavailable Gemma Sauceda Attending Unavailable Yvon Ray Attending Unavailable Marion, Saturnino Primary Care Unavailable Marion, Saturnino Referring Unavailable Marion, Saturnino Primary Care Unavailable Marion, Saturnino Attending Unavailable Doni Saturnino Referring Unavailable Marion, Saturnino Primary Care Unavailable Thais San Attending Unavailable Marion, Saturnino Primary Care Unavailable Valencia SERVICE PROVIDER, Cinda Attending Unavailable Marion, Saturnino Primary Care Unavailable Valencia SERVICE PROVIDER, Cinda Attending Unavailable Marion, Saturnino Attending Unavailable Marion, Saturnino Referring Unavailable Marion, Saturnino Primary Care Unavailable Marion, Saturnino Referring Unavailable Marion, Saturnino Attending Unavailable Marion, Saturnino Primary Care Unavailable Allergies Allergy Classification Reported Allergen(s) Allergy Type Date of Onset Reaction(s) Facility (20 sources) lisinopril drug allergy 7 feels horrible [facility] Work Phone: (9 sources) animal dander; Translations: [animal dander] Allergy to substance 4 Rhinitis [facility] (9 sources) house dust mite; Translations: [house dust mite] Allergy to substance 4 [facility] (9 sources) Seasonal Allergies: Uncoded; Translations: [Seasonal Allergies: Uncoded] Allergy to substance 4 Sneezing, Rhinitis [facility] (1 source) Lisinopril Drug Allergy 5 [facility] Repository Medications Current Medications Medication Drug Class(es) Dates Sig (Normalized) Sig (Original) allopurinol 300 mg oral tablet (20 sources) Xanthine Oxidase Inhibitor Start: 11-29-2021 take 1 tablet by mouth once daily Allopurinol 300 mg tablet Active 300 mg PO DAILY November 29, 2021 1:00am aspirin 81 mg chewable tablet (20 sources) Platelet Aggregation Inhibitor, Nonsteroidal Anti-inflammatory Drug Start: 11-20-2018 take 1 tablet by mouth once daily Aspirin 81 MG tablet,chewable Active 81 mg PO DAILY November 20, 2018 1:00am aspirin, enteric coated (ASPIRIN, ENTERIC COATED) 81 mg EC tablet Take 81 mg by mouth. 0 Active Comment on above: Take 81 mg by mouth. Blood-Glucose Meter (Relion Prime Meter) mis (20 sources) Start: 04-12-2020 Blood-Glucose Meter (Relion Prime Meter) [facility] Active 0 .ROUTE .MEDSUPPLY April 12, 2020 3:59pm As directed Start: 04-12-2020 Blood-Glucose Meter (Relion Prime Meter) [facility] Active 0 .ROUTE .MEDSUPPLY 1 April 11, 2020 11:00pm As directed Start: 04-12-2020 Blood-Glucose Meter (Relion Prime Meter) [facility] Active 0 .ROUTE .MEDSUPPLY 1 April 12, 2020 12:00am As directed cholecalciferol 0.125 mg oral capsule (8 sources) Vitamin D Start: 08-25-2023 take 1 capsule by mouth once daily Cholecalciferol (Vitamin D3) 125 mcg (5,000 unit) capsule Active 125 ug PO DAILY August 25, 2023 1:00am diclofenac sodium 0.01 mg/mg topical gel (8 sources) Nonsteroidal Anti-inflammatory Drug Start: 08-25-2023 Diclofenac Sodium (Arthritis Pain (Diclofenac)) 1 % gel Active 4 g TOPICAL ONCE August 25, 2023 1:00am apply to single knee, ankle, foot; for foot includes sole/toes/top of foot Start: 08-25-2023 Diclofenac Sod ium (Arthritis Pain (Diclofenac)) 1 % gel Active 4 GM TOPICAL ONCE August 25, 2023 12:00am apply to single knee, ankle, foot; for foot includes sole/toes/top of foot Flash Glucose Sensor (Freest yle Joseluis 14 Day Sensor) kit (20 sources) Start: 07-06-2020 Flash Glucose Sensor (Freestyle Joseluis 14 Day Sensor) kit Active 0 .ROUTE .MEDSUPPLY 2 July 06, 2020 1:21pm As directed Start: 07-06-2020 Flash Glucose Sensor (Freestyle Joseluis 14 Day Sensor) kit Active 0 .ROUTE .MEDSUPPLY 2 July 05, 2020 11:00pm As directed Start: 07-06-2020 Flash Glucose Sensor (Freestyle Joseluis 14 Day Sensor) kit Active 0 .ROUTE .MEDSUPPLY 2 July 06, 2020 12:00am As directed furosemide 40 mg oral tablet (20 sources) Loop Diuretic Start: 08-25-2023 take 1 tablet by mouth twice daily Furosemide (Lasix) 40 mg tablet Active 40 mg PO TWICE A DAY August 25, 2023 9:54am Start: 07-31-2022 End: 08-25-2023 take 1 tablet by mouth once daily Furosemide (Lasix) 40 mg tablet Discontinued 40 mg PO DAILY July 31, 2022 3:37pm August 25, 2023 10:08am Start: 12-25-2021 End: 07-31-2022 take 1 tablet by mouth twice daily Furosemide (Lasix) 40 mg tablet Discontinued 40 mg PO TWICE A DAY 60 December 25, 2021 12:00am July 31, 2022 3:40pm gabapentin 600 mg oral tablet (20 sources) Anti-epileptic Agent Start: 05-14-2017 End: 07-25-2022 take 1 tablet by mouth at bedtime Gabapentin 600 mg tablet Active 600 mg PO .COMPLEX July 25, 2022 8:36am 600 mg orally 1 tab in the am, 2 tabs in the pm and 1 tab at bedtime; 1 tablet in morning. two tablets at night per med list. take 1 tablet by once daily at bedtime gabapentin (NEURONTIN) 600 mg tablet Dominik e 600 mg by mouth once daily. One tablet in am, two tablets in pm, one at bedtime 0 Active GABAPENTIN 300 M G CAPS 1 q am, 2 q pm GABAPENTIN [id number] Ondina Bryant LPN Comment on above: Take 600 mg by mouth once daily. One tablet in am, two tablets in pm, one at bedtime Glucagon Hcl (Glucagon (Hcl) Emergency Kit) 1 mg recon soln (8 sources) Start: 08-25-2023 Glucagon Hcl (Glucagon (Hcl) Emergency Kit) 1 mg recon soln Active 1 mg SC Q20M as needed for hypoglycemia August 25, 2023 1:00am until target blood sugar attained Start: 08-25-2023 Glucagon Hcl ( Glucagon (Hcl) Emergency Kit) 1 mg recon soln Active 1 MG SC Q20M August 25, 2023 12:00am until target blood sugar attained hydroCHLOROthiazide 25 mg oral tablet (20 sources) Thiazide Diuretic Start: 08-25-2023 take 1 tablet by mouth once daily Hydrochlorothiazide 25 mg tablet Active 25 mg PO DAILY August 25, 2023 1:00am Start: 05-14-2017 End: 12-25-2021 take 1 tablet by mouth once daily Hydrochlorothiazide 25 MG tablet Discontinued 25 mg PO DAILY May 14, 2017 12:00am December 25, 2021 1:06pm Comment on above: Take 25 mg by mouth once daily. 3 ml insulin aspart, human 100 unt/ml pen injector (20 sources) Insulin Analog Start: 08-25-2023 Insulin Aspart U-100 100 unit/mL (3 mL) insulin pen Active 34 U SC TWICE A DAY August 25, 2023 1:00am Start: 11-29-2021 End: 07-31-2022 Insulin Aspart U-100 (Novolo g Flexpen U-100 Insulin) 100 unit/mL (3 mL) insulin pen Discontinued 34 U SC THREE TIMES A DAY November 29, 2021 10:55am July 31, 2022 3:39pm Start: 05-15-2021 End: 11-29-2021 Insulin Aspart U-100 (Novolo g Flexpen U-100 Insulin) 100 unit/mL (3 mL) insulin pen Discontinued 10 U SC THREE TIMES A DAY May 15, 2021 9:40am November 29, 2021 10:55am Start: 04-13-2020 End: 05-15-2021 Insulin Aspart U-100 (Novolo g Flexpen U-100 Insulin) 100 unit/mL (3 mL) insulin pen Discontinued 35 U SC THREE TIMES A DAY April 13, 2020 12:00am May 15, 2021 9:40am 3 ml insulin glargine 100 unt/ml pen injector (20 sources) Insulin Analog Start: 08-25-2023 Insulin Glargi ne (Lantus Solostar U-100 Insulin) 100 unit/mL (3 mL) insulin pen Active 30 U SC DAILY August 25, 2023 10:02am Start: 11-29-2021 End: 08-25-2023 Insulin Glargine (Lantus Lindsey ostar U-100 Insulin) 100 unit/mL (3 mL) insulin pen Discontinued 36 U SC TWICE A DAY November 29, 2021 10:55am August 25, 2023 10:08am Start: 05-12-2021 End: 05-15-2021 Insulin Glargine (Lantus Lindsey ostar U-100 Insulin) 100 unit/mL (3 mL) insulin pen Discontinued SC May 12, 2021 12:00am May 15, 2021 9:37am Start: 04-12-2020 End: 11-29-2021 Insulin Glargine (Lantus Lindsey ostar U-100 Insulin) 100 unit/mL (3 mL) insulin pen Discontinued 50 U SC EVERY EVENING April 12, 2020 12:00am November 29, 2021 10:55am insulin glargine (LANTUS SOLOSTAR, BASAGLAR KWIKPEN) 100 unit/mL (3 mL) inpn Inject 20 Units subcutaneously every morning. 0 Active Comment on above: Inject 20 Units subc utaneously every morning. 3 ml insulin lispro 100 unt/ml pen injector (20 sources) Insulin Analogue Start: 07-31-2022 Insulin Lispro (Humalog Kwikpen Insulin) 100 unit/mL insulin pen Active 1 sliding scale dose SC Use as Directed July 31, 2022 12:00am Start: 04-12-2020 End: 04-13-2020 Insulin Lispro 100 unit/mL i nsulin pen Discontinued 35 U SC THREE TIMES A DAY April 12, 2020 3:56pm April 13, 2020 3:35pm Start: 02-16-2020 End: 04-12-2020 Insulin Lispro (Humalog Kwik pen Insulin) 100 unit/mL insulin pen Discontinued 16 U SC THREE TIMES A DAY February 16, 2020 12:00am April 12, 2020 3:13pm 16-20 units with biggest meal of day 4 units before small meal/snack Start: 10-14-2019 End: 04-12-2020 inject 20 [IU] by subcutaneous injection once daily Insulin Lispro 100 UNIT/ML insulin pen Discontinued 20 U SQ DAILY October 14, 2019 1:00am April 12, 2020 4:00pm inject 16 [IU] by garcia bcutaneous injection once daily at mealtime, then inject 4 [IU] by subcutaneous injection at mealtime insulin lispro (HUMALOG KWIKPEN INSULIN SUBCUTANEOUS) Inject subcutaneously once daily. 16 units prior to largest meal, 4 units before snacks, small meals 0 Active HUMALOG KWIKPEN 100 UNIT/ML SOPN 20U prior to largest meal of the day and 4 U before small meals and snacks INSULIN LISPRO [id number] Ondina Bryant LPN HUMALOG KWIKPEN 100 UNIT/ML SOPN 20U prior to largest meal of the day and 4 U before small meals and snacks INSULIN LISPRO [id number] Ondina Bryant LPN Comment on above: Inject subcutaneousl y once daily. 16 units prior to largest meal, 4 units before snacks, small meals meloxicam 15 mg oral tablet (20 sources) Nonsteroidal Anti-inflammatory Drug Start: 3 take 1 tablet by mouth once daily as needed for pain Meloxicam 15 mg tablet Active 15 mg PO DAILY as needed for pain August 25, 2023 1:00am Start: 02-16-2020 End: 07-25-2022 take 1 tablet by mouth once daily Meloxicam 15 mg tablet Discontinued 15 mg PO DAILY February 16, 2020 12:00am July 25, 2022 8:40am 24 hr metoprolol succinate 50 mg extended release oral capsule (8 sources) beta-Adrenergic Ashanti Start: 08-25-2023 take 1 capsule by mouth once daily Metoprolol Succinate 50 mg capsule,sprinkle,ER 24hr Active 50 mg PO DAILY August 25, 2023 1:00am metroNIDAZOLE 0.0075 mg/mg topical gel (20 sources) Nitroimidazole Antimicrobial Start: 09-09-2019 Metronidazole 0.75 % gel Active 1 NMA TOPICAL AT BEDTIME September 09, 2019 1:00am Start: 09-09-2019 Metronidazole Active 1 APPLIC TOPICAL AT BEDTIME September 09, 2019 12:00am mometasone furoate 1 mg/ml topical cream (20 sources) Corticosteroid Start: 09-09-2019 Mometasone 0.1 % cream Active 1 NMA TOPICAL DAILY September 09, 2019 1:00am pioglitazone 30 mg oral tablet (20 sources) Peroxisome Proliferator Receptor alpha Agonist, Peroxisome Proliferator Receptor gamma Agonist, Thiazolidinedione Start: 07-25-2022 take 1 tablet by mouth once daily Pioglitazone 30 mg tablet Active 30 mg PO DAILY July 25, 2022 12:00am Start: 05-14-2017 End: 07-25-2022 take 0.5 tablet by mouth once daily, then take 1 tablet by mouth once daily Pioglitazone 45 MG tablet Discontinued 22.5 mg PO DAILY May 14, 2017 12:00am July 25, 2022 8:35am takes half of 45 mg tablet daily Start: 05-14-2017 End: 07-25-2022 take 0.5 tablet by mouth once daily, then take 2 tablets by mouth once daily Pioglitazone Discontinued 22.5 MG PO DAILY May 13, 2017 11:00pm July 25, 2022 7:35am takes half of 45 mg tablet daily Comment on above: Take 45 mg by mouth once daily. 1/2 tablet daily spironolactone 100 mg oral tablet (20 sources) Aldosterone Antagonist Start: 07-25-20 take 1 tablet by mouth once daily Spironolactone 100 mg tablet Active 100 mg PO DAILY July 25, 2022 12:00am Start: 05-14-2017 End: 12-25-2021 take 1 tablet by mouth once daily Spironolactone 100 MG tablet Discontinued 100 mg PO DAILY May 14, 2017 12:00am December 25, 2021 1:07pm Comment on above: Take 1 tablet by kenzie once daily. Tirzepatide (Mounjaro) 7.5 mg/0.5 mL pen injector (5 sources) Start: 02-15-2025 Tirzepatide (Mounjaro) 7.5 mg/0.5 mL pen injector Active mg SC EVERY WEEK February 15, 2025 12:00am triamcinolone acetonide 1 mg/ml topical cream (8 sources) Corticosteroid Start: 08-25-2023 Triamcinolone Acetonide 0.1 % cream Active 1 NMA TOPICAL TWICE A DAY August 25, 2023 1:00am Completed/Discontinued Medications Medication Drug Class(es) Dates Sig (Normalized) Sig (Original) acetaminophen 325 mg / HYDROcodone bitartrate 5 mg oral tablet (20 sources) Opioid Agonist Start: 05-16-2019 End: 05-21-2019 Hydrocodone-Acetami nophen 1 TABLET tablet Discontinued 1 {tbl} PO EVERY 6 HOURS NEEDED as needed for Pain 10 May 16, 2019 May 18, 2019 12:00am May 21, 2019 12:08am Start: 05-16-2019 End: 05-21-2019 take 1 tablet by mouth every six hours as needed Hydrocodone-Acetaminophen Discontinued 1 TABLET PO EVERY 6 HOURS NEEDED 10 May 16, 2019 May 20, 2019 11:08pm 200 actuat albuterol 0.09 mg/actuat metered dose inhaler (7 sources) beta2-Adrenergic Agonist PROAIR HFA 108 (90 Base) MCG/ACT AERS 1-2 puffs prn ALBUTEROL SULFATE [id number] Ondina Bryant LPN PROAIR HFA 108 ( 90 Base) MCG/ACT AERS 1-2 puffs prn ALBUTEROL SULFATE [id number] Ondina Bryant LPN amLODIPine 10 mg oral tablet (20 sources) Dihydropyridine Calcium Channel Ashanti Start: 07-25-2022 End: 07-31-2022 take 5 mg by mouth once daily Amlodipine 10 mg tablet Discontinued 5 mg PO DAILY July 25, 2022 8:41am July 31, 2022 3:36pm Start: 07-25-2022 End: 07-31-2022 take 5 mg by mouth once daily Amlodipine Discontinued 5 MG PO DAILY July 25, 2022 7:41am July 31, 2022 2:36pm Start: 05-14-2017 End: 07-25-2022 take 1 tablet by mouth once daily Amlodipine 10 MG tablet Discontinued 10 mg PO DAILY May 14, 2017 12:00am July 25, 2022 8:42am Comment on above: Take 10 mg by mouth once daily. azelastine hydrochloride 0.206 mg/actuat metered dose nasal spray (20 sources) Histamine-1 Receptor Antagonist Start: 11-29-2021 End: 07-31-2022 Azelastine 205.5 mcg (0.15 %) Colstrip,Non-Aerosol Discontinued 1 NMA INTRANASAL TWICE A DAY November 29, 2021 1:00am July 31, 2022 3:36pm Start: 11-29-2021 End: 07-31-2022 Azelastine Discontinued 1 SP RAY INTRANASAL TWICE A DAY November 29, 2021 12:00am July 31, 2022 2:36pm BLOOD GLUCOSE MONITORING SUPPL (3 sources) FREESTYLE FREEDO M LITE w/Device KIT BLOOD GLUCOSE MONITORING SUPPL [id number] Ondina Bryant LPN BLOOD GLUCOSE MONITORING SUPPL (2 sources) FREESTYLE FREEDO M LITE w/Device KIT BLOOD GLUCOSE MONITORING SUPPL [id number] Ondina Bryant LPN BLOOD GLUCOSE MONITORING SUPPL (2 sources) FREESTYLE FREEDO M LITE w/Device KIT BLOOD GLUCOSE MONITORING SUPPL [id number] Ondina Bryant LPN capsaicin 0.25 mg/ml topical cream (20 sources) Start: 09-09-20 End: 10-01-19 24 Capsaicin 0.025 % cream Discontinued 1 NMA TOPICAL THREE TIMES A DAY September 09, 2019 1:00am October 01, 2023 3:42pm doxepin hydrochloride 50 mg oral capsule (1 source) Tricyclic Antidepressant take 1 capsule by mouth once daily at bedtime doxepin capsule 50 mg Take 50 mg by mouth daily at bedtime. 0 Active Comment on above: Take 50 mg by mouth daily at bedtime. Dulaglutide (8 sources) GLP-1 Receptor Agonist Start: 08-25-20 End: 02-16-20 Dulaglutide (Trulicity) 4.5 mg/0.5 mL pen injector Discontinued 4.5 mg SC EVERY WEEK August 25, 2023 1:00am February 15, 2025 10:30am Start: 08-25-2023 Dulaglutide (T rulicity) 4.5 mg/0.5 mL pen injector Active 4.5 mg SC EVERY WEEK August 25, 2023 1:00am Start: 08-25-2023 Dulaglutide (T rulicity) 4.5 mg/0.5 mL pen injector Active 4.5 MG SC EVERY WEEK August 25, 2023 12:00am DULoxetine 20 mg delayed release oral capsule (20 sources) Serotonin and Norepinephrine Reuptake Inhibitor Start: 07-25-2022 End: 07-31-2022 take 1 capsule by mouth once daily Duloxetine 20 mg capsule,delayed release(DR/EC) Discontinued 20 mg PO DAILY July 25, 2022 12:00am July 31, 2022 3:37pm Start: 02-16-2020 End: 07-25-2022 take 1 capsule by mouth twice daily Duloxetine 30 mg capsule, delayed rel sprinkle Discontinued 30 mg PO TWICE A DAY February 16, 2020 12:00am July 25, 2022 8:40am Start: 05-14-2017 End: 09-09-2019 take 1 capsule by mouth once daily Duloxetine 30 MG capsule Discontinued 30 mg PO DAILY May 14, 2017 12:00am September 09, 2019 10:48am take 1 capsule by [facility] twice daily DULoxetine (CYMBALTA) 30 mg capsule Take 30 mg by mouth twice daily. 0 Active Comment on above: Take 30 mg by mouth twice daily. empagliflozin 25 mg oral tablet (20 sources) Sodium-Glucose Cotransporter 2 Inhibitor Start: 02-16-20 End: 04-12-20 take 1 tablet by mouth once daily Empagliflozin (Jardiance) 25 mg tablet Discontinued 25 mg PO DAILY February 16, 2020 12:00am April 12, 2020 3:13pm ergocalciferol 1.25 mg oral capsule (20 sources) Provitamin D2 Compound Start: 05-14-20 End: 07-31-20 Ergocalciferol (Vitamin D2) 50,000 UNIT capsule Discontinued 1 {tbl} PO EVERY WEEK May 14, 2017 12:00am July 31, 2022 3:37pm Start: 05-14-2017 End: 07-31-2022 take 1 tablet by mouth every week Ergocalciferol (Vitamin D2) Discontinued 1 TABLET PO EVERY WEEK May 13, 2017 11:00pm July 31, 2022 2:37pm VITAMIN D (ERGOC ALCIFEROL) 23159 UNIT CAPS q wk ERGOCALCIFEROL [id number] Ondina Bryant LPN VITAMIN D (ERGOC ALCIFEROL) 18306 UNIT CAPS q wk ERGOCALCIFEROL [id number] Ondina Bryant LPN VITAMIN D (ERGOC ALCIFEROL) 61391 UNIT CAPS q wk ERGOCALCIFEROL [id number] Ondina Bryant LPN VITAMIN D (ERGOC ALCIFEROL) 58334 UNIT CAPS q wk ERGOCALCIFEROL [id number] Ondina Bryant LPN ergocalciferol, vitamin D2, (VITAMIN D2 ORAL) (1 source) ergocalciferol, vitamin D2, (VITAMIN D2 ORAL) Take by mouth. 0 Active Comment on above: Take by mouth. ertugliflozin 15 mg oral tablet (20 sources) Start: 09-09-20 End: 07-25-20 take 1 tablet by mouth once daily in the morning Ertugliflozin (Steglatro) 15 mg tablet Discontinued 15 mg PO EVERY MORNING September 09, 2019 1:00am July 25, 2022 8:40am fluticasone propionate 0.05 mg/actuat metered dose nasal spray (20 sources) Corticosteroid Start: 02-16-20 End: 07-25-20 Fluticasone Propionate 50 mcg/actuation spray,suspension Discontinued 2 NMA INTRANASAL DAILY February 16, 2020 12:00am July 25, 2022 8:40am administer into each nostril Start: 02-16-2020 End: 07-25-2022 take 1 spray(s) nasal route once daily Fluticasone Propionate Discontinued 2 SPRAY INTRANASAL DAILY February 15, 2020 11:00pm July 25, 2022 7:40am administer into each nostril GLUCOSE BLOOD (3 sources) Start: 05-21-2017 FREESTYLE LITE TEST STRP GLUCOSE BLOOD [id number] Ondina Bryant JAROCHO GLUCOSE BLOOD (2 sources) Start: 05-21-2017 FREESTYLE LITE TEST STRP GLUCOSE BLOOD [id number] Ondina Bryant JAROCHO GLUCOSE BLOOD (2 sources) Start: 05-21-2017 FREESTYLE LITE TEST STRP GLUCOSE BLOOD [id number] Ondina Bryant JAROCHO Start: 05-21-2017 FREESTYLE LITE TEST STRP GLUCOSE BLOOD [id number] Ondina Rivero Manny AVENDAÑO hydrOXYzine hydrochloride 25 mg oral tablet (20 sources) Antihistamine Start: 02-16-2020 End: 07-25-2022 take 0.5 tablet by mouth every eight hours at bedtime for congestion Hydroxyzine Hcl 25 mg tablet Discontinued 25 mg PO AT BEDTIME February 16, 2020 12:00am July 25, 2022 8:40am 1/2 tab every 8 hours for congestion and allergies hydrOXYzine pamo ate (VISTARIL) 25 mg capsule Take 25 mg by mouth as needed. 0 Active Comment on above: Take 25 mg by mouth as needed. INSULIN PEN NEEDLE (3 sources) BD PEN NEEDLE SH ORT U/F 31G X 8 MM MISC qd INSULIN PEN NEEDLE [id number] Ondina Rivero Manny AVENDAÑO INSULIN PEN NEEDLE (2 sources) BD PEN NEEDLE SH ORT U/F 31G X 8 MM qd INSULIN PEN NEEDLE [id number] Ondina Rivero Manny AVENDAÑO BD PEN NEEDLE SH ORT U/F 31G X 8 MM MISC qd INSULIN PEN NEEDLE [id number] Ondina L Manny AVENDAÑO ammonium lactate 120 mg/ml topical cream (20 sources) Start: 11-29-2021 End: 10-01-2023 Ammonium Lactate 12 % Cream Discontinued 1 NMA TOPICAL THREE TIMES A DAY November 29, 2021 1:00am October 01, 2023 3:42pm lactulose 667 mg/ml oral solution (20 sources) Osmotic Laxative Start: 09-09-2019 End: 07-25-2022 take 20 g by mouth twice daily Lactulose 20 gram/30 mL solution Discontinued 20 g PO TWICE A DAY September 09, 2019 1:00am July 25, 2022 8:40am LACTULOSE 10 GM/ 15ML SOLN qd LACTULOSE [id number] Ondina Bryant LPN LANCETS (3 sources) BD LANCET ULTRAF INE 33G MISC tid LANCETS [id number] Ondina Bryant LPN LANCETS (1 source) BD LANCET ULTRAF INE 33G tid LANCETS [id number] Ondina Bryant LPN LANCETS (1 source) BD LANCET ULTRAF INE 33G MISC tid LANCETS [id number] Ondina Bryant LPN levocetirizine dihydrochloride 5 mg oral tablet (20 sources) Histamine-1 Receptor Antagonist Start: 11-30-19 End: 08-25-20 23 take 1 tablet by mouth once daily Levocetirizine 5 mg Tablet Discontinued 5 mg PO DAILY November 29, 2021 1:00am August 25, 2023 10:04am Start: 09-09-2019 End: 04-12-2020 take 1 tablet by mouth once daily Levocetirizine 5 mg tablet Discontinued 5 mg PO DAILY September 09, 2019 1:00am April 12, 2020 3:14pm Comment on above: Take 5 mg by mouth o nce daily. 3 ml liraglutide 6 mg/ml pen injector (20 sources) GLP-1 Receptor Agonist Start: 05-14-20 17 End: 08-25-20 inject 1.8 mg by subcutaneous injection once daily Liraglutide 0.6 MG/0.1 ML pen injector Discontinued 1.8 mg SQ DAILY May 14, 2017 12:00am August 25, 2023 10:07am VICTOZA 18 MG/3M L SOPN 1.8 sq qd LIRAGLUTIDE [id number] Ondina Bryant LPN Comment on above: Inject 1.8 mg subcut aneously once daily. magnesium oxide 400 mg oral capsule (20 sources) Start: 9 End: 2 take 1 capsule by mouth once daily Magnesium Oxide 400 mg magnesium capsule Discontinued 400 mg PO DAILY September 09, 2019 1:00am July 25, 2022 8:40am take 1 capsule by mouth twice da sanchez magnesium oxide 400 mg cap Take 400 mg by mouth twice daily. 0 Active Comment on above: Take 400 mg by mouth twice daily. modified 24 hr metFORMIN hydrochloride 1000 mg extended release oral tablet (20 sources) Biguanide Start: 2 End: take 1 tablet by mouth twice daily Metformin 1,000 mg tablet,ER tere.retention 24 hr Discontinued 500 mg PO TWICE A DAY July 25, 2022 8:39am February 15, 2025 10:30am Start: 02-16-2020 End: 07-25-2022 take 1 tablet by mouth twice daily Metformin 1,000 mg tablet,ER tere.retention 24 hr Discontinued 1000 mg PO TWICE A DAY February 16, 2020 11:26am July 25, 2022 8:41am 1/2 tab Start: 05-14-2017 End: 02-16-2020 take 1 tablet by mouth once daily Metformin 1,000 MG tablet,ER tere.retention 24 hr Discontinued 1000 mg PO DAILY May 14, 2017 12:00am February 16, 2020 12:18pm take 1000 mg by mout h twice daily metformin HCl (METFORMIN ORAL) Take 1,000 mg by mouth twice daily. 0 Active METFORMIN HCL 50 0 MG TABS bid METFORMIN HCL [id number] Ondina Bryant LPN Comment on above: Take 1,000 mg by kenzie th twice daily. naproxen 500 mg oral tablet (20 sources) Nonsteroidal Anti-inflammatory Drug Start: 09-09-20 End: 07-25-20 take 1 tablet by mouth twice daily Naproxen (Naprosyn) 500 mg tablet Discontinued 500 mg PO TWICE A DAY September 09, 2019 1:00am July 25, 2022 8:40am ondansetron 4 mg oral tablet (20 sources) Serotonin-3 Receptor Antagonist Start: 09-09-20 End: 07-25-20 Ondansetron Hcl (Zofran) 4 mg tablet Discontinued 4 mg PO 2 to 3 times per day as needed for nasuea September 09, 2019 1:00am July 25, 2022 8:40am pantoprazole 40 mg delayed release oral tablet (20 sources) Proton Pump Inhibitor Start: 10-21-19 End: 02-16-20 take 1 tablet by mouth once daily as needed Pantoprazole 40 mg tablet,delayed release (DR/EC) Discontinued 40 mg PO DAILY as needed for acid August 25, 2023 9:51am February 15, 2025 10:37am pravastatin sodium 40 mg oral tablet (20 sources) HMG-CoA Reductase Inhibitor Start: 11-30-19 End: 08-25-20 take 1 tablet by mouth once daily Pravastatin 40 mg Tablet Discontinued 40 mg PO DAILY November 29, 2021 1:00am August 25, 2023 10:07am raNITIdine 150 mg oral tablet (20 sources) Histamine-2 Receptor Antagonist Start: 09-09-20 End: 10-21-19 take 1 capsule by mouth twice daily Ranitidine Hcl 150 mg capsule Discontinued 150 mg PO TWICE A DAY September 09, 2019 1:00am October 21, 2019 10:54am Start: 09-09-2019 End: 10-21-2019 take 150 mg by mouth twice daily Ranitidine Hcl Discontinued 150 MG PO TWICE A DAY September 09, 2019 1:00am October 21, 2019 10:54am SHARPS CONTAINER (3 sources) BD SHARPS CONTAI NER HOME MISC SHARPS CONTAINER [id number] Ondina Bryant PROPERTY MANAGEMENT SUPERVISOR SHARPS CONTAINER (4 sources) BD SHARPS CONTAI NER HOME SHARPS CONTAINER [id number] Ondina Bryant PROPERTY MANAGEMENT SUPERVISOR BD SHARPS CONTAI NER HOME MISC SHARPS CONTAINER [id number] Ondina Bryant PROPERTY MANAGEMENT SUPERVISOR tiZANidine 2 mg oral capsule (20 sources) Central alpha-2 Adrenergic Agonist Start: 02-16-2020 End: 07-25-2022 take 1 capsule by mouth twice daily as needed Tizanidine 2 mg capsule Discontinued 2 mg PO TWICE A DAY as needed for muscle relaxer February 16, 2020 12:00am July 25, 2022 8:40am Turmeric extract (8 sources) Start: 08-25-2023 End: 02-15-2025 take 1 capsule by mouth once daily Turmeric 400 mg capsule Discontinued 400 mg PO DAILY August 25, 2023 1:00am February 15, 2025 10:30am Start: 08-25-2023 take 1 capsule by mo uth once daily Turmeric 400 mg capsule Active 400 mg PO DAILY August 25, 2023 1:00am Start: 08-25-2023 take 400 mg by mouth once monie y Turmeric Active 400 MG PO DAILY August 25, 2023 12:00am ubidecarenone 100 mg oral capsule (20 sources) Start: 11-29-2021 End: 10-01-2023 Coenzyme Q10 (Coq-10) 100 mg Capsule Discontinued 100 mg PO DAILY November 29, 2021 1:00am October 01, 2023 3:43pm vitamin b12 2.5 mg oral tablet (20 sources) Vitamin B12 Start: 08-25-2023 End: 10-01-2023 take 1 tablet by mouth once daily Cyanocobalamin (Vitamin B-12) 2,500 mcg tablet Discontinued 2500 ug PO DAILY August 25, 2023 1:00am October 01, 2023 3:43pm Start: 11-29-2021 End: 07-31-2022 take 1 tablet under the tongue once daily Cyanocobalamin (Vitamin B-12) 2,500 mcg Tablet, Sublingual Discontinued 2500 ug SL DAILY November 29, 2021 1:00am July 31, 2022 3:36pm Problems Active Problems Problem Classification Problem Date Documented Da te Episodic/Chronic Cardiac dysrhythmias (20 sources) Palpitations; Translations: [Palpitations] Episodic Diabetes mellitus with complications (20 sources) Diabetic neuropathy; Translations: [Type II diabetes mellitus uncontrolled] Onset: 05-21-2017 05-21-2017 Chronic Comment on above: both eyesmilddx 12/23 Diabetes mellitus without complication (18 sources) Type 2 diabetes mellitus; Translations: [Type 2 diabetes mellitus without complications] Onset: 05-24-2018 05-24-2018 Chronic Disorders of lipid metabolism (20 sources) Pure hypercholesterolemi a; Translations: [Pure hypercholesterolemi a, unspecified] Chronic Esophageal disorders (8 sources) Beach's esophagus; Translations: [Beach's esophagus without dysplasia] 02-17-2025 Chronic Essential hypertension (20 sources) Hypertensive disorder; Translations: [Essential hypertension] Onset: 05-21-2017 05-21-2017 Chronic Fluid and electrolyte disorders (20 sources) Hypokalemia; Translations: [Hypokalemia] 05-23-2021 Episodic Joint disorders and dislocations; trauma-related (20 sources) Tear of lateral meniscus of knee; Translations: [Other tear of lateral meniscus, current injury, left knee, initial encounter] 05-17-2019 Episodic Mood disorders (6 sources) Mixed anxiety and depressive disorder; Translations: [Other specified anxiety disorders] Onset: 05-21-2017 05-21-2017 Chronic Other and unspecified benign neoplasm (8 sources) History of polyp of colon; Translations: [History of colonic polyps] 02-17-2025 Episodic Other lower respiratory disease (20 sources) Pleuritic pain; Translations: [Pleurodynia] 01-02-2022 Episodic Other lower respiratory disease (20 sources) Hypoxia; Translations: [Hypoxemia] 05-12-2021 Episodic Other lower respiratory disease (6 sources) Pleurodynia; Translations: [Painful respiration] Episodic Other lower respiratory disease (17 sources) Dyspnea on exertion; Translations: [Other forms of dyspnea] 07-25-2022 Episodic Other lower respiratory disease (7 sources) Other forms of dyspnea; Translations: [Other respiratory abnormalities] Episodic Other non-traumatic joint disorders (20 sources) Traumatic joint effusion; Translations: [Effusion, unspecified joint] 05-17-2019 Episodic Other nutritional; endocrine; and metabolic disorders (1 source) Morbid obesity; Translations: [Morbid (severe) obesity due to excess calories] Onset: 05-24-2018 05-24-2018 Chronic Other nutritional; endocrine; and metabolic disorders (1 source) Body mass index 40+ - severely obese; Translations: [Morbid (severe) obesity due to excess calories] Onset: 11-20-2018 11-23-2018 Chronic Other screening for suspected conditions (not mental disorders or infectious disease) (9 sources) Patient encounter status; Translations: [Encounter for screening for malignant neoplasm of colon] Onset: 01-14-2025 08-25-2023 Episodic Pneumonia (except that caused by tuberculosis or sexually transmitted disease) (20 sources) Left lower zone pneumonia; Translations: [Pneumonia, unspecified organism] Episodic Pulmonary heart disease (2 sources) Pulmonary hypertension; Translations: [Pulmonary hypertension, unspecified] Onset: 11-05-2022 Chronic Respiratory failure; insufficiency; arrest (adult) (20 sources) Acute respiratory failure; Translations: [Acute respiratory failure with hypoxia] Episodic Septicemia (except in labor) (20 sources) Sepsis; Translations: [Sepsis, unspecified organism] Episodic Spondylosis; intervertebral disc disorders; other back problems (8 sources) Backache; Translations: [Cervicalgia] Onset: 05-21-2017 05-21-2017 Episodic Unclassified (1 source) No current problems or disability 05-21-2017 Viral infection (20 sources) COVID-19; Translations: [Pneumonia due to COVID-19 virus] 07-25-2022 Episodic Past or Other Problems Problem Classification Problem Date Documented Da te Episodic/Chronic Unclassified (20 sources) No history of clinical finding in subject; Translations: [No significant past medical history] 07-25-2022 Urinary tract infections (6 sources) Recurrent urinary tract infection; Translations: [Urinary tract infection, site not specified] Onset: 05-21-2017 05-21-2017 Episodic Results Test Name Value Interpretation Reference Range Facility Cerv Spine 2 or 3 Viewson Cerv Spine 2 or 3 Views [facility] Imaging Services [address] [place], [place] [id number] Cerv Spine 2 or 3 Views MR#: [id number] Acct: [id number] Name: PAULIE ALFARO Rep #: [id number] : 1960 F 64 From: Derek Hollins MD PCP: Dr. Saturnino Marion MD Status: DEP AMB Study: Cerv Spine 2 or 3 Views Date of Exam: 03/17/25 Exam# [id number] Ordering Dr: Gemma Sauceda EXAM: XR Cervical Spine Flexion/Extension Only, 2 or 3 Views CLINICAL INDICATION: CHRONIC PAIN TECHNIQUE: Lateral flexion/extension views of the cervical spine. COMPARISON: No relevant prior studies available. FINDINGS: VERTEBRAE: Degenerative facet arthropathy throughout the cervical spine. Normal alignment. No acute fracture or significant dynamic instability. DISC SPACES: Degenerative disc disease throughout the cervical spine. SOFT TISSUES: Unremarkable. RAD/Cerv Spine 2 or 3 Views IMPRESSION: 1. No acute fracture or significant dynamic instability. 2. Degenerative changes of the cervical spine as described. Reading Location: [id number] CC: JOSE Luna; Dr. Saturnino Marion MD Paint Prep Technician: Signed Normal [facility] Orthopedic Visit Reporton Orthopedic Visit Report [facility] [address] [place] [address] OFFICE VISIT Date of Service: 03/17/25 MR#: [id number] Acct: [id number] Name: PAULIE ALFARO Rep #: [id number] : 1960 Provider: JOSE Luna Age/Sex: 64/F Location: [facility] Status: Signed Intake Vital Signs 02/15/25 10:28 03/17/25 10:47 Height 5 ft 6 in 5 ft 6 in Weight: 249 lb 246 lb 4 oz BMI 40.1 39.7 BP 121/86 H Blood Pressure Location Rt brachial Position Sitting Respiration 18 Pulse 80 Pulse Source Monitor Temp 97.2 F L Temp Source Temporal Pulse Oximetry (%) 97 Oxygen Delivery Method room air Intake Visit Reasons: CERVICAL SPINE Chief Complaint: Cervical spine pain Accompanied by: Self Is patient in pain?: Yes Pain scale (1-10): 5 Allergies lisinopril Allergy (Mild, Verified 03/17/25 10:51) feels horrible animal dander Allergy (Verified 03/17/25 10:51) Rhinitis house dust mite Allergy (Verified 03/17/25 10:51) Rhinitis Seasonal Allergies: Uncoded Allergy (Verified 03/17/25 10:51) Sneezing, Rhinitis Medications ???Medication ???Instructions ???Recorded ???Confirmed ???Type aspirin 81 mg chewable tablet 81 mg PO DAILY blood thinner 11/2003/17/25 History metronidazole 0.75 % topical gel 1 applic topical QHS redness 09/0903/17/25 History mometasone 0.1 % topical cream 1 applic topical DAILY redness 03/17/25 History blood sugar diagnostic (ReliOn #150 ea 04/12/20 03/17/25 Rx Prime Test Strips) blood-glucose meter (ReliOn Prime #1 ea 04/12/20 03/17/25 Rx Meter) flash glucose sensor (FreeStyle #2 ea 07/06/20 03/17/25 Rx Joseluis 14 Day Sensor kit) allopurinol 300 mg tablet 300 mg PO DAILY uric acid 11/29/21 03/17/25 History gabapentin 600 mg tablet 600 mg PO .COMPLEX pain 07/25/22 0 03/17/25 History pioglitazone 30 mg tablet 30 mg PO DAILY 07/25/22 03/17/25 H istory spironolactone 100 mg tablet 100 mg PO DAILY 07/25/22 03/17/25 History insulin lispro 100 unit/mL 1 sliding scale dose subcut 03/17/25 History subcutaneous pen (Humalog KwikPen USEASDIRECTD (U-100) Insulin) cholecalciferol (vitamin D3) 125 125 mcg PO DAILY 08/25/23 03/17/25 History mcg (5,000 unit) capsule diclofenac sodium 1 % topical gel 4 g topical ONCE 08/25/23 5 History (Arthritis Pain (diclofenac)) furosemide 40 mg tablet (Lasix) 40 mg PO BID 08/25/23 03/17/25 His tory glucagon HCl 1 mg solution for 1 mg subcut Q20M PRN hypoglycemia 08/25/23 03/17/25 History injection (Glucagon (HCl) Emergency Kit) hydrochlorothiazide 25 mg tablet 25 mg PO DAILY 08/25/23 03/17/25 H istory insulin aspart U-100 100 unit/mL 34 unit subcut BID 08/25/23 History (3 mL) subcutaneous pen insulin glargine 100 unit/mL (3 30 unit subcut DAILY diabetes 07/3003/17/25 History mL) subcutaneous pen (Lantus Solostar U-100 Insulin) meloxicam 15 mg tablet 15 mg PO DAILY PRN pain 08/25/23 0 03/17/25 History metoprolol succinate 50 mg capsule 50 mg PO DAILY 08/25/23 03/17/25 History sprinkle, ext. release 24 hr triamcinolone acetonide 0.1 % 1 applic topical BID 08/25/2302/27 History topical cream tirzepatide 7.5 mg/0.5 mL mg subcut QWEEK 02/15/25 03/17/25 History subcutaneous pen injector (Mounjaro) Have you fallen in the past year?: No PFSH Medical History Gastric reflux Generalized anxiety disorder Hx of adenomatous polyp of colon Type 2 diabetes mellitus Diabetic peripheral neuropathy Pure hypercholesterolemia Essential hypertension CPAP (continuous positive airway pressure) dependence Pneumonia due to COVID-19 virus Benign essential hypertension Diabetes Hx of blurred vision Gall stone Neuropathy History of back problems Arthritis Allergies Diarrhea HTN (hypertension) No significant past medical history Surgical History Hx of colonoscopy History of tubal ligation Hx laparoscopic cholecystectomy Family History Grandfather Cancer Mother Cancer Diabetes Social History household members: spouse current occupational status: disabled Smoking Status: Former smoker alcohol intake: current details: Social substance use type: does not use caffeine: Yes Type: tea HPI CERVICAL SPINE Details: This documentation accurately reflects the service provided and the decisions made by me, JOSE Luna 03/17/25 1047. Part of today???s visit was documented by Radha Padilla MA, acting as scribe. PAULIE ALFARO (more content not included)... Normal [facility] Inital Evaluation (1) - PTon 02-27-2025 Inital Evaluation (1) - PT [facility] Physical Therapy [facility] [address] [place] [address]. [address] [place] [address] / REHABILITATION SERVICES INITIAL EVALUATION MR#: [id number] Acct: [id number] Name: PAULIE ALFARO Rep #: [id number] : 1960 64 From: Sourav Wan DPT Referring Dr.: Cinda Birmingham NP Status: R EG RCR Insurance: [facility] COMPLETE MEDICAID Patient's Visit Information Visit Information Visit Information: PAULIE ALFARO is a 64 year old F referred to Physical Therapy by Cinda Birmingham NP-C with a diagnosis of Cervicalgia. Date of Evaluation: 11/28/24 Physical Therapist: Sourav Wan DPT Visit Plan Frequency: 1x/Week Duration: 6 Weeks Plan: DR to R UT, cervical retraction and extension progression. Manual to R UT. HEP at IE: cervical retraction in supine, R UT stretch Subjective Subjective: pt. is here today for her initial evaluation with diagnosis of cervical spine pain. Pt. reports having pain for a period of time now without reports of mech of injury. Pt. reports having mostly R sided pain that goes down her R arm at times. Pt. reports no loss of strength, but has increased pain with all movements. Pt. has not tried injections or arm. Pt. reports physician suggested dry needling and some stretching. Pt. reports increase pain with all cervical spine movements, any lifting and with sleeping. She reports the pain goes from her neck to her arm, but stops at mid arm. Pt. is hopeful to reduce symptoms in order to get back to all activities without limtiations. Pain Cervical spine R side: Pain Intensity (Out of 10): 5 Pain Intensity Range: 3 and 8 Objective Objective: POSTURE: Pt. has marked FH posture, rounded shoulders, with marked increased in thoracic kyphosis. PALPATION: Pt. has marked tenderness throughout cervical spine. Pt. has hypomobility noted throughout C4-C7 pain associated with testing as well. NEURO: normal sensation in BUEs. Pt. has normal DTR in BUEs. ROM: CERVICAL SPINE: flexion min loss increase NW, ext mod loss increase NE, rotation R and L mod loss increase NW, SB min loss bilat NE. Pt. has normal B shoulder ROM without increase in symptoms. MMT: Pt. has 5-/5 throughout B shoulders. No myotomal weakness noted. SYmmetrical uppers edge burnisher strength noted. Special Tests C/S Radiculapathy - Left Spurlings: Negative C/S Radiculapathy - Left Cervical distraction: Negative C/S Radiculapathy - Right Cervical distraction: Negative Cervical Sitting: Protrusion - Mechanical Response: No effect Cervical Sitting: Protrusion - Symptoms During Testing: Increases Cervical Sitting: Protrusion - Symptoms After Testing: No worse Cervical Sitting: Retraction - Mechanical Response: No effect Cervical Sitting: Retraction - Symptoms During Testing: Increases Cervical Sitting: Retraction - Symptoms After Testing: No worse Cervical Sitting: Rotation Right - Mechanical Response: No effect Cervical Sitting: Rotation Right - Symptoms During Testing: Increases Cervical Sitting: Rotation Right - Symptoms After Testing: No worse Cervical Sitting: Rotation Left - Mechanical Response: No effect Cervical Sitting: Rotation Left - Symptoms During Testing: Increases Cervical Sitting: Rotation Left - Symptoms After Testing: No worse Cervical Sitting: Flexion - Mechanical Response: No effect Cervical Sitting: Flexion - Symptoms During Testing: Increases Cervical Sitting: Flexion - Symptoms After Testing: No worse Balance/Special Test Scores Oswestry Neck Score: 23 Goals Goal 1:: LTG: pt to be I with HEP. Goal Time Frame: 4-6 Weeks Goal 2:: STG: Pt. to have improved cervical ROM to full without increase in symptoms. Goal Time Frame: 2-4 Weeks Goal 3:: LTG: Pt. to be able to sleep throughout the night without increase in symptoms. Goal Time Frame: 4-6 Weeks Goal 4:: LTG: Pt. to have no radicular symptoms in her R UE. Goal Time Frame: 4-6 Weeks Rehabilitation Potential Physical Therapy Diagnosis: Pt. salinas signs and symptoms consistent with cervicalgia with R sided pain. Pt. does has some pain that extends down her arm to elbow region. No pain in hand. Pt. has marked hypomobility of her cervical spine and tightness in her B UT region. Pt. would benefit from PT to address the above limitations. Rehabilitation Potential: Good Anticipated Interventions Patient/Client Instruction: Educate patient on: Condition, Plan of Care, Risk Factors and Benefits of Fitness Program For the Purpose of:: To foster healthy habits, To improve decision making, To facilitate caregiver knowledge, To improve self management, To prevent re-injury and To improve ability to perform tasks related to life management Therapeutic Exercise to Include: Strength training, Body mechanics, Postural training, Passive ROM, Active ROM and Scapular Strength/Stabilization For the Purpose of:: To decrease pain, To increase ROM, To im (more content not included)... Normal [facility] PT D/C Summary (1)on 025 PT D/C Summary (1) [facility] Physical Therapy [facility] [address] [place] [address] [address] [place] [address] / REHABILITATION SERVICES DISCHARGE SUMMARY MR#: [id number] Acct: [id number] Name: PAULIE ALFARO Rep #: [id number] : 1960 64 From: Sourav Wan DPT Referring Dr.: Cinda Birmingham Status: R EG RCR Insurance: [facility] COMPLETE MEDICAID Discharge Summary D/C summary: It has been my pleasure to treat PAULIE ALFARO referred by GEE Serrano, with the diagnosis of Cervicalgia for a total of 3 visit(s). Discharge Date: 01/03/25 Please see the following information for a summary of their discharge status. Subjective Subjective: Pt. reports that her symptoms feel worse than they did before. Pt. reports dry needling increase in her numbness in her arm. Pt. reports having numbness for multiple days. She has not done much of her exercises due to increasing symptoms. Pain Cervical spine R side: Pain Intensity (Out of 10): 5 Overall Improvement % Improvement: 0 Objective Objective/Function: ROM: cervical spine: flexion nil loss mild increase NW, ext mod loss increase NW, SB min loss NE bilat, rotation min loss bilat increase NW. Pt. has N/T into her R elbow region, but is more consistent than it was. Pt. has 5-/5 B UE strength, no myotomal weakness noted. Pt. reports having having much change with her exercises. Pt. would like to return back to physician at this point in time. Pt. reports no major change in her symptoms. Pt. has not really progressed much with her goals. I would recommend that she return to physcian at this point in time. Goals Goal 1:: LTG: pt to be I with HEP. Goal Progress: Progressing Goal 2:: STG: Pt. to have improved cervical ROM to full without increase in symptoms. Goal Progress: Not Progressing Goal 3:: LTG: Pt. to be able to sleep throughout the night without increase in symptoms. Goal Progress: Not Progressing Goal 4:: LTG: Pt. to have no radicular symptoms in her R UE. Goal Progress: Not Progressing Plan Plan: DR to R UT, cervical retraction and extension progression. Manual to R UT. HEP at IE: cervical retraction in supine, R UT stretch D/C Information d/c sentence: If there are questions or concerns regarding this patient's physical therapy, please feel free to call me at [phone]. Thank you for the referral of this patient. Sincerely, Sourav L Sipos, DPT Balance/Gait/Functiona l tests Balance/Special Test Scores Oswestry Neck Score: 23 Improvement % Improvement: 0 02/27/25 9443 CC: Cinda Birmingham; Dr. Saturnino Marion MD CLS Signed Normal [facility] Magnetic resonance imaging r eportOrdered By: Pietro Maki on 02-22-2025 Study report [facility] Imaging Services [address] [place] [id number] Spine Cervical (Routine) MR#: [id number] Acct: [id number] Name: PAULIE ALFARO Rep #: [id number] : 1960 F 64 From: Sisi Maki MD PCP: Dr. Saturnino Marion MD Status: REG CLI Study:Spine Cervical (Routine) Date of Exam: 02/17/25 Exam# [id number] Ordering Dr: Adam Marion MD PROCEDURE: SPINE CERVICAL (ROUTINE) 02/17/2025 REASON FOR EXAM: NECK PAIN ARM NUMBNESS TECHNIQUE: T1, T2, stir, multiplanar and multisequence images were obtained without IV contrast administration. COMPARISON: December 27, 2024 x-ray FINDINGS: There is loss of the lordosis. Vertebral body height is maintained. The alignment is maintained. Vertebral body marrow signal is normal. The intervertebral disc signal shows desiccation. C2-C3: There is minimal central disc protrusion. There is no lateral recess orforaminal stenosis. There is no central canal stenosis. C3-C4: There is mild central disc protrusion. There is no lateral recess or foraminal stenosis. There is mild central canal stenosis. C4-C5: There is moderate central and mild right and left paracentral disc and osteophyte protrusion. There is no significant lateral recess stenosis or foraminal narrowing. There is moderate central canalstenosis. C5-C6: There is disc extrusion which extends into the right lateral recess and proximal portion of the right neural foramen, with a fragment attached at the disc margin measuring 1.3 x 0.6 by 1.0 cm. There is severe right lateral recess and mild left lateral recess stenosis. There is severe right foraminal narrowing and mild left foraminal narrowing. There is moderate central canal stenosis. C6-C7: There is moderate central and right and left paracentral disc and osteophyte protrusion. There is mild right and moderate left lateral recess stenosis. There is mild left foraminal narrowing secondary to disc and osteophyte protrusion. There is moderate central canal stenosis. C7-T1: There is no significant disc protrusion. There is no lateral recess or foraminal stenosis. There is no central canal stenosis. The visualized cord shows mild atrophy from C4-6. Adjacent soft tissues are grossly unremarkable. MRI/Spine Cervical (Routine) IMPRESSION: There is loss of the lordosis. The visualized cord shows mild atrophy from C4-6. There is disc extrusion at C5-6. There is mild central canal stenosis at C3-4, moderate central canal stenosis atC4-5, C5-6, and C6-7, with lateral recess and foraminal narrowing. Reading Location: [place] CC: Dr. Saturnino Marion MD ~ Paint Prep Technician: Signed [facility] Spine Cervical (Routine)on 0 02-17-2025 Spine Cervical (Routine) [facility] Imaging Services [address] [place] [address] Spine Cervical (Routine) MR#: [id number] Acct: [id number] Name: PAULIE ALFARO Rep #: [id number] : 1960 F 64 From: Pietro Maki MD PCP: Dr. Saturnino Marion MD Status: REG CLI Study: Spine Cervical (Routine) Date of Exam: Exam# [id number] Ordering Dr: Saturnino Marion MD PROCEDURE: SPINE CERVICAL (ROUTINE) 02/17/2025 REASON FOR EXAM: NECK PAIN ARM NUMBNESS TECHNIQUE: T1, T2, stir, multiplanar and multisequence images were obtained without IV contrast administration. COMPARISON: December 27, 2024 x-ray FINDINGS: There is loss of the lordosis. Vertebral body height is maintained. The alignment is maintained. Vertebral body marrow signal is normal. The intervertebral disc signal shows desiccation. C2-C3: There is minimal central disc protrusion. There is no lateral recess or foraminal stenosis. There is no central canal stenosis. C3-C4: There is mild central disc protrusion. There is no lateral recess or foraminal stenosis. There is mild central canal stenosis. C4-C5: There is moderate central and mild right and left paracentral disc and osteophyte protrusion. There is no significant lateral recess stenosis or foraminal narrowing. There is moderate central canal stenosis. C5-C6: There is disc extrusion which extends into the right lateral recess and proximal portion of the right neural foramen, with a fragment attached at the disc margin measuring 1.3 x 0.6 by 1.0 cm. There is severe right lateral recess and mild left lateral recess stenosis. There is severe right foraminal narrowing and mild left foraminal narrowing. There is moderate central canal stenosis. C6-C7: There is moderate central and right and left paracentral disc and osteophyte protrusion. There is mild right and moderate left lateral recess stenosis. There is mild left foraminal narrowing secondary to disc and osteophyte protrusion. There is moderate central canal stenosis. C7-T1: There is no significant disc protrusion. There is no lateral recess or foraminal stenosis. There is no central canal stenosis. The visualized cord shows mild atrophy from C4-6. Adjacent soft tissues are grossly unremarkable. MRI/Spine Cervical (Routine) IMPRESSION: There is loss of the lordosis. The visualized cord shows mild atrophy from C4-6. There is disc extrusion at C5-6. There is mild central canal stenosis at C3-4, moderate central canal stenosis at C4-5, C5-6, and C6- 7, with lateral recess and foraminal narrowing. Reading Location: [place] CC: Dr. Saturnino Marion MD Paint Prep Technician: Signed Normal [facility] Surgery Visit Reporton 02-15 Surgery Visit Report [facility] [address] [place] [address]. [address] [place] [address] OFFICE VISIT Date of Service: 02/15/25 MR#: [id number] Acct: [id number] Name: PAULIE ALFARO Rep #: [id number] : 1960 Provider: Dr. Thais hook MD Age/Sex: 64/F Location: [facility] Status: Signed Intake Vital Signs 08/25/23 09:18 02/15/25 10:28 Height 5 ft 6.5 in 5 ft 6 in Weight: 249 lb BMI 40.1 BP 121/86 H Blood Pressure Location Rt brachial Position Sitting Respiration 18 Pulse 80 Pulse Source Monitor Temp 97.2 F L Temp Source Temporal Pulse Oximetry (%) 97 Oxygen Delivery Method room air Intake Visit Reasons: COLONOSCOPY, DISCUSS PREP OPTIONS Chief Complaint: colonoscopy, discuss prep options Is patient in pain?: No Allergies lisinopril Allergy (Mild, Verified 02/15/25 10:29) feels horrible animal dander Allergy (Verified 02/15/25 10:29) Rhinitis house dust mite Allergy (Verified 02/15/25 10:29) Rhinitis Seasonal Allergies: Uncoded Allergy (Verified 02/15/25 10:29) Sneezing, Rhinitis Medications ???Medication ???Instructions ???Recorded ???Confirmed ???Type aspirin 81 mg chewable tablet 81 mg PO DAILY blood thinner 11/2010/01/23 History metronidazole 0.75 % topical gel 1 applic topical QHS redness 09/0910/01/23 History mometasone 0.1 % topical cream 1 applic topical DAILY redness 10/01/23 History blood sugar diagnostic (ReliOn #150 ea 04/12/20 08/25/23 Rx Prime Test Strips) blood-glucose meter (ReliOn Prime #1 ea 04/12/20 08/25/23 Rx Meter) flash glucose sensor ([employer] #2 ea 07/06/20 08/25/23 Rx Joseluis 14 Day Sensor kit) allopurinol 300 mg tablet 300 mg PO DAILY uric acid 11/29/21 10/01/23 History gabapentin 600 mg tablet 600 mg PO .COMPLEX pain 07/25/22 0 10/01/23 History pioglitazone 30 mg tablet 30 mg PO DAILY 07/25/22 10/01/23 H istory spironolactone 100 mg tablet 100 mg PO DAILY 07/25/22 10/01/23 History insulin lispro 100 unit/mL 1 sliding scale dose subcut 10/01/23 History subcutaneous pen (Humalog KwikPen USEASDIRECTD (U-100) Insulin) cholecalciferol (vitamin D3) 125 125 mcg PO DAILY 08/25/23 10/01/23 History mcg (5,000 unit) capsule diclofenac sodium 1 % topical gel 4 g topical ONCE 08/25/23 4 History (Arthritis Pain (diclofenac)) furosemide 40 mg tablet (Lasix) 40 mg PO BID 08/25/23 10/01/23 His tory glucagon HCl 1 mg solution for 1 mg subcut Q20M PRN hypoglycemia 08/25/23 10/01/23 History injection (Glucagon (HCl) Emergency Kit) hydrochlorothiazide 25 mg tablet 25 mg PO DAILY 08/25/23 10/01/23 H istory insulin aspart U-100 100 unit/mL 34 unit subcut BID 08/25/23 History (3 mL) subcutaneous pen insulin glargine 100 unit/mL (3 30 unit subcut DAILY diabetes 07/3010/01/23 History mL) subcutaneous pen (Lantus Solostar U-100 Insulin) meloxicam 15 mg tablet 15 mg PO DAILY PRN pain 08/25/23 0 10/01/23 History metoprolol succinate 50 mg capsule 50 mg PO DAILY 08/25/23 10/01/23 History sprinkle, ext. release 24 hr triamcinolone acetonide 0.1 % 1 applic topical BID 08/25/2301/19 History topical cream tirzepatide 7.5 mg/0.5 mL mg subcut QWEEK 02/15/25 History subcutaneous pen injector (Mounjaro) [facility] History Gastric reflux Generalized anxiety disorder Hx of adenomatous polyp of colon Type 2 diabetes mellitus Diabetic peripheral neuropathy Pure hypercholesterolemia Essential hypertension CPAP (continuous positive airway pressure) dependence Pneumonia due to COVID-19 virus Benign essential hypertension Diabetes Hx of blurred vision Gall stone Neuropathy History of back problems Arthritis Allergies Diarrhea HTN (hypertension) No significant past medical history Surgical History Hx of colonoscopy History of tubal ligation Hx laparoscopic cholecystectomy Family History Grandfather Cancer Mother Cancer Diabetes Social History household members: spouse current occupational status: disabled Smoking Status: Former smoker alcohol intake: current details: Social substance use type: does not use caffeine: Yes Type: tea HPI HPI HPI: 64-year-old female presents to discuss prep for colonoscopy. Patient states that she was planning to do a repeat in 2023 however she drank almost entire prep and then the morning part did start throwing up and did not really have a bowel movement. Patient states she has balance about every other day patient denies any bloo (more content not included)... Normal [facility] Breast imaging reportOrdered By: Chiki Thorne on 01-11-2025 Study report [facility] Imaging Services [address] [place] [address] SCRN MAMM (CAD)W/DELANEY BILAT MR#: [id number] Acct: [id number] Name: PAULIE ALFARO Rep #: [id number] : 1960 F 64 From: Cresencio Thorne MD PCP: Dr. Saturnino Marion MD Status: REG CLI Study:SCRN MAMM (CAD)W/DELANEY BILAT Date of Exa m: 01/10/25 Exam# [id number] Ordering Dr: Adam Marion MD EXAM: SCRN MAMM (CAD)W/DELANEY BILAT DATE: 01/10/2025 CLINICAL HISTORY: F, Age 64 y/o , SCREENING No family history. BREAST CANCER RISK ASSESSMENT: Not assessed. TECHNIQUE: Bilateral screening digital breast tomosynthesis with 2D and 3D images. Computeraided detection. COMPARISON: Prior exam(s) dated comparison is made with prior study of February 05, 2021.. FINDINGS: TISSUE DENSITY: The breast tissue is heterogenously dense, which may obscure small masses. Bilateral Breast Mammographic Findings: No significant masses, calcifications or other abnormalities are identified. No suspicious masses, areas of developing architectural distortion, or suspicious calcifications. There has been no significant interval change. BI/SCRN MAMM (CAD)W/DELANEY BILAT IMPRESSION: Right Breast: BIRADS 1 NEGATIVE. Left Breast: BIRADS 1 NEGATIVE. OVERALL FINAL ASSESSMENT: BIRADS 1 NEGATIVE RECOMMENDATION: Routine annual follow-up in 1 Year A letter with findings and recommendations will be mailed to the patient. Reading Location: [place] [address] CC: Dr. Saturnino Marion MD ~ Paint Prep Technician: Signed [facility] SCRN MAMM (CAD)W/DELANEY BILATo n 01-10-2025 SCRN MAMM (CAD)W/DELANEY BILAT [facility] Imaging Services [address] [place], [place] [address] SCRN MAMM (CAD)W/DELANEY BILAT MR#: [id number] Acct: [id number] Name: PAULIE ALFARO Rep #: [id number] : 1960 F 64 From: Chiki ortega MD PCP: Dr. aSturnino Marion MD Status: [facility] CLI Study: SCRN MAMM (CAD)W/DELANEY BILAT Date of Exam: 12/27 02/19 Exam# [id number] Ordering Dr: Saturnino Marion MD EXAM: SCRN MAMM (CAD)W/DELANEY BILAT DATE: 01/10/2025 CLINICAL HISTORY: F, Age 64 y/o , SCREENING No family history. BREAST CANCER RISK ASSESSMENT: Not assessed. TECHNIQUE: Bilateral screening digital breast tomosynthesis with 2D and 3D images. Computer aided detection. COMPARISON: Prior exam(s) dated comparison is made with prior study of February 05, 2021.. FINDINGS: TISSUE DENSITY: The breast tissue is heterogenously dense, which may obscure small masses. Bilateral Breast Mammographic Findings: No significant masses, calcifications or other abnormalities are identified. No suspicious masses, areas of developing architectural distortion, or suspicious calcifications. There has been no significant interval change. BI/SCRN MAMM (CAD)W/DELANEY BILAT IMPRESSION: Right Breast: BIRADS 1 NEGATIVE. Left Breast: BIRADS 1 NEGATIVE. OVERALL FINAL ASSESSMENT: BIRADS 1 NEGATIVE RECOMMENDATION: Routine annual follow-up in 1 Year A letter with findings and recommendations will be mailed to the patient. Reading Location: [facility] CC: Dr. Saturnino Marion MD Paint Prep Technician: Signed Normal [facility] Cerv Spine 4 or 5 Viewson Cerv Spine 4 or 5 Views [facility] Imaging Services [address] [place], [place] [address] Cerv Spine 4 or 5 Views MR#: [id number] Acct: [id number] Name: PAULIE ALFARO Rep #: [id number] : 1960 F 64 From: Chiki ortega MD PCP: Dr. Saturnino Marion MD Status: REG CLI Study: Cerv Spine 4 or 5 Views Date of Exam: 12/27/24 Exam# [id number] Ordering Dr: Saturnino Marion MD PROCEDURE: CERV SPINE 4 OR 5 VIEWS 12/27/2024 REASON FOR EXAM: CERVICAL RADICULOPATHY TECHNIQUE: 6 views of the cervical spine. Were obtained including oblique views. COMPARISON: None FINDINGS: Vertebrae: Anterior spondylosis. disc spaces: Disc space narrowing at the C5-C6 and C6-C7 levels. Alignment: Straightening of the normal cervical lordosis. soft tissues: Unremarkable Other: RAD/Cerv Spine 4 or 5 Views IMPRESSION: MILD CERVICAL DEGENERATIVE CHANGES. Disclaimer: Reading Location: [place] [address] CC: Dr. Saturnino Marion MD Paint Prep Technician: Signed Normal [facility] Absolute lymphocyte countOrd ered By: Cinda Birmingham on 11-03-2024 Lymphocytes Auto (Unsp spec) [#/Vol] 1.24 10*3/uL 0.83-4.51 [facility] Absolute neutrophil countOrd ered By: Cinda Birmingham on 11-03-2024 Neutrophils (Bld) [#/Vol] 3.2 10*3/uL 2.0-7.7 [facility] Albumin to globulin ratioOrd ered By: Cinda Birmingham on 11-03-2024 Albumin/Globulin [Mass ratio] 0.9 {ratio} 0.9-2.4 [facility] Automated lymphocyte count a s percentage of total leukocytesOrdered By: Cinda Birmingham on 11-03-2024 Lymphocytes/100 WBC Auto (Unsp spec) 24.8 % 19-41 [facility] Basophil percentageOrdered B y: Cinda Birmingham on 11-03-2024 Basophils/100 WBC (Bld) 0.4 % 0-1 [facility] Bilirubin, totalOrdered By: Cinda Birmingham on 11-03-2024 Bilirubin [Mass/Vol] 0.40 mg/dL 0.20-1.00 [facility] Comment on above: For patients on eltr ombopag therapy, use of Dimension Roulette TBIL is not recommended. Blood urea nitrogen (BUN)/cr eatinine ratioOrdered By: Cinda Birmingham on 11-03-2024 Urea nitrogen/Creatinine [Mass ratio] 11.1 mg/mg 10-20 [facility] CBC W/Diff, Automatedon Absolute Lymph 1.24 X10 3/uL Normal 0.83-4.51 [facility] Comment on above: Performed By: #### L 100.0100, L501.9520, L500.4050, L501.9985 #### [facility] Laboratory [address] [place], [address] Absolute Neut 3.2 X10 3/uL Normal 2.0-7.7 [facility] Comment on above: Performed By: #### L 100.0100, L501.9520, L500.4050, L501.9985 #### [facility] [address] [place], [address] Basophils/100 WBC (Bld) 0.4 % Normal 0-1 [facility] Comment on above: Performed By: #### L 100.0100, L501.9520, L500.4050, L501.9985 #### [facility] [address] [place], [address] Eosinophils/100 WBC (Bld) 3.6 % Normal 0-5 [facility] Comment on above: Performed By: #### L 100.0100, L501.9520, L500.4050, L501.9985 #### [facility] [address] [place], [address] Erythrocyte distribution width (RBC) [Ratio] 13.6 % Normal 11.6-14.6 [facility] Comment on above: Performed By: #### L 100.0100, L501.9520, L500.4050, L501.9985 #### [facility] [address] [place], [address] Hematocrit (Bld) [Volume fraction] 44.1 % Normal 37-47 [facility] Comment on above: Performed By: #### L 100.0100, L501.9520, L500.4050, L501.9985 #### [facility] [address] [place], [address] Hemoglobin (Bld) [Mass/Vol] 13.6 g/dL Normal 12.0-15.0 [facility] Comment on above: Performed By: #### L 100.0100, L501.9520, L500.4050, L501.9985 #### [facility] [address] [place], [address] IG% 0.200 Normal 0.0-0.9 [facility] Comment on above: Result Comment: IG% - Immature Granulocytes (promyelocytes, myelocytes and metamyelocytes) > 1% indicates that a LEFT SHIFT is Present. Performed By: #### L 100.0100, L501.9520, L500.4050, L501.9985 #### [facility] [address] [place], [address] Lymphocytes/100 WBC (Bld) 24.8 % Normal 19-41 [facility] Comment on above: Performed By: #### L 100.0100, L501.9520, L500.4050, L501.9985 #### [facility] [address] [place], [address] MCH (RBC) [Entitic mass] 28.5 pg Normal 27.0-32.0 [facility] Comment on above: Performed By: #### L 100.0100, L501.9520, L500.4050, L501.9985 #### [facility] [address] [place], [address] MCHC (RBC) [Mass/Vol] 30.8 g/dL Low 32-36 [facility] Comment on above: Performed By: #### L 100.0100, L501.9520, L500.4050, L501.9985 #### [facility] [address] [place], [address] MCV (RBC) [Entitic vol] 92.5 fL Normal 81-99 [facility] Comment on above: Performed By: #### L 100.0100, L501.9520, L500.4050, L501.9985 #### [facility] [address] [place], [address] Monocytes/100 WBC (Bld) 6.4 % Normal 0-10 [facility] Comment on above: Performed By: #### L 100.0100, L501.9520, L500.4050, L501.9985 #### [facility] [address] [place], [address] Neutrophils/100 WBC (Bld) 64.6 % Normal 47-70 [facility] Comment on above: Performed By: #### L 100.0100, L501.9520, L500.4050, L501.9985 #### [facility] [address] [place], [address] Nucleated RBC (Bld) [#/Vol] 0 10*3/uL Normal 0-5 [facility] Comment on above: Performed By: #### L 100.0100, L501.9520, L500.4050, L501.9985 #### [facility] [address] [place], [address] Platelet mean volume (Bld) [Entitic vol] 12.1 fL High 6.2-12.0 [facility] Comment on above: Performed By: #### L 100.0100, L501.9520, L500.4050, L501.9985 #### [facility] [address] [place], [address] Platelets (Bld) [#/Vol] 228 10*3/uL Normal 150-450 [facility] Comment on above: Performed By: #### L 100.0100, L501.9520, L500.4050, L501.9985 #### [facility] [address] [place], [address] RBC (Bld) [#/Vol] 4.77 10*6/uL Normal 4.2-5.4 [facility] Comment on above: Performed By: #### L 100.0100, L501.9520, L500.4050, L501.9985 #### [facility] [address] [place], [address] RDW SD 46.5 fl High 35.1-43.9 [facility] Comment on above: Performed By: #### L 100.0100, L501.9520, L500.4050, L501.9985 #### [facility] [address] [place], [address] WBC (Bld) [#/Vol] 5.0 10*3/uL Normal 4.4-11.0 [facility] Comment on above: Performed By: #### L 100.0100, L501.9520, L500.4050, L501.9985 #### [facility] [address] [place], [address] Carbon dioxide measurementOr dered By: Cinda Birmingham on 11-03-2024 CO2 [Moles/Vol] 29.0 mmol/L 21.0-32.0 [facility] Chloride measurementOrdered By: Cinda Birmingham on 11-03-2024 Chloride [Moles/Vol] 103 mmol/L 98-107 [facility] Comprehensive Metabolic Prof ilon 11-03-2024 Albumin [Mass/Vol] 3.5 g/dL Normal 3.2-5.0 [facility] Comment on above: Performed By: #### L 100.0100, L501.9520, L500.4050, L501.9985 #### [facility] [address] [place], [address] Albumin/Globulin [Mass ratio] 0.9 {ratio} Normal 0.9-2.4 [facility] Comment on above: Performed By: #### L 100.0100, L501.9520, L500.4050, L501.9985 #### [facility] [address] [place], [address] ALK P 85 U/L Normal 45-117 [facility] Comment on above: Performed By: #### L 100.0100, L501.9520, L500.4050, L501.9985 #### [facility] [address] [place], [address] ALT [Catalytic activity/Vol] 21 U/L Normal 13-56 [facility] Comment on above: Performed By: #### L 100.0100, L501.9520, L500.4050, L501.9985 #### [facility] [address] [place], [address] AST [Catalytic activity/Vol] 14 U/L Low 15-37 [facility] Comment on above: Performed By: #### L 100.0100, L501.9520, L500.4050, L501.9985 #### [facility] [address] [place], [address] Bilirubin [Mass/Vol] 0.40 mg/dL Normal 0.20-1.00 [facility] Comment on above: Result Comment: For patients on eltrombopag therapy, use of Dimension Roulette TBIL is not recommended. Performed By: #### L 100.0100, L501.9520, L500.4050, L501.9985 #### [facility] [address] [place], [address] BUN/CRE 11.1 RATIO Normal 10-20 [facility] Comment on above: Performed By: #### L 100.0100, L501.9520, L500.4050, L501.9985 #### [facility] [address] [place], [address] CA,Total 9.0 mg/dL Normal 8.5-10.1 [facility] Comment on above: Performed By: #### L 100.0100, L501.9520, L500.4050, L501.9985 #### [facility] [address] [place], [address] Chloride [Moles/Vol] 103 mmol/L Normal 98-107 [facility] Comment on above: Performed By: #### L 100.0100, L501.9520, L500.4050, L501.9985 #### [facility] [address] [place], [address] CO2 [Moles/Vol] 29.0 mmol/L Normal 21.0-32.0 [facility] Comment on above: Performed By: #### L 100.0100, L501.9520, L500.4050, L501.9985 #### [facility] [address] [place], [address] Creatinine [Mass/Vol] 1.17 mg/dL High 0.55-1.02 [facility] Comment on above: Result Comment: The validity of the calculated GFR GFRAA in patients over 70 years has not been determined. Clinical correlation is essential. Performed By: #### L 100.0100, L501.9520, L500.4050, L501.9985 #### [facility] [address] [place], [address] EST GFR - AA 60 mL/min Normal >60 [facility] Comment on above: Result Comment: Afri can Swazi GFR Calc Performed By: #### L 100.0100, L501.9520, L500.4050, L501.9985 #### [facility] [address] [place], [address] GAP 7 Normal 5-15 [facility] Comment on above: Performed By: #### L 100.0100, L501.9520, L500.4050, L501.9985 #### [facility] [address] [place], [address] GFR/1.73 sq M.predicted among non-blacks MDRD (S/P/Bld) [Vol rate/Area] 50 mL/min/{1.73_m2} Low >60 [facility] Comment on above: Result Comment: Non- GFR Calc Performed By: #### L 100.0100, L501.9520, L500.4050, L501.9985 #### [facility] [address] [place], [address] Globulin (S) [Mass/Vol] 3.7 g/dL Normal 2.2-4.2 [facility] Comment on above: Performed By: #### L 100.0100, L501.9520, L500.4050, L501.9985 #### [facility] [address] [place], [address] Glucose [Mass/Vol] 233 mg/dL High 74-106 [facility] Comment on above: Result Comment: Gluc ose result greater than or equal to 200 mg/dL suggests DIABETES MELLITUS per A.D.A. criteria. Performed By: #### L 100.0100, L501.9520, L500.4050, L501.9985 #### [facility] [address] [place], [address] Potassium [Moles/Vol] 4.0 mmol/L Normal 3.5-5.1 [facility] Comment on above: Performed By: #### L 100.0100, L501.9520, L500.4050, L501.9985 #### [facility] [address] [place], [address] Sodium [Moles/Vol] 139 mmol/L Normal 136-145 [facility] Comment on above: Performed By: #### L 100.0100, L501.9520, L500.4050, L501.9985 #### [facility] [facility] [address] [place], [address] T PROT 7.2 g/dL Normal 6.4-8.2 [facility] Comment on above: Performed By: #### L 100.0100, L501.9520, L500.4050, L501.9985 #### [facility] [address] [place], [address] Urea nitrogen [Mass/Vol] 13 mg/dL Normal 7-18 [facility] Comment on above: Performed By: #### L 100.0100, L501.9520, L500.4050, L501.9985 #### [facility] [address] [place], [address] Eosinophil percentageOrdered By: Cinda Birmingham on 11-03-2024 Eosinophils/100 WBC (Bld) 3.6 % 0-5 [facility] Erythrocyte distribution wid th (RBC) [Ratio]Ordered By: Cinda Birmingham on 11-03-2024 Erythrocyte distribution width (RBC) [Entitic vol] 46.5 fL High 35.1-43.9 [facility] Erythrocyte distribution wid th ratioOrdered By: Cinda Birmingham on 11-03-2024 Erythrocyte distribution width (RBC) [Ratio] 13.6 % 11.6-14.6 [facility] Erythrocyte distribution wid th standard deviationOrdered By: Cinda Birmingham on 11-03-2024 Erythrocyte distribution width (RBC) [Ratio] 46.5 fl High 35.1-43.9 [facility] Estimated glomerular filtrat ion rate (GFR) AmericanOrdered By: Cinda Birmingham on 11-03-2024 Estimated GFR (MDRD) Amer 60 mL/min >60 [facility] Comment on above: GFR Calc Glomerular filtration rate ( GFR) estimationOrdered By: Cinda Birmingham on 11-03-2024 Estimated GFR (MDRD) Non-Af Amer 50 mL/min Low >60 [facility] Comment on above: Non- GFR Calc GFR/1.73 sq M.predicted among non-blacks MDRD (S/P/Bld) [Vol rate/Area] 50 mL/min/{1.73_m2} Low >60 [facility] Comment on above: Non- GFR Calc Glucose measurementOrdered B y: Cinda Birmingham on 11-03-2024 Glucose [Mass/Vol] 233 mg/dL High 74-106 [facility] Comment on above: Glucose result great er than or equal to 200 mg/dLsuggests DIABETES MELLITUS per A.D.A. criteria. Hematocrit Auto (Bld) [Volum e fraction]Ordered By: Cinda Birmingham on 11-03-2024 Hematocrit (Bld) [Volume fraction] 44.1 % 37-47 [facility] Hemoglobin A1con 11-03-2024 HbA1c (Bld) [Mass fraction] 6.0 % High 3.8-5.6 [facility] Comment on above: Result Comment: Norm al < 5.7 % Prediabetic 5.7 - 6.4 % Diabetic >or= 6.5 % Please note range changes. Performed By: #### L 100.0100, L501.9560, L500.4050, L501.9985 #### [facility] [address] [place], [address] Hemoglobin A1c percentageOrd ered By: Cinda Birmingham on 11-03-2024 HbA1c (Bld) [Mass fraction] 6.0 % High 3.8-5.6 [facility] Comment on above: Normal < 5.7 % Predi abetic 5.7 - 6.4 % Diabetic >or= 6.5 % Please note range changes. Hemoglobin measurementOrdere d By: Cinda Birmingham on 11-03-2024 Hemoglobin (Bld) [Mass/Vol] 13.6 g/dL 12.0-15.0 [facility] Immature granulocytes/100 WB C Auto (Bld)Ordered By: Cinda Birmingham on 11-03-2024 Immature granulocytes/100 WBC (Bld) 0.200 % 0.0-0.9 [facility] Comment on above: IG% - Immature Granu locytes (promyelocytes, myelocytes and metamyelocytes) > 1% indicates that a LEFT SHIFT is Present. Laboratory - Chemistry and C hemistry - challengeOrdered By: Cinda Birmingham on 11-03-2024 AST [Catalytic activity/Vol] 14 U/L Low 15-37 [facility] Lymphocytes Auto (Unsp spec) [#/Vol]Ordered By: Cinda Birmingham on 11-03-2024 Lymphocytes (Bld) [#/Vol] 1.24 10*3/uL 0.83-4.51 [facility] Lymphocytes/100 WBC Auto (Un sp spec)Ordered By: Cinda Birmingham on 11-03-2024 Lymphocytes/100 WBC (Bld) 24.8 % 19-41 [facility] MCV (mean corpuscular volume ) determinationOrdered By: Cinda Birmingham on 11-03-2024 MCV (RBC) [Entitic vol] 92.5 fL 81-99 [facility] Mean corpuscular hemoglobin (MCH) determinationOrdered By: Cinda Birmingham on 11-03-2024 MCH (RBC) [Entitic mass] 28.5 pg 27.0-32.0 [facility] Mean corpuscular hemoglobin concentration (MCHC) determinationOrdered By: Cinda Birmingham on 11-03-2024 MCHC (RBC) [Mass/Vol] 30.8 g/dL Low 32-36 [facility] Mean platelet volume determi nationOrdered By: Cinda Birmingham on 11-03-2024 Platelet mean volume (Bld) [Entitic vol] 12.1 fL High 6.2-12.0 [facility] Monocyte percentageOrdered B y: Cinda Birmingham on 11-03-2024 Monocytes/100 WBC (Bld) 6.4 % 0-10 [facility] Neutrophil percentageOrdered By: Cinda Birmingham on 11-03-2024 Neutrophils/100 WBC (Bld) 64.6 % 47-70 [facility] Nucleated red blood cell per centageOrdered By: Cinda Birmingham on 11-03-2024 Nucleated RBC/100 WBC (Bld) [Ratio] 0 % 0-5 [facility] Platelet countOrdered By: Herman Birmingham on 11-03-2024 Platelets (Bld) [#/Vol] 228 10*3/uL 150-450 [facility] Potassium measurementOrdered By: Cinda Birmingham on 11-03-2024 Potassium [Moles/Vol] 4.0 mmol/L 3.5-5.1 [facility] RBC Auto (Bld) [#/Vol]Ordere d By: Cinda Birmingham on 11-03-2024 RBC (Bld) [#/Vol] 4.77 10*6/uL 4.2-5.4 [facility] Serum anion gap measurementO rdered By: Cinda Birmingham on 11-03-2024 Anion gap [Moles/Vol] 7 mmol/L 5-15 [facility] Serum globulin measurementOr dered By: Cinda Birmingham on 11-03-2024 Globulin (S) [Mass/Vol] 3.7 g/dL 2.2-4.2 [facility] Serum or plasma alanine willett otransferase (ALT) measurementOrdered By: Cinda Birmingham on 11-03-2024 ALT [Catalytic activity/Vol] 21 U/L 13-56 [facility] Serum or plasma albumin gladis urement (mass/volume)Ordered By: Cinda Birmingham on 11-03-2024 Albumin [Mass/Vol] 3.5 g/dL 3.2-5.0 [facility] Serum or plasma alkaline matteo sphatase measurementOrdered By: Cinda Birmingham on 11-03-2024 ALP [Catalytic activity/Vol] 85 U/L 45-117 [facility] Serum or plasma calcium gladis urement (mass/volume)Ordered By: Cinda Birmingham on 11-03-2024 Calcium [Mass/Vol] 9.0 mg/dL 8.5-10.1 [facility] Serum or plasma creatinine m easurement (mass/volume)Ordered By: Cinda Birmingham on 11-03-2024 Creatinine [Mass/Vol] 1.17 mg/dL High 0.55-1.02 [facility] Comment on above: The validity of the calculated GFR & GFRAA in patients over 70 years has not been determined. Clinical correlation is essential. Serum or plasma thyroid stim ulating hormone (TSH) measurement (units/volume)Ordered By: Cinda Birmingham on 11-03-2024 TSH Qn 0.921 uIU/mL 0.358-3.740 [facility] Serum or plasma urea nitroge n measurement (mass/volume)Ordered By: Cinda Birmingham on 11-03-2024 Urea nitrogen [Mass/Vol] 13 mg/dL 7-18 [facility] Sodium levelOrdered By: Radha Birmingham on 11-03-2024 Sodium [Moles/Vol] 139 mmol/L 136-145 [facility] TSH QnOrdered By: Cinda vale on 11-03-2024 Thyroid Stimulating Hormone (TSH) 0.921 uIU/mL 0.358-3.740 [facility] Thyroid Stim Hormone (TSH)on 11-03-2024 TSH 0.921 uIU/mL Normal 0.358-3.740 [facility] Comment on above: Performed By: #### L 100.0100, L501.9520, L500.4050, L501.9985 ####[facility] [address] [place], [address] Total proteinOrdered By: Kenisha Birmingham on 11-03-2024 Protein [Mass/Vol] 7.2 g/dL 6.4-8.2 [facility] White blood cell (WBC) count Ordered By: Cinda Birmingham on 11-03-2024 WBC (Bld) [#/Vol] 5.0 10*3/uL 4.4-11.0 [facility] Inital Evaluation (1) - PTon 07-27-2024 Inital Evaluation (1) - PT [facility] [place] [address] / REHABILITATION SERVICES INITIAL EVALUATION MR#: [id number] Acct: [id number] Name: PAULIE ALFARO Rep #: [id number] : 1960 63 From: Flo Sorto PT, Carmen. T, OCS Referring Dr.: Dr. Saturnino Marion MD Status: REG R CR Insurance: [facility] MEDICAID Patient's Visit Information Visit Information Visit Information: PAULIE ALFARO is a 63 year old F referred to Physical Therapy by Dr. Saturnino Marion MD with a diagnosis of OBESITY ,LEG PAINS. Date of Evaluation: 07/27/24 Physical Therapist: Flo Sorto PT, Cert T, OCS Visit Plan Frequency: 1-2x /Week Duration: 6 Weeks Plan: PT INTERVENTIONS AEROBIC EX'S ,GENERALIZED STRENGTH BUE/LE ,FUNCTIONAL STRENGTHENING ,DLS AND FLEXABILITY Subjective Subjective: This 63 y/o female presents to physical therapy for physical deconditioned . Patient seen DR for routine visit. Dr recommended . Patient had episode after falling and landed on left knee. Patient has left knee pain. No other falls. Denies paresthesia/tingling. Sleeping good. Patient is unable to squat and kneeling. Patient has some difficulty ascended/descended steps. Patient denies SOB. Patient lives step son. Patient has difficulty with ADLS and housework tasks. Patient goals to get stronger and build muscle SOCIAL: VOCATION:retired Pain Left Knee: Pain Intensity (Out of 10): 5 Pain Intensity Range: 10 Objective Objective: POSTURE: mild forward posture PALAPTION: SI/LS NEURO: denies paresthesia/tingling FLEXABILITY: hamstrings min tight LUMBAR ROM: flexion mod loss ,extension mod loss ,side glides mod loss MMT: quads/hams 4/5 ,( peak force) hip flexion right 233,8 ,left 24.8 ,hip abd right 18.6 ,left 18.5 AROM : supine knee flexion 0-120 degrees STAIRS: descend one step at time Special Tests L/S Slump test left side: Negative L/S Slump test right side: Negative L/S Left Straight Leg Raise: Negative L/S Right Straight Leg Raise: Negative Balance/Special Test Scores Lower Extremity Functional Score: 35 Goals Goal 1:: I with HEP deconditioned Goal Time Frame: 4-6 Weeks Goal 2:: Patient to demonstrated 50% improvement with increase function and strength Goal Time Frame: 4-6 Weeks Goal 3:: Patient to improve LFES score by 5 points to improve ADLS and function Goal Time Frame: 4-6 Weeks Goal 4:: Patient to improve peak force hips by 5-10# to improve function and ADLS Goal Time Frame: 4-6 Weeks Rehabilitation Potential Physical Therapy Diagnosis: This patient is generalized deconditioned with weakness in hips and pain in left leg knee thus benefit from skilled PT Rehabilitation Potential: Good Anticipated Interventions Patient/Client Instruction: Educate patient on: Condition and Plan of Care For the Purpose of:: To decrease pain, To increase ROM, To improve muscle performance and motor function, To improve ability to perform ADL's, To increase tolerance to activity/condition/pos ition, To improve ability of physical actions for home/community/work/le isure, To improve health of tissue, To increase flexibility/ROM, To improve endurance and To improve balance Therapeutic Exercise to Include: Strength training, Endurance training, Balance training, Postural training, Flexibilty training and Dynamic Lumbar Stabilization For the Purpose of:: To decrease pain, To increase ROM, To improve muscle performance and motor function, To improve ability to perform ADL's, To increase tolerance to activity/condition/pos ition, To improve ability of physical actions for home/community/work/le isure, To improve health of tissue, To decrease soft tissue restriction, To increase flexibility/ROM and To improve tolerance to ADL's Text: Thank you for the opportunity to evaluate your patient. For Medicare and Medicare HMO plans, please review the plan of care and approve it. It will need to be FAXED BACK to us at [phone] for Medicare purposes. For Medicare only, by signing this I certify the plan of care. Please let me know if there are questions or concerns regarding this plan of care. Physician Signature: Date:__ 07/27/24 1325 CC: Dr. Saturnino Marion MD JLA Signed Normal [facility] CBC W/Diff, Automatedon 10-2 -2023 Absolute Lymph 1.34 X10 3/uL Normal 0.83-4.51 [facility] Comment on above: Order Comment: Order Date: 05/17/24Order Info: 018- - CBCD Performed By: #### L 500.4050, L100.0100, L506.0400, L501.9520, L501.9985 ####[facility] [address] [place], [address] Absolute Neut 3.1 X10 3/uL Normal 2.0-7.7 [facility] Comment on above: Order Comment: Order Date: 05/17/24Order Info: 018- - CBCD Performed By: #### L 500.4050, L100.0100, L506.0400, L501.9520, L501.9985 ####[facility] [address] [place], [address] Basophils/100 WBC (Bld) 0.4 % Normal 0-1 [facility] Comment on above: Order Comment: Order Date: 05/17/24Order Info: 018- - CBCD Performed By: #### L 500.4050, L100.0100, L506.0400, L501.9520, L501.9985 ####[facility] [address] [place], [address] Eosinophils/100 WBC (Bld) 2.5 % Normal 0-5 [facility] Comment on above: Order Comment: Order Date: 05/17/24Order Info: 018-1 - CBCD Performed By: #### L 500.4050, L100.0100, L506.0400, L501.9520, L501.9985 ####[facility] [address] [place], [address] Erythrocyte distribution width (RBC) [Ratio] 13.6 % Normal 11.6-14.6 [facility] Comment on above: Order Comment: Order Date: 05/17/24Order Info: 0184-1 - CBCD Performed By: #### L 500.4050, L100.0100, L506.0400, L501.9520, L501.9985 ####[facility] [address] [place], [address] Hematocrit (Bld) [Volume fraction] 45.6 % Normal 37-47 [facility] Comment on above: Order Comment: Order Date: 05/17/24Order Info: 0184-1 - CBCD Performed By: #### L 500.4050, L100.0100, L506.0400, L501.9520, L501.9985 ####[facility] [address] [place], [address] Hemoglobin (Bld) [Mass/Vol] 14.6 g/dL Normal 12.0-15.0 [facility] Comment on above: Order Comment: Order Date: 05/17/24Order Info: 0184-1 - CBCD Performed By: #### L 500.4050, L100.0100, L506.0400, L501.9520, L501.9985 ####[facility] [address] [place], [address] IG% 0.200 Normal 0.0-0.9 [facility] Comment on above: Order Comment: Order Date: 05/17/24Order Info: 0184-1 - CBCD Result Comment: IG% - Immature Granulocytes (promyelocytes, myelocytes and metamyelocytes) > 1% indicates that a LEFT SHIFT is Present. Performed By: #### L 500.4050, L100.0100, L506.0400, L501.9520, L501.9985 ####[facility] [address] [place], [address] Lymphocytes/100 WBC (Bld) 27.5 % Normal 19-41 [facility] Comment on above: Order Comment: Order Date: 05/17/24Order Info: 018- - CBCD Performed By: #### L 500.4050, L100.0100, L506.0400, L501.9520, L501.9985 ####[facility] [address] [place], [address] MCH (RBC) [Entitic mass] 29.9 pg Normal 27.0-32.0 [facility] Comment on above: Order Comment: Order Date: 05/17/24Order Info: 018- - CBCD Performed By: #### L 500.4050, L100.0100, L506.0400, L501.9520, L501.9985 ####[facility] [address] [place], [address] MCHC (RBC) [Mass/Vol] 32.0 g/dL Normal 32-36 [facility] Comment on above: Order Comment: Order Date: 05/17/24Order Info: 018- - CBCD Performed By: #### L 500.4050, L100.0100, L506.0400, L501.9520, L501.9985 ####[facility] [address] [place], [address] MCV (RBC) [Entitic vol] 93.4 fL Normal 81-99 [facility] Comment on above: Order Comment: Order Date: 05/17/24Order Info: 018- - CBCD Performed By: #### L 500.4050, L100.0100, L506.0400, L501.9520, L501.9985 ####[facility] [address] [place], [address] Monocytes/100 WBC (Bld) 6.6 % Normal 0-10 [facility] Comment on above: Order Comment: Order Date: 05/17/24Order Info: 018- - CBCD Performed By: #### L 500.4050, L100.0100, L506.0400, L501.9520, L501.9985 ####[facility] [address] [place], [address] Neutrophils/100 WBC (Bld) 62.8 % Normal 47-70 [facility] Comment on above: Order Comment: Order Date: 05/17/24Order Info: 4-1 - CBCD Performed By: #### L 500.4050, L100.0100, L506.0400, L501.9520, L501.9985 ####[facility] [address] [place], [address] Nucleated RBC (Bld) [#/Vol] 0 10*3/uL Normal 0-5 [facility] Comment on above: Order Comment: Order Date: 05/17/24Order Info: 183- - CBCD Performed By: #### L 500.4050, L100.0100, L506.0400, L501.9520, L501.9985 ####[facility] [address] [place], [address] Platelet mean volume (Bld) [Entitic vol] 10.9 fL Normal 6.2-12.0 [facility] Comment on above: Order Comment: Order Date: 05/17/24Order Info: 018- - CBCD Performed By: #### L 500.4050, L100.0100, L506.0400, L501.9520, L501.9985 ####[facility] [address] [place], [address] Platelets (Bld) [#/Vol] 231 10*3/uL Normal 150-450 [facility] Comment on above: Order Comment: Order Date: 05/17/24Order Info: 183-1 - CBCD Performed By: #### L 500.4050, L100.0100, L506.0400, L501.9520, L501.9985 ####[facility] [address] [place], [address] RBC (Bld) [#/Vol] 4.88 10*6/uL Normal 4.2-5.4 [facility] Comment on above: Order Comment: Order Date: 05/17/24Order Info: 018-1 - CBCD Performed By: #### L 500.4050, L100.0100, L506.0400, L501.9520, L501.9985 ####[facility] [address] [place], [address] RDW SD 46.5 fl High 35.1-43.9 [facility] Comment on above: Order Comment: Order Date: 05/17/24Order Info: 018- - CBCD Performed By: #### L 500.4050, L100.0100, L506.0400, L501.9520, L501.9985 ####[facility] [address] [place], [address] WBC (Bld) [#/Vol] 4.9 10*3/uL Normal 4.4-11.0 [facility] Comment on above: Order Comment: Order Date: 05/17/24Order Info: 0184- - CBCD Performed By: #### L 500.4050, L100.0100, L506.0400, L501.9520, L501.9985 ####[facility] [address] [place], [address] Comprehensive Metabolic Prof [facility] 07-19-2024 Albumin [Mass/Vol] 3.7 g/dL Normal 3.2-5.0 [facility] Comment on above: Order Comment: Order Date: 05/17/24Order Info: 0786-1 - CMPOrder Info: 3016-3 - TSHOrder Info: 3024-7 - T4F Performed By: #### L 500.4050, L100.0100, L506.0400, L501.9520, L501.9985 ####[facility] [address] [place], [address] Albumin/Globulin [Mass ratio] 1.0 {ratio} Normal 0.9-2.4 [facility] Comment on above: Order Comment: Order Date: 05/17/24Order Info: 0786-1 - CMPOrder Info: 3015-11 - TSHOrder Info: 7 - T4F Performed By: #### L 500.4050, L100.0100, L506.0400, L501.9520, L501.9985 ####[facility] [address] [place], [address] ALK P 93 U/L Normal 45-117 [facility] Comment on above: Order Comment: Order Date: 05/17/24Order Info: 0786- - CMPOrder Info: 3015-11 - TSHOrder Info: 3024-03 - T4F Performed By: #### L 500.4050, L100.0100, L506.0400, L501.9520, L501.9985 ####[facility] [address] [place], [address] ALT [Catalytic activity/Vol] 15 U/L Normal 13-56 [facility] Comment on above: Order Comment: Order Date: 05/17/24Order Info: 0786- - CMPOrder Info: 3015-11 - TSHOrder Info: 7 - T4F Performed By: #### L 500.4050, L100.0100, L506.0400, L501.9520, L501.9985 ####[facility] [address] [place], [address] AST [Catalytic activity/Vol] 9 U/L Low 15-37 [facility] Comment on above: Order Comment: Order Date: 05/17/24Order Info: 0786-1 - CMPOrder Info: 3015-11 - TSHOrder Info: 3027 - T4F Performed By: #### L 500.4050, L100.0100, L506.0400, L501.9520, L501.9985 ####[facility] [address] [place], [address] Bilirubin [Mass/Vol] 0.70 mg/dL Normal 0.20-1.00 [facility] Comment on above: Order Comment: Order Date: 05/17/24Order Info: 0786-1 - CMPOrder Info: 3016-3 - TSHOrder Info: 3024-7 - T4F Result Comment: For patients on eltrombopag therapy, use of Dimension Roulette TBIL is not recommended. Performed By: #### L 500.4050, L100.0100, L506.0400, L501.9520, L501.9985 ####[facility] [address] [place], [address] BUN/CRE 12.5 RATIO Normal 10-20 [facility] Comment on above: Order Comment: Order Date: 05/17/24Order Info: 0786-1 - CMPOrder Info: 3 - TSHOrder Info: 3024-7 - T4F Performed By: #### L 500.4050, L100.0100, L506.0400, L501.9520, L501.9985 ####[facility] [address] [place], [address] CA,Total 8.8 mg/dL Normal 8.5-10.1 [facility] Comment on above: Order Comment: Order Date: 05/17/24Order Info: 0786-1 - CMPOrder Info: 3016-3 - TSHOrder Info: 3024-7 - T4F Performed By: #### L 500.4050, L100.0100, L506.0400, L501.9520, L501.9985 ####[facility] [address] [place], [address] Chloride [Moles/Vol] 104 mmol/L Normal 98-107 [facility] Comment on above: Order Comment: Order Date: 05/17/24Order Info: 0786-1 - CMPOrder Info: 3016-3 - TSHOrder Info: 3024-7 - T4F Performed By: #### L 500.4050, L100.0100, L506.0400, L501.9520, L501.9985 ####[facility] [address] [place], [address] CO2 [Moles/Vol] 30.0 mmol/L Normal 21.0-32.0 [facility] Comment on above: Order Comment: Order Date: 05/17/24Order Info: 0786-1 - CMPOrder Info: 3015-11 - TSHOrder Info: 3024-03 - T4F Performed By: #### L 500.4050, L100.0100, L506.0400, L501.9520, L501.9985 ####[facility] [address] [place], [address] Creatinine [Mass/Vol] 0.88 mg/dL Normal 0.55-1.02 [facility] Comment on above: Order Comment: Order Date: 05/17/24Order Info: 785-1 - CMPOrder Info: 3015-11 - TSHOrder Info: 3024-03 - T4F Result Comment: The validity of the calculated GFR GFRAA in patients over 70 years has not been determined. Clinical correlation is essential. Performed By: #### L 500.4050, L100.0100, L506.0400, L501.9520, L501.9985 ####[facility] [address] [place], [address] EST GFR - AA 83 mL/min Normal >60 [facility] Comment on above: Order Comment: Order Date: 05/17/24Order Info: 07-1 - CMPOrder Info: [id number] - TSHOrder Info: 7 - T4F Result Comment: Afri can Swazi GFR Calc Performed By: #### L 500.4050, L100.0100, L506.0400, L501.9520, L501.9985 ####[facility] [address] [place], [address] GAP 6 Normal 5-15 [facility] [facility] Comment on above: Order Comment: Order Date: 05/17/24Order Info: [id number] - CMPOrder Info: 3 - TSHOrder Info: [id number] - T4F Performed By: #### L 500.4050, L100.0100, L506.0400, [id number], [id number] ####[facility] [address] [place], [address] GFR/1.73 sq M.predicted among non-blacks MDRD (S/P/Bld) [Vol rate/Area] 69 mL/min/{1.73_m2} Normal >60 [facility] Comment on above: Order Comment: Order Date: 05/17/24Order Info: [id number] - CMPOrder Info: 3 - TSHOrder Info: [id number] - T4F Result Comment: Non- GFR Calc Performed By: #### L 500.4050, L100.0100, L506.0400, [id number], [id number] ####[facility] [address] [place], [address] Globulin (S) [Mass/Vol] 3.8 g/dL Normal 2.2-4.2 [facility] Comment on above: Order Comment: Order Date: 05/17/24Order Info: [id number] - CMPOrder Info: [id number] - TSHOrder Info: [id number] - T4F Performed By: #### L 500.4050, L100.0100, L506.0400, [id number], [id number] ####[facility] [address] [place], [address] Glucose [Mass/Vol] 175 mg/dL High 74-106 [facility] Comment on above: Order Comment: Order Date: 05/17/24Order Info: [id number] - CMPOrder Info: 3 - TSHOrder Info: [id number] - T4F Result Comment: Fast ing Glucose result greater than or equal to 126 mg/dL suggests DIABETES MELLITUS per A.D.A. criteria. Performed By: #### L [id number], L100.0100, L506.0400, [id number], [id number] ####[facility] [address] [place], [address] Potassium [Moles/Vol] 3.8 mmol/L Normal 3.5-5.1 [facility] Comment on above: Order Comment: Order Date: 05/17/24Order Info: [id number] - CMPOrder Info: [id number] - TSHOrder Info: [id number] - T4F Performed By: #### L 500.4050, L100.0100, L506.0400, [id number], [id number] ####[facility] [address] [place], [address] Sodium [Moles/Vol] 139 mmol/L Normal 136-145 [facility] Comment on above: Order Comment: Order Date: 05/17/24Order Info: [id number] - CMPOrder Info: 63 - TSHOrder Info: [id number] - T4F Performed By: #### L 500.4050, L100.0100, L506.0400, [id number], [id number] ####[facility] [address] [place], [address] T PROT 7.5 g/dL Normal 6.4-8.2 [facility] Comment on above: Order Comment: Order Date: 05/17/24Order Info: [id number] - CMPOrder Info: 63 - TSHOrder Info: [id number] - T4F Performed By: #### L 500.4050, L100.0100, L506.0400, [id number], [id number] ####[facility] [address] [place], [address] Urea nitrogen [Mass/Vol] 11 mg/dL Normal 7-18 [facility] Comment on above: Order Comment: Order Date: 05/17/24Order Info: [id number] - CMPOrder Info: 6-3 - TSHOrder Info: [id number] - T4F Performed By: #### L 500.4050, L100.0100, L506.0400, [id number], [id number] ####[facility] [address] [place], [address] Hemoglobin A1con 07-19-2024 HbA1c (Bld) [Mass fraction] 7.4 % High 3.8-5.6 [facility] Comment on above: Order Comment: Order Date: 05/17/24Order Info: [id number] - A1C Result Comment: Norm al < 5.7 % Prediabetic 5.7 - 6.4 % Diabetic >or= 6.5 % Please note range changes. Performed By: #### L 500.4050, L100.0100, L506.0400, [id number], [id number] ####[facility] [address] [place], [address] T4 Free Directon 07-19-2024 T4 FREE DIRECT 0.92 ng/dL Normal 0.76-1.46 [facility] Comment on above: Order Comment: Order Date: 05/17/24Order Info: [id number] - CMPOrder Info: 6-3 - TSHOrder Info: [id number] - T4F Performed By: #### L 500.4050, L100.0100, L506.0400, [id number], [id number] ####[facility] [address] [place], [address] Thyroid Stim Hormone (TSH)on 07-19-2024 TSH 1.400 uIU/mL Normal 0.358-3.740 [facility] Comment on above: Order Comment: Order Date: 05/17/24Order Info: [id number] - CMPOrder Info: [id number] - TSHOrder Info: [id number] - T4F Performed By: #### L 500.4050, L100.0100, L506.0400, L501.9562, L501.9969 ####[facility] [address] [place], [address] Absolute lymphocyte countOrd ered By: Saturnino Marion on 11-06-2023 Lymphocytes Auto (Unsp spec) [#/Vol] 0.95 10*3/uL 0.83-4.51 [facility] Automated lymphocyte count a s percentage of total leukocytesOrdered By: Saturnino Marion on 11-06-2023 Lymphocytes/100 WBC Auto (Unsp spec) 8.5 % 19-41 [facility] Basophil percentageOrdered B y: Saturnino Marion on 11-06-2023 Basophils/100 WBC (Bld) 0.3 % 0-1 [facility] Bilirubin [Mass/Vol] 0.60 mg/dL 0.20-1.00 [facility] Comment on above: For patients on eltr ombopag therapy, use of Dimension Roulette TBIL is not recommended. Chloride [Moles/Vol] 94 mmol/L 98-107 [facility] Eosinophils/100 WBC (Bld) 0.1 % 0-5 [facility] Glucose [Mass/Vol] 425 mg/dL 74-106 [facility] Comment on above: Glucose result great er than or equal to 200 mg/dLsuggests DIABETES MELLITUS per A.D.A. criteria. Hemoglobin (Bld) [Mass/Vol] 15.1 g/dL 12.0-15.0 [facility] Monocytes/100 WBC (Bld) 4.2 % 0-10 [facility] Neutrophils (Bld) [#/Vol] 9.7 10*3/uL 2.0-7.7 [facility] Neutrophils/100 WBC (Bld) 86.3 % 47-70 [facility] Potassium [Moles/Vol] 4.0 mmol/L 3.5-5.1 [facility] Protein [Mass/Vol] 7.9 g/dL 6.4-8.2 [facility] Sodium [Moles/Vol] 135 mmol/L 136-145 [facility] WBC (Bld) [#/Vol] 11.2 10*3/uL 4.4-11.0 [facility] Determination of erythrocyte mean corpuscular volume (MCV)Ordered By: Saturnino Marion on 11-06-2023 MCV (RBC) [Entitic vol] 92.0 fL 81-99 [facility] Erythrocyte distribution wid th ratioOrdered By: Saturnino aMrion on 11-06-2023 Erythrocyte distribution width (RBC) [Ratio] 13.4 % 11.6-14.6 [facility] Erythrocyte distribution wid th standard deviationOrdered By: Saturnino Marion on 11-06-2023 Erythrocyte distribution width (RBC) [Entitic vol] 45.3 fL 35.1-43.9 [facility] Hematocrit Auto (Bld) [Volum e fraction]Ordered By: Saturnino Marion on 11-06-2023 Hematocrit (Bld) [Volume fraction] 48.4 % 37-47 [facility] Immature granulocytes/100 WB C Auto (Bld)Ordered By: Saturnino Marion on 11-06-2023 Immature granulocytes/100 WBC (Bld) 0.600 % 0.0-0.9 [facility] Comment on above: IG% - Immature Granu locytes (promyelocytes, myelocytes and metamyelocytes) > 1% indicates that a LEFT SHIFT is Present. Laboratory - Chemistry and C hemistry - challengeOrdered By: Saturnino Marion on 11-06-2023 Albumin/Globulin [Mass ratio] 0.9 {ratio} 0.9-2.4 [facility] ALP [Catalytic activity/Vol] 93 U/L 45-117 [facility] ALT [Catalytic activity/Vol] 18 U/L 13-56 [facility] CO2 [Moles/Vol] 32.0 mmol/L 21.0-32.0 [facility] Globulin (S) [Mass/Vol] 4.1 g/dL 2.2-4.2 [facility] Urea nitrogen/Creatinine [Mass ratio] 21.6 mg/mg 10-20 [facility] Laboratory - Hematology and Cell countsOrdered By: Saturnino Marion on 11-06-2023 MCH (RBC) [Entitic mass] 28.7 pg 27.0-32.0 [facility] MCHC (RBC) [Mass/Vol] 31.2 g/dL 32-36 [facility] Nucleated RBC/100 WBC (Bld) [Ratio] 0 % 0-5 [facility] Platelet mean volume (Bld) [Entitic vol] 12.3 fL 6.2-12.0 [facility] Platelets (Bld) [#/Vol] 312 10*3/uL 150-450 [facility] No Panel InformationOrdered By: Saturnino Marion on 11-06-2023 Estimated GFR (MDRD) Amer 46 mL/min >60 [facility] Comment on above: GFR Calc Estimated GFR (MDRD) Non-Af Amer 38 mL/min >60 [facility] Comment on above: Non- GFR Calc RBC Auto (Bld) [#/Vol]Ordere d By: Saturnino Marion on 11-06-2023 RBC (Bld) [#/Vol] 5.26 10*6/uL 4.2-5.4 [facility] Serum or plasma calcium gladis urement (mass/volume)Ordered By: Saturnino Marion on 11-06-2023 Calcium [Mass/Vol] 9.2 mg/dL 8.5-10.1 [facility] Serum or plasma creatinine m easurement (mass/volume)Ordered By: Saturnino Marion on 11-06-2023 Creatinine [Mass/Vol] 1.48 mg/dL 0.55-1.02 [facility] Comment on above: The validity of the calculated GFR & GFRAA in patients over 70 years has not been determined. Clinical correlation is essential. Serum or plasma thyroid stim ulating hormone (TSH) measurement (units/volume)Ordered By: Saturnino Marion on 11-06-2023 TSH Qn 0.35 uIU/mL 0.358-3.74 [facility] Serum or plasma urea nitroge n measurement (mass/volume)Ordered By: Saturnino Marion on 11-06-2023 Urea nitrogen [Mass/Vol] 32 mg/dL 7-18 [facility] Thin prep Papanicolaou smear with manual screeningOrdered By: Saturnino Marion on 11-06-2023 Thin prep Papanicolaou smear with manual screening 3.8 g/dL 3.2-5.0 [facility] Thin prep Papanicolaou smear with manual screening < 3 U/L 15-37 [facility] Thin prep Papanicolaou smear with manual screening 9 5-15 [facility] Whole blood hemoglobin A1c/t otal hemoglobin ratio (mass fraction)Ordered By: Saturnino Marion on 11-06-2023 HbA1c (Bld) [Mass fraction] 9.8 % 3.8-5.6 [facility] Comment on above: Normal < 5.7 % Predi abetic 5.7 - 6.4 % Diabetic >or= 6.5 % Please note range changes. Absolute lymphocyte countOrd ered By: Saturnino Marion on 04-27-2023 Lymphocytes Auto (Unsp spec) [#/Vol] 1.59 10*3/uL 0.83-4.51 [facility] Bacteria identified Cx Nom ( Wound)Ordered By: Saturnino Marion on 04-27-2023 Wound Culture Positive [facility] Wound Culture Staphylococcus species [facility] Wound Culture Staphylococcus species#2 [facility] Wound Culture Alpha hemolytic organism [facility] Basophil percentageOrdered B y: Saturnino Marion on 04-27-2023 Basophil percentage 0-5 SEEN /hpf 0-5 [facility] Basophils/100 WBC (Bld) 0.4 % 0-1 [facility] Bilirubin [Mass/Vol] 0.30 mg/dL 0.20-1.00 [facility] Comment on above: For patients on eltr ombopag therapy, use of Dimension [place] TBIL is not recommended. Chloride [Moles/Vol] 107 mmol/L 98-107 [facility] Eosinophils/100 WBC (Bld) 1.9 % 0-5 [facility] Glucose [Mass/Vol] 136 mg/dL 74-106 [facility] Comment on above: Fasting Glucose resu lt greater than or equal to 126 mg/dL suggests DIABETES MELLITUS per A.D.A. criteria. Neutrophils (Bld) [#/Vol] 3.3 10*3/uL 2.0-7.7 [facility] Neutrophils/100 WBC (Bld) 62.1 % 47-70 [facility] Potassium [Moles/Vol] 3.7 mmol/L 3.5-5.1 [facility] Protein [Mass/Vol] 7.0 g/dL 6.4-8.2 [facility] Sodium [Moles/Vol] 140 mmol/L 136-145 [facility] WBC (Bld) [#/Vol] 5.3 10*3/uL 4.4-11.0 [facility] Bilirubin Test strip Ql (U)O rdered By: Saturnino Marion on 04-27-2023 Bilirubin Ql (U) Negative Negative [facility] Blood erythrocytes count (nu mber/volume)Ordered By: Saturnino Marion on 04-27-2023 RBC (Bld) [#/Vol] 4.78 10*6/uL 4.2-5.4 [facility] Blood hemoglobin measurement (mass/volume)Ordered By: Saturnino Marion on 04-27-2023 Hemoglobin (Bld) [Mass/Vol] 13.2 g/dL 12.0-15.0 [facility] Blood lymphocytes/100 leukoc ytesOrdered By: Saturnino Marion on 04-27-2023 Lymphocytes/100 WBC (Bld) 29.9 % 19-41 [facility] Blood monocytes/100 leukocyt esOrdered By: Saturnino Marion on 04-27-2023 Monocytes/100 WBC (Bld) 5.5 % 0-10 [facility] Blood platelet mean volumeOr dered By: Saturnino Marion on 04-27-2023 Platelet mean volume (Bld) [Entitic vol] 11.2 fL 6.2-12.0 [facility] Determination of erythrocyte mean corpuscular volume (MCV)Ordered By: Saturnino Marion on 04-27-2023 MCV (RBC) [Entitic vol] 91.0 fL 81-99 [facility] Gram stain for investigation of transfusion reactionOrdered By: Saturnino Marion on 04-27-2023 Microscopic observation Gram stain Nom (Unsp spec) [facility] Hematocrit Auto (Bld) [Volum e fraction]Ordered By: Saturnino Marion on 04-27-2023 Hematocrit (Bld) [Volume fraction] 43.5 % 37-47 [facility] Ketones Test strip Ql (U)Ord ered By: Saturnino Marion on 04-27-2023 Ketones Ql (U) Negative Negative [facility] Laboratory - Chemistry and C hemistry - challengeOrdered By: Saturnino Marion on 04-27-2023 ALP [Catalytic activity/Vol] 94 U/L 45-117 [facility] ALT [Catalytic activity/Vol] 15 U/L 13-56 [facility] CO2 [Moles/Vol] 27.0 mmol/L 21.0-32.0 [facility] Globulin (S) [Mass/Vol] 3.9 g/dL 2.2-4.2 [facility] Urea nitrogen/Creatinine [Mass ratio] 16.8 mg/mg 10-20 [facility] Laboratory - Hematology and Cell countsOrdered By: Saturnino Marion on 04-27-2023 Erythrocyte distribution width (RBC) [Entitic vol] 49.6 fL 35.1-43.9 [facility] Erythrocyte distribution width (RBC) [Ratio] 14.9 % 11.6-14.6 [facility] Immature granulocytes/100 WBC (Bld) 0.200 % 0.0-0.9 [facility] Comment on above: IG% - Immature Granu locytes (promyelocytes, myelocytes and metamyelocytes) > 1% indicates that a LEFT SHIFT is Present. MCH (RBC) [Entitic mass] 27.6 pg 27.0-32.0 [facility] Nucleated RBC/100 WBC (Bld) [Ratio] 0 % 0-5 [facility] MCHC Auto (RBC) [Mass/Vol]Or dered By: Saturnino Marion on 04-27-2023 MCHC (RBC) [Mass/Vol] 30.3 g/dL 32-36 [facility] Mucus LM Ql (Urine sed)Order ed By: Saturnino Marion on 04-27-2023 Mucus Ql (Urine sed) 0 SEEN /hpf [facility] Nitrite Test strip Ql (U)Ord ered By: Saturnino Marion on 04-27-2023 Nitrite Ql (U) Negative Negative [facility] No Panel InformationOrdered By: Saturnino Marion on 04-27-2023 Estimated GFR (MDRD) Amer 82 mL/min >60 [facility] Comment on above: GFR Calc Estimated GFR (MDRD) Non-Af Amer 68 mL/min >60 [facility] Comment on above: Non- GFR Calc Urine Microalbumin/Creatinine Ratio 6.6 mg/g CRE <30 [facility] Platelets bldOrdered By: Natasha Marion on 04-27-2023 Platelets (Bld) [#/Vol] 243 10*3/uL 150-450 [facility] Protein Test strip Ql (U)Ord ered By: Saturnino Marion on 04-27-2023 Protein Ql (U) 15 mg/dl Negative [facility] Serum Treponema species anti body detectionOrdered By: Saturnino Marion on 04-27-2023 Treponema sp Ab Ql (S) Non-Reactive [facility] Serum or plasma albumin gladis urement (mass/volume)Ordered By: Saturnino Marion on 04-27-2023 Albumin [Mass/Vol] 3.1 g/dL 3.2-5.0 [facility] Serum or plasma albumin/glob ulin mass ratioOrdered By: Saturnino Marion on 04-27-2023 Albumin/Globulin [Mass ratio] 0.8 {ratio} 0.9-2.4 [facility] Serum or plasma calcium gladis urement (mass/volume)Ordered By: Saturnino Marion on 04-27-2023 Calcium [Mass/Vol] 8.8 mg/dL 8.5-10.1 [facility] Serum or plasma creatinine m easurement (mass/volume)Ordered By: Saturnino Marion on 04-27-2023 Creatinine [Mass/Vol] 0.90 mg/dL 0.55-1.02 [facility] Comment on above: The validity of the calculated GFR & GFRAA in patients over 70 years has not been determined. Clinical correlation is essential. Serum or plasma urea nitroge n measurement (mass/volume)Ordered By: Saturnino Marion on 04-27-2023 Urea nitrogen [Mass/Vol] 15 mg/dL 7-18 [facility] Squamous epithelial cells de tection in urine sediment by light microscopyOrdered By: Saturnino Marion on 04-27-2023 Epithelial cells.squamous LM Ql (Urine sed) 0-5 SEEN /hpf 5-10 [facility] Thin prep Papanicolaou smear with manual screeningOrdered By: Saturnino Marion on 04-27-2023 Thin prep Papanicolaou smear with manual screening 12 U/L 15-37 [facility] Thin prep Papanicolaou smear with manual screening 6 5-15 [facility] Thin prep Papanicolaou smear with manual screening 12.8 mg/L NO RANGE EST. [facility] Urine blood detectionOrdered By: Saturnino Marion on 04-27-2023 RBC Ql (U) Negative Negative [facility] RBC Ql (U) 0 SEEN /hpf 0-5 [facility] Urine clarityOrdered By: Natasha Marion on 04-27-2023 Clarity (U) Clear Clear [facility] Urine color determinationOrd ered By: Saturnino Marion on 04-27-2023 Color (U) Yellow Yellow [facility] Urine creatinine measurement (mass/volume)Ordered By: Saturnino Marion on 04-27-2023 Creatinine (U) [Mass/Vol] 195.00 mg/dL NO RANGE EST. [facility] Urine glucose detectionOrder ed By: Saturnino Marion on 04-27-2023 Glucose Ql (U) Normal mg/dl Normal [facility] Urine leukocyte esterase det ection by dipstickOrdered By: Saturnino Marion on 04-27-2023 Leukocyte esterase Test strip Ql (U) 25 /ul Negative [facility] Urine pHOrdered By: Saturnino stratton on 04-27-2023 pH (U) 5.0 [pH] 5.0 - 8.0 [facility] Urine sediment bacteria coun t by microscopy (number/high power field)Ordered By: Saturnino Marion on 04-27-2023 Bacteria LM.HPF (Urine sed) [#/Area] 2 /[HPF] None Seen [facility] Urine specific gravity measu rementOrdered By: Saturnino Marion on 04-27-2023 Specific gravity (U) [Rel density] 1.020 1.002-1.030 [facility] Urobilinogen Auto test strip Ql (U)Ordered By: Saturnino Marion on 04-27-2023 Urobilinogen Ql (U) Normal mg/dl Normal [facility] Whole blood hemoglobin A1c/t otal hemoglobin ratio (mass fraction)Ordered By: Saturnino Marion on 04-27-2023 HbA1c (Bld) [Mass fraction] 7.6 % 3.8-5.6 [facility] Comment on above: Normal < 5.7 % Predi abetic 5.7 - 6.4 % Diabetic >or= 6.5 % Please note range changes. Absolute lymphocyte countOrd ered By: Dr. Marion on 12-16-2022 Lymphocytes Auto (Unsp spec) [#/Vol] 1.54 10*3/uL 0.83-4.51 [facility] Basophil percentageOrdered B y: Dr. Marion on 12-16-2022 Basophils/100 WBC (Bld) 0.5 % 0-1 [facility] Bilirubin [Mass/Vol] 0.30 mg/dL 0.20-1.00 [facility] Comment on above: For patients on eltr ombopag therapy, use of Dimension [place] TBIL is not recommended. Chloride [Moles/Vol] 107 mmol/L 98-107 [facility] Eosinophils/100 WBC (Bld) 2.2 % 0-5 [facility] Glucose [Mass/Vol] 132 mg/dL 74-106 [facility] Comment on above: Fasting Glucose resu lt greater than or equal to 126 mg/dL suggests DIABETES MELLITUS per A.D.A. criteria. Neutrophils (Bld) [#/Vol] 3.8 10*3/uL 2.0-7.7 [facility] Neutrophils/100 WBC (Bld) 64.3 % 47-70 [facility] Potassium [Moles/Vol] 4.3 mmol/L 3.5-5.1 [facility] Protein [Mass/Vol] 7.2 g/dL 6.4-8.2 [facility] Sodium [Moles/Vol] 141 mmol/L 136-145 [facility] WBC (Bld) [#/Vol] 5.9 10*3/uL 4.4-11.0 [facility] Blood erythrocytes count (nu mber/volume)Ordered By: Dr. Marion on 12-16-2022 RBC (Bld) [#/Vol] 4.77 10*6/uL 4.2-5.4 [facility] Blood hemoglobin measurement (mass/volume)Ordered By: Dr. Maroin on 12-16-2022 Hemoglobin (Bld) [Mass/Vol] 13.1 g/dL 12.0-15.0 [facility] Blood lymphocytes/100 leukoc ytesOrdered By: Dr. Marion on 12-16-2022 Lymphocytes/100 WBC (Bld) 25.9 % 19-41 [facility] Blood monocytes/100 leukocyt esOrdered By: Dr. Marion on 12-16-2022 Monocytes/100 WBC (Bld) 6.9 % 0-10 [facility] Blood platelet mean volumeOr dered By: Dr. Marion on 12-16-2022 Platelet mean volume (Bld) [Entitic vol] 12.3 fL 6.2-12.0 [facility] Determination of erythrocyte mean corpuscular volume (MCV)Ordered By: Dr. Marion on 12-16-2022 MCV (RBC) [Entitic vol] 93.3 fL 81-99 [facility] Hematocrit Auto (Bld) [Volum e fraction]Ordered By: Dr. Marion on 12-16-2022 Hematocrit (Bld) [Volume fraction] 44.5 % 37-47 [facility] Laboratory - Chemistry and C hemistry - challengeOrdered By: Dr. Marion on 12-16-2022 ALP [Catalytic activity/Vol] 83 U/L 45-117 [facility] ALT [Catalytic activity/Vol] 16 U/L 13-56 [facility] CO2 [Moles/Vol] 25.0 mmol/L 21.0-32.0 [facility] Globulin (S) [Mass/Vol] 3.7 g/dL 2.2-4.2 [facility] Natriuretic peptide B (Bld) [Mass/Vol] 24.9 pg/mL 0-100 [facility] Urea nitrogen/Creatinine [Mass ratio] 16.0 mg/mg 10-20 [facility] Laboratory - Hematology and Cell countsOrdered By: Dr. Marion on 12-16-2022 Erythrocyte distribution width (RBC) [Entitic vol] 49.5 fL 35.1-43.9 [facility] Erythrocyte distribution width (RBC) [Ratio] 14.5 % 11.6-14.6 [facility] Immature granulocytes/100 WBC (Bld) 0.200 % 0.0-0.9 [facility] Comment on above: IG% - Immature Granu locytes (promyelocytes, myelocytes and metamyelocytes) > 1% indicates that a LEFT SHIFT is Present. MCH (RBC) [Entitic mass] 27.5 pg 27.0-32.0 [facility] Nucleated RBC/100 WBC (Bld) [Ratio] 0 % 0-5 [facility] MCHC Auto (RBC) [Mass/Vol]Or dered By: Dr. Marion on 12-16-2022 MCHC (RBC) [Mass/Vol] 29.4 g/dL 32-36 [facility] No Panel InformationOrdered By: Dr. Marion on 12-16-2022 Estimated GFR (MDRD) Amer 78 mL/min >60 [facility] Comment on above: GFR Calc Estimated GFR (MDRD) Non-Af Amer 64 mL/min >60 [facility] Comment on above: Non- GFR Calc Thyroid Stimulating Hormone (TSH) 1.03 uIU/mL 0.358-3.74 [facility] Platelets bldOrdered By: Dr. Marion on 12-16-2022 Platelets (Bld) [#/Vol] 202 10*3/uL 150-450 [facility] [facility] Serum or plasma albumin gladis urement (mass/volume)Ordered By: Dr. Marion on 12-16-2022 Albumin [Mass/Vol] 3.5 g/dL 3.2-5.0 [facility] Serum or plasma albumin/glob ulin mass ratioOrdered By: Dr. Marion on 12-16-2022 Albumin/Globulin [Mass ratio] 0.9 {ratio} 0.9-2.4 [facility] Serum or plasma calcium gladis urement (mass/volume)Ordered By: Dr. Marion on 12-16-2022 Calcium [Mass/Vol] 8.9 mg/dL 8.5-10.1 [facility] Serum or plasma creatinine m easurement (mass/volume)Ordered By: Dr. Marion on 12-16-2022 Creatinine [Mass/Vol] 0.94 mg/dL 0.55-1.02 [facility] Comment on above: The validity of the calculated GFR & GFRAA in patients over 70 years has not been determined. Clinical correlation is essential. Serum or plasma urea nitroge n measurement (mass/volume)Ordered By: Dr. Marion on 12-16-2022 Urea nitrogen [Mass/Vol] 15 mg/dL 7-18 [facility] Thin prep Papanicolaou smear with manual screeningOrdered By: Dr. Marion on 12-16-2022 Thin prep Papanicolaou smear with manual screening 14 U/L 15-37 [facility] Thin prep Papanicolaou smear with manual screening 9 5-15 [facility] Whole blood hemoglobin A1c/t otal hemoglobin ratio (mass fraction)Ordered By: Dr. Marion on 12-16-2022 HbA1c (Bld) [Mass fraction] 8.0 % 3.8-5.6 [facility] Comment on above: Normal < 5.7 % Predi abetic 5.7 - 6.4 % Diabetic >or= 6.5 % Please note range changes. Absolute lymphocyte countOrd ered By: Marianne Berry on 09-15-2022 Lymphocytes Auto (Unsp spec) [#/Vol] 2.02 10*3/uL 0.83-4.51 [facility] Basophil percentageOrdered B y: Marianne Berry on 09-15-2022 Basophils/100 WBC (Bld) 0.6 % 0-1 [facility] Chloride [Moles/Vol] 103 mmol/L 98-107 [facility] Eosinophils/100 WBC (Bld) 3.6 % 0-5 [facility] Glucose [Mass/Vol] 134 mg/dL 74-106 [facility] Comment on above: Fasting Glucose resu lt greater than or equal to 126 mg/dL suggests DIABETES MELLITUS per A.D.A. criteria. Neutrophils (Bld) [#/Vol] 4.4 10*3/uL 2.0-7.7 [facility] Neutrophils/100 WBC (Bld) 61.7 % 47-70 [facility] Potassium [Moles/Vol] 4.0 mmol/L 3.5-5.1 [facility] Comment on above: Slight Hemolysis, Re sult may be falsely increased. Sodium [Moles/Vol] 138 mmol/L 136-145 [facility] WBC (Bld) [#/Vol] 7.2 10*3/uL 4.4-11.0 [facility] Blood erythrocytes count (nu mber/volume)Ordered By: Marianne Berry on 09-15-2022 RBC (Bld) [#/Vol] 5.17 10*6/uL 4.2-5.4 [facility] Blood hemoglobin measurement (mass/volume)Ordered By: Marianne Berry on 09-15-2022 Hemoglobin (Bld) [Mass/Vol] 14.5 g/dL 12.0-15.0 [facility] Blood lymphocytes/100 leukoc ytesOrdered By: Marianne Berry on 09-15-2022 Lymphocytes/100 WBC (Bld) 28.1 % 19-41 [facility] Blood monocytes/100 leukocyt esOrdered By: Marianne Berry on 09-15-2022 Monocytes/100 WBC (Bld) 5.7 % 0-10 [facility] Blood platelet mean volumeOr dered By: Marianne Berry on 09-15-2022 Platelet mean volume (Bld) [Entitic vol] 11.6 fL 6.2-12.0 [facility] Determination of erythrocyte mean corpuscular volume (MCV)Ordered By: Marianne Berry on 09-15-2022 MCV (RBC) [Entitic vol] 89.4 fL 81-99 [facility] Hematocrit Auto (Bld) [Volum e fraction]Ordered By: Marianne Berry on 09-15-2022 Hematocrit (Bld) [Volume fraction] 46.2 % 37-47 [facility] Laboratory - Chemistry and C hemistry - challengeOrdered By: Marianne Berry on 09-15-2022 CO2 [Moles/Vol] 29.0 mmol/L 21.0-32.0 [facility] Natriuretic peptide B (Bld) [Mass/Vol] 21.4 pg/mL 0-100 [facility] Urea nitrogen/Creatinine [Mass ratio] 17.9 mg/mg 10-20 [facility] Laboratory - Hematology and Cell countsOrdered By: Marianne Berry on 09-15-2022 Erythrocyte distribution width (RBC) [Entitic vol] 47.8 fL 35.1-43.9 [facility] Erythrocyte distribution width (RBC) [Ratio] 14.6 % 11.6-14.6 [facility] Immature granulocytes/100 WBC (Bld) 0.300 % 0.0-0.9 [facility] Comment on above: IG% - Immature Granu locytes (promyelocytes, myelocytes and metamyelocytes) > 1% indicates that a LEFT SHIFT is Present. MCH (RBC) [Entitic mass] 28.0 pg 27.0-32.0 [facility] Nucleated RBC/100 WBC (Bld) [Ratio] 0 % 0-5 [facility] MCHC Auto (RBC) [Mass/Vol]Or dered By: Marianne Berry on 09-15-2022 MCHC (RBC) [Mass/Vol] 31.4 g/dL 32-36 [facility] No Panel InformationOrdered By: Marianne Berry on 09-15-2022 Estimated GFR (MDRD) Amer 68 mL/min >60 [facility] Comment on above: GFR Calc Estimated GFR (MDRD) Non-Af Amer 56 mL/min >60 [facility] Comment on above: Non- GFR Calc Platelets bldOrdered By: Luis Fernando Berry on 09-15-2022 Platelets (Bld) [#/Vol] 297 10*3/uL 150-450 [facility] Serum or plasma calcium gladis urement (mass/volume)Ordered By: Marianne Berry on 09-15-2022 Calcium [Mass/Vol] 9.4 mg/dL 8.5-10.1 [facility] Serum or plasma creatinine m easurement (mass/volume)Ordered By: Marianne Berry on 09-15-2022 Creatinine [Mass/Vol] 1.06 mg/dL 0.55-1.02 [facility] Comment on above: The validity of the calculated GFR & GFRAA in patients over 70 years has not been determined. Clinical correlation is essential. Serum or plasma urea nitroge n measurement (mass/volume)Ordered By: Marianne Berry on 09-15-2022 Urea nitrogen [Mass/Vol] 19 mg/dL 7-18 [facility] Thin prep Papanicolaou smear with manual screeningOrdered By: Marianne Berry on 09-15-2022 Thin prep Papanicolaou smear with manual screening 6 5-15 [facility] Absolute lymphocyte counton 07-04-2022 Lymphocytes Auto (Unsp spec) [#/Vol] 1.61 10*3/uL 0.83-4.51 [facility] Work Phone: Basophil percentageon 2021 Basophils/100 WBC (Bld) 0.5 % 0-1 [facility] Work Phone: Bilirubin [Mass/Vol] 0.40 mg/dL 0.20-1.00 [facility] Work Phone: Comment on above: For patients on eltr ombopag therapy, use of Dimension Roulette TBIL is not recommended. Chloride [Moles/Vol] 99 mmol/L 98-107 [facility] Work Phone: Eosinophils/100 WBC (Bld) 2.6 % 0-5 [facility] Work Phone: Glucose [Mass/Vol] 274 mg/dL 74-106 [facility] Work Phone: Comment on above: Glucose result great er than or equal to 200 mg/dLsuggests DIABETES MELLITUS per A.D.A. criteria. Neutrophils (Bld) [#/Vol] 3.9 10*3/uL 2.0-7.7 [facility] Work Phone: Neutrophils/100 WBC (Bld) 64.7 % 47-70 [facility] Work Phone: Potassium [Moles/Vol] 3.6 mmol/L 3.5-5.1 [facility] Work Phone: Protein [Mass/Vol] 7.8 g/dL 6.4-8.2 [facility] Work Phone: Sodium [Moles/Vol] 138 mmol/L 136-145 [facility] Work Phone: WBC (Bld) [#/Vol] 6.1 10*3/uL 4.4-11.0 [facility] Work Phone: Blood erythrocytes count (nu mber/volume)on 07-04-2022 RBC (Bld) [#/Vol] 4.90 10*6/uL 4.2-5.4 [facility]: Blood hemoglobin measurement (mass/volume)on 07-04-2022 Hemoglobin (Bld) [Mass/Vol] 13.4 g/dL 12.0-15.0 [facility] Work Phone: Blood lymphocytes/100 leukoc yteson 07-04-2022 Lymphocytes/100 WBC (Bld) 26.6 % 19-41 [facility] Work Phone: Blood monocytes/100 leukocyt eson 07-04-2022 Monocytes/100 WBC (Bld) 5.3 % 0-10 [facility] Work Phone: Blood platelet mean volumeon 07-04-2022 Platelet mean volume (Bld) [Entitic vol] 11.5 fL 6.2-12.0 [facility] Work Phone: Determination of erythrocyte mean corpuscular volume (MCV)on 07-04-2022 MCV (RBC) [Entitic vol] 88.0 fL 81-99 [facility] Work Phone: Hematocrit Auto (Bld) [Volum e fraction]on 07-04-2022 Hematocrit (Bld) [Volume fraction] 43.1 % 37-47 [facility] Work Phone: Laboratory - Chemistry and C hemistry - challengeon 07-04-2022 ALP [Catalytic activity/Vol] 103 U/L 45-117 [facility] Work Phone: ALT [Catalytic activity/Vol] 16 U/L 13-56 [facility] Work Phone: CO2 [Moles/Vol] 31.0 mmol/L 21.0-32.0 [facility] Work Phone: Globulin (S) [Mass/Vol] 4.4 g/dL 2.2-4.2 [facility] Work Phone: Magnesium [Mass/Vol] 2.2 mg/dL 1.6-2.6 [facility] Work [facility]: Natriuretic peptide B (Bld) [Mass/Vol] 27.8 pg/mL 0-100 [facility] Work Phone: Urea nitrogen/Creatinine [Mass ratio] 11.9 mg/mg 10-20 [facility] Work Phone: Laboratory - Hematology and Cell countson 07-04-2022 Erythrocyte distribution width (RBC) [Entitic vol] 52.6 fL 35.1-43.9 [facility] Work Phone: [phone] Erythrocyte distribution width (RBC) [Ratio] 16.1 % 11.6-14.6 [facility] Work Phone: Immature granulocytes/100 WBC (Bld) 0.300 % 0.0-0.9 [facility] Work Phone: Comment on above: IG% - Immature Granu locytes (promyelocytes, myelocytes and metamyelocytes) > 1% indicates that a LEFT SHIFT is Present. MCH (RBC) [Entitic mass] 27.3 pg 27.0-32.0 [facility] Work Phone: Nucleated RBC/100 WBC (Bld) [Ratio] 0 % 0-5 [facility] Work Phone: MCHC Auto (RBC) [Mass/Vol]on 07-04-2022 MCHC (RBC) [Mass/Vol] 31.1 g/dL 32-36 [facility] Work Phone: No Panel Informationon 07-04 Estimated GFR (MDRD) Amer 66 mL/min >60 [facility] Work Phone: Comment on above: GFR Calc Estimated GFR (MDRD) Non-Af Amer 54 mL/min >60 [facility] Work Phone: Comment on above: Non- GFR Calc Thyroid Stimulating Hormone (TSH) 0.77 uIU/mL 0.358-3.74 [facility] Work Phone: Platelets bldon 07-04-2022 Platelets (Bld) [#/Vol] 300 10*3/uL 150-450 [facility] Work Phone: [phone] Serum or plasma albumin gladis urement (mass/volume)on 07-04-2022 Albumin [Mass/Vol] 3.4 g/dL 3.2-5.0 [facility] Work Phone: [phone] Serum or plasma albumin/glob ulin mass ratioon 07-04-2022 Albumin/Globulin [Mass ratio] 0.8 {ratio} 0.9-2.4 [facility] Work Phone: [phone] Serum or plasma calcium gladis urement (mass/volume)on 07-04-2022 Calcium [Mass/Vol] 9.1 mg/dL 8.5-10.1 [facility] Work Phone: Serum or plasma creatinine m easurement (mass/volume)on 07-04-2022 Creatinine [Mass/Vol] 1.09 mg/dL 0.55-1.02 [facility] Work Phone: Comment on above: The validity of the calculated GFR & GFRAA in patients over 70 years has not been determined. Clinical correlation is essential. Serum or plasma urea nitroge n measurement (mass/volume)on 07-04-2022 Urea nitrogen [Mass/Vol] 13 mg/dL 7-18 [facility] Work Phone: Thin prep Papanicolaou smear with manual screeningon 07-04-2022 Thin prep Papanicolaou smear with manual screening 7 U/L 15-37 [facility] Work Phone: Thin prep Papanicolaou smear with manual screening 8 5-15 [facility] Work Phone: Laboratory - Chemistry and C hemistry - challengeon 02-11-2022 Natriuretic peptide B (Bld) [Mass/Vol] 6.8 pg/mL 0-100 [facility] Work Phone: No Panel Informationon 02-11 D-Dimer Quantitative (PE/DVT) 2.52 FEU/ug/m 0.27-0.49 [facility] Work Phone: Comment on above: D-Dimer ELEVATED (>0 .49): Additional studies and clinicalassessments are indicated to conclude diagnosis of:Deep Vein Thrombosis (DVT) or Pulmonary Embolism (PE)CRITICAL VALUE VERIFIED. CALLED TO KAYLIN LEDESMA02/11/22 [id number] Katherine Broussard.RESULTS READ BACK BY SAME. Absolute lymphocyte counton 01-03-2022 Lymphocytes Auto (Unsp spec) [#/Vol] 1.48 10*3/uL 0.83-4.51 [facility] Work Phone: Basophil percentageon 2021 Basophils/100 WBC (Bld) 0.4 % 0-1 [facility] Work Phone: Bilirubin [Mass/Vol] 0.30 mg/dL 0.20-1.00 [facility] Work Phone: Comment on above: For patients on eltr ombopag therapy, use of Dimension [place] TBIL is not recommended. Chloride [Moles/Vol] 101 mmol/L 98-107 [facility] Work Phone: Eosinophils/100 WBC (Bld) 3.7 % 0-5 [facility] Work Phone: Glucose [Mass/Vol] 213 mg/dL 74-106 [facility] Work Phone: Comment on above: Glucose result great er than or equal to 200 mg/dLsuggests DIABETES MELLITUS per A.D.A. criteria. Neutrophils (Bld) [#/Vol] 5.6 10*3/uL 2.0-7.7 [facility] Work Phone: Neutrophils/100 WBC (Bld) 72.0 % 47-70 [facility] Work Phone: Potassium [Moles/Vol] 3.5 mmol/L 3.5-5.1 [facility] Work Phone: [phone] Protein [Mass/Vol] 7.7 g/dL 6.4-8.2 [facility] Work Phone: Sodium [Moles/Vol] 137 mmol/L 136-145 [facility] Work Phone: WBC (Bld) [#/Vol] 7.8 10*3/uL 4.4-11.0 [facility] Work Phone: Blood erythrocytes count (nu mber/volume)on 01-03-2022 RBC (Bld) [#/Vol] 5.00 10*6/uL 4.2-5.4 [facility] Work Phone: Blood hemoglobin measurement (mass/volume)on 01-03-2022 Hemoglobin (Bld) [Mass/Vol] 13.1 g/dL 12.0-15.0 [facility] Work Phone: Blood lymphocytes/100 leukoc yteson 01-03-2022 Lymphocytes/100 WBC (Bld) 19.0 % 19-41 [facility] Work Phone: Blood monocytes/100 leukocyt eson 01-03-2022 Monocytes/100 WBC (Bld) 4.6 % 0-10 [facility] Work Phone: Blood platelet mean volumeon 01-03-2022 Platelet mean volume (Bld) [Entitic vol] 11.9 fL 6.2-12.0 [facility] Work Phone: Determination of erythrocyte mean corpuscular volume (MCV)on 01-03-2022 MCV (RBC) [Entitic vol] 84.0 fL 81-99 [facility] Work Phone: Hematocrit Auto (Bld) [Volum e fraction]on 01-03-2022 Hematocrit (Bld) [Volume fraction] 42.0 % 37-47 [facility] Work Phone: Laboratory - Chemistry and C hemistry - challengeon 01-03-2022 ALP [Catalytic activity/Vol] 101 U/L 45-117 [facility] Work Phone: ALT [Catalytic activity/Vol] 16 U/L 13-56 [facility] Work Phone: CO2 [Moles/Vol] 30.0 mmol/L 21.0-32.0 [facility] Work Phone: Globulin (S) [Mass/Vol] 4.5 g/dL 2.2-4.2 [facility] Work Phone: Natriuretic peptide B (Bld) [Mass/Vol] 8.8 pg/mL 0-100 [facility] Work Phone: Urea nitrogen/Creatinine [Mass ratio] 19.0 mg/mg 10-20 [facility] Work Phone: Laboratory - Hematology and Cell countson 01-03-2022 Erythrocyte distribution width (RBC) [Entitic vol] 42.8 fL 35.1-43.9 [facility] Work Phone: [phone] Erythrocyte distribution width (RBC) [Ratio] 14.0 % 11.6-14.6 [facility] Work Phone: [phone] Immature granulocytes/100 WBC (Bld) 0.300 % 0.0-0.9 [facility] Work Phone: [phone] Comment on above: IG% - Immature Granu locytes (promyelocytes, myelocytes and metamyelocytes) > 1% indicates that a LEFT SHIFT is Present. MCH (RBC) [Entitic mass] 26.2 pg 27.0-32.0 [facility] Work Phone: [phone] Nucleated RBC/100 WBC (Bld) [Ratio] 0 % 0-5 [facility] Work Phone: [phone] MCHC Auto (RBC) [Mass/Vol]on 01-03-2022 MCHC (RBC) [Mass/Vol] 31.2 g/dL 32-36 [facility] Work Phone: [phone] No Panel Informationon 01-03 Estimated GFR (MDRD) Amer 68 mL/min >60 [facility] Work Phone: Comment on above: GFR Calc Estimated GFR (MDRD) Non-Af Amer 57 mL/min >60 [facility] Work Phone: [phone] Comment on above: Non- GFR Calc Platelets bldon 01-03-2022 Platelets (Bld) [#/Vol] 274 10*3/uL 150-450 [facility] Work Phone: [phone] Serum or plasma C reactive p rotein measurement (mass/volume)on 01-03-2022 CRP [Mass/Vol] 26.30 mg/L 0.0-3.0 [facility] Work Phone: [phone] Comment on above: C-Reactive Protein ( CRP) provides useful information for thediagnosis, therapy and monitoring of inflammatory processesand associated diseases. For the evaluation of Relative Riskfor Cardiovascular Disease, a High Sensitivity CRP (HSCRP)should be ordered. Serum or plasma albumin gladis urement (mass/volume)on 01-03-2022 Albumin [Mass/Vol] 3.2 g/dL 3.2-5.0 [facility] Work Phone: Serum or plasma albumin/glob ulin mass ratioon 01-03-2022 Albumin/Globulin [Mass ratio] 0.7 {ratio} 0.9-2.4 [facility] Work Phone: Serum or plasma calcium gladis urement (mass/volume)on 01-03-2022 Calcium [Mass/Vol] 8.9 mg/dL 8.5-10.1 [facility] Work Phone: Serum or plasma creatinine m easurement (mass/volume)on 01-03-2022 Creatinine [Mass/Vol] 1.05 mg/dL 0.55-1.02 [facility] Work Phone: Comment on above: The validity of the calculated GFR & GFRAA in patients over 70 years has not been determined. Clinical correlation is essential. Serum or plasma urea nitroge n measurement (mass/volume)on 01-03-2022 Urea nitrogen [Mass/Vol] 20 mg/dL 7-18 [facility] Work Phone: Thin prep Papanicolaou smear with manual screeningon 01-03-2022 Thin prep Papanicolaou smear with manual screening 6 U/L 15-37 [facility] Work Phone: Thin prep Papanicolaou smear with manual screening 6 5-15 [facility] Work Phone: Absolute lymphocyte counton 12-25-2021 Lymphocytes Auto (Unsp spec) [#/Vol] 1.25 10*3/uL 0.83-4.51 [facility] Work Phone: Basophil percentageon 2021 Basophils/100 WBC (Bld) 0.4 % 0-1 [facility] Work Phone: Chloride [Moles/Vol] 98 mmol/L 98-107 [facility] Work Phone: Eosinophils/100 WBC (Bld) 4.1 % 0-5 [facility] Work Phone: Glucose [Mass/Vol] 197 mg/dL 74-106 [facility] Work Phone: [phone] Comment on above: Fasting Glucose resu lt greater than or equal to 126 mg/dL suggests DIABETES MELLITUS per A.D.A. criteria. Neutrophils (Bld) [#/Vol] 3.3 10*3/uL 2.0-7.7 [facility] Work Phone: [phone] Neutrophils/100 WBC (Bld) 64.9 % 47-70 [facility] Work Phone: [phone] Potassium [Moles/Vol] 3.7 mmol/L 3.5-5.1 [facility] Work Phone: [phone] Sodium [Moles/Vol] 135 mmol/L 136-145 [facility] Work Phone: [phone] WBC (Bld) [#/Vol] 5.1 10*3/uL 4.4-11.0 [facility] Work Phone: [phone] Blood erythrocytes count (nu mber/volume)on 12-25-2021 RBC (Bld) [#/Vol] 4.72 10*6/uL 4.2-5.4 [facility] Work Phone: [phone] Blood hemoglobin measurement (mass/volume)on 12-25-2021 Hemoglobin (Bld) [Mass/Vol] 12.7 g/dL 12.0-15.0 [facility] Work Phone: [phone] Blood lymphocytes/100 leukoc yteson 12-25-2021 Lymphocytes/100 WBC (Bld) 24.5 % 19-41 [facility] Work Phone: [phone] Blood monocytes/100 leukocyt eson 12-25-2021 Monocytes/100 WBC (Bld) 5.7 % 0-10 [facility] Work Phone: Blood platelet mean volumeon 12-25-2021 Platelet mean volume (Bld) [Entitic vol] 11.4 fL 6.2-12.0 [facility] Work Phone: [phone] Determination of erythrocyte mean corpuscular volume (MCV)on 12-25-2021 MCV (RBC) [Entitic vol] 84.5 fL 81-99 [facility] Work Phone: Glucose Glucometer (BldC) [M ass/Vol]on 12-25-2021 Glucose [Mass/Vol] 215 mg/dL 74-106 [facility] Work Phone: [phone] Comment on above: MANAGEMENT OF PATIEN T CARE PER NURSING PROTOCOL Hematocrit Auto (Bld) [Volum e fraction]on 12-25-2021 Hematocrit (Bld) [Volume fraction] 39.9 % 37-47 [facility] Work Phone: Laboratory - Chemistry and C hemistry - challengeon 12-25-2021 CO2 [Moles/Vol] 34.0 mmol/L 21.0-32.0 [facility] Work Phone: [phone] Urea nitrogen/Creatinine [Mass ratio] 12.4 mg/mg 10-20 [facility] Work Phone: [phone] Laboratory - Hematology and Cell countson 12-25-2021 Erythrocyte distribution width (RBC) [Entitic vol] 43.9 fL 35.1-43.9 [facility] Work Phone: [phone] Erythrocyte distribution width (RBC) [Ratio] 14.3 % 11.6-14.6 [facility] Work Phone: [phone] Immature granulocytes/100 WBC (Bld) 0.400 % 0.0-0.9 [facility] Work Phone: [phone] Comment on above: IG% - Immature Granu locytes (promyelocytes, myelocytes and metamyelocytes) > 1% indicates that a LEFT SHIFT is Present. MCH (RBC) [Entitic mass] 26.9 pg 27.0-32.0 [facility] Work Phone: [phone] Nucleated RBC/100 WBC (Bld) [Ratio] 0 % 0-5 [facility] Work Phone: [phone] MCHC Auto (RBC) [Mass/Vol]on 12-25-2021 MCHC (RBC) [Mass/Vol] 31.8 g/dL 32-36 [facility] Work Phone: No Panel Informationon 12-25 Estimated Creatinine Clearance Calc 57.02 ml/min [facility] Work Phone: [phone] Estimated GFR (MDRD) Amer 75 mL/min >60 [facility] Work Phone: [phone] Comment on above: GFR Calc Estimated GFR (MDRD) Non-Af Amer 62 mL/min >60 [facility] Work Phone: [phone] Comment on above: Non- GFR Calc Platelets bldon 12-25-2021 Platelets (Bld) [#/Vol] 219 10*3/uL 150-450 [facility] Work Phone: [phone] Serum or plasma calcium gladis urement (mass/volume)on 12-25-2021 Calcium [Mass/Vol] 8.6 mg/dL 8.5-10.1 [facility] Work Phone: [phone] Serum or plasma creatinine m easurement (mass/volume)on 12-25-2021 Creatinine [Mass/Vol] 0.97 mg/dL 0.55-1.02 [facility] Work Phone: Comment on above: The validity of the calculated GFR & GFRAA in patients over 70 years has not been determined. Clinical correlation is essential. Serum or plasma urea nitroge n measurement (mass/volume)on 12-25-2021 Urea nitrogen [Mass/Vol] 12 mg/dL 7-18 [facility] Work Phone: [phone] Thin prep Papanicolaou smear with manual screeningon 12-25-2021 Thin prep Papanicolaou smear with manual screening 3 5-15 [facility] Work Phone: [phone] Laboratory - Chemistry and C hemistry - challengeon 12-24-2021 Natriuretic peptide B (Bld) [Mass/Vol] 14.5 pg/mL 0-100 [facility] [facility] Work Phone: [phone] No Panel Informationon 12-24 Streptococcus pneumoniae Antigen (M [facility] Work Phone: Basophil percentageon 2021 Lactate [Moles/Vol] 1.8 mmol/L 0.4-2.0 [facility]: Bilirubin [Mass/Vol] 0.30 mg/dL 0.20-1.00 [facility] Work Phone: Comment on above: For patients on eltr ombopag therapy, use of Dimension Roulette TBIL is not recommended. Protein [Mass/Vol] 7.7 g/dL 6.4-8.2 [facility] Work Phone: [phone] Laboratory - Chemistry and C hemistry - challengeon 12-23-2021 ALP [Catalytic activity/Vol] 103 U/L 45-117 [facility] Work Phone: [phone] ALT [Catalytic activity/Vol] 14 U/L 13-56 [facility] Work Phone: [phone] Globulin (S) [Mass/Vol] 4.3 g/dL 2.2-4.2 [facility] Work Phone: Laboratory - Microbiology an d Antimicrobial susceptibilityon 12-23-2021 Bacteria identified Cx Nom (Bld) No growth in 5 days. [facility] Work Phone: No Panel Informationon 12-23 SARS-CoV-2 & FLU Antigen (Rapid) [facility] Work Phone: [phone] Serum or plasma albumin gladis urement (mass/volume)on 12-23-2021 Albumin [Mass/Vol] 3.4 g/dL 3.2-5.0 [facility] Work Phone: [phone] Serum or plasma albumin/glob ulin mass ratioon 12-23-2021 Albumin/Globulin [Mass ratio] 0.8 {ratio} 0.9-2.4 [facility] Work Phone: [phone] Thin prep Papanicolaou smear with manual screeningon 12-23-2021 Thin prep Papanicolaou smear with manual screening 8 U/L 15-37 [facility] Work Phone: hour urine creatinine wade surement (mass/time)on 12-02-2021 Creatinine (24H U) [Mass/Time] 2.31 g/24 HR 0.70-1.90 [facility] Work Phone: 24 hour urine free cortisol measurement (mass/time)on 12-02-2021 Cortisol Free (24H U) [Mass/Time] 24 ug/24 hr [facility] Work Phone: Comment on above: Performed at: - [address] [id number] Director: Anjelica Dacosta MD, Phone: [phone] Laboratory - Specimen inform ationon 12-02-2021 Collection duration (U) 24.0 HOURS 24.0-24.0 [facility] Work Phone: Quantitative urine free neena isol measurement (mass/volume)on 12-02-2021 Cortisol Free (U) [Mass/Vol] 16 ug/L Undefined [facility] Work Phone: Urine creatinine measurement (mass/volume)on 12-02-2021 Creatinine (U) [Mass/Vol] 153.00 mg/dL NO RANGE EST. [facility] Work Phone: Urine volume measurementon 0 12-02-2021 Specimen volume (U) 1.50 L [facility] Work Phone: Absolute lymphocyte counton 11-29-2021 Lymphocytes Auto (Unsp spec) [#/Vol] 1.38 10*3/uL 0.83-4.51 [facility] Work Phone: Basophil percentageon 2021 Basophils/100 WBC (Bld) 0.3 % 0-1 [facility] Work Phone: Chloride [Moles/Vol] 103 mmol/L 98-107 [facility] Work Phone: Eosinophils/100 WBC (Bld) 1.9 % 0-5 [facility] Work Phone: Glucose [Mass/Vol] 232 mg/dL 74-106 [facility] Work Phone: Comment on above: Glucose result great er than or equal to 200 mg/dLsuggests DIABETES MELLITUS per A.D.A. criteria. Neutrophils (Bld) [#/Vol] 5.5 10*3/uL 2.0-7.7 [facility] Work Phone: [phone] Neutrophils/100 WBC (Bld) 73.9 % 47-70 [facility] Work Phone: [phone] Potassium [Moles/Vol] 3.8 mmol/L 3.5-5.1 [facility] Work Phone: [phone] Comment on above: Slight Hemolysis, Re sult may be falsely increased. Sodium [Moles/Vol] 138 mmol/L 136-145 [facility] Work Phone: [phone] WBC (Bld) [#/Vol] 7.5 10*3/uL 4.4-11.0 [facility] Work Phone: [phone] Blood erythrocytes count (nu mber/volume)on 11-29-2021 RBC (Bld) [#/Vol] 5.02 10*6/uL 4.2-5.4 [facility] Work Phone: Blood hemoglobin measurement (mass/volume)on 11-29-2021 Hemoglobin (Bld) [Mass/Vol] 13.4 g/dL 12.0-15.0 [facility] Work Phone: [phone] Blood lymphocytes/100 leukoc yteson 11-29-2021 Lymphocytes/100 WBC (Bld) 18.4 % 19-41 [facility] Work Phone: [phone] Blood monocytes/100 leukocyt eson 11-29-2021 Monocytes/100 WBC (Bld) 5.2 % 0-10 [facility] Work Phone: [phone] Blood platelet mean volumeon 11-29-2021 Platelet mean volume (Bld) [Entitic vol] 11.5 fL 6.2-12.0 [facility] Work Phone: [phone] Determination of erythrocyte mean corpuscular volume (MCV)on 11-29-2021 MCV (RBC) [Entitic vol] 86.7 fL 81-99 [facility] Work Phone: Hematocrit Auto (Bld) [Volum e fraction]on 11-29-2021 Hematocrit (Bld) [Volume fraction] 43.5 % 37-47 [facility] Work Phone: [phone] Laboratory - Chemistry and C hemistry - challengeon 11-29-2021 CO2 [Moles/Vol] 31.0 mmol/L 21.0-32.0 [facility] Work Phone: [phone] Urea nitrogen/Creatinine [Mass ratio] 9.3 mg/mg 10-20 [facility] Work Phone: [phone] Natriuretic peptide B (Bld) [Mass/Vol] 10.6 pg/mL 0-100 [facility] Work Phone: [phone] Laboratory - Hematology and Cell countson 11-29-2021 Erythrocyte distribution width (RBC) [Entitic vol] 47.7 fL 35.1-43.9 [facility] Work Phone: [phone] Erythrocyte distribution width (RBC) [Ratio] 15.0 % 11.6-14.6 [facility] Work Phone: [phone] Immature granulocytes/100 WBC (Bld) 0.300 % 0.0-0.9 [facility] Work Phone: [phone] Comment on above: IG% - Immature Granu locytes (promyelocytes, myelocytes and metamyelocytes) > 1% indicates that a LEFT SHIFT is Present. MCH (RBC) [Entitic mass] 26.7 pg 27.0-32.0 [facility] Work Phone: [phone] Nucleated RBC/100 WBC (Bld) [Ratio] 0 % 0-5 [facility] Work Phone: [phone] MCHC Auto (RBC) [Mass/Vol]on 11-29-2021 MCHC (RBC) [Mass/Vol] 30.8 g/dL 32-36 [facility] Work Phone: [phone] Panel Informationon 11-29 Troponin I High Sensitivity 5 pg/mL 3.0-54.0 [facility] Work Phone: [phone] Comment on above: Please Note: [place] t Units and Gender Specific Reference Ranges. For more information see Policy Stat Procedure Roulette High Sensitivity Troponin (TNIH) and attachments. Estimated Creatinine Clearance Calc 51.21 ml/min [facility] Work Phone: Estimated GFR (MDRD) Amer 66 mL/min >60 [facility] Work Phone: Comment on above: GFR Calc Estimated GFR (MDRD) Non-Af Amer 55 mL/min >60 [facility] Work Phone: [phone] Comment on above: Non- GFR Calc Platelets bldon 11-29-2021 Platelets (Bld) [#/Vol] 273 10*3/uL 150-450 [facility] Work Phone: [phone] Serum or plasma calcium gladis urement (mass/volume)on 11-29-2021 Calcium [Mass/Vol] 9.1 mg/dL 8.5-10.1 [facility] Work Phone: [phone] Serum or plasma creatinine m easurement (mass/volume)on 11-29-2021 Creatinine [Mass/Vol] 1.08 mg/dL 0.55-1.02 [facility] Work Phone: Comment on above: The validity of the calculated GFR & GFRAA in patients over 70 years has not been determined. Clinical correlation is essential. Serum or plasma urea nitroge n measurement (mass/volume)on 11-29-2021 Urea nitrogen [Mass/Vol] 10 mg/dL 7-18 [facility] Work Phone: [phone] Thin prep Papanicolaou smear with manual screeningon 11-29-2021 Thin prep Papanicolaou smear with manual screening 4 5-15 [facility] Work Phone: No Panel Informationon 11-26 Adrenocorticotropic Hormone 15.2 pg/mL [facility] Work Phone: [phone] Comment on above: ACTH reference inter abelardo for samples collected between 7 and10 AM.Performed at: [facility] [employer] [id number] Director: Tommy Moss PhD, Phone: [phone] Dehydroepiandrosterone Sulfate 250.0 ug/dL [facility] Work Phone: Serum or plasma cortisol wade surement (mass/volume)on 11-26-2021 Cortisol [Mass/Vol] 8.70 ug/dL 3.44-22.45 [facility] Work Phone: Comment on above: Adult (AM) 5.27 - 22 .45 ug/dL Adult (PM) 3.44 - 16.76 ug/dLPlease note revised CORTISOL reference range effective 2019. Absolute lymphocyte counton 09-06-2021 Lymphocytes Auto (Unsp spec) [#/Vol] 1.76 10*3/uL 0.83-4.51 [facility] Work Phone: Basophil percentageon 2020 Basophil percentage < 0.2 AI [facility] Work Phone: Bilirubin [Mass/Vol] 0.40 mg/dL 0.20-1.00 [facility] Work Phone: Comment on above: For patients on eltr ombopag therapy, use of Dimension Roulette TBIL is not recommended. Chloride [Moles/Vol] 103 mmol/L 98-107 [facility] Work Phone: Eosinophils/100 WBC (Bld) 2.6 % 0-5 [facility] Work Phone: Glucose [Mass/Vol] 222 mg/dL 74-106 [facility] Work Phone: Comment on above: Glucose result great er than or equal to 200 mg/dLsuggests DIABETES MELLITUS per A.D.A. criteria.Please note revised GLUCOSE reference range effective 2017. Neutrophils (Bld) [#/Vol] 4.8 10*3/uL 2.0-7.7 [facility] Work Phone: Potassium [Moles/Vol] 4.1 mmol/L 3.5-5.1 [facility] Work Phone: [phone] Protein [Mass/Vol] 7.7 g/dL 6.4-8.2 [facility] Work Phone: Sodium [Moles/Vol] 138 mmol/L 136-145 [facility] Work Phone: [phone] WBC (Bld) [#/Vol] 7.3 10*3/uL 4.4-11.0 [facility] Work Phone: Blood erythrocytes count (nu mber/volume)on 09-06-2021 RBC (Bld) [#/Vol] 5.21 10*6/uL 4.2-5.4 [facility] Work [facility]: Blood hemoglobin measurement (mass/volume)on 09-06-2021 Hemoglobin (Bld) [Mass/Vol] 14.0 g/dL 12.0-15.0 [facility] Work Phone: [phone] Blood lymphocytes/100 leukoc yteson 09-06-2021 Lymphocytes/100 WBC (Bld) 24.3 % 19-41 [facility] Work Phone: [phone] Blood monocytes/100 leukocyt eson 09-06-2021 Monocytes/100 WBC (Bld) 5.4 % 0-10 [facility] Work Phone: Blood platelet mean volumeon 09-06-2021 Platelet mean volume (Bld) [Entitic vol] 11.9 fL 6.2-12.0 [facility] Work Phone: Determination of erythrocyte mean corpuscular volume (MCV)on 09-06-2021 MCV (RBC) [Entitic vol] 86.6 fL 81-99 [facility] Work Phone: Erythrocyte sedimentation ra gissel 09-06-2021 ESR (Bld) [Velocity] 37 mm/h 0-30 [facility]: Hematocrit Auto (Bld) [Volum e fraction]on 09-06-2021 Hematocrit (Bld) [Volume fraction] 45.1 % 37-47 [facility] Work Phone: Laboratory - Chemistry and C hemistry - challengeon 09-06-2021 ALP [Catalytic activity/Vol] 95 U/L 45-117 [facility] Work Phone: ALT [Catalytic activity/Vol] 18 U/L 13-56 [facility] Work Phone: CO2 [Moles/Vol] 28.0 mmol/L 21.0-32.0 [facility] Work Phone: Cobalamin (Vitamin B12) [Mass/Vol] 517 pg/mL 211-911 [facility] Work Phone: Globulin (S) [Mass/Vol] 4.3 g/dL 2.2-4.2 [facility] Work Phone: Urea nitrogen/Creatinine [Mass ratio] 12.3 mg/mg 10-20 [facility] Work Phone: [phone] Laboratory - Hematology and Cell countson 09-06-2021 Basophils/100 WBC (Unsp spec) 0.6 % 0-1 [facility] Work Phone: Erythrocyte distribution width (RBC) [Entitic vol] 45.3 fL 35.1-43.9 [facility] Work Phone: Erythrocyte distribution width (RBC) [Ratio] 14.3 % 11.6-14.6 [facility] Work Phone: Immature granulocytes/100 WBC (Bld) 1.700 % 0.0-0.9 [facility] Work Phone: Comment on above: IG% - Immature Granu locytes (promyelocytes, myelocytes and metamyelocytes) > 1% indicates that a LEFT SHIFT is Present. MCH (RBC) [Entitic mass] 26.9 pg 27.0-32.0 [facility] Work Phone: Neutrophils/100 WBC (Bld) 65.4 % 47-70 [facility] Work Phone: Nucleated RBC/100 WBC (Bld) [Ratio] 0 % 0-5 [facility] Work Phone: MCHC Auto (RBC) [Mass/Vol]on 09-06-2021 MCHC (RBC) [Mass/Vol] 31.0 g/dL 32-36 [facility] Work Phone: No Panel Informationon 09-06 Centromere B Antibody <0.2 AI [facility] Work Phone: Estimated GFR (MDRD) Amer 74 mL/min >60 [facility] Work Phone: Comment on above: GFR Calc Estimated GFR (MDRD) Non-Af Amer 61 mL/min >60 [facility] Work Phone: Comment on above: Non- GFR Calc DATA ENTRY SPECIALIST Antibody <0.2 [facility] Work Phone: Thyroid Stimulating Hormone (TSH) 1.02 uIU/mL 0.358-3.74 [facility] Work Phone: Total Iron Binding Capacity 417 ug/dL 250-450 [facility] Work Phone: Vitamin D 25-Hydroxy 37.4 ng/mL [facility] Work Phone: Comment on above: Vitamin D 25(OH) Sta tus Range Deficiency <20 ng/mL (50nmol/L) Insufficiency 20 - 30 ng/mL (50 - 75 nmol/L) Sufficiency 30 - 100 ng/mL (75 - 250 nmol/L) Toxicity >100 ng/mL (>250 nmol/L) Platelets bldon 09-06-2021 Platelets (Bld) [#/Vol] 289 10*3/uL 150-450 [facility] Work Phone: Serum DNA double strand anti body assay (units/volume)on 09-06-2021 DNA double strand Ab Qn (S) 2 [IU]/mL [facility] Work Phone: Comment on above: Negative <5 Equivoca l 5 - 9 Positive >9 Serum Huyen-1 antibody assay (u nits/volume)on 09-06-2021 Huyen-1 extractable nuclear Ab Qn (S) <0.2 [facility] Work Phone: Serum Scl-70 extractable nuc lear antibody assay (units/volume)on 09-06-2021 SCL-70 extractable nuclear Ab Qn (S) <0.2 AI [facility] Work Phone: Serum Marion extractable nucl ear antibody detectionon 09-06-2021 Marion extractable nuclear Ab Ql (S) <0.2 AI [facility] Work Phone: Serum or plasma albumin gladis urement (mass/volume)on 09-06-2021 Albumin [Mass/Vol] 3.4 g/dL 3.2-5.0 [facility] Work Phone: Serum or plasma albumin/glob ulin mass ratioon 09-06-2021 Albumin/Globulin [Mass ratio] 0.8 {ratio} 0.9-2.4 [facility] Work Phone: Serum or plasma calcium gladis urement (mass/volume)on 09-06-2021 Calcium [Mass/Vol] 9.5 mg/dL 8.5-10.1 [facility] Work Phone: Serum or plasma creatinine m easurement (mass/volume)on 09-06-2021 Creatinine [Mass/Vol] 0.98 mg/dL 0.55-1.02 [facility] Work Phone: Comment on above: The validity of the calculated GFR & GFRAA in patients over 70 years has not been determined. Clinical correlation is essential. Serum or plasma ferritin wade surement (mass/volume)on 09-06-2021 Ferritin [Mass/Vol] 18 ng/mL 8-252 [facility] Work Phone: Serum or plasma folate measu rement (mass/volume)on 09-06-2021 Folate [Mass/Vol] 13.80 ng/mL 3.1-55.4 [facility] Work Phone: Serum or plasma urea nitroge n measurement (mass/volume)on 09-06-2021 Urea nitrogen [Mass/Vol] 12 mg/dL 7-18 [facility] Work Phone: Serum or plasma uric acid me asurement (mass/volume)on 09-06-2021 Urate [Mass/Vol] 7.0 mg/dL 2.6-6.0 [facility] Work Phone: Comment on above: The drugs N-Acetylcy steine and Metamizole may falsely depress this assay. Thin prep Papanicolaou smear with manual screeningon 09-06-2021 Thin prep Papanicolaou smear with manual screening 13 U/L 15-37 [facility] Work Phone: Thin prep Papanicolaou smear with manual screening 7 5-15 [facility] Work Phone: Whole blood hemoglobin A1c/t otal hemoglobin ratio (mass fraction)on 09-06-2021 HbA1c (Bld) [Mass fraction] 8.3 % 3.8-5.6 [facility] Work Phone: Comment on above: Normal < 5.7 % Predi abetic 5.7 - 6.4 % Diabetic >or= 6.5 % Please note range changes. Glucose Meteron 09-22-2019 Glucose [Mass/Vol] 212 mg/dL High 70-99 [facility] Comment on above: Result Comment: MALINA GREGORY MD NOTIFIED [place] [address] Performed By: #### G FR #### [place] [address] Comprehensive Panelon 2018 Albumin [Mass/Vol] 3.3 g/dL Low 3.4-5.0 [facility] Comment on above: Performed By: #### P 14 #### [place] [address] ALP [Catalytic activity/Vol] 104 U/L Normal 46-116 [facility] Comment on above: Performed By: #### P 14 #### [place] [address] ALT-SGPT Blood 20 U/L Normal 14-63 [facility] Comment on above: Performed By: #### P 14 #### [place] [address] Anion gap [Moles/Vol] 13 mmol/L Normal 8-[address] [facility] Comment on above: Performed By: #### P 14 #### [facility] [address] [place], [place] [address] AST-SGOT Blood 9 U/L Low 15-37 [facility] Comment on above: Performed By: #### P 14 #### [facility] [address] [place], [place] [address] Bilirubin Ql (U) 0.4 mg/dL Normal 0.2-1.0 [facility] Comment on above: Performed By: #### P 14 #### [facility] [address] [place], [place] [address] Calcium [Mass/Vol] 8.8 mg/dL Normal 8.5-10.1 [facility] Comment on above: Performed By: #### P 14 #### [facility] [address] [place], [place] [address] CO2 Blood 28 mEq/L Normal 21-32 [facility] Comment on above: Performed By: #### P 14 #### [facility] [address] [place], [place] [address] Creatinine [Mass/Vol] 0.81 mg/dL Normal 0.51-0.[address] [facility] Comment on above: Performed By: #### P 14 #### [facility] [address] [place], [place] [address] Glucose [Mass/Vol] 227 mg/dL High 70-99 [facility] Comment on above: Performed By: #### P 14 #### [facility] [address] [place], [place] [address] Protein [Mass/Vol] 7.3 g/dL Normal 6.4-8.2 [facility] Comment on above: Performed By: #### P 14 #### [facility] [address] [place], [place] [address] Urea nitrogen [Mass/Vol] 10 mg/dL Normal 7-18 [facility] Comment on above: Performed By: #### P 14 #### [facility] [address] [place], [place] [address] Urea nitrogen/Creatinine [Mass ratio] 12 mg/mg Normal 10-20 [facility] Comment on above: Performed By: #### P 14 #### [facility] [address] [place] [address] Chloride [Moles/Vol] 101 mmol/L Normal 98-109 [facility] Comment on above: Result Comment: Test ing performed on an Calabrese i-STAT. Performed By: #### P 14 #### [facility] [address] [place] [address] Potassium [Moles/Vol] 3.8 mmol/L Normal 3.5-4.[address] [facility] Comment on above: Result Comment: Test ing performed on an Calabrese i-STAT. Performed By: #### P 14 #### [facility] [address] [place] [address] Sodium [Moles/Vol] 138 mmol/L Normal 138-146 [facility] Comment on above: Result Comment: Test ing performed on an Calabrese i-STAT. Performed By: #### P 14 #### [place] [address] Cult Bloodon 09-21-2019 Cult Blood Test performed at [facility] No growth Normal [facility] Comment on above: Performed By: #### G FR #### [place] [address] Cult Urineon 09-21-2019 Cult Urine Test performed at [facility] ORGANISM: *Escherichia coli (ID: 1) >100,000 CFU/ml CLSI breakpoints for therapy of uncomplicated UTI due to E. coli, K. pneumoniae or P. mirabilis were applied and may be used to predict the activity of oral agents (cefdinir, cefpodoxime, cefuroxime, and cephalexin). Normal [facility] Comment on above: Performed By: #### G FR #### [facility] [address] [place] [address] Hemogram/Diffon 09-21-2019 Hemoglobin (Bld) [Mass/Vol] 13.3 g/dL Normal 12.0-16.0 [facility] Comment on above: Performed By: #### P 14 #### [place] [address] MCV (RBC) [Entitic vol] 88.3 fL Normal 81.0-99.0 [facility] Comment on above: Performed By: #### P 14 #### [facility] [address] [place] [address] RBC (Bld) [#/Vol] 4.71 mil/cmm Normal 4.20-5.40 [facility] Comment on above: Performed By: #### P 14 #### [facility] [address] [place] [address] Hemogram/Manual Diffon 09-21 Abs. Baso 0.00 thou/cmm Normal 0.00-0.08 [facility] Comment on above: Performed By: #### P 14 #### [facility] [address] [place] [address] Abs. Eosin 0.00 thou/cmm Normal 0.00-0.41 [facility] Comment on above: Performed By: #### P 14 #### [facility] [address] [place] [address] Abs. Lymph 1.47 thou/cmm Low 1.50-3.65 [facility] Comment on above: Performed By: #### P 14 #### [facility] [address] [place] [address] Abs. [place] 0.40 thou/cmm Normal 0.20-1.00 [facility] Comment on above: Performed By: #### P 14 #### [facility] [address] [place] [address] Abs. Neut (ANC) 11.53 thou/cmm High 3.00-5.67 [facility] Comment on above: Performed By: #### P 14 #### [facility] [address] [place] [address] Atypical Lymph 2.0 % Normal [facility] Comment on above: Performed By: #### P 14 #### [facility] [address] [place] [address] Basophil 0.0 % Normal [facility] Comment on above: Performed By: #### P 14 #### [facility] [address] [place] [address] Eosinophil 0.0 % Normal [facility] Comment on above: Performed By: #### P 14 #### [facility] [address] [place] [address] Lymphocyte 9.0 % Normal [facility] Comment on above: Performed By: #### P 14 #### [facility] [address] [place] [address] Monocyte 3.0 % Normal [facility] Comment on above: Performed By: #### P 14 #### [facility] [address] [place] [address] Platelets (Bld) [#/Vol] Normal Normal A [facility] Comment on above: Performed By: #### P 14 #### [facility] [address] [place] [address] RBC morphology finding Nom (Bld) Normal Normal [facility] Comment on above: Performed By: #### P 14 #### [facility] [address] [place] [address] Seg Neutrophil 86.0 % Normal [facility] Comment on above: Performed By: #### P 14 #### [facility] [address] [place] [address] Toxic Granulation Few Normal [facility] Comment on above: Performed By: #### P 14 #### [facility] [address] [place] [address] WBC Morphology see below Normal [facility] Comment on above: Result Comment: Toxi c vacuoles present Performed By: #### P 14 #### [facility] [address] [place] [address] Diff Type Manual Diff Normal [facility] Comment on above: Performed By: #### P 14 #### [facility] [address] [place] [address] Erythrocyte distribution width (RBC) [Ratio] 13.7 % Normal 11.5-15.9 [facility] Comment on above: Performed By: #### P 14 #### [facility] [address] [place] [address] Hematocrit (Bld) [Volume fraction] 41.6 % Normal 37.0-47.0 [facility] Comment on above: Performed By: #### P 14 #### [facility] [address] [place] [place] [address] MCH (RBC) [Entitic mass] 28.2 pg Normal 27.0-31.0 [facility] Comment on above: Performed By: #### P 14 #### [facility] [address] [place], [place] [address] MCHC (RBC) [Mass/Vol] 32.0 % Normal 32.0-36.[address] [facility] Comment on above: Performed By: #### P 14 #### [facility] [address] [place] [address] Platelet mean volume (Bld) [Entitic vol] 11.4 fl High 7.1-10.5 [facility] Comment on above: Performed By: #### P 14 #### [facility] [address] [place] [address] Platelets (Bld) [#/Vol] 230 thou/cmm Normal 150-400 [facility] Comment on above: Performed By: #### P 14 #### [facility] [address] [place] [address] WBC (Bld) [#/Vol] 13.4 thou/cmm High 4.8-10.5 [facility] Comment on above: Performed By: #### P 14 #### [facility] [address] [place] [address] Lactic acidon 09-21-2019 Lactate [Moles/Vol] 1.6 mmol/L Normal 0.4-2.0 [facility] Comment on above: Performed By: #### G FR #### [facility] [address] [place] [address] MDRD eGFRon 09-21-2019 GFR/1.73 sq M predicted among non-blacks MDRD (S/P/Bld) [Vol rate/Area] mL/min/{1.73_m2} Normal >60mL/min/1 .73m2 [facility] Comment on above: Result Comment: If t he patient is , multiply the result by 1.210. Performed By: #### P 14 #### [facility] [address] [place] [address] Rapid Influenza A/Bon 2018 Rapid Influenza A/B See below Normal Negative [facility] Comment on above: Result Comment: Nega tive for influenza A and B. Performed By: #### P 14 #### [facility] [address] [place] [address] Throat Rapid Grp A Strepon 1 11-22-2018 S. pyogenes Ag IA Ql (Unsp spec) see below Normal Negative [facility] Comment on above: Result Comment: Nega tive for group A Streptococcus antigen. Performed By: #### P 14 #### [place] [address] Urinalysis Routineon 019 Appearance (U) 2+ (SLT CLOUDY) Normal [facility] Comment on above: Performed By: #### G FR #### [place] [address] Bacteria LM.HPF (Urine sed) [#/Area] MANY Abnormal None [facility] Comment on above: Performed By: #### G FR #### [facility] [address] [place] [address] Bilirubin Urine Negative Normal Negative [facility] Comment on above: Performed By: #### G FR #### [place] [address] Color (U) YELLOW Normal [facility] Comment on above: Performed By: #### G FR #### [facility] [address] [place] [address] Ep Cells Urine 2-5 Normal 0-5 [facility] Comment on above: Performed By: #### G FR #### [facility] [address] [place] [address] Glucose Ql (U) 2+ Abnormal Negative [facility] Comment on above: Performed By: #### G FR #### [place] [address] Hemoglobin,Urine TRACE-INTACT Abnormal Negative [facility] Comment on above: Performed By: #### G FR #### [address] [address] Ketone Urine Negative Normal Negative [facility] Comment on above: Performed By: #### G FR #### [place] [address] Leukocytes Esterase 1+ Abnormal Negative [facility] Comment on above: Performed By: #### G FR #### [place] [address] Nitrites Urine Positive Abnormal Negative [facility] Comment on above: Performed By: #### G FR #### [place] [address] pH (U) 6.0 [pH] Normal 5.0-8.0 [facility] Comment on above: Performed By: #### G FR #### [place] [address] Protein (U) [Mass/Vol] TRACE Abnormal Negative [facility] Comment on above: Performed By: #### G FR #### [place] [address] RBC LM.HPF (Urine sed) [#/Area] 0-3 Normal 0-3 [facility] Comment on above: Performed By: #### G FR #### [place] [address] Specific [place], Ur 1.015 Normal 1.005-1.[address] [facility] Comment on above: Performed By: #### G FR #### [place] [address] Urobilinogen,Ur 1.0 EU/dL Normal 0.2-1.0 [facility] Comment on above: Performed By: #### G FR #### [place] [address] WBC LM.HPF (Urine sed) [#/Area] /[HPF] Abnormal 0-5 [facility] Comment on above: Performed By: #### G FR #### [place] [address] XR CHEST 2V FRONTAL/LATon XR CHEST 2V FRONTAL/LAT * * *Final Repor t* * * DATE OF EXAM: Sep 21 2019 5:29PM LDX 5291 - XR CHEST 2V FRONTAL/LAT / PROCEDURE REASON: Acute respiratory illness * * * * Physician Interpretation * * * * EXAMINATION: CHEST RADIOGRAPH (2 VIEW FRONTAL & LATERAL), 09/21/2019 CLINICAL HISTORY: Acute respiratory illness MQ: [id number] Comparison: None RESULT: Lines, tubes, and devices: None. Lungs and pleura: Suboptimal inspiration, especially in the lateral projection. Minimal density left lung base, likely platelike atelectasis. Lungs otherwise clear. No pleural fluid or pneumothorax. Cardiomediastinal silhouette: Normal cardiomediastinal silhouette. Other: Moderate degenerative spondylosis in the mid to lower thoracic spine.. IMPRESSION: 1. Suboptimal aspiration. Probable platelike atelectasis in the lingula or left lower lobe. 2. No other acute cardiopulmonary changes. Paint Prep Technician: CHELA Transcribe Date/Time: Sep 21 2019 5:40P Dictated by : ROSALINDA OLMSTEAD MD This examination was interpreted and the report reviewed and electronically signed by: ROSALINDA OLMSTEAD MD on Sep 21 2019 5:42PM EST Normal [facility] Basic Panelon 11-23-2018 Creatinine [Mass/Vol] 0.68 mg/dL Normal 0.51-0.[address] [facility] Comment on above: Performed By: #### P 8 #### [address] [address] Anion gap [Moles/Vol] 10 mmol/L Normal 8-[address] [facility] Comment on above: Performed By: #### P 8 #### [facility] [address] [place], [place] [address] CO2 [Moles/Vol] 26 mmol/L Normal 21-32 [facility] Comment on above: Performed By: #### P 8 #### [facility] [address] [place], [place] [address] Glucose [Mass/Vol] 180 mg/dL High 70-99 [facility] Comment on above: Performed By: #### P 8 #### [facility] [address] [place], [place] [address] Urea nitrogen [Mass/Vol] 6 mg/dL Low 7-18 [facility] Comment on above: Performed By: #### P 8 #### [facility] [address] [place], [place] [address] Calcium [Mass/Vol] 7.7 mg/dL Low 8.5-10.1 [facility] Comment on above: Performed By: #### P 8 #### [facility] [address] [place], [place] [address] Chloride [Moles/Vol] 104 mmol/L Normal 98-107 [facility] Comment on above: Performed By: #### P 8 #### [facility] [address] [place], [place] [address] Potassium [Moles/Vol] 3.4 mmol/L Low 3.5-5.[address] [facility] Comment on above: Performed By: #### P 8 #### [facility] [address] [place] [address] Sodium [Moles/Vol] 137 mmol/L Normal 136-145 [facility] Comment on above: Performed By: #### P 8 #### [facility] [address] [place], [place] [address] Glucose Meteron 11-23-2018 Glucose [Mass/Vol] 203 mg/dL High 70-99 [facility] Comment on above: Result Comment: MALINA GREGORY Performed By: #### G LMET #### [facility] [address] [place], [place] [address] Hemogram/Diffon 11-23-2018 Abs Immature Grans 0.03 thou/cmm Normal 0.00-0.[address] [facility] Comment on above: Performed By: #### P 14 #### [facility] [address] [place], [place] [address] Abs. Baso 0.03 thou/cmm Normal 0.01-0.08 [facility] Comment on above: Performed By: #### P 14 #### [facility] [address] [place] [address] Abs. Pat[place] 0.48 thou/cmm Normal 0.27-0.70 [facility] Comment on above: Performed By: #### P 14 #### [facility] [address] [place] [address] Abs. Neut (ANC) 4.08 thou/cmm Normal 1.56-6.13 [facility] Comment on above: Performed By: #### P 14 #### [facility] [address] [place] [address] Basophils/100 WBC (Bld) 0.5 % Normal A [facility] Comment on above: Performed By: #### P 14 #### [facility] [address] [place] [address] Eosinophils (Bld) [#/Vol] 0.11 thou/cmm Normal 0.00-0.31 [facility] Comment on above: Performed By: #### P 14 #### [facility] [address] [place] [address] Eosinophils/100 WBC (Bld) 1.9 % Normal [facility] Comment on above: Performed By: #### P 14 #### [facility] [address] [place] [address] Erythrocyte distribution width (RBC) [Ratio] 14.2 % Normal 11.7-14.4 [facility] Comment on above: Performed By: #### P 14 #### [facility] [address] [place] [address] Hematocrit (Bld) [Volume fraction] 38.2 % Normal 34.1-44.9 [facility] Comment on above: Performed By: #### P 14 #### [facility] [address] [place] [address] Hemoglobin (Bld) [Mass/Vol] 12.2 g/dL Normal 11.2-15.7 [facility] Comment on above: Performed By: #### P 14 #### [facility] [address] [place] [address] Immature Grans 0.50 % Normal [facility] Comment on above: Performed By: #### P 14 #### [facility] [address] [place] [address] Lymphocytes (Bld) [#/Vol] 1.13 thou/cmm Low 1.18-3.74 [facility] Comment on above: Performed By: #### P 14 #### [facility] [address] [place], [place] [address] Lymphocytes/100 WBC (Bld) 19.3 % Normal [facility] Comment on above: Performed By: #### P 14 #### [facility] [address] [place], [place] [address] MCH (RBC) [Entitic mass] 28.0 pg Normal 25.6-32.2 [facility] Comment on above: Performed By: #### P 14 #### [facility] [address] [place], [place] [address] MCHC (RBC) [Mass/Vol] 31.9 % Normal 31.6-34.[address] [facility] Comment on above: Performed By: #### P 14 #### [facility] [address] [place], [place] [address] MCV (RBC) [Entitic vol] 87.6 fL Normal 79.4-94.8 [facility] Comment on above: Performed By: #### P 14 #### [facility] [address] [place], [place] [address] Monocytes/100 WBC (Bld) 8.2 % Normal [facility] Comment on above: Performed By: #### P 14 #### [facility] [address] [place], [place] [address] Platelet mean volume (Bld) [Entitic vol] 11.4 fL Normal 9.4-12.3 [facility] Comment on above: Performed By: #### P 14 #### [facility] [address] [place], [place] [address] Platelets (Bld) [#/Vol] 195 thou/cmm Normal 182-369 [facility] Comment on above: Performed By: #### P 14 #### [facility] [address] [place], [place] [address] RBC (Bld) [#/Vol] 4.36 mil/cmm Normal 3.93-5.22 [facility] Comment on above: Performed By: #### P 14 #### [facility] [address] [place], [place] [address] RDW SD 46.0 fl Normal 36.4-46.3 [facility] Comment on above: Performed By: #### P 14 #### [facility] [address] [place], [place] [address] Seg Neutrophil 69.6 % Normal [facility] Comment on above: Performed By: #### P 14 #### [facility] [address] [place], [place] [address] WBC (Bld) [#/Vol] 5.86 thou/cmm Normal 3.98-10.04 [facility] Comment on above: Performed By: #### P 14 #### [facility] [address] [place], [place] [address] Hepatic Panelon 11-23-2018 ALP [Catalytic activity/Vol] 197 U/L High 46-116 [facility] Comment on above: Performed By: #### P 14 #### [facility] [address] [place], [place] [address] Protein [Mass/Vol] 6.5 g/dL Normal 6.4-8.2 [facility] Comment on above: Performed By: #### P 14 #### [facility] [address] [place], [place] [address] Bilirubin [Mass/Vol] 0.4 mg/dL Normal 0.2-1.0 [facility] Comment on above: Performed By: #### P 14 #### [facility] [address] [place], [place] [address] ALT [Catalytic activity/Vol] 134 U/L High 12-78 [facility] Comment on above: Performed By: #### P 14 #### [facility] [address] [place], [place] [address] AST [Catalytic activity/Vol] 41 U/L High 9-37 [facility] Comment on above: Performed By: #### P 14 #### [facility] [address] [place], [place] [address] Bilirubin [Mass/Vol] 0.14 mg/dL Normal 0.00-0.20 [facility] Comment on above: Performed By: #### P 14 #### [facility] [address] [place], [place] [address] Albumin [Mass/Vol] 3.0 g/dL Low 3.4-5.0 [facility] Comment on above: Performed By: #### P 14 #### [facility] [address] [place] [address] MDRD GFRon 11-23-2018 GFR/1.73 sq M predicted among non-blacks MDRD (S/P/Bld) [Vol rate/Area] mL/min/{1.73_m2} Normal >60mL/min/1 .73m2 [facility] Comment on above: Result Comment: If t he patient is , multiply the result by 1.210. Performed By: #### G FR #### [place] [address] Hemogram/Diffon 11-22-2018 Abs Immature Grans 0.03 thou/cmm Normal 0.00-0.[address] [facility] Comment on above: Performed By: #### P 14 #### [place] [address] Abs. Baso 0.04 thou/cmm Normal 0.01-0.08 [facility] Comment on above: Performed By: #### P 14 #### [place] [address] Abs. [place] 0.32 thou/cmm Normal 0.27-0.70 [facility] Comment on above: Performed By: #### P 14 #### [place] [address] Abs. Neut (ANC) 2.99 thou/cmm Normal 1.56-6.13 [facility] Comment on above: Performed By: #### P 14 #### [place] [address] Basophils/100 WBC (Bld) 0.8 % Normal A [facility] Comment on above: Performed By: #### P 14 #### [place] [address] Eosinophils (Bld) [#/Vol] 0.19 thou/cmm Normal 0.00-0.31 [facility] Comment on above: Performed By: #### P 14 #### [facility] [address] [place], [place] [address] Eosinophils/100 WBC (Bld) 4.0 % Normal [facility] Comment on above: Performed By: #### P 14 #### [facility] [address] [place], [place] [address] Erythrocyte distribution width (RBC) [Ratio] 14.4 % Normal 11.7-14.4 [facility] Comment on above: Performed By: #### P 14 #### [facility] [address] [place], [place] [address] Hematocrit (Bld) [Volume fraction] 42.8 % Normal 34.1-44.9 [facility] Comment on above: Performed By: #### P 14 #### [facility] [address] [place], [place] [address] Hemoglobin (Bld) [Mass/Vol] 13.5 g/dL Normal 11.2-15.7 [facility] Comment on above: Performed By: #### P 14 #### [facility] [address] [place] [address] Immature Grans 0.60 % Normal [facility] Comment on above: Performed By: #### P 14 #### [facility] [address] [place], [place] [address] Lymphocytes (Bld) [#/Vol] 1.21 thou/cmm Normal 1.18-3.74 [facility] Comment on above: Performed By: #### P 14 #### [facility] [address] [place], [place] [address] Lymphocytes/100 WBC (Bld) 25.3 % Normal [facility] Comment on above: Performed By: #### P 14 #### [facility] [address] [place] [address] MCH (RBC) [Entitic mass] 27.8 pg Normal 25.6-32.2 [facility] Comment on above: Performed By: #### P 14 #### [facility] [address] [place] [address] MCHC (RBC) [Mass/Vol] 31.5 % Low 31.6-34.[address] [facility] Comment on above: Performed By: #### P 14 #### [facility] [address] [place] [address] MCV (RBC) [Entitic vol] 88.1 fL Normal 79.4-94.8 [facility] Comment on above: Performed By: #### P 14 #### [facility] [address] [place] [address] Monocytes/100 WBC (Bld) 6.7 % Normal [facility] Comment on above: Performed By: #### P 14 #### [facility] [address] [place] [address] Platelet mean volume (Bld) [Entitic vol] 12.6 fL High 9.4-12.3 [facility] Comment on above: Performed By: #### P 14 #### [place] [address] Platelets (Bld) [#/Vol] 208 thou/cmm Normal 182-369 [facility] Comment on above: Result Comment: Repe ated AND verified Performed By: #### P 14 #### [place] [address] RBC (Bld) [#/Vol] 4.86 mil/cmm Normal 3.93-5.22 [facility] Comment on above: Performed By: #### P 14 #### [place] [address] RDW SD 46.3 fl Normal 36.4-46.3 [facility] Comment on above: Performed By: #### P 14 #### [facility] [address] [place] [address] Seg Neutrophil 62.6 % Normal [facility] Comment on above: Performed By: #### P 14 #### [facility] [address] [place] [address] WBC (Bld) [#/Vol] 4.78 thou/cmm Normal 3.98-10.04 [facility] Comment on above: Performed By: #### P 14 #### [facility] [address] [place] [address] Hepatic Panelon 11-22-2018 Bilirubin [Mass/Vol] see below Normal 0.00-0.20 [facility] Comment on above: Result Comment: Hemo globin interference present. No direct bilirubin result reportable. Performed By: #### H EPAP #### [facility] [address] [place] [address] ALP [Catalytic activity/Vol] 236 U/L High 46-116 [facility] Comment on above: Performed By: #### H EPAP #### [place] [address] Bilirubin [Mass/Vol] 0.6 mg/dL Normal 0.2-1.0 [facility] Comment on above: Performed By: #### H EPAP #### [place] [address] Protein [Mass/Vol] 7.0 g/dL Normal 6.4-8.2 [facility] Comment on above: Performed By: #### H EPAP #### [place] [address] ALT [Catalytic activity/Vol] 191 U/L High 12-78 [facility] Comment on above: Performed By: #### H EPAP #### [facility] [address] [place] [address] AST [Catalytic activity/Vol] 87 U/L High 9-37 [facility] Comment on above: Performed By: #### H EPAP #### [place] [address] Albumin [Mass/Vol] 3.1 g/dL Low 3.4-5.0 [facility] Comment on above: Performed By: #### H EPAP #### [place] [address] Surgical Tissue Ex[place] 11-22 Surgical Tissue Exam Test performed at [place] [address] NAME: PAULIE ALFARO REQUESTING: AUGUSTINA MCCALL MD FINAL DIAGNOSIS: GALLBLADDER (LAPAROSCOPIC CHOLECYSTECTOMY) - CHRONIC CHOLECYSTITIS. CHOLESTEROLOSIS. CHOLELITHIASIS. OPERATIVE PROCEDURE: Laparoscopic cholecystectomy CLINICAL INFORMATION: Cholelithiasis [K80.20] GROSS DESCRIPTION: Gallbladder Received in formalin labeled gallbladder is a specimen consisting of an intact gallbladder measuring 8.5 x 3.5 x 2.0 cm. The serosal surface appears phillip-pink and smooth. Perforation is not evident. The cystic duct appears dilated measuring 0.6 cm in diameter. The wall of the gallbladder averages 0.1 cm in thickness. Greater than 50 fragmented cholesterol calculi are identified. The calculi range in size from 0.2 up to 0.6 cm in greatest dimension. Several small calculi are impacted within the cystic duct. The mucosal surface is bile-stained with yellow fatty streaks most prominent along the summit of the mucosal ridges. A lesion is not seen. Top Edge Beveler sections are submitted in formalin in one cassette. [facility]:aurelio NINO M.D. (Electronic signature on file) Signed out: 11/24/2018 16:57 PRINTED: 11/24/2018 Page 1 of 1 Normal [facility] Comment on above: Performed By: #### P 14 #### [address] [address] Basic Panelon 11-21-2018 Creatinine [Mass/Vol] 0.77 mg/dL Normal 0.51-0.[address] [facility] Comment on above: Performed By: #### P 8 #### [address] [address] Glucose [Mass/Vol] 232 mg/dL High 70-99 [facility] Comment on above: Performed By: #### P 8 #### [address] [address] Urea nitrogen [Mass/Vol] 9 mg/dL Normal 7-18 [facility] Comment on above: Performed By: #### P 8 #### [address] [address] Calcium [Mass/Vol] 8.2 mg/dL Low 8.5-10.1 [facility] Comment on above: Performed By: #### P 8 #### [address] [place] [address] Chloride [Moles/Vol] 101 mmol/L Normal 98-107 [facility] Comment on above: Performed By: #### P 8 #### [facility] [address] [place] [address] Potassium [Moles/Vol] 3.7 mmol/L Normal 3.5-5.[address] [facility] Comment on above: Performed By: #### P 8 #### [facility] [address] [place] [address] Sodium [Moles/Vol] 136 mmol/L Normal 136-145 [facility] Comment on above: Performed By: #### P 8 #### [facility] [address] [place] [address] Anion gap [Moles/Vol] 12 mmol/L Normal 8-[address] [facility] Comment on above: Performed By: #### P 8 #### [facility] [address] [place] [address] Performed By: #### P 14 #### [facility] [address] [place] [address] CO2 [Moles/Vol] 27 mmol/L Normal 21-32 [facility] Comment on above: Performed By: #### P 8 #### [facility] [address] [place] [address] Performed By: #### P 14 #### [facility] [address] [place] [address] Comprehensive Panelon 2018 ALP [Catalytic activity/Vol] 266 U/L High 46-116 [facility] Comment on above: Performed By: #### P 14 #### [facility] [address] [place] [address] Bilirubin [Mass/Vol] 2.4 mg/dL High 0.2-1.0 [facility] Comment on above: Performed By: #### P 14 #### [facility] [address] [place] [address] Protein [Mass/Vol] 7.4 g/dL Normal 6.4-8.2 [facility] Comment on above: Performed By: #### P 14 #### [facility] [address] [place], [place] [address] ALT [Catalytic activity/Vol] 327 U/L High 12-78 [facility] Comment on above: Performed By: #### P 14 #### [facility] [address] [place], [place] [address] AST [Catalytic activity/Vol] 517 U/L High 9-37 [facility] Comment on above: Performed By: #### P 14 #### [facility] [address] [place], [place] [address] Creatinine [Mass/Vol] 0.82 mg/dL Normal 0.51-0.[address] [facility] Comment on above: Performed By: #### P 14 #### [facility] [address] [place], [place] [address] Albumin [Mass/Vol] 3.5 g/dL Normal 3.4-5.0 [facility] Comment on above: Performed By: #### P 14 #### [facility] [address] [place], [place] [address] Calcium [Mass/Vol] 8.7 mg/dL Normal 8.5-10.1 [facility] Comment on above: Performed By: #### P 14 #### [facility] [address] [place], [place] [address] Glucose [Mass/Vol] 260 mg/dL High 70-99 [facility] Comment on above: Performed By: #### P 14 #### [facility] [address] [place], [place] [address] Urea nitrogen [Mass/Vol] 11 mg/dL Normal 7-18 [facility] Comment on above: Performed By: #### P 14 #### [facility] [address] [place], [place] [address] Chloride [Moles/Vol] 99 mmol/L Normal 98-107 [facility] Comment on above: Performed By: #### P 14 #### [facility] [address] [place], [place] [address] Potassium [Moles/Vol] 3.7 mmol/L Normal 3.5-5.[address] [facility] Comment on above: Performed By: #### P 14 #### [facility] [address] [place] [address] Sodium [Moles/Vol] 134 mmol/L Low 136-145 [facility] Comment on above: Performed By: #### P 14 #### [facility] [address] [place] [address] Hemogramon 11-21-2018 Erythrocyte distribution width (RBC) [Ratio] 14.1 % Normal 11.7-14.4 [facility] Comment on above: Performed By: #### C BC1 #### [facility] [address] [place] [address] Hematocrit (Bld) [Volume fraction] 41.2 % Normal 34.1-44.9 [facility] Comment on above: Performed By: #### C BC1 #### [facility] [address] [place] [address] Hemoglobin (Bld) [Mass/Vol] 13.3 g/dL Normal 11.2-15.7 [facility] Comment on above: Performed By: #### C BC1 #### [facility] [address] [place] [address] MCH (RBC) [Entitic mass] 27.7 pg Normal 25.6-32.2 [facility] Comment on above: Performed By: #### C BC1 #### [facility] [address] [place] [address] MCHC (RBC) [Mass/Vol] 32.3 % Normal 31.6-34.[address] [facility] Comment on above: Performed By: #### C BC1 #### [facility] [address] [place] [address] MCV (RBC) [Entitic vol] 85.8 fL Normal 79.4-94.8 [facility] Comment on above: Performed By: #### C BC1 #### [facility] [address] [place] [address] Platelet mean volume (Bld) [Entitic vol] 12.4 fL High 9.4-12.3 [facility] Comment on above: Performed By: #### C BC1 #### [facility] [address] [place] [address] Platelets (Bld) [#/Vol] 136 thou/cmm Low 182-369 [facility] Comment on above: Performed By: #### C BC1 #### [facility] [address] [place] [address] RBC (Bld) [#/Vol] 4.80 mil/cmm Normal 3.93-5.22 [facility] Comment on above: Performed By: #### C BC1 #### [facility] [address] [place] [address] RDW SD 44.3 fl Normal 36.4-46.3 [facility] Comment on above: Performed By: #### C BC1 #### [place] [address] WBC (Bld) [#/Vol] 4.80 thou/cmm Normal 3.98-10.04 [facility] Comment on above: Performed By: #### C BC1 #### [place] [address] Hemogram/Diffon 11-21-2018 Abs Immature Grans 0.02 thou/cmm Normal 0.00-0.[address] [facility] Comment on above: Performed By: #### C BCD1 #### [place] [address] Abs. Baso 0.03 thou/cmm Normal 0.01-0.08 [facility] Comment on above: Performed By: #### C BCD1 #### [place] [address] Abs. Pat[place] 0.33 thou/cmm Normal 0.27-0.70 [facility] Comment on above: Performed By: #### C BCD1 #### [place] [address] Abs. Neut (ANC) 3.10 thou/cmm Normal 1.56-6.13 [facility] Comment on above: Performed By: #### C BCD1 #### [place] [address] Basophils/100 WBC (Bld) 0.6 % Normal A [facility] Comment on above: Performed By: #### C BCD1 #### [facility] [address] [place], [place] [address] Eosinophils (Bld) [#/Vol] 0.12 thou/cmm Normal 0.00-0.31 [facility] Comment on above: Performed By: #### C BCD1 #### [facility] [address] [place], [place] [address] Eosinophils/100 WBC (Bld) 2.5 % Normal [facility] Comment on above: Performed By: #### C BCD1 #### [facility] [address] [place], [place] [address] Erythrocyte distribution width (RBC) [Ratio] 14.4 % Normal 11.7-14.4 [facility] Comment on above: Performed By: #### C BCD1 #### [facility] [address] [place], [place] [address] Hematocrit (Bld) [Volume fraction] 39.9 % Normal 34.1-44.9 [facility] Comment on above: Performed By: #### C BCD1 #### [facility] [address] [place], [place] [address] Hemoglobin (Bld) [Mass/Vol] 12.9 g/dL Normal 11.2-15.7 [facility] Comment on above: Performed By: #### C BCD1 #### [facility] [address] [place], [place] [address] Immature Grans 0.40 % Normal [facility] Comment on above: Performed By: #### C BCD1 #### [facility] [address] [place], [place] [address] Lymphocytes (Bld) [#/Vol] 1.19 thou/cmm Normal 1.18-3.74 [facility] Comment on above: Performed By: #### C BCD1 #### [facility] [address] [place], [place] [address] Lymphocytes/100 WBC (Bld) 24.8 % Normal [facility] Comment on above: Performed By: #### C BCD1 #### [facility] [address] [place], [place] [address] MCH (RBC) [Entitic mass] 28.2 pg Normal 25.6-32.2 [facility] Comment on above: Performed By: #### C BCD1 #### [facility] [address] [place], [place] [address] MCHC (RBC) [Mass/Vol] 32.3 % Normal 31.6-34.[address] [facility] Comment on above: Performed By: #### C BCD1 #### [facility] [address] [place] [address] MCV (RBC) [Entitic vol] 87.1 fL Normal 79.4-94.8 [facility] Comment on above: Performed By: #### C BCD1 #### [facility] [address] [place] [address] Monocytes/100 WBC (Bld) 6.9 % Normal [facility] Comment on above: Performed By: #### C BCD1 #### [facility] [address] [place] [address] Platelet mean volume (Bld) [Entitic vol] 11.8 fL Normal 9.4-12.3 [facility] Comment on above: Performed By: #### C BCD1 #### [facility] [address] [place] [address] Platelets (Bld) [#/Vol] 227 thou/cmm Normal 182-369 [facility] Comment on above: Performed By: #### C BCD1 #### [facility] [address] [place] [address] RBC (Bld) [#/Vol] 4.58 mil/cmm Normal 3.93-5.22 [facility] Comment on above: Performed By: #### C BCD1 #### [facility] [address] [place] [address] RDW SD 45.3 fl Normal 36.4-46.3 [facility] Comment on above: Performed By: #### C BCD1 #### [facility] [address] [place] [address] Seg Neutrophil 64.8 % Normal [facility] Comment on above: Performed By: #### C BCD1 #### [facility] [address] [place], [place] [address] WBC (Bld) [#/Vol] 4.79 thou/cmm Normal 3.98-10.04 [facility] Comment on above: Performed By: #### C BCD1 #### [facility] [address] [place], [place] [address] Hepatic Panelon 11-21-2018 ALP [Catalytic activity/Vol] 286 U/L High 46-116 [facility] Comment on above: Performed By: #### H EPAP #### [facility] [address] [place], [place] [address] Bilirubin [Mass/Vol] 1.5 mg/dL High 0.2-1.0 [facility] Comment on above: Performed By: #### H EPAP #### [facility] [address] [place], [place] [address] Protein [Mass/Vol] 7.0 g/dL Normal 6.4-8.2 [facility] Comment on above: Performed By: #### H EPAP #### [facility] [address] [place], [place] [address] ALT [Catalytic activity/Vol] 313 U/L High 12-78 [facility] Comment on above: Performed By: #### H EPAP #### [facility] [address] [place], [place] [address] AST [Catalytic activity/Vol] 371 U/L High 9-37 [facility] Comment on above: Performed By: #### H EPAP #### [facility] [address] [place], [place] [address] Bilirubin [Mass/Vol] 0.67 mg/dL High 0.00-0.20 [facility] Comment on above: Performed By: #### H EPAP #### [facility] [address] [place], [place] [address] Albumin [Mass/Vol] 3.2 g/dL Low 3.4-5.0 [facility] Comment on above: Performed By: #### H EPAP #### [facility] [address] [place], [place] [address] Lipase Bloodon 11-21-2018 Lipase Blood 137 U/L Normal 73-393 [facility] Comment on above: Performed By: #### L IP #### [facility] [address] [place], [place] [address] Office Visit: Diabetes Follo w Upon 07-09-2017 Documentation of current medications (procedure) Done Invalid Interpretation Code [facility] Work Phone: Protein mass conc Done Invalid Interpretation Code [facility] Work Phone: Office Visit: Diabetes follo w upon 06-11-2017 Documentation of current medications (procedure) Done Invalid Interpretation Code [facility] Work Phone: Protein mass conc Done [facility] Work Phone: Office Visiton 05-21-2017 Adult depression screening assessment Adult depression screening assessment Invalid Interpretation Code [facility] Work Phone: Documentation of current medications (procedure) Done Invalid Interpretation Code [facility] Work Phone: PHQ-9 quick depression assessment panel [Reported.PHQ] Adult depression screening assessment Invalid Interpretation Code [facility] Work Phone: Tobacco smoking status NHIS Never Invalid Interpretation Code [facility] Work Phone: Tobacco smoking status AKIS Former smoker Invalid Interpretation Code [facility] Work Phone: Tobacco use [facility] Former smoker Invalid Interpretation Code [facility] Work Phone: Laboratory - Microbiology an d Antimicrobial susceptibility Bacteria identified Cx Nom (Bld) No growth in 5 days. [facility] Work Phone: No Panel Information SARS-CoV-2 & FLU Antigen (Rapid) [facility] Work Phone: Streptococcus pneumoniae Antigen (M [facility] Work Phone: Vital Signs Date Time Vital Sign Value Performing Clinician Facility 03-17-2025 10:47-0400 Body height 167.[address] Saturnino Marion MD Work Phone: [facility] 03-17-2025 10:47-0400 Body mass index (BMI) [Ratio] 39.7 kg/m2 Dr. Saturnino Marion MD Work Phone: [phone])145-372475 [place] [address] 03-17-2025 10:47-0400 Body weight 111.[address] Saturnino Marion MD Work Phone: 4(993)657-590675 [place] [address] 02-15-2025 10:28-0400 Body height 167.[address] Saturinno Marion MD Work Phone: 9(587)621-106500 [place] [address] 02-15-2025 10:28-0400 Body mass index (BMI) [Ratio] 40.1 kg/m2 Dr. Saturnino Marion MD Work Phone: 5(628)[phone] [place] [address] 02-15-2025 10:28-0400 Body temperature 97.2 [degF] Dr. Saturnino Marion MD Work Phone: 3(660)086-031300 [place] [address] 02-15-2025 10:28-0400 Body weight 112.[address] Saturnino Marion MD Work Phone: 9(949)263-794700 [place] [address] 02-15-2025 10:28-0400 Diastolic blood pressure 86 mm[Hg] Dr. Saturnino Marion MD Work Phone: 7(402)481-489500 [place] [address] 02-15-2025 10:28-0400 Heart rate 80 /min Dr. Saturnino Marion MD Work Phone: 6(537)172-233400 [place] [address] 02-15-2025 10:28-0400 Respiratory rate 18 /min Dr. Saturnino Marion MD Work Phone: 0(470)[phone] [place] [address] 02-15-2025 10:28-0400 SaO2% (BldA) [Mass fraction] 97 % Dr. Saturnino Marion MD Work Phone: 9(397)[phone] [place] [address] 02-15-2025 10:28-0400 Systolic blood pressure 121 mm[Hg] Dr. Saturnino Marion MD Work Phone: 1(896)825-084400 [place] [address] 08-25-2023 09:18-0500 Body height 168.[address] Saturnino Marion Work Phone: 5(136)[phone] [place] [address] 08-25-2023 09:18-0500 Body mass index (BMI) [Ratio] 44.1 kg/m2 Dr. Saturnino Marion Work Phone: [facility] 08-25-2023 09:18-0500 Body weight 126.[address] Saturnino Marion Work Phone: [facility] 02-04-2023 14:56-0400 Body weight 132.35 kg [facility] 01-22-2023 15:31-0400 Body height 167.64 cm [facility] 01-22-2023 15:31-0400 Body weight 134.35 kg [facility] 12-27-2022 02:23-0400 Body weight 133.53 kg [facility] 12-24-2022 15:05-0400 Body weight 133.[address] Saturnino Marion Work Phone: [facility] 09-15-2022 10:56-0500 Body height 167.[address] Saturnino Marion Work Phone: [facility] 09-15-2022 10:41-0500 Body mass index (BMI) [Ratio] 46.1 kg/m2 Dr. Saturnino Marion Work Phone: [facility] 09-15-2022 10:41-0500 Body weight 129.[address] Saturnino Marion Work Phone: [facility] 09-15-2022 10:41-0500 Diastolic blood pressure 83 mm[Hg] Dr. Saturnino Marion Work Phone: [facility] 09-15-2022 10:41-0500 Heart rate 93 /min Dr. Saturnino Marion Work Phone: [facility] 09-15-2022 10:41-0500 Respiratory rate 18 /min Dr. Saturnino Marion Work Phone: [facility] 09-15-2022 10:41-0500 SaO2% (BldA) [Mass fraction] 93 % Dr. Saturnino Marion Work Phone: [facility] 09-15-2022 10:41-0500 Systolic blood pressure 140 mm[Hg] Dr. Saturnino Marion Work Phone: [facility] 07-31-2022 15:35-0400 Body mass index (BMI) [Ratio] 46 kg/m2 Dr. Saturnino Marion Work Phone: [facility] Work Phone: 07-31-2022 15:35-0400 Body weight 129.[address] Saturnino Marion Work Phone: [facility] Work Phone: 07-31-2022 15:35-0400 Diastolic blood pressure 92 mm[Hg] Dr. Saturnino Marion Work Phone: [facility] Work Phone: 07-31-2022 15:35-0400 Heart rate 92 /min Dr. Saturnino Marion Work Phone: [facility] Work Phone: 07-31-2022 15:35-0400 Respiratory rate 18 /min Dr. Saturnino Marion Work Phone: [facility] Work Phone: 07-31-2022 15:35-0400 Systolic blood pressure 130 mm[Hg] Dr. Saturnino Marion Work Phone: [facility] Work Phone: 12-25-2021 13:03-0400 Body temperature 98.3 [degF] Dr. Saturnino Marion Work Phone: [facility] Work Phone: 12-25-2021 13:03-0400 Diastolic blood pressure 95 mm[Hg] Dr. Saturnino Marion Work Phone: [facility] Work Phone: 12-25-2021 13:03-0400 Heart rate 87 /min Dr. Saturnino Marion Work Phone: [facility] Work Phone: 12-25-2021 13:03-0400 Inhaled oxygen flow rate 3 L/min Dr. Saturnino Marion Work Phone: [facility] Work Phone: 12-25-2021 13:03-0400 Respiratory rate 20 /min Dr. Saturnino Marion Work Phone: [facility] Work Phone: 12-25-2021 13:03-0400 SaO2% (BldA) [Mass fraction] 95 % Dr. Saturnino Marion Work Phone: [facility] Work Phone: 12-25-2021 13:03-0400 Systolic blood pressure 170 mm[Hg] Dr. Saturnino Marion Work Phone: [facility] Work Phone: 12-24-2021 12:14-0400 Body height 167.[address] Saturnino Marion Work Phone: [facility] Work Phone: 12-24-2021 12:14-0400 Body weight 136.[address] Saturnino Marion Work Phone: [facility] Work Phone: 12-23-2021 19:27-0400 Body mass index (BMI) [Ratio] 48.6 kg/m2 Dr. Saturnino Marion Work Phone: [facility] Work Phone: 11-29-2021 12:10-0500 Diastolic blood pressure 75 mm[Hg] Dr. Saturnino Marion Work Phone: [facility] Work Phone: 11-29-2021 12:10-0500 Heart rate 93 /min Dr. Saturnino Marion Work Phone: [facility] Work Phone: 11-29-2021 12:10-0500 Respiratory rate 18 /min Dr. Saturnino Marion Work Phone: [facility] Work Phone: 11-29-2021 12:10-0500 SaO2% (BldA) [Mass fraction] 92 % Dr. Saturnino Marion Work Phone: [facility] Work Phone: 11-29-2021 12:10-0500 Systolic blood pressure 135 mm[Hg] Dr. Saturnino Marion Work Phone: [facility] Work Phone: 11-29-2021 08:31-0500 Body mass index (BMI) [Ratio] 48.8 kg/m2 Dr. Saturnino Marion Work Phone: [facility] Work Phone: 11-29-2021 08:31-0500 Body temperature 97.8 [degF] Dr. Saturnino Marion Work Phone: [facility] Work Phone: 11-29-2021 08:31-0500 Body weight 137.[address] Saturnino Marion Work Phone: [facility] Work Phone: 07-09-2017 08:15-0400 BMI (Body Mass Index) 35.25 kg/m2 [facility] Work Phone: 07-09-2017 08:15-0400 BP Diastolic 71 mm[Hg] [facility] Work Phone: 07-09-2017 08:15-0400 BP Systolic 102 mm[Hg] [facility] Work Phone: 07-09-2017 08:15-0400 Height 167.64 cm [facility] Work Phone: 07-09-2017 08:15-0400 Pulse (Heart Rate) 104 /min [facility] Work Phone: 07-09-2017 08:15-0400 Respiratory Rate 18 /min Ondina Manny [employer]PER[employer]OR [facility] Work Phone: 07-09-2017 08:15-0400 Weight 99.07 kg Ondina Bryant LPN [facility] Work Phone: 06-11-2017 07:48-0400 BMI (Body Mass Index) 36.25 kg/m2 Ondina Bryant LPN [facility] Work Phone: 06-11-2017 07:48-0400 Body Temperature 98.2 [degF] Ondina Bryant LPN [facility] Work Phone: 06-11-2017 07:48-0400 BP Diastolic 89 mm[Hg] Ondina Bryant LPN [facility] Work Phone: 06-11-2017 07:48-0400 BP Systolic 139 mm[Hg] Ondina Bryant LPN [facility] Work Phone: 06-11-2017 07:48-0400 Height 167.64 cm Ondina Bryant [facility]PN [facility] Work Phone: 06-11-2017 07:48-0400 Pulse (Heart Rate) 84 /min [facility] Work Phone: 06-11-2017 07:48-0400 Respiratory Rate 20 /min Ondina Bryant LPN [facility] Work Phone: 06-11-2017 07:48-0400 Weight 101.88 kg Ondina Bryant LPN [facility] Work Phone: 05-21-2017 08:18-0400 BMI (Body Mass Index) 35.6 kg/m2 Ondina Bryant LPN [facility] Work Phone: 05-21-2017 08:18-0400 Body Temperature 98.8 [degF] Ondina Bryant [facility]PN [facility] Work Phone: 05-21-2017 08:18-0400 BP Diastolic 78 mm[Hg] Ondina Bryant LPN [facility] Work Phone: 05-21-2017 08:18-0400 BP Systolic 110 mm[Hg] [facility] Work Phone: 05-21-2017 08:18-0400 Height 167.64 cm Ondina Bryant LPN [facility] Work Phone: 05-21-2017 08:18-0400 Pulse (Heart Rate) 80 /min Ondina Bryant LPN [facility] Work Phone: 05-21-2017 08:18-0400 Respiratory Rate 20 /min [facility] Work Phone: 05-21-2017 08:18-0400 Weight 100.06 kg [facility] Work Phone: Encounters Encounter Date Encounter Type Care Provider Facility Start: 03-22-2025 ambulatory Saturnino [place] Facility:[facility] Start: 03-17-2025 End: 03-17-[address] Yvon Ray MD -[facility] Start: 03-17-2025 End: 03-17-[address] Saturnino Marion MD Work Phone: [facility] Work Phone: Start: 02-17-2025 End: 02-17-[address] Saturnino Marion MD Work Phone: [facility] Work Phone: Start: 02-17-2025 End: 02-17-[address] Saturnino [facility] Work Phone: Start: 02-17-2025 End: 02-17-2025 ambulatory Saturnino Marion Facility:[facility] Start: 02-15-2025 End: 02-15-[address] Thais San MD -[facility] Work Phone: Start: 02-15-2025 End: 02-15-[address] Saturnino Marion MD Work Phone: [facility] Work Phone: Start: 01-10-2025 End: 01-10-[address] Saturnino Marion MD Work Phone: [facility] Work Phone: Start: 01-10-2025 End: 01-10-[address] Saturnino Marion MD -[facility] Work Phone: Start: 01-10-2025 End: 01-10-2025 ambulatory Saturnino Marion Facility:[facility] Start: 01-03-2025 End: 01-03-[address] Saturnino Marion MD Work Phone: [facility] Work Phone: Start: 01-03-2025 End: 01-03-2025 Discharged Recurring Cinda Birmingham SERVICE PROVIDER-C -Physical Therapy Work Phone: Start: 01-03-2025 Registered Recurring Cinda Birmingham SERVICE PROVIDER-C -Physical Therapy Work Phone: Start: 12-27-2024 End: 12-27-[address] Saturnino Marion MD Work Phone: [facility] Work Phone: Start: 12-27-2024 End: 12-27-[address] Saturnino Marion MD -Radiology, [place] Work Phone: Start: 12-27-2024 End: 12-27-2024 ambulatory Saturnino Marion Facility:[facility] Start: 12-23-2024 Registered Recurring Cinda Birmingham SERVICE PROVIDER-C -Physical Therapy Work Phone: Start: 11-03-2024 End: 11-03-2024 Patient encounter procedure Cinda Birmingham NP-C -Laboratory, [facility] Start: 11-03-2024 End: 11-03-2024 ambulatory Saturnino Marion Facility:[facility] Start: 08-23-2024 End: 08-23-2024 ambulatory Saturnino Marion Facility:[facility] Start: 07-19-2024 End: 07-19-2024 ambulatory Saturnino Marion Facility:[facility] Start: 11-06-2023 End: 11-06-[address] Saturnino Marion Work Phone: [facility] Work Phone: Start: 11-06-2023 End: 11-06-[address] Sautrnino Marion Work Phone: [facility] Start: 08-25-2023 Non-patient / Non-visit Dr. Adam Marion Work Phone: [facility] Work Phone: Start: 04-27-2023 End: 04-27-2023 ambulatory [facility] Work Phone: Start: 04-27-2023 End: 04-27-2023 Patient encounter procedure [facility] Start: 02-04-2023 End: 02-25-2023 ambulatory [facility] Work Phone: Start: 02-04-2023 End: 02-25-2023 Discharged Recurring [facility] Start: 01-29-2023 ambulatory THEO Marie ty:[facility] Start: 01-22-2023 End: 01-25-2023 ambulatory [facility] Work Phone: Start: 01-22-2023 End: 01-25-2023 Discharged Recurring [facility] Start: 12-24-2022 End: 12-26-[address] Saturnino Marion Work Phone: [facility] Work Phone: Start: 12-24-2022 End: 12-26-[address] Saturnino Marion Work Phone: [facility]-Nutritional Services Start: 12-17-2022 End: 12-17-[address] Saturnino Marion Work Phone: [facility] Work Phone: Start: 12-17-2022 End: 12-17-[address] Saturnino Marion Work Phone: [facility]-Cat Scan, [facility] Start: 12-16-2022 End: 12-16-[address] Saturnino Marion Work Phone: [facility] Work Phone: Start: 12-16-2022 End: 12-16-[address] Saturnino Marion Work Phone: [facility] Start: 11-05-2022 End: 11-05-2022 ambulatory SATURNINO MARION Facility:[facility] Start: 10-31-[address] Saturnino aMrion Work Phone: [facility]-Physical Therapy Start: 10-09-2022 Orders Only Jerry Maciel i, MD Work Phone: MD PROVIDER ADULT CRITICAL CARE Comment on above: Pulmonary hypertensi on (HCC) (Primary Dx) Start: 09-17-[address] Saturnino Marion Work Phone: [facility]-Physical Therapy Start: 09-15-2022 End: 09-15-[address] Saturnino Marion Work Phone: [facility] Work Phone: Start: 09-15-2022 End: 09-15-[address] Saturnino Marion Work Phone: [facility]-Radiology, [facility] Start: 09-09-2022 Non-patient / Non-visit Dr. Adam Marion Work Phone: [facility] Start: 09-09-2022 End: 09-09-[address] Saturnino Marion Work Phone: [facility] Work Phone: Start: 09-09-2022 End: 09-09-[address] [facility] Start: 07-31-2022 End: 07-31-[address] Saturnino Marion Work Phone: [facility] Start: 07-25-2022 Non-patient / Non-visit Dr. Adam Marion Work Phone: [facility] Start: 07-23-2022 Non-patient / Non-visit Dr. Adam Marion Work Phone: [facility] Start: 07-23-2022 End: 07-23-[address] Saturnino Marion Work Phone: [facility] Work Phone: Start: 07-23-2022 End: 07-23-[address] [facility] Start: 07-04-2022 End: 07-04-2022 ambulatory [facility] Work Phone: Start: 07-04-2022 End: 07-04-2022 Patient encounter procedure [facility] Start: 06-17-2022 End: 06-17-2022 ambulatory [facility] Work Phone: Start: 06-17-2022 End: 06-17-2022 Patient encounter procedure [facility] Start: 04-02-2022 End: 04-02-[address] Saturnino Marion Work Phone: [facility] Start: 02-12-2022 End: 02-12-[address] [facility] Start: 02-11-2022 End: 02-11-[address] Saturnino Marion Work Phone: [facility] Start: 01-13-2022 End: 01-13-[address] Saturnino Marion Work Phone: [facility] Start: 01-03-2022 End: 01-03-[address] Saturnino Marion Work Phone: [facility] Start: 12-25-2021 Non-patient / Non-visit Dr. Adam Marion Work Phone: [facility] Start: 12-24-2021 Non-patient / Non-visit Dr. Adam Marion Work Phone: [facility] Start: 12-24-2021 Non-patient / Non-visit Dr. Adam Marion Work Phone: [facility] Start: 12-23-2021 Non-patient / Non-visit Dr. Adam Marion Work Phone: [facility] Start: 12-23-2021 End: 12-25-2021 Evaluation and management of inpatient Dr. Saturnino Marion Work Phone: [facility] Surgical 3 Start: 12-02-2021 End: 12-02-[address] Saturnino Marion Work Phone: [facility] Start: 11-29-2021 End: 11-29-2021 Emergency department patient visit Dr. Saturnino Marion Work Phone: [facility]Emergency Department Start: 11-26-2021 End: 11-26-[address] Saturnino Marion Work Phone: [facility] Start: 09-06-[address] Saturnino Marion Work Phone: [facility] Date Procedure Procedure Detail Performing Clinician Start: 02-17-2025 MRI of cervical spine Tika Marion MD Work Phone: Start: 01-10-2025 Screening mammography Tika Marion MD Work Phone: Start: 12-27-2024 X-ray of cervical spine Dr. Saturnino Marion MD Work Phone: Start: 11-03-2024 Measurement of renal function Dr. Saturnino Marion MD Work Phone: Comment on above: GFR Calc Start: 04-27-2023 Bacterial nucleic ac id assay Start: 04-27-2023 Chlamydia trachomatis (PCR) Start: 04-27-2023 Investigation of transfusion reaction Start: 04-27-2023 Microbial culture, routine Start: 12-17-2022 CT of chest without contrast Dr. Saturnino Marion Work Phone: Start: 09-15-2022 Plain chest X-ray Dr. Amadou Marion Work Phone: Start: 09-09-2022 Radionuclide imaging of perfusion of myocardium under exercise stress Dr. Saturnino Marion Work Phone: Start: 06-17-2022 Radiologic examinati on of knee Start: 04-02-2022 Radiography of sacrococcygeal spine Dr. Saturnino Marion Work Phone: Start: 02-11-2022 Plain chest X-ray Dr. Amadou Marion Work Phone: Start: 01-13-2022 MRI of abdomen witho ut contrast Dr. Saturnino Marion Work Phone: Start: 12-24-2021 End: 12-24-2021 Legionella pneumophila antigen assay Dr. Saturnino Marion Work Phone: Start: 12-24-2021 Streptococcus pneumo niae Antigen (M Dr. Saturnino Marion Work Phone: Start: 12-23-2021 Plain chest X-ray Dr. Amadou Marion Work Phone: Start: 12-23-2021 Bacteria identified in Blood by Culture Dr. Saturnino Marion Work Phone: Start: 12-23-2021 SARS-CoV-2 & FLU Ant igen (Rapid) Dr. Saturnino Marion Work Phone: Start: 11-29-2021 End: 11-29-[address] Saturnino Marion Work Phone: Start: 11-29-2021 CT angiography of ch est with contrast Dr. Saturnino Marion Work Phone: Start: 09-06-2021 Plain x-ray of hand Dr. Saturnino Marion Work Phone: Start: 09-21-2019 Throat culture Comment on above: Performed By: #### G FR #### [place] [address] Bacteria identified in Blood by Culture Dr. Saturnino Marion Work Phone: Legionella pneumophi la antigen assay Dr. Saturnino Marion Work Phone: SARS-CoV-2 & FLU Ant igen (Rapid) Dr. Saturnino Marion Work Phone: Streptococcus pneumo niae Antigen (M Dr. Saturnino Marion Work Phone: Plan of Treatment Date Care Activity Detail Author Start: 03-17-2025 X-ray of cervical spine Cerv Spine 2 or 3 Views [facility] Start: 03-17-2025 XR Cervical spine 2 or 3 Views [facility] Start: 09-28-2022 DEPRESSION ASSESSMENT DEPRESSION ASSESSMENT [facility] Start: 05-29-2022 Influenza vaccination INFLUENZA (#1) [facility] Start: 12-25-2021 Patient discharge [facility] Work Phone: Start: 12-23-2021 Ambulation without limitation [facility] Work Phone: Start: 12-23-2021 Assessment of risk of venous thromboembolism [facility] Work Phone: Start: 12-23-2021 Care regimes management [facility] Work Phone: Start: 12-23-2021 Insertion of catheter into peripheral vein [facility] Work Phone: Start: 12-23-2021 Providing care according to standard [facility] Work Phone: Start: 12-23-2021 [facility] Work Phone: Start: 12-23-2021 Following clinical pathway protocol [facility] Work Phone: Start: 12-23-2021 Admission procedure [facility] Work Phone: Start: 12-23-2021 Bacteria identified in Blood by Culture Blood Culture [facility] Work Phone: Start: 07-09-2017 End: 07-09-2017 Appointment Appointment [facility] Work Phone: Start: 06-11-2017 End: 06-11-2017 Appointment [facility]ointment [facility] Work Phone: Start: 06-04-2017 End: 06-04-2017 Appointment [facility] Work Phone: Start: 05-21-2017 End: 05-21-2017 Appointment Appointment [facility] Work Phone: Start: 2010 SHINGRIX VACCINE (1 of 2) SHINGRIX VACCINE (1 of 2) [facility] Start: 2005 COLOGUARD (FIT-DNA) COLOGUARD (FIT-DNA) [facility] Start: 2005 Colonoscopy COLONOSCOPY [facility] Start: 2005 COLORECTAL CANCER SCREENING COLORECTAL CANCER SCREENING [facility] Start: [address] COLONOGRAPHY [facility] Start: 2005 FECAL OCCULT BLOOD FECAL OCCULT BLOOD [facility] Start: 2005 SIGMOIDOSCOPY SIGMOIDOSCOPY [facility] Start: 2000 Mammography MAMMOGRAM [facility] Start: 1990 HPV TESTING HPV TESTING [facility] Start: 1981 PAP TESTING PAP TESTING [facility] Start: 1979 Urine microalbumin profile DTAP,TDAP,TD (1 - Tdap) [facility] Start: 1978 Hepatitis B surface antibody level LDL CHOLESTEROL [facility] Start: 1978 HEPATITIS C SCREENING HEPATITIS C SCREENING [facility] Start: 1978 HIV SCREENING HIV SCREENING [facility] Start: 1970 3 comp foot exam completed [facility] Start: 1970 Hepatitis B screening URINE ALBUMIN:CREATININE RATIO [facility] Start: 1970 Hepatitis C antibody, confirmatory test DILATED RETINAL EXAM [facility] Start: 1965 Hemoglobin A1c/Hemoglobin.total in Blood HBA1C [facility] Start: 03-12-1961 COVID-19 VACCINE (#1) COVID-19 VACCINE (#1) [facility] Colonoscopy [facility] Patient Education ED Chest Pain, Noncardiac ED Pneumonia (Adult) [facility] Work Phone: Patient referral [facility] Work Phone: Immunizations Immunization Date Immunization Notes Care Provider Fa cili 06-28-2021 Influenza, high dose seasonal Dr. Saturnino Marion MD Work Phone: [facility] 06-28-2021 influenza, high dose seasonal, preservative-free Dr. Saturnino Marion Work Phone: [facility] 12-24-2020 Covid (Pfizer) Dr. Saturnino crowley Work Phone: [facility] 11-26-2020 Covid (Pfizer) Dr. Saturnino crowley Work Phone: [facility] Payers Date Payer Category Payer Self-pay [id number] 2024 Self-pay [id number] 2022 Medicare [id number] 2019 Medicaid [id number] 2018 Medicaid [employer] [facility] [id number] 2018-Present [phone] [address] [place] [address] Medicaid [id number] 2014 Unknown [id number] Medicare [id number] Unknown [id number] Unknown [id number] Unknown [id number] Unknown [id number] Unknown [id number] Unknown [id number] Unknown [id number] Unknown [id number] Unknown [id number] Unknown [id number] Unknown [id number] Social History Date Type Detail Facility Start: 12-23-2021 End: 10-01-2023 Tobacco smoking status AKIS Unknown if ever smoked [facility] Start: 05-16-2019 None [facility] Start: 05-16-2019 With Family [facility] Start: 10-14-2019 Non-smoker [facility] Start: 1960 Sex Assigned At Female [facility] Start: 09-21-2019 End: 10-01-2023 Tobacco smoking status AKIS Ex-smoker [facility] History of tobacco use Current smoker [facility] History of tobacco use Cigarette Smoker [facility] Start: 09-21-2019 Tobacco use and exposure Smokeless tobacco non-user [facility] Start: 09-21-2019 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) [facility] Start: 05-24-2018 Tobacco Comment quit 20 years ago [facility] Start: 1960 Sex Assigned At Not on file [facility] Start: 12-31-2024 End: 01-14-2025 Sex Female (finding) [facility] Medical Equipment Procedure Code Equipment Code Equipment Origin al Text Equipment Identifier Dates INSULIN PEN NEEDLE Blood Sugar Diagnostic (Relion Prime Test Strips) strip Start: 04-12-2020 Blood Sugar Diagnostic (Relion Prime Test Strips) strip Start: 04-12-2020 Blood Sugar Diagnostic (Relion Prime Test Strips) strip Start: 04-12-2020 Blood Sugar Diagnostic (Relion Prime Test Strips) strip Start: 04-12-2020 Blood Sugar Diagnostic (Relion Prime Test Strips) strip Start: 04-12-2020 Blood Sugar Diagnostic (Relion Prime Test Strips) strip Start: 04-12-2020 Blood Sugar Diagnostic (Relion Prime Test Strips) strip Start: 04-12-2020 Blood Sugar Diagnostic (Relion Prime Test Strips) strip Start: 04-12-2020 Blood Sugar Diagnostic (Relion Prime Test Strips) strip Start: 04-12-2020 Blood Sugar Diagnostic (Relion Prime Test Strips) strip Start: 04-12-2020 Blood Sugar Diagnostic (Relion Prime Test Strips) strip Start: 04-12-2020 Blood Sugar Diagnostic (Relion Prime Test Strips) strip Start: 04-12-2020 Blood Sugar Diagnostic (Relion Prime Test Strips) strip Start: 04-12-2020 Blood Sugar Diagnostic (Relion Prime Test Strips) strip Start: 04-12-2020 Blood Sugar Diagnostic (Relion Prime Test Strips) strip Start: 04-12-2020 Blood Sugar Diagnostic (Relion Prime Test Strips) strip Start: 04-12-2020 Blood Sugar Diagnostic (Relion Prime Test Strips) strip Start: 04-12-2020 Blood Sugar Diagnostic (Relion Prime Test Strips) strip Start: 04-12-2020 Blood Sugar Diagnostic (Relion Prime Test Strips) strip Start: 04-12-2020 Blood Sugar Diagnostic (Relion Prime Test Strips) strip Start: 04-12-2020 Blood Sugar Diagnostic (Relion Prime Test Strips) strip Start: 04-12-2020 Blood Sugar Diagnostic (Relion Prime Test Strips) strip Start: 04-12-2020 Blood Sugar Diagnostic (Relion Prime Test Strips) strip Start: 04-12-2020 Blood Sugar Diagnostic ([employer]ion Prime Test Strips) strip Start: 04-12-2020 Blood Sugar Diagnostic (Relion Prime Test Strips) strip Start: 04-12-2020 Goals Date Patient Goal Desired Activity /State Functional Status Date Assessment Result Facility 12-25-2021 Functional status Ambulates [facility] Work Phone: Mental Status Date Assessment Result Facility 12-25-2021 Cognitive function Appropriate;Cooperativ e [facility] Work Phone: 12-25-2021 Cognitive function Arousable To Voice/Nam e [facility] Work Phone: 11-29-2021 Cognitive function Voice/Name [facility] Work Phone: Clinical Notes 11-20-2018 to 02-27-2025 Note Date & Type Note Facility 02-27-2025 Discharge summary [facility] 02-27-2025 Discharge summary Note Date/Time February 27, 2025 3:53pm [facility] Physical Therapy [facility] [address] [place] [address] / REHABILITATION SERVICES DISCHARGE SUMMARY MR#: [id number] Acct: [id number] Name: PAULIE ALFARO Rep #: [id number] : 1960 64 From: Sourav Lyons Referring Dr.: Cinda Birmingham Status: REG RCR Insurance: [facility] COMPLETE MEDICAID Discharge Summary D/C summary: It has been my pleasure to treat PAULIE ALFARO referred by GEE Serrano, with the diagnosis of Cervicalgia for a total of 3 visit(s). Discharge Date: 01/03/25 Please see the following information for a summary of their discharge status. Subjective Subjective: Pt. reports that her symptoms feel worse than they did before. Pt. reports dry needling increase in her numbness in her arm. Pt. reports having numbness for multiple days. She has not done much of her exercises due to increasing symptoms. Pain Cervical spine R side: Pain Intensity (Out of 10): 5 Overall Improvement % Improvement: 0 Objective Objective/Function: ROM: cervical spine: flexion nil loss mild increase NW, ext mod loss increase NW, SB min loss NE bilat, rotation min loss bilat increase NW.Pt. has N/T into her R elbow region, but is more consistent than it was. Pt. has 5-/5 B UE strength, no myotomal weakness noted. Pt. reports having having much change with her exercises. Pt. would like to return back to physician at this point in time. Pt. reports no major change in her symptoms. Pt. has not really progressed much with her goals. I would recommend that she return to physcian at this point in time. Goals Goal 1:: LTG: pt to be I with HEP. Goal Progress: Progressing Goal 2:: STG: Pt. to have improved cervical ROM to full without increase in symptoms. Goal Progress: Not Progressing Goal 3:: LTG: Pt. to be able to sleep throughout the night without increase in symptoms. Goal Progress: Not Progressing Goal 4:: LTG: Pt. to have no radicular symptoms in her R UE. Goal Progress: Not Progressing Plan Plan: DR to R UT, cervical retraction and extension progression. Manual to R UT. HEP at IE: cervical retraction in supine, R UT stretch D/C Information d/c sentence: If there are questions or concerns regarding this patient's physical therapy, please feel free to call me at [phone]. Thank you for the referral of thispatient. Sincerely, Sourav Wan, DPT Balance/Gait/Functional tests Balance/Special Test Scores Oswestry Neck Score: 23 Improvement % Improvement: 0 <Electronically signed by Sourav Wan DPT> 02/27/25 1553 CC: Cinda Birmingham; Dr. Saturnino Marion MD ~ CLS Signed [facility] Work Phone: 1(569) 101-918005-21-2025 Evaluation note* Diagnosis Onset Date Resolution Status Admit Date [place] esophagus determined by biopsy acute February 15, 2025 1 0:04am Hx of colonic polyps acute February 15, 2025 10:04am [facility] Work Phone: 1(191) 334-247604-04-2025 Radiology Diagnostic study note [facility] Imaging Services [address] [place] [address] Cerv Spine 4 or 5 Views MR#: [id number] Acct: [id number] Name: PAULIE ALFARO Rep #: [id number] : 1960 F 64 From: Cresencio Thorne MD PCP: Dr. Saturnino Marion MD Status: REG CLI Study:Cerv Spine 4 or 5 Views Date of Exam: 12/27/24 Exam# [id number] Ordering Dr: Adam Marion MD PROCEDURE: CERV SPINE 4 OR 5 VIEWS 12/27/2024 REASON FOR EXAM: CERVICAL RADICULOPATHY TECHNIQUE: 6 views of the cervical spine. Were obtained including oblique views. COMPARISON: None FINDINGS: Vertebrae: Anterior spondylosis. disc spaces: Disc space narrowing at the C5-C6 and C6-C7 levels. Alignment: Straightening of the normal cervical lordosis. soft tissues: Unremarkable Other: RAD/Cerv Spine 4 or 5 Views IMPRESSION: MILD CERVICAL DEGENERATIVE CHANGES. Disclaimer: Reading Location: [place] [address] CC: Dr. Saturnino Marion MD ~ Paint Prep Technician: Signed [facility]02-23-2019 History of Past illness Narrative* Problem Noted Date Resolved Date Acute pancreatitis 11/20/2018 11/23/2018 documented as of this encounter (statuses as of 10/09/2022) [facility] Diagnosis Onset Date Resolution Status Acute respiratory failure with hypoxia acute Left lower lobe pneumonia ac [place] Pleuritic chest pain acute Severe sepsis acute [facility] Work Phone: Evaluation note* Diagnosis Onset Date Resolution Status Acute respiratory failure with hypoxia resolved Left lower lobe pneumonia re solved Pleuritic chest pain resolve d Severe sepsis resolved [facility] Work Phone: Evaluation noteNo assessment information available [facility] Work Phone: Evaluation note* Diagnosis Onset Date Resolution Status Dyspnea on exertion acute Essential hypertension acute Palpitations acute Pure hypercholesterolemia ac [place] Dyspnea on exertion acute Essential hypertension acute Palpitations acute Pure hypercholesterolemia [place] [facility] Work Phone: Evaluation note* Diagnosis Pulmonary hypertension (HCC)- Primary Other chronic pulmonary heart diseases documented [facility] this encounter [facility] Diagnosis Onset Date Resolution Status Dyspnea on exertion acute Essential hypertension acute Palpitations acute Pure hypercholesterolemia ac [place] [facility] Work Phone: [facility] Work Phone: Reason for referral (narrative)No reason for referral information availableUniversity [facility]als [facility] Work Phone: Summary Purpose Family History No Family History Records Found Relationship Condition Age at Onset Recorded Date/T madelyn grandfather Malignant neoplasm Unknown mother Malignant neoplasm Unknown Diabetes mellitus Unknown Advance Directives No Advanced Directives Records Found Advance Directive Response Recorded Date/ Time Living Will No December 23, 2021 6:21pm Power of State Wildlife Officer No December 23 6:21pm Advance Directive Response Recorded Date/ Time Living Will No December 23, 2021 5:21pm Power of State Wildlife Officer No December 23 5:21pm Advance Directive Response Recorded Date/ Time Living Will No October 01 4 3:14pm Power of State Wildlife Officer No October 01 2 024 3:14pm Chief Complaint and Reason for Visit Chief Complaint Pain in unspecified joint, Anemia CHEST PAIN SEPSIS PNEUMONIA SEPSIS PNEUMONIA SEPSIS PNEUMONIA SEPSIS PNEUMONIA Reason for Visit Acute respiratory fa ilure with hypoxia Left lower lobe pneumonia Pleuritic chest pain Severe sepsis Chief Complaint CHEST PAIN SEPSIS PNEUMONIA SEPSIS PNEUMONIA SEPSIS PNEUMONIA SEPSIS PNEUMONIA E27.8 Other specified disorders of adrenal gland Reason for Visit Acute respiratory fa ilure with hypoxia Left lower lobe pneumonia Pleuritic chest pain Severe sepsis Chief Complaint CHEST PAIN SEPSIS PNEUMONIA SEPSIS PNEUMONIA SEPSIS PNEUMONIA SEPSIS PNEUMONIA E27.8 Other specified disorders of adrenal gland BLE Reason for Visit Acute respiratory fa ilure with hypoxia Left lower lobe pneumonia Pleuritic chest pain Severe sepsis Chief Complaint SEPSIS PNEUMONIA SEPSIS PNEUMONIA SEPSIS PNEUMONIA SEPSIS PNEUMONIA E27.8 Other specified disorders of adrenal gland BLE Reason for Visit Acute respiratory fa ilure with hypoxia Left lower lobe pneumonia Pleuritic chest pain Severe sepsis Chief Complaint RIGHT KNEE PAIN Chief Complaint RIGHT KNEE PAIN CHF Amb Documentation Chief Complaint RIGHT KNEE PAIN CHF Amb Documentation Exertional dyspnea/ Ref. Sibilia WADSWORTH WADSWORTH 4 WK FU SOB CONDITIONING,LOW EXERCISE TOLERANCE.RX HERE Reason for Visit Dyspnea on exertion Essential hypertension Palpitations Pure hypercholesterolemia Dyspnea on exertion Essential hypertension Palpitations Pure hypercholesterolemia Chief Complaint WADSW[place]TH WAD[place] 4 WK FU SOB CONDITIONING,LOW EXERCISE TOLERANCE.RX HERE SOB Reason for Visit Dyspnea on exertion Essential hypertension Palpitations Pure hypercholesterolemia Chief Complaint WADSW[place]TH [place] 4 WK FU SOB CONDITIONING,LOW EXERCISE TOLERANCE.RX HERE SOB TYPE 2 DM Reason for Visit Dyspnea on exertion Essential hypertension Palpitations Pure hypercholesterolemia Chief Complaint CONDITIONING,LOW EXE RCISE TOLERANCE.RX HERE SOB TYPE 2 DM TYPE 2 DM Chief Complaint CONDITIONING,LOW EXE RCISE TOLERANCE.RX HERE SOB TYPE 2 DM TYPE 2 DM TYPE 2 DM Chief Complaint TYPE 2 DM TYPE 2 DM Chief Complaint Amb Documentation Chief Complaint Admit Date CERVICALGIA/DRY NEEDLE. RX HERE December 232024 11:30am Chief Complaint Admit Date CERVICALGIA/DRY NEEDLE. RX HERE December 4:30pm SCREENING January 10, 2025 3:5 0pm Chief Complaint Admit Date CERVICALGIA/DRY NEEDLE. RX HERE December 4:30pm SCREENING January 10, 2025 3:5 0pm COLONOSCOPY, DISCUSS PREP OPTIONS February 152024 10:04am Chief Complaint Admit Date CERVICALGIA/DRY NEEDLE. RX HERE December 4:30pm SCREENING January 10, 2025 3:5 0pm COLONOSCOPY, DISCUSS PREP OPTIONS February 152024 10:04am NECK PAIN/ FAILED PT February 17, 2025 10:4 8am Reason for Visit Admit Date [place] esophagus determined by biopsy [facility] 2024 10:04am Hx of colonic polyps February 15, 2025 10:0 4am Chief Complaint Admit Date CERVICALGIA/DRY NEEDLE. RX HERE December 4:30pm SCREENING January 10, 2025 3:5 0pm COLONOSCOPY, DISCUSS PREP OPTIONS February 152024 10:04am NECK PAIN/ FAILED PT February 17, 2025 10:4 8am CERVICAL SPINE March 17, 2025 10:4 3am Room 8 March 17, 2025 11:0 3am Additional Source Comments INFORMATION SOURCE (unrecogn ized section and content) DATE CREATED AUTHOR 09/27/2019 [facility] DATE CREATED AUTHOR AUTHOR'S ORGANIZ ATION 11/06/2022 [facility] DATE CREATED AUTHOR AUTHOR'S ORGANIZ ATION 01/31/2023 [facility] DATE CREATED AUTHOR AUTHOR'S ORGANIZ ATION 03/21/2025 [facility] Goals (unrecognized section and content) Goals may be documented in a n alternate sectionGoals may be documented in an alternate sectionGoals may be documented in an alternate sectionGoals may be documented in an alternate sectionGoals may be documented in an alternate sectionGoals may be documented in an alternate sectionGoals may be documented in an alternate sectionGoals may be documented in an alternate sectionGoals may be documented in an alternate sectionGoals may be documented in an alternate sectionGoals may be documented in an alternate sectionGoals may be documented in an alternate sectionGoals may be documented in an alternate sectionGoals may be documented in an alternate sectionGoals may be documented in an alternate sectionGoals may be documented in an alternate sectionGoals may be documented in an alternate sectionGoals may be documented in an alternate sectionGoals may be documented in an alternate sectionGoals may be documented in an alternate sectionGoals may be documented in an alternate sectionGoals may be documented in an alternate sectionGoals may be documented in an alternate sectionGoals may be documented in an alternate section Source Comments (unrecognize d section and content) In the event this informatio n is protected by the Federal Confidentiality of Alcohol and Drug Abuse Patient Records regulations: The Federal rules restrict any use of the information to criminally investigate or prosecute any alcohol or drug abuse patient.[facility] Care Teams (unrecognized sec tion and content) Drugless Physician Relationship Specialty Start Date End Date Saturnino Marion MD [address] [place] [id number] PCP - General Family Medicine 05/24/18 Team Status: Active Member Role Status Dates Dr. Saturnino Marion MD Family Provider Active Dr. Saturnino Marion MD Primary Care Provider Active Team Status: Inactive Member Role Status Dates Dr. Saturnino Marion MD Primary Care Provider, Referring P rovider Active Marianne Berry SERVICE PROVIDER, SERVICE PROVIDER-C Attending Provider Active Team Status: Active Member Role Status Dates Dr. Saturnino Marion MD Primary Care Provider Active Dr. Gregg Conley MD Attending Provid er, Referring Provider, Other Provider Active Team Status: Active Member Role Status Dates Dr. Saturnino Marion MD Primary Care Provide r, Attending Provider, Referring Provider Active Team Status: Inactive Member Role Status Dates Dr. Saturnino Marion MD Primary Care Provider Active Dr. Gregg Conley MD Attending Provider Active Team Status: Inactive Member Role Status Dates Dr. Saturnino Marion MD Primary Care Provider Active Marianne Berry SERVICE PROVIDER, SERVICE PROVIDER-C Attending Provider, Referring P rovider Active Team Status: Active Member Role Status Dates Dr. Saturnino Marion MD Primary Care Provider Active Dr. Rony Garcia MD Attending Provider, Referrin g Provider Active Team Status: Inactive Member Role Status Dates Dr. Saturnino Marion MD Primary Care Provide r, Attending Provider, Referring Provider Active Team Status: Inactive Member Role Status Dates Dr. Saturnino Marion MD Primary Care Provider Active Dr. Rony Garcia MD Attending Provider, Referrin g Provider Active Team Status: Inactive Member Role Status Dates Dr. Saturnino Marion MD Primary Care Provider Active Dr. Rony Garcia MD Attending Provider Active Team Status: Active Member Role Status Dates Dr. Saturnino Marion MD Primary Care Provider Active Genia Markie Attending Provider Active Team Status: Inactive Member Role Status Dates Dr. Saturnino Marion MD Primary Care Provider, Attending P rovider Active Team Status: Active Member Role Status Dates Dr. Saturnino Marion MD Primary Care Provider Active Team Status: Inactive Member Role Status Dates Dr. Saturnino Marion MD Primary Care Provider Active Start: November 03, 2024 End: November 03, 2024 Cinda Birmingham NP, SERVICE PROVIDER-C Attending Provider Active Start: November 03, 2024 End: November 03, 2024 Team Status: Active Member Role Status Dates Dr. Saturnino Marion MD Primary Care Provider Active Start: December 23, 2024 Cinda Birmingham NP, SERVICE PROVIDER-C Attending Provider Active Start: December 23, 2024 Team Status: Inactive Member Role Status Dates Dr. Saturnino Marion MD Primary Care Provider Active Start: December 27, 2024 End: December 27, 2024 Dr. Saturnino Marion MD Attending Provider Active St art: December 27, 2024 End: December 27, 2024 Dr. Saturnino Marion MD Referring Provider Active St art: December 27, 2024 End: December 27, 2024 Team Status: Active Member Role Status Dates Dr. Saturnino Marion MD Primary Care Provider Active Start: January 03, 2025 Cinda Birmingham NP, SERVICE PROVIDER-C Attending Provider Active Start: January 03, 2025 Team Status: Inactive Member Role Status Dates Dr. Saturnino Marion MD Primary Care Provider Active Start: January 10, 2025 End: January 10, 2025 Dr. Saturnino Marion MD Attending Provider Active St art: January 10, 2025 End: January 10, 2025 Dr. Saturnino Marion MD Referring Provider Active St art: January 10, 2025 End: January 10, 2025 Team Status: Inactive Member Role Status Dates Dr. Saturnino Marion MD Primary Care Provider Active Start: February 15, 2025 End: February 15, 2025 Dr. Saturnino Marion MD Referring Provider Active St art: February 15, 2025 End: February 15, 2025 Dr. Thais San MD Attending Provider Active Start: February 15, 2025 End: February 15, 2025 Team Status: Inactive Member Role Status Dates Dr. Saturnino Marion MD Primary Care Provider Active Start: February 17, 2025 End: February 17, 2025 Dr. Saturnino Marion MD Attending Provider Active St art: February 17, 2025 End: February 17, 2025 Dr. Saturnino Marion MD Referring Provider Active St art: February 17, 2025 End: February 17, 2025 Team Status: Inactive Member Role Status Dates Dr. Saturnino Marion MD Primary Care Provider Active Start: January 03, 2025 End: January 03, 2025 Cinda Birmingham NP, SERVICE PROVIDER-C Attending Provider Active Start: January 03, 2025 End: January 03, 2025 Team Status: Active Member Role Status Dates Dr. Saturnino Marion MD Primary Care Provider Active Start: March 17, 2025 Dr. Saturnino Marion MD Referring Provider Active St art: March 17, 2025 JOSE Luna Attending Provider Active Star t: March 17, 2025 Team Status: Inactive Member Role Status Dates Dr. Saturnino Marion MD Primary Care Provider Active Start: March 17, 2025 End: March 17, 2025 Dr. Yvon Ray MD Attending Provider Active S tart: March 17, 2025 End: March 17, 2025 Team Status: Inactive Member Role Status Dates Dr. Saturnino Marion MD Primary Care Provider Active Start: March 17, 2025 End: March 17, 2025 Dr. Saturnino Marion MD Referring Provider Active St art: March 17, 2025 End: March 17, 2025 JOSE Luna Attending Provider Active Star t: March 17, 2025 End: March 17, 2025 FOR RECORDS PERTAINING TO PATIENTS WHO ARE OR HAVE BEEN ENROLLED IN A CHEMICAL DEPENDENCY/SUBSTANCEABUSE PROGRAM, SOME INFORMATION MAY BE OMITTED. This clinical summary was aggregated from multiple sources. Caution should be exercised in using it in the provision of clinical care. This summary normalizes information from multiple sources, and as a consequence, information in this document may materially change the coding, format and clinical context of patient data. In addition, data may be omitted in some cases. CLINICAL DECISIONS SHOULD BE BASED ON THE PRIMARY CLINICAL RECORDS. [employer] provides no warranty or guarantee of the accuracy or completeness of information in this document.
[2025-03-22] MEDS: Lactated Ringers 1,000 ML 15 ML IV (06:59)
--- NOTE | 2025-03-22 07:05 | PCM.PRE.AN2 ---
ASA Classification* ASA Classification ASA Classification: 3 (MARITZA, HTN, GERD, anxiety, diabetes, hx of SOB, some parenchymal interstitial lung disease) Assessment & Plan Anesthesia* Anesthesia Assessment Anesthesia Assessment: Discussed sedation and/or anesthesia options, risks, benefits, and alternatives with patient/parents/legal guardian/POA. Questions invited. The patient/parents/legal guardian/POA seems to understand and agrees to proceed with anesthesia plan. Reviewed the physical assessment, medical history, allergy history and patient home medications list prior to surgery/procedure/anesthetic and documented any changes. Performed airway and anesthesia risk assessments. Gregory held 7 days Anesthesia Type Anesthesia Type: MAC History Source History Obtained from:: Patient and Chart Anesthesia Focused Assessment* Temperature: 97 F Pulse Rate: 84 Blood Pressure: 135/84 Respiratory Rate: 16 Pulse Ox: 98 Oxygen Delivery Method: Room Air Airway Assessment Mouth opens: >3 cm Mallampati Score: III Teeth Condition: Intact Neck Range of motion (ROM): Full ROM Labs Anesthesia Preop lab: CBC WBC 5.0 K/mm3 (4.4-11.0) 11/03/24 14:56 11/03/24 RBC 4.77 M/mm3 (4.2-5.4) 11/03/24 14:56 11/03/24 Hgb 13.6 g/dL (12.0-15.0) 11/03/24 14:56 11/03/24 Hct 44.1 % (37-47) 11/03/24 14:56 11/03/24 Plt Count 228 K/mm3 (150-450) 11/03/24 14:56 11/03/24 CHEMISTRY Potassium 4.0 mmol/L (3.5-5.1) 11/03/24 14:56 11/03/24 Sodium 139 mmol/L (136-145) 11/03/24 14:56 11/03/24 Magnesium 2.2 mg/dL (1.6-2.6) 07/04/22 16:17 07/04/22 Phosphorus 2.5 mg/dL (2.5-4.9) 05/13/21 07:00 05/13/21 BUN 13 mg/dL (7-18) 11/03/24 14:56 11/03/24 Creatinine 1.17 mg/dL (0.55-1.02) H 11/03/24 14:56 11/03/24 Glucose 233 mg/dL (74-106) H 11/03/24 14:56 11/03/24 POC Glucose 215 mg/dL (74-106) H 12/25/21 11:47 12/25/21 TSH 0.921 uIU/mL (0.358-3.740) 11/03/24 14:56 11/03/24 COAG Pre-Assessment Diagnosis/Proposed Procedure Planned Operative Procedure(s): COLONOSCOPY, EGD Anesthesia History Anesthesia History - overlock waistline joiner: Anesthesia History - overlock waistline joiner Hx Hospitalization No 03/21/25 10:19 Any Problems With Anesthesia No 03/21/25 10:19 Cholinesterase deficiency No 03/21/25 10:19 You/Your Family Experience No 03/21/25 10:19 fever (hyperthermia) with Relationship Recent Exposure to Contagious No 03/22/25 06:43 Disease Does patient have nerve No 03/21/25 10:19 stimulator Patient instructed to have device shut off --Does patient have Pacemaker No 03/22/25 06:43 or ICD? When Was Last Pacemaker Check QUESTION #4 FULL TEXT: You/Your Family Experience fever (hyperthermia) with Anesthesia Last Oral Intake Last Oral intake: Last Oral Intake NPO since 15:00 03/22/25 06:43 Meds taken in AM with sips of No 03/22/25 06:43 water? Meds patient instructed to take am of surgery PONV PONV - overlock waistline joiner: PONV - overlock waistline joiner Female Yes 03/21/25 10:19 HX of Motion Sickness No 03/21/25 10:19 HX of N/V After Surgery No 03/21/25 10:19 Non-Smoker Yes 03/21/25 10:19 Duration of Surgery greater No 03/21/25 10:19 than 60 minutes Number of Risk Factors 2 03/21/25 10:19 PONV Score Moderate Risk 03/21/25 10:19 Height & Weight Height & Weight: Anesthesia: Height & Weight Height 5 ft 6 in 03/22/25 06:43 Weight: 109 kg 03/22/25 06:43 Body Mass Index (BMI) 38.7 03/22/25 06:43 Respiratory Assessment Respiratory Assessment - overlock waistline joiner: Respiratory Tract Infection Hx - overlock waistline joiner Hx Respiratory Tract Infection No 03/21/25 10:19 STOP Sleep Apnea STOP Sleep Apnea - overlock waistline joiner: STOP Sleep Apnea - overlock waistline joiner Hx Hypertension Yes: CONTROLLED WITH MEDS 03/21/25 10:19 Hx Sleep Apnea Yes 03/21/25 10:19 CPAP Yes 03/21/25 10:19 BIPAP No 03/21/25 10:19 Do you snore loudly (louder than talking or can be heard Do you often feel tired/ fatigued/ sleepy during daytime? Has anyone observed you stop breathing during sleep? STOP Results Positive 03/21/25 10:19 QUESTION #5 FULL TEXT : Do you snore loudly (louder than talking or can be heard through closed doors)? Tobacco Use History Tobacco Use History - overlock waistline joiner: Tobacco Use History - overlock waistline joiner Tobacco Use Smoking Status Former smoker 03/21/25 10:19 Hx Tobacco Use No 03/21/25 10:19 Years Smoking Packs Smoked per Day Smoking Cessation Date was No - quit smoking greater 03/21/25 10:19 within the last 15 years than 15 years ago Hx Smoking Cessation Date Hx Smoking Cessation Counseling Hematologic Medial History Hematologic Hx - overlock waistline joiner: Hematologic Medical Hx - manager food Hx of Blood Transfusion No 03/21/25 10:19 Hx of Transfusion in last 3 No 03/21/25 10:19 Months Date of Last Transfusion (if within last 3 months) Ever experience any problems No 03/21/25 10:19 with transfusion(s)? Specify any problems Hx of Preganancy in last 3 No 03/21/25 10:19 Months Nurse Filling Out Transfusion [id number] 03/21/25 10:19 & Questions: Date: 03/21/25 03/21/25 10:19 Time: 10:22 03/21/25 10:19 Patient unable to answer at this time (ie. confused, unrespo /Reproduction History /Reproductive History - overlock waistline joiner: /Reproductive Hx- overlock waistline joiner Hx Now Gestational Age (in weeks): EDC: Hx Hx Para Hx Section SAB Active Medications Active Medications: Current Medications Generic Name Dose Route Start Last Admin Trade Name Freq PRN Reason Stop Dose Admin Lactated Ringer's 1,000 mls @ 15 mls/hr 03/22/25 06:30 03/22/25 06:59 IV 15 mls/hr .Q48H FRANCI Administration PFSH Medical History (Updated 03/21/25 @ 10:26 by Adrian Aguero) Wears hearing aid Wears glasses Spinal stenosis History of stress test History of echocardiogram Cardiology follow-up encounter Gastric reflux Generalized anxiety disorder Hx of adenomatous polyp of colon Type 2 diabetes mellitus Diabetic peripheral neuropathy Pure hypercholesterolemia Essential hypertension CPAP (continuous positive airway pressure) dependence Pneumonia due to COVID-19 virus Benign essential hypertension Diabetes Hx of blurred vision Gall stone Neuropathy History of back problems Arthritis Allergies Diarrhea HTN (hypertension) No significant past medical history Home Medications ?Medication ?Instructions ?Recorded ?Last Taken ?Type metronidazole 0.75 % topical gel 1 applic topical QHS redness 09/09/19 12/22/21 History mometasone 0.1 % topical cream 1 applic topical DAILY redness 09/09/19 12/22/21 History blood sugar diagnostic (ReliOn #150 ea 04/12/20 Unknown Rx Prime Test Strips) blood-glucose meter (ReliOn Prime #1 ea 04/12/20 Unknown Rx Meter) flash glucose sensor (BigRoadStyle #2 ea 07/06/20 Unknown Rx Joseluis 14 Day Sensor kit) gabapentin 600 mg tablet 600 mg PO .COMPLEX pain 07/25/22 Unknown History pioglitazone 30 mg tablet 30 mg PO DAILY 07/25/22 Unknown History spironolactone 100 mg tablet 100 mg PO DAILY 07/25/22 Unknown History insulin lispro 100 unit/mL 1 sliding scale dose subcut 07/31/22 Unknown History subcutaneous pen (Humalog KwikPen USEASDIRECTD (U-100) Insulin) cholecalciferol (vitamin D3) 125 125 mcg PO DAILY 08/25/23 03/17/25 History mcg (5,000 unit) capsule diclofenac sodium 1 % topical gel 4 g topical ONCE 08/25/23 Unknown History (Arthritis Pain (diclofenac)) glucagon HCl 1 mg solution for 1 mg subcut Q20M PRN hypoglycemia 08/25/23 Unknown History injection (Glucagon (HCl) Emergency Kit) hydrochlorothiazide 25 mg tablet 25 mg PO DAILY 08/25/23 Unknown History insulin aspart U-100 100 unit/mL 34 unit subcut BID 08/25/23 Unknown History (3 mL) subcutaneous pen insulin glargine 100 unit/mL (3 30 unit subcut DAILY diabetes 08/25/23 Unknown History mL) subcutaneous pen (Lantus Solostar U-100 Insulin) triamcinolone acetonide 0.1 % 1 applic topical BID 08/25/23 Unknown History topical cream tirzepatide 7.5 mg/0.5 mL 7.5 mg subcut QWEEK 02/15/25 03/15/25 History subcutaneous pen injector (Mounjaro) duloxetine 30 mg capsule,delayed 30 mg PO DAILY 03/21/25 Unknown History release trazodone 50 mg tablet 50 mg PO QHS 03/21/25 Unknown History Allergy/AdvReac Type Severity Reaction Status Date / Time lisinopril Allergy Mild feels Verified 03/21/25 10:13 horrible animal dander Allergy Rhinitis Verified 03/21/25 10:13 house dust mite Allergy Rhinitis Verified 03/21/25 10:13 Seasonal Allergies: Uncoded Allergy Sneezing, Verified 03/21/25 10:13 Rhinitis Family History Grandfather Cancer Mother Cancer Diabetes Surgical History Hx of colonoscopy History of tubal ligation Hx laparoscopic cholecystectomy Social History household members: spouse current occupational status: disabled Smoking Status: Former smoker alcohol intake: current details: Social substance use type: does not use caffeine: Yes Type: tea Review of Systems (Anesthesia) ROS Narrative System reviewed and no additional complaints, except as documented. Physical Exam Const alert, oriented x3 and average body habitus Resp normal respiratory effort, normal air movement and clear to auscultation bilaterally Cardio regular rate, regular rhythm, no murmurs and diaphoretic
--- NOTE | 2025-03-22 07:29 | H&P.OPEN ---
HPI - General General Date of Service: 03/22/25 HPI Narrative PAULIE ALFARO, is a 64 F who presents for an EGD and colonoscopy due to history of colon polyps as well as Beach's. Patient is still taking the pantoprazole daily. Denies any other changes since office visit. Office visit 02/15/2025 HPI HPI: 64-year-old female presents to discuss prep for colonoscopy. Patient states that she was planning to do a repeat in 2023 however she drank almost entire prep and then the morning part did start throwing up and did not really have a bowel movement. Patient states she has bowel movement about every other day patient denies any blood. Patient denies any family history of colon cancer. Patient denies any reflux symptoms. Patient's last EGD and colonoscopy did show Beach's as well as she had a couple of tubular adenomas in October 17, 2019. Patient states she has not been on the pantoprazole for about a year. [facility] Medical History (Updated 03/21/25 @ 10:26 by Adrian Aguero) Wears hearing aid Wears glasses Spinal stenosis History of stress test History of echocardiogram Cardiology follow-up encounter Gastric reflux Generalized anxiety disorder Hx of adenomatous polyp of colon Type 2 diabetes mellitus Diabetic peripheral neuropathy Pure hypercholesterolemia Essential hypertension CPAP (continuous positive airway pressure) dependence Pneumonia due to COVID-19 virus Benign essential hypertension Diabetes Hx of blurred vision Gall stone Neuropathy History of back problems Arthritis Allergies Diarrhea HTN (hypertension) No significant past medical history Home Medications ?Medication ?Instructions ?Recorded ?Last Taken ?Type metronidazole 0.75 % topical gel 1 applic topical QHS redness 09/09/19 12/22/21 History mometasone 0.1 % topical cream 1 applic topical DAILY redness 09/09/19 12/22/21 History blood sugar diagnostic (ReliOn #150 ea 04/12/20 Unknown Rx Prime Test Strips) blood-glucose meter (ReliOn Prime #1 ea 04/12/20 Unknown Rx Meter) flash glucose sensor (FreeStyle #2 ea 07/06/20 Unknown Rx Joseluis 14 Day Sensor kit) gabapentin 600 mg tablet 600 mg PO .COMPLEX pain 07/25/22 Unknown History pioglitazone 30 mg tablet 30 mg PO DAILY 07/25/22 Unknown History spironolactone 100 mg tablet 100 mg PO DAILY 07/25/22 Unknown History insulin lispro 100 unit/mL 1 sliding scale dose subcut 07/31/22 Unknown History subcutaneous pen (Humalog KwikPen USEASDIRECTD (U-100) Insulin) cholecalciferol (vitamin D3) 125 125 mcg PO DAILY 08/25/23 03/17/25 History mcg (5,000 unit) capsule diclofenac sodium 1 % topical gel 4 g topical ONCE 08/25/23 Unknown History (Arthritis Pain (diclofenac)) glucagon HCl 1 mg solution for 1 mg subcut Q20M PRN hypoglycemia 08/25/23 Unknown History injection (Glucagon (HCl) Emergency Kit) hydrochlorothiazide 25 mg tablet 25 mg PO DAILY 08/25/23 Unknown History insulin aspart U-100 100 unit/mL 34 unit subcut BID 08/25/23 Unknown History (3 mL) subcutaneous pen insulin glargine 100 unit/mL (3 30 unit subcut DAILY diabetes 08/25/23 Unknown History mL) subcutaneous pen (Lantus Solostar U-100 Insulin) triamcinolone acetonide 0.1 % 1 applic topical BID 08/25/23 Unknown History topical cream tirzepatide 7.5 mg/0.5 mL 7.5 mg subcut QWEEK 02/15/25 03/15/25 History subcutaneous pen injector (Mounjaro) duloxetine 30 mg capsule,delayed 30 mg PO DAILY 03/21/25 Unknown History release trazodone 50 mg tablet 50 mg PO QHS 03/21/25 Unknown History Allergy/AdvReac Type Severity Reaction Status Date / Time lisinopril Allergy Mild feels Verified 03/21/25 10:13 horrible animal dander Allergy Rhinitis Verified 03/21/25 10:13 house dust mite Allergy Rhinitis Verified 03/21/25 10:13 Seasonal Allergies: Uncoded Allergy Sneezing, Verified 03/21/25 10:13 Rhinitis Family History Grandfather Cancer Mother Cancer Diabetes Surgical History Hx of colonoscopy History of tubal ligation Hx laparoscopic cholecystectomy Social History household members: spouse current occupational status: disabled Smoking Status: Former smoker alcohol intake: current details: Social substance use type: does not use caffeine: Yes Type: tea Past Medical/Surgical History Planned Operation Planned Operative Procedure(s): COLONOSCOPY, EGD S.O.S: No Previous Hospitalizations/Surgeries HX Hospitalizations: No HX of Surgeries: gallbladder tubal ligation Any Problems With Anesthesia: Yes (slow to awaken) You/Your Family Experience Fever (Hyperthermia) With Anes: No Cholinesterase deficiency: No Cardiovascular Hx Chest Pain within Last 2 months: No Hx of Irregular Heartbeat and/or Afib: No Hx Heart Attack: No Hx Congestive Heart Failure: No Hx Rheumatic Fever: No Hx Hypertension: Yes Hx Internal Defibrillator: No Hx Pacemaker: No Hx Cardiac Catheterization: No Hx Cardiac Surgery/Stents/Etc.: No Hx Stress Test: Yes (over 5 yrs ago) Hx Pain in Legs when Walking/Leg Cramps: Yes (neuropathy pain) Respiratory Chronic Cough: No HX of Shortness of Breath: Yes (sob with 2 flights of stairs) Hoarseness: No Hx Chronic Obstructive Pulmonary Disease (COPD): No Hx Asthma: No Hx Emphysema: No Hx Sleep Apnea: Yes CPAP: Yes BIPAP: No Hx Respiratory Tract Infection/Cold (presently): Yes Result (for STOP score): Positive Hx Smoking: Yes (quit 30 yrs ago) Smoking Status: Former smoker Gastrointestinal Controlled With Meds: Yes Hx Gastrointestinal Disorders: No Hx Gastrointestinal Bleed: No Hx Ulcer: No Hx Hiatal Hernia: No Difficulty Chewing/Swallowing: No Special diet followed at home: Yes (ada) Hx Unplanned Weight Loss of 20#: No HX Unplanned Weight Gain of 20#: No Neurological Hx Seizures: No HX Syncope/Blackout Spells/Unconsciousness: No Hx Transient Ischemic Attacks (TIA): No Hx Multiple Sclerosis: No Hx Parkinson's Disease: No Hx Head/Neck Injury: No Hx Headaches: Yes (occ) Hx Back Injury/Pain: Yes (chronic lower back pain) Recent Onset of Speech Difficulty: No Restless Legs: No Does patient have nerve stimulator: No Blood Disorder Hx Leukemia: No Bleeding Tendencies: No Hx Deep Vein Thrombosis: No Hx High Cholesterol: No Blood Transmitted Disease: No Hx Hepatitis: No Hx Cirrhosis: No Hx Anemia: Yes (chronic) Hx Blood Disorders: No Reproduction Hx Hysterectomy: No Hx Tubal Ligation: Yes Are You Post Menopause: Yes Genitourinary Hx Renal Disease: No Hx Dialysis: No Musculoskeletal Hx Arthritis: Yes Hx Rheumatoid Arthritis: No Hx Gout: No Recent Onset of an Orthopedic Problem: No Endocrine Hx Diabetes: Yes (insulin) Insulin: Yes Thyroid Disease: No Hx Steroid Therapy: No Psycho/Social Hx Substance Use: No Hx Alcohol Use: No Hx Anxiety: No Hx Depression: No Mental Illness: No Hx Dementia: No Miscellaneous Hx Cancer: No Recent Exposure to Contagious Disease: No Hx of C-Diff: No Any Loose Teeth: No Allergies lisinopril Allergy (Mild, Verified 03/21/25 10:13) feels horrible animal dander Allergy (Verified 03/21/25 10:13) Rhinitis house dust mite Allergy (Verified 03/21/25 10:13) Rhinitis Seasonal Allergies: Uncoded Allergy (Verified 03/21/25 10:13) Sneezing, Rhinitis Discharge After D/C, Where Do you Plan to Go: Return Home From the [facility] History Number of Risk Factors: 4 Vital Signs Vital Signs Vital Signs: 03/22/25 06:43 03/22/25 06:43 03/22/25 07:08 Temperature 97 F L 97 F L Temperature Source Temporal Pulse Rate 84 84 Respiratory Rate 16 16 Respiratory Pattern Normal Blood Pressure 135/84 H 135/84 H Blood Pressure Mean 101 Blood Pressure Source Monitor Blood Pressure Position Sitting Blood Pressure Location Left Arm Pulse Ox 98 98 Oxygen Delivery Method Room Air Room Air Weight Weight: 240 lb 4.862 oz Body Mass Index (BMI) 38.7 Physical Exam Const alert, oriented x3 and no apparent distress HEENT normocephalic and head/scalp atraumatic Resp normal respiratory effort Cardio regular rate GI soft to palpation and non-tender; Negative for non-distended Palpation: Negative for guarding Extremity no clubbing, cyanosis or edema Skin no rashes or lesions noted Neuro CN's II-XII intact bilaterally Psych mental status grossly normal Assessment & Plan Assessment/Plan (1) Hx of colonic polyps: (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
--- NOTE | 2025-03-22 07:30 | EGD_PTH ---
PATIENT: PAULIE ALFARO LOC: EN U#:[id number] AGE/SX: 64/F ROOM: RE03/22/[address]: Dr. Thais San MD : 1960 BED: DIS: 03/22/2025 SPEC #: [id number] RECD: 03/22/25 11:06 STATUS: BERT ERIC #: [id number] PENELOPE: 03/22/25 07:[address]: Thais San DEPT: SURGICAL PATHOLOGY RECD BY: Joe Quinn ENTERED: 03/22/25 13:19 SP TYPE: EGD BIOPSY CHARLES DR: Dr. 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 Antrum, stomach, biopsy: - Chronic gastritis. - IHC negative for H pylori organisms. B. GE junction,esophagus, biopsy: - Squamous mucosa with mild reactive change. - Columnar mucosa with focal goblet cell metaplasia - see note. - Negative for dysplasia. Note: The diagnosis depends on the location of the biopsy and the extent of the mucosal irregularity. If the biopsy originates from the tubular esophagus and the mucosal irregularity extends at least 1 cm above the top of the gastric folds, this represents Beach mucosa. If the biopsy originates from the gastric cardia and/or the mucosal irregularity is less than 1 cm in extent, this represents intestinal metaplasia. C. Ascending colon, polyp, biopsy: - Tubular adenoma. D. Descending colon, polyp x2, biopsy: - Tubular adenoma x1. - Superficial hyperplastic change x1. MICROSCOPIC DESCRIPTION Slides are reviewed. All matched controls reacted appropriately. These tests were developed and their performance characteristics determined by [facility]. They may not have been cleared or approved by the U.S. Food and Drug Administration. The FDA has determined that such clearance or approval is not necessary. The above immunohistochemical/dualISH markers are viewed by the Pathologist. GROSS DESCRIPTION A. Received in fixative is one container labeled with the patient's name and designated Antrum biopsy. The specimen consists of one irregular fragment of light phillip soft tissue that measures 0.4 cm. The specimen is totally submitted in one cassette. B. Received in fixative is one container labeled with the patient's name and designated GE junction biopsy. The specimen consists of one irregular fragment of light phillip soft tissue that measures 0.4 cm. The specimen is totally submitted in one cassette. C. Received in fixative is one container labeled with the patient's name and designated Ascending colon polyp biopsy. The specimen consists of two irregular fragments of light phillip soft tissue, each measuring 0.3 cm. The specimen is totally submitted in one cassette. D. Received in fixative is one container labeled with the patient's name and designated Descending colon polyp biopsy x2. The specimen consists of two irregular fragments of light phillip soft tissue that in aggregate measure 0.3 and 0.4 cm. The specimen is totally submitted in one cassette. Matthew 03/22/2025 CPT:[id number]
--- NOTE | 2025-03-22 08:06 | PCM.POST.ANE ---
Anesthesia: Postop Eval I Current Vital Signs Temperature: 97.3 F Pulse Rate: 73 Blood Pressure: 120/80 Respiratory Rate: 20 Pulse Ox: 100 Assessment Airway patent: Yes Spontaneous unlabored respirations: Yes nausea: No Vomiting: No Anesthesia Complication: No Fluid Hydration Crystalloid volume administer (ml): 300 Total IV fluid infused: 300 Progress Note Anesthesia document: Postop Eval 1 completed: Yes
--- NOTE | 2025-03-22 08:10 | OP.CCLET_ITS ---
03/22/2025 Robin Marion [address] [place] [address] Re : Upper GI endoscopy procedure for Светлана [place] Dear Dr. Marion This procedure was performed on Saturday, March 22, 2025. My impressions and recommendations are as follows: Impressions : - Z-line irregular, 40 cm from the incisors. - [place]-colored mucosa. Biopsied. - Erythematous mucosa in the antrum. Biopsied. - Normal examined duodenum. Recommendations : - Await pathology results. - Repeat upper endoscopy in 3 years for surveillance of Beach's esophagus. - Continue present medications. My findings are described in the full procedure note, which is enclosed. If I can be of further assistance, please feel free to contact me at Doctor phone number(s): , Work: . Sincerely, MD Thais Newberry MD 03/22/2025 8:09:37 AM This report has been signed electronically.
--- NOTE | 2025-03-22 08:10 | OP.EGD_ITS ---
Patient Name: Светлана Garcia Procedure Date: 03/22/2025 7:33 AM Date of : 1960 Age: 64 Procedure: Upper GI endoscopy Indications: Surveillance for malignancy due to personal history of Becah's esophagus Providers: Thais San MD Referring MD: Robin Marion Medicines: Monitored Anesthesia Care Patient Profile: This is a 64 year old female. Complications: No immediate complications. Procedure: Pre-Anesthesia Assessment: - Prior to the procedure, a History and Physical was performed, and patient medications and allergies were reviewed. The patient's tolerance of previous anesthesia was also reviewed. The risks and benefits of the procedure and the sedation options and risks were discussed with the patient. All questions were answered, and informed consent was obtained. Prior Anticoagulants: The patient has taken no anticoagulant or antiplatelet agents. ASA Grade Assessment: Per anesthesia. After reviewing the risks and benefits, the patient was deemed in satisfactory condition to undergo the procedure. After obtaining informed consent, the endoscope was passed under direct vision. Throughout the procedure, the patient's blood pressure, pulse, and oxygen saturations were monitored continuously. The Colonoscope was introduced through the mouth, and advanced to the second part of duodenum. The upper GI endoscopy was accomplished without difficulty. The patient tolerated the procedure well. Scope In: 7:41:30 AM Scope Out: 7:45:10 AM Total Procedure Duration Time 0 hours 3 minutes 40 seconds Findings: The Z-line was irregular and was found 40 cm from the incisors. One tongue of salmon-colored mucosa was present from 39 to 40 cm. [Length of Suspected Beach's]. Biopsies were taken with a cold forceps for histology. Mildly erythematous mucosa without bleeding was found in the gastric antrum. Biopsies were taken with a cold forceps for histology. Biopsies were taken with a cold forceps for Helicobacter pylori cultures. The cardia and gastric fundus were normal on retroflexion. The examined duodenum was normal. Impression: - Z-line irregular, 40 cm from the incisors. - [place]-colored mucosa. Biopsied. - Erythematous mucosa in the antrum. Biopsied. - Normal examined duodenum. Recommendation: - Await pathology results. - Repeat upper endoscopy in 3 years for surveillance of Beach's esophagus. - Continue present medications. Procedure Code(s): --- Professional --- 93483, PT, Esophagogastroduodenoscopy, flexible, transoral; with biopsy, single or multiple Diagnosis Code(s): --- Professional --- K22.89, Other specified disease of esophagus K22.70, Beach's esophagus without dysplasia K31.89, Other diseases of stomach and duodenum CPT copyright 2021 [employer]. All rights reserved. The codes documented in this report are preliminary and upon inpatient coder review may be revised to meet current compliance requirements. MD Thais Newberry MD 03/22/2025 8:09:37 AM This report has been signed electronically. Number of Addenda: 0 Note Initiated On: 03/22/2025 7:33 AM
--- NOTE | 2025-03-22 08:13 | OP.CCLET_ITS ---
03/22/2025 Robin Marion [address] [place] [address] Re : Colonoscopy procedure for Светлана [place] Dear Dr. Marion This procedure was performed on Saturday, March 22, 2025. My impressions and recommendations are as follows: Impressions : - Three less than 5 mm polyps in the descending colon and in the ascending colon, removed with a cold biopsy forceps. Resected and retrieved. - The examination was otherwise normal on direct and retroflexion views. Recommendations : - Discharge patient to home. - Resume previous diet. - Continue present medications. - Await pathology results. - Repeat colonoscopy in 3 - 5 years for surveillance based on pathology results. My findings are described in the full procedure note, which is enclosed. If I can be of further assistance, please feel free to contact me at Doctor phone number(s): , Work: . Sincerely, MD Thais Newberry MD 03/22/2025 8:12:56 AM This report has been signed electronically.
--- NOTE | 2025-03-22 08:13 | OP.COLON_ITS ---
Patient Name: Светлана Garcia Procedure Date: 03/22/2025 7:45 AM Date of : 1960 Age: 64 Procedure: Colonoscopy Indications: High risk colon cancer surveillance: Personal history of colonic polyps Providers: Thais San MD Referring MD: Robin Marion Medicines: Monitored Anesthesia Care Patient Profile: This is a 64 year old female. Last Colonoscopy: 2019. Complications: No immediate complications. Procedure: Pre-Anesthesia Assessment: - Prior to the procedure, a History and Physical was performed, and patient medications and allergies were reviewed. The patient's tolerance of previous anesthesia was also reviewed. The risks and benefits of the procedure and the sedation options and risks were discussed with the patient. All questions were answered, and informed consent was obtained. Prior Anticoagulants: The patient has taken no anticoagulant or antiplatelet agents. ASA Grade Assessment: Per anesthesia. After reviewing the risks and benefits, the patient was deemed in satisfactory condition to undergo the procedure. After I obtained informed consent, the scope was passed under direct vision. Throughout the procedure, the patient's blood pressure, pulse, and oxygen saturations were monitored continuously. The Colonoscope was introduced through the anus and advanced to the cecum, identified by the appendiceal orifice, ileocecal valve and palpation. Scope In: 7:46:26 AM Scope Withdrawal Time 0 hours 9 minutes 33 seconds Scope Out: 8:01:17 AM Total Procedure Duration Time 0 hours 14 minutes 51 seconds Findings: The perianal and digital rectal examinations were normal. [Pertinent Negatives]. Three sessile polyps were found in the descending colon and ascending colon. The polyps were less than 5 mm in size. These polyps were removed with a cold biopsy forceps. Resection and retrieval were complete. The exam was otherwise without abnormality on direct and retroflexion views. Impression: - Three less than 5 mm polyps in the descending colon and in the ascending colon, removed with a cold biopsy forceps. Resected and retrieved. - The examination was otherwise normal on direct and retroflexion views. Recommendation: - Discharge patient to home. - Resume previous diet. - Continue present medications. - Await pathology results. - Repeat colonoscopy in 3 - 5 years for surveillance based on pathology results. Procedure Code(s): --- Professional --- 83515, PT, Colonoscopy, flexible; with biopsy, single or multiple Diagnosis Code(s): --- Professional --- Z86.010, Personal history of colonic polyps D12.4, Benign neoplasm of descending colon D12.2, Benign neoplasm of ascending colon CPT copyright 2021 [employer]. All rights reserved. The codes documented in this report are preliminary and upon glass unloading equipment tender review may be revised to meet current compliance requirements. MD Thais Newberry MD 03/22/2025 8:12:56 AM This report has been signed electronically. Number of Addenda: 0 Note Initiated On: 03/22/2025 7:45 AM
--- NOTE | 2025-03-22 08:32 | POSTOPAN2_ITS ---
Anesthesia Postop Eval I Sum Postop Eval Completion status Anesthesia document: Postop Eval 1 completed: Yes Anesthesia Postop Eval I Summary Anesthesia Postop Eval I Summary: Anesthesia Postop Eval I: Assessment Summary Airway patent Yes 03/22/25 08:06 SATELLITE INSTRUCTION FACILITATOR.CSIR Spontaneous unlabored Yes 03/22/25 08:06 SATELLITE INSTRUCTION FACILITATOR.CSIR respirations Mental status nausea No 03/22/25 08:06 SATELLITE INSTRUCTION FACILITATOR.CSIR Vomiting No 03/22/25 08:06 SATELLITE INSTRUCTION FACILITATOR.CSIR Anesthesia Postop Eval I: Fluid Summary Crystalloid volume administer 300 03/22/25 08:06 SATELLITE INSTRUCTION FACILITATOR.CSIR (ml) Colloids volume administered ( ml) Blood Product volume administered (ml) Total IV fluid infused 300 03/22/25 08:06 SATELLITE INSTRUCTION FACILITATOR.CSIR Anesthesia Postop Eval I: Summary Notes Anesthesia Complication No 03/22/25 08:06 SATELLITE INSTRUCTION FACILITATOR.CSIR Anesthesia Complication Comment: Post-operative progress note Anesthesia: Postop Eval II Evaluation Mental status: Awake Pain Level: 0 nausea: No Vomiting: No Complications Anesthesia Complication: No
--- NOTE | 2025-03-22 08:32 | PCM.POSTANE2 ---
Anesthesia Postop Eval I Sum Postop Eval Completion status Anesthesia document: Postop Eval 1 completed: Yes Anesthesia Postop Eval I Summary Anesthesia Postop Eval I Summary: Anesthesia Postop Eval I: Assessment Summary Airway patent Yes 03/22/25 08:06 CIGARETTE MAKING MACHINE HOPPER FEEDER.CSIR Spontaneous unlabored Yes 03/22/25 08:06 CIGARETTE MAKING MACHINE HOPPER FEEDER.CSIR respirations Mental status nausea No 03/22/25 08:06 CIGARETTE MAKING MACHINE HOPPER FEEDER.CSIR Vomiting No 03/22/25 08:06 CIGARETTE MAKING MACHINE HOPPER FEEDER.CSIR Anesthesia Postop Eval I: Fluid Summary Crystalloid volume administer 300 03/22/25 08:06 CIGARETTE MAKING MACHINE HOPPER FEEDER.CSIR (ml) Colloids volume administered ( ml) Blood Product volume administered (ml) Total IV fluid infused 300 03/22/25 08:06 CIGARETTE MAKING MACHINE HOPPER FEEDER.CSIR Anesthesia Postop Eval I: Summary Notes Anesthesia Complication No 03/22/25 08:06 CIGARETTE MAKING MACHINE HOPPER FEEDER.CSIR Anesthesia Complication Comment: Post-operative progress note Anesthesia: Postop Eval II Evaluation Mental status: Awake Pain Level: 0 nausea: No Vomiting: No Complications Anesthesia Complication: No
== END 2025-03-22 08:39 | disposition home or self-care (01) ==
LOC: EN 05:54 → AC 05:55
PROVIDERS: PCP Family Medicine; Referring Provider Family Medicine; Visit Provider Surgery
PROC: 0DJD8ZZ Inspection of Lower Intestinal Tract, Via Natural or Artificial Opening Endoscopic (ICD-10-PCS; CPT 45378; principal; 2025-03-22 07:25)
DX: Z12.11 Encounter for screening for malignant neoplasm of colon (principal); E11.42 Type 2 diabetes mellitus with diabetic polyneuropathy; Z79.4 Long term (current) use of insulin; E78.00 Pure hypercholesterolemia, unspecified; I10 Essential (primary) hypertension; Z86.0100 Personal history of colon polyps, unspecified; Z87.891 Personal history of nicotine dependence; K22.70 Barrett's esophagus without dysplasia; Z79.899 Other long term (current) drug therapy; K21.9 Gastro-esophageal reflux disease without esophagitis; Z79.85 Long-term (current) use of injectable non-insulin antidiabetic drugs; K29.50 Unspecified chronic gastritis without bleeding
CPT/HCPCS: 43239; 45380; 88305; 88342; J2405

== ENCOUNTER → 2025-03-28 | Outpatient (CLI) | payer MEDICARE, MEDICAID, SELFPAY ==
[2025-04-03 16:08] LABS: HPV APTIMA, High Risk Negative (Negative)
== END | disposition home or self-care (01) ==
PROVIDERS: PCP Family Medicine
DX: Z12.4 Encounter for screening for malignant neoplasm of cervix (principal)
CPT/HCPCS: 88175; G0145

== ENCOUNTER → 2025-04-07 | Outpatient (CLI) | payer MEDICARE, SELFPAY ==
--- NOTE | 2025-04-07 13:25 | CT_ITS ---
PROCEDURE: SPINE CERVICAL WITHOUT CONTRAS 04/07/2025 REASON FOR EXAM: PAIN, RADICULOPATHY Right arm numbness and tingling. TECHNIQUE: SPINE CERVICAL WITHOUT CONTRAS Coronal and Sagittal reconstruction series were provided. CONTRAST: None One or more dose reduction techniques were used (e.g., Automated exposure control, adjustment of the mA and/or kV according to patient size, use of iterative reconstruction technique. RADIATION DOSE SUMMARY: CTDlvol: 23.09 mGy DLP: 491.64 mGycm COMPARISON: Prior radiographs dated March 17, 2025. FINDINGS: Alignment: Loss of the normal cervical lordosis. Vertebrae: Multilevel spondylosis Soft Tissues: Unremarkable Other: C1-2: Unremarkable C2-3: Unremarkable C3-4: Anterior spondylosis. Facet joint osteoarthritis and hypertrophy. This is worse on the right side. No significant stenosis seen. C4-5: Moderate degree of disc space narrowing and spondylosis. Uncovertebral arthrosis. Mild degree of right lateral neural foraminal stenosis. C5-6: Moderate degree of disc space narrowing. Spondylosis. Uncovertebral arthrosis. Moderate degree of right neural foraminal stenosis. C6-7: Moderate degree of disc space narrowing. No significant stenosis seen. C7-T1: Moderate degree of disc space narrowing. CT/Spine Cervical without Contras IMPRESSION: Multilevel degenerative changes with a right neural foraminal stenosis at the C 5-C6 level on the right side. Reading Location: [place] [address]
== END | disposition home or self-care (01) ==
LOC: CT 13:11
PROVIDERS: PCP Family Medicine; Referring Provider Student in an Organized Health Care Education/Training Program; Visit Provider Student in an Organized Health Care Education/Training Program
DX: M54.12 Radiculopathy, cervical region (principal); M48.02 Spinal stenosis, cervical region
CPT/HCPCS: 72125

== ENCOUNTER → 2025-05-16 | Outpatient (CLI) | payer MEDICARE, MEDICAID, SELFPAY ==
--- NOTE | 2025-05-16 13:04 | ECHOD_ITS ---
Reason For Study : DYSPNEA Procedure This was a 2D Doppler, Color Flow transthoracic echocardiogram. Exam performed in department. Left Ventricle Normal LV size. Left ventricular systolic function is normal. The left ventricular ejection fraction is 65 %. Stage 1 diastolic dysfunction. Right Ventricle Normal RV size. Normal systolic function. Atria Normal left atrium. Normal right atrium. Bubble contrast study is positive for PFO. Mitral Valve Normal mitral valve. Tricuspid Valve Normal tricuspid valve. Mild (1+) tricuspid valve insufficiency. Pulmonary artery systolic pressure is 32 mmHg. Aortic Valve Trisinus/trileaflet aortic valve. Pulmonic Valve Normal pulmonic valve. Great Vessels Normal aortic root. The pulmonary artery is normal size. Inferior vena cava collapse with respiration. Pericardium/Pleural No pericardial effusion. Medication 22 gauge I.V. with prn adaptor inserted into right arm. Performed a rapid injection of agitated mix of 9 cc saline and 1cc air to assess for atrial septal defect. MMode/2D Measurements & Calculations LVIDd: 4.3 cm IVSd: 1.4 cm LVOT diam: 2.2 cm LVIDs: 2.4 cm LVPWd: 1.1 cm RVDd: 3.4 cm FS: 43.9 % LVOT area: 4.0 cm2 asc Aorta Diam: 3.2 cm LAV(MOD-bp): 42.1 ml LVAd ap4: 21.0 cm2 LAV(MOD-bp) Indexed: 19.5 ml/m2 LVLd ap4: 7.3 cm LAV(MOD-sp2): 43.5 ml EDV(MOD-sp4): 51.2 ml LAV(MOD-sp4): 38.8 ml EDV(sp4-el): 51.3 ml LVAs ap4: 10.9 cm2 LVLs ap4: 5.9 cm ESV(MOD-sp4): 18.2 ml ESV(sp4-el): 17.0 ml EF(MOD-sp4): 64.5 % EF(sp4-el): 66.9 % LVAd ap2: 20.0 cm2 SV(MOD-sp4): 33.0 ml SV(MOD-sp2): 27.7 ml LVLd ap2: 7.1 cm SI(MOD-sp4): 15.3 ml/m2 SI(MOD-sp2): 12.8 ml/m2 EDV(MOD-sp2): 46.4 ml EDV(sp2-el): 47.4 ml LVAs ap2: 11.4 cm2 LVLs ap2: 6.3 cm ESV(MOD-sp2): 18.7 ml ESV(sp2-el): 17.5 ml EF(MOD-sp2): 59.8 % SV(sp4-el): 34.3 ml Ao sinus diam: 3.[address] Junction: 2.8 cm LA dimension(2D): 3.3 cm LA A4 area: 15.5 cm2 RA A4 area: 12.1 cm2 TAPSE: 1.4 cm Time Measurements MV dec time: 0.19 sec Doppler Measurements & Calculations MV E max renato: 57.2 cm/sec Lat Peak E' Renato: 9.7 cm/sec Med Peak E' Renato: 6.5 cm/sec MV A max renato: 76.1 cm/sec E/E' lat: 5.9 E/E' med: 8.8 MV E/A: 0.75 MV dec slope: 307.4 cm/sec2 Ao V2 max: 120.8 cm/sec LV V1 max: 94.8 cm/sec Ao max P.8 mmHg LV V1 max P.6 mmHg Ao V2 mean: 83.9 cm/sec LV V1 mean P.1 mmHg Ao mean P.2 mmHg LV V1 mean: 67.6 cm/sec Ao V2 VTI: 26.6 cm LV V1 VTI: 21.6 cm AV (velocity ratio): 0.81 MAXIM(I,D): 3.2 cm2 MAXIM(V,D): 3.1 cm2 SV(LVOT): 85.7 ml PA V2 max: 66.7 cm/sec TR max renato: 260.9 cm/sec TR max P.2 mmHg ECHO/Echo Complete Interpretation Summary Normal LV size. Left ventricular systolic function is normal. The left ventricular ejection fraction is 65 %. Stage 1 diastolic dysfunction. Bubble contrast study is positive for PFO. Ordering Physician: Rony Garcia V Referring Physician: Robin Marion MD Performed By: Joseline Earl RDCS
== END | disposition home or self-care (01) ==
LOC: CVS 12:40
PROVIDERS: PCP Family Medicine; Referring Provider Internal Medicine Pulmonary Disease; Visit Provider Internal Medicine Pulmonary Disease
DX: R06.00 Dyspnea, unspecified (principal)
CPT/HCPCS: 93306; A4216

== ENCOUNTER → 2025-05-30 | Outpatient (CLI) | payer MEDICARE, MEDICAID, SELFPAY ==
--- NOTE | 2025-05-30 16:34 | RAD_ITS ---
PROCEDURE: WRIST MIN 3 VIEWS 05/30/2025 REASON FOR EXAM: PAIN RADIALLY, LEFT TECHNIQUE: Procedure Code: RADWR Modality: DX Procedure: WRIST MIN 3 VIEWS Laterality: Left wrist COMPARISON: None FINDINGS: Bones: Avulsion fracture of the triquetrum. The navicular bone is unremarkable. Joints: Normal alignment. Soft tissues: Dorsal soft tissue swelling. Other: RAD/Wrist min 3 Views IMPRESSION: Avulsion fracture of the triquetrum. Dorsal soft tissue swelling. [facility]
== END | disposition home or self-care (01) ==
LOC: MTRAD 16:34
PROVIDERS: PCP Family Medicine; Referring Provider Family Medicine; Visit Provider Family Medicine
DX: S63.502A Unspecified sprain of left wrist, initial encounter (principal); W19.XXXA Unspecified fall, initial encounter
CPT/HCPCS: 73110

== ENCOUNTER → 2025-06-27 | Outpatient (CLI) | payer MEDICARE, MEDICAID, SELFPAY ==
[2025-06-27 15:39] LABS: Hematocrit 43.0 % (37-47); Hemoglobin 13.9 g/dL (12.0-15.0); Immature Granulocytes Count 0.010 X10^3/uL (0.0-0.0); Mean Corp Hgb Conc 32.3 g/dL (32-36); Mean Corpuscular Volume 92.3 fL (81-99); Mean Platelet Vol. 10.9 fl (6.2-12.0); NRBC Flagged by Analyzer 0 % (0-5); Platelet Count 231 K/mm3 (150-450); RBC Distribution Width CV 13.7 % (11.6-14.6); RBC Distribution Width SD 46.0 fl (35.1-43.9); Red Blood Count 4.66 M/mm3 (4.2-5.4); White Blood Count 4.7 K/mm3 (4.4-11.0)
[2025-06-27 16:34] LABS: Creatinine, Urine (random) 213.00 mg/dL (28.00-217.00); Microalbumin,Random Urine 19.9 mg/L (<20 mg/L)
[2025-06-27 17:02] LABS: AST(SGOT) 13 U/L (<=31); Alanine Aminotransfer ALT/SGPT 12 U/L (<=34); Albumin, Serum 4.2 g/dL (3.4-4.8); Alkaline Phosphatase 85 U/L (35-104); Anion Gap 12 (5-15); BUN 13 mg/dL (4-19); BUN/Creat Ratio 14.3 RATIO (10-20); Calcium,Total 9.5 mg/dL (7.6-11.0); Carbon Dioxide 27.1 mmol/L (21.0-32.0); Chloride 103 mmol/L (98-108); Cholesterol 309 mg/dL (<=200); Globulin 2.8 g/dL (2.2-4.2); Glucose 75 mg/dL (70-99); Low Density Lipoprotein Calc. 193 mg/dL; Potassium 3.8 mmol/L (3.3-5.1); Triglycerides 285 mg/dL; Very Low Density Lipoprotein 57 mg/dL (5-40); cholesterol:hdl ratio screen 5.27
== END | disposition home or self-care (01) ==
LOC: MTLAB 13:24
PROVIDERS: PCP Family Medicine; Referring Provider Nurse Practitioner Family; Visit Provider Nurse Practitioner Family
DX: N30.00 Acute cystitis without hematuria (principal); E11.8 Type 2 diabetes mellitus with unspecified complications
CPT/HCPCS: 36415; 80053; 80061; 82043; 82570; 83036; 85025; 87077; 87086; 87088

== ENCOUNTER → 2025-06-28 | Outpatient (CLI) | payer MEDICARE, MEDICAID, SELFPAY ==
[2025-06-28 20:46] LABS: Magnesium 2.1 mg/dL (1.5-2.2)
== END | disposition home or self-care (01) ==
LOC: SDC 11-07 11:41
PROVIDERS: PCP Family Medicine; Visit Provider Orthopaedic Surgery Orthopaedic Surgery of the Spine
DX: Z01.818 Encounter for other preprocedural examination (principal)
CPT/HCPCS: 83735

== ENCOUNTER → 2025-07-06 | Outpatient (CLI) | payer MEDICARE, MEDICAID, SELFPAY | END | disposition home or self-care (01) | LOC: MTRAD 09:23 | PROVIDERS: PCP Family Medicine; Referring Provider Family Medicine; Visit Provider Family Medicine | DX: S63.502A Unspecified sprain of left wrist, initial encounter (principal) | CPT/HCPCS: 73110 ==

== ENCOUNTER → 2025-08-14 | Outpatient (CLI) | payer MEDICARE, MEDICAID, SELFPAY ==
[2025-08-14 17:34] LABS: Hematocrit 43.1 % (37-47); Hemoglobin 13.9 g/dL (12.0-15.0); Immature Granulocytes Count 0.010 X10^3/uL (0.0-0.0); Mean Corp Hgb Conc 32.3 g/dL (32-36); Mean Corpuscular Volume 93.5 fL (81-99); Mean Platelet Vol. 11.1 fl (6.2-12.0); NRBC Flagged by Analyzer 0 % (0-5); Platelet Count 242 K/mm3 (150-450); RBC Distribution Width CV 13.2 % (11.6-14.6); RBC Distribution Width SD 45.4 fl (35.1-43.9); Red Blood Count 4.61 M/mm3 (4.2-5.4); White Blood Count 5.3 K/mm3 (4.4-11.0)
[2025-08-14 18:15] LABS: AST(SGOT) 17 U/L (<=31); Alanine Aminotransfer ALT/SGPT 18 U/L (<=34); Albumin, Serum 4.2 g/dL (3.4-4.8); Alkaline Phosphatase 79 U/L (35-104); Anion Gap 12 (5-15); BUN 16 mg/dL (4-19); BUN/Creat Ratio 14.6 RATIO (10-20); Calcium,Total 9.5 mg/dL (7.6-11.0); Carbon Dioxide 26.6 mmol/L (21.0-32.0); Chloride 104 mmol/L (98-108); Cholesterol 293 mg/dL (<=200); Globulin 2.8 g/dL (2.2-4.2); Glucose 61 mg/dL (70-99); Low Density Lipoprotein Calc. 193 mg/dL; Potassium 3.4 mmol/L (3.3-5.1); Triglycerides 241 mg/dL; Very Low Density Lipoprotein 48 mg/dL (5-40); cholesterol:hdl ratio screen 5.53
== END | disposition home or self-care (01) ==
LOC: MFPLAB 15:56
PROVIDERS: PCP Family Medicine; Visit Provider Family Medicine
DX: E11.8 Type 2 diabetes mellitus with unspecified complications (principal); E78.5 Hyperlipidemia, unspecified
CPT/HCPCS: 36415; 80053; 80061; 85025